=== PATIENT | male | born 1960 | race Caucasian/White ===

== ENCOUNTER 2021-03-03 15:05 | Emergency (ER) | payer MEDICARE, OTHER, SELFPAY ==
--- NOTE | 2021-03-03 | ECG_ITS ---
Test Reason : CHEST PAIN Blood Pressure : / mmHG Vent. Rate : 109 BPM Atrial Rate : 109 BPM P-R Int : 156 ms QRS Dur : 106 ms QT Int : 340 ms P-R-T Axes : 051 -67 058 degrees QTc Int : 457 ms Sinus tachycardia Left anterior fascicular block Anteroseptal infarct (cited on or before 02-AUG-2014) Inferolateral injury pattern ACUTE CT / STEMI Abnormal ECG When compared with ECG of 02-AUG-2014 20:24, Questionable change in initial forces of Septal leads ST elevation now present in Anterolateral leads Referred By: Generic ED Physician Electronically Signed By:ANH JACKSON
[2021-03-03 15:22] VITALS: BP 132/82; PULSE 111; RESP 13; TEMP 37.1; O2SAT 96; BMI 29.7
--- NOTE | 2021-03-03 15:25 | ED.CHESTPAIN ---
HPI - Chest Pain General Stated Complaint: cp Time Seen by Provider: 03/03/21 15:20 Source: patient Mode of arrival: ambulatory Limitations: no limitations History of Present Illness HPI narrative: patient is not vaccinated MD complaint: chest pain Onset (ago): day(s) (yesterday afternoon) Timing of current episode: constant Prior episodes: No Onset: during rest Pain location: left chest Pain radiation: left arm and neck Severity: severe Quality: other (pressure) Relieving factors: nothing Exacerbating factors: exertion Associated symptoms: nausea and dyspnea Treatment prior to arrival: none Related Data Previous Rx's Medication Instructions Recorded atorvastatin 40 mg tablet 40 mg PO BEDTIME 90 Days #90 tab 07/26/20 lisinopril 20 mg tablet 20 mg PO DAILY #30 tab 01/26/21 montelukast 10 mg tablet 10 mg PO DAILY #30 tab 01/26/21 metformin 1,000 mg tablet 1,000 mg PO DAILY 90 Days #90 tab 01/29/21 metoprolol succinate 25 mg 25 mg PO DAILY 90 Days #90 tab 01/29/21 tablet,extended release 24 hr omeprazole 20 mg capsule,delayed 20 mg PO DAILY 90 Days #90 cap 01/29/21 release gabapentin 100 mg capsule 100 mg PO TID #90 cap 02/19/21 Allergies Allergy/AdvReac Type Severity Reaction Status Date / Time No Known Allergies Allergy Unverified 03/14/20 15:20 Review of Systems Review of Systems: Constitutional : No Weight loss, No Fever, No Chills ENT/Mouth : No sore throat, No Rhinorrhea Eyes: No Eye Pain, No Swelling Cardiovascular : pos Chest Pain, pos SOB, no Dyspnea on Exertion, No Orthopnea, No Edema, No Palpitations Respiratory : No Cough, No Sputum Gastrointestinal : pos Nausea, No Vomiting, No Diarrhea, No abdominal Pain, No Hematochezia, No Melena Genitourinary : No Dysuria, No Urinary Frequency Musculoskeletal : No joint pain, No Myalgias, No Joint Swelling Skin : No Skin Lesions, No rash Neuro : No Weakness, No Numbness, No Dizziness, No Headache Psych : No Anxiety/Panic, No Depression Heme/Lymph: No Bruising, No Lymphadenopathy Endocrine : No Polyuria, No Polydipsia All other systems reviewed and are negative PMFSH Past Medical History Attestation statement: The following information was validated with the patient. Medical History Diabetes Essential (primary) hypertension HLD (hyperlipidemia) Unspecified asthma, uncomplicated Social History Social History (Updated 03/03/21 @ 15:34 by Marcelina Shook DO) Patient Tobacco Use Status: Former Tobacco user Advance Directives: No Advance Directives Information Provided: No Physical Exam Vital Signs: Appearance: Alert. Oriented X3. Anxious mild acute distress in pain. Eyes: Pupils equal, round and reactive to light. ENT: Pharynx normal. Neck: Normal inspection. Neck supple. CVS: Normal heart rate and rhythm. Pulses normal. Respiratory: No respiratory distress. Breath sounds normal. Abdomen: Soft and non-tender. Equal femoral pulses Skin: Skin warm and dry. pale skin color. Normal skin turgor. Extremities: No lower extremity edema. No calf ttp Neuro: Oriented X 3. No motor deficit. No sensory deficit. Course Course Course Narrative: call to [facility] cardiology 323pm call back from Dr. Yarbrough - transfer to ED then cathode builder MDM - Chest Pain MDM Narrative Medical decision making narrative: 60 yo male with HTN, HLD, DM no prior RI or cath in the past worsening chest pain since yesterday anterolateral STEMI on EKG - statins, aspirin, heparin bolus, brilinta, stat page to [facility] PRN pain medications ECG Data ECG #1: Attestation: I personally reviewed and interpreted this ECG as follows: ECG interpretation date: 03/03/21 ECG interpretation time: 15:29 Ischemic changes: acute STEMI Interpretation: Rate: 109 Rhythm: sinus tachycardia [place]: left Normal P waves. Normal MACK. Normal QRS complex. ST T wave : OUMOU anterior and lateral leads, inverted aVR qTC: normal prior studies: not reviewed The study has been interpreted contemporaneously by me. . Critical Care Time Critical Care Time Critical Care Time: Yes Total Critical Care Time: 15 Attestation: stat stemi transfer, medical consult I attest to this time spent taking care of the patient Discharge Plan Discharge Clinical Impression: Chest pain, ST elevation (STEMI) myocardial infarction Patient Disposition: Xfer Acute Care Hospital Transfer Details: [facility] Prescriptions: No Action atorvastatin 40 mg tablet 40 mg PO BEDTIME 90 Days Qty: 90 RF: 2 montelukast 10 mg tablet 10 mg PO DAILY Qty: 30 RF: 2 lisinopril 20 mg tablet 20 mg PO DAILY Qty: 30 RF: 2 omeprazole 20 mg capsule,delayed release(DR/EC) 20 mg PO DAILY 90 Days Qty: 90 RF: 1 metformin 1,000 mg tablet 1,000 mg PO DAILY 90 Days Qty: 90 RF: 1 metoprolol succinate 25 mg tablet extended release 24 hr 25 mg PO DAILY 90 Days Qty: 90 RF: 1 gabapentin 100 mg capsule 100 mg PO TID Qty: 90 RF: 2
[2021-03-03] MEDS: Heparin Sodium,Porcine 5,000 UNIT/ML VIAL 4000 UNIT IVPUSH (15:27)
[2021-03-03] MEDS: Ticagrelor 90 MG TABLET 180 MG PO (15:27)
[2021-03-03] MEDS: Atorvastatin Calcium 80 MG TABLET PO (15:27)
[2021-03-03] MEDS: Aspirin 81 MG TAB.CHEW 324 MG PO (15:28)
[2021-03-03] MEDS: ondansetron HCL 4 MG/2 ML VIAL IVPUSH (15:32)
[2021-03-03] MEDS: fentaNYL citrate/PF 100 MCG/2 ML VIAL 50 MCG IVPUSH (15:33)
[2021-03-03 15:34] VITALS: BMI 25.9
[2021-03-03 15:35] LABS: MANUAL DIFF FLAG NO
[2021-03-03 15:36] LABS: Basophils Percent Auto 0.2 % (0-2); Eosinophils Absolute Auto 0.1 X10*3/uL (0.0-0.4); Eosinophils Percent Auto 0.4 % (0-4); Hematocrit 36.3 % (42-52); Hemoglobin 12.5 g/dl (14.0-18.0); Imm Gran Abs Auto 0.04 X10*3/uL (0.00-0.03); Imm Gran Pct Auto 0.3 % (0.0-0.4); Lymphocytes Absolute Auto 1.7 X10*3/uL (1.2-4.9); Lymphocytes Percent Auto 14.1 % (20-40); Mean Corpuscular HGB Conc 34.4 g/dl (31.0-36.0); Mean Corpuscular Volume 90.1 fL (80-98); Mean Platelet Volume 9.5 fL (9.4-12.4); Monocytes Absolute Auto 1.2 X10*3/uL (0.1-1.2); Monocytes Percent Auto 9.9 % (2-11); Neutrophils Absolute Auto 9.2 X10*3/uL (2.0-8.3); Neutrophils Percent Auto 75.1 % (45-73); Platelet Count 266 X10*3/uL (160-400); Red Blood Count 4.03 X10*6/uL (4.60-5.80); Red Cell Distribution Width 12.9 % (11.0-16.0); White Blood Count 12.2 X10*3/uL (4.8-10.8)
[2021-03-03 15:41] LABS: INTERNATIONAL NORM RATIO 1.1 (0.9-1.1); Prothrombin Time 12.5 SEC (9.9-13.0)
[2021-03-03 15:44] LABS: Partial Thromboplastin Time 34.6 SEC (24.1-38.0)
[2021-03-03 15:51] LABS: Alanine Aminotransferase 23 U/L (0-40); Albumin Level 3.9 g/dL (3.5-5.0); Alkaline Phosphatase 78 U/L (39-117); Anion Gap 14 (12-20); Aspartate Amino Transferase 44 U/L (5-37); Bilirubin Direct 0.3 mg/dL (0.0-0.5); Bilirubin Total 0.9 mg/dL (0.0-1.0); Blood Urea Nitrogen 11 mg/dL (9-16); Calcium 9.3 mg/dL (8.4-10.2); Carbon Dioxide 25 mmol/L (22-29); Chloride 101 mmol/L (96-108); Creatinine Clr Calc Pharmacy 62.8; Estimated Glomerular Filt Rate > 60; Glucose Random 289 mg/dL (60-115); Magnesium 1.7 mg/dL (1.6-2.6); Potassium 4.4 mmol/L (3.3-5.1); Sodium 136 mmol/L (135-145); Total Protein 6.7 g/dL (6.5-8.0)
[2021-03-03 15:51] LABS: Glucose, Whole Blood 271 mg/dL (60-115)
[2021-03-03 15:55] LABS: COVID-19 Test Negative (Negative)
--- NOTE | 2021-03-03 15:58 | PC.NURSE ---
CALLED [facility] TO GIVE NURSE TO NURSE REPORT ON PATIENT. AFTER HOLDING FOR 4 MINUTES CERTIFIED PHLEBOTOMY TECHNICIAN ASKED FOR THIS NURSES CONTACT NUMBER TO HAVE A NURSE CALL BACK. AWAITING CALLBACK AT THIS TIME.
== END 2021-03-03 16:00 | disposition short-term general hospital (02) ==
PROVIDERS: Emergency Provider Emergency Medicine; PCP Nurse Practitioner Family
DX: I21.09 ST elevation (STEMI) myocardial infarction involving other coronary artery of anterior wall (principal); R07.9 Chest pain, unspecified; R11.0 Nausea; R06.02 Shortness of breath; Z20.822 Contact with and (suspected) exposure to COVID-19; I10 Essential (primary) hypertension; E11.9 Type 2 diabetes mellitus without complications; E78.5 Hyperlipidemia, unspecified; Z79.02 Long term (current) use of antithrombotics/antiplatelets; Z79.899 Other long term (current) drug therapy; Z87.891 Personal history of nicotine dependence
CPT/HCPCS: 36415; 80048; 80076; 82947; 83735; 84484; 85025; 85610; 85730; 87635; 93005; 96374; 96375; 99285; J2405; J3010

== ENCOUNTER 2021-05-13 09:21 | Emergency (ER) | payer MEDICARE, OTHER, SELFPAY ==
--- NOTE | 2021-05-13 | ECG_ITS ---
Test Reason : cp Blood Pressure : / mmHG Vent. Rate : 109 BPM Atrial Rate : 109 BPM P-R Int : 166 ms QRS Dur : 110 ms QT Int : 344 ms P-R-T Axes : 047 -70 072 degrees QTc Int : 463 ms Sinus tachycardia Left anterior fascicular block Intra-ventricular conduction delay Minimal voltage criteria for LVH, may be normal variant ( [place] product ) Anteroseptal infarct (cited on or before 02-AUG-2014) ST elevation in Anterior leads Poor R wave progression Abnormal ECG When compared with ECG of 03-MAR-2021 15:13, ST less elevated in Anterior leads Referred By: Generic ED Physician Electronically Signed By:TSERING TOBIN MD
--- NOTE | ~2021-05-13 | XR_ITS ---
EXAMINATION: XR CHEST CLINICAL INFORMATION: Chest pain COMPARISON: Previous chest x-ray April 2012 TECHNIQUE: Frontal view of the chest was obtained. FINDINGS: No significant abnormality is noted involving the heart, lungs, mediastinum, bony thorax or soft tissues. XR/XR chest 1V IMPRESSION: Unremarkable examination.
[2021-05-13 10:05] VITALS: BP 139/95; PULSE 109; RESP 20; TEMP 36.1; O2SAT 97; BMI 29.0
[2021-05-13 10:44] LABS: MANUAL DIFF FLAG NO
[2021-05-13 10:45] LABS: Basophils Absolute Auto 0.1 X10*3/uL (0.0-0.2); Basophils Percent Auto 0.5 % (0-2); Eosinophils Absolute Auto 0.1 X10*3/uL (0.0-0.4); Eosinophils Percent Auto 1.4 % (0-4); Hematocrit 46.4 % (42.0-52.0); Hemoglobin 15.5 g/dl (14.0-18.0); Imm Gran Abs Auto 0.03 X10*3/uL (0.00-0.03); Imm Gran Pct Auto 0.3 % (0.0-0.4); Lymphocytes Absolute Auto 2.7 X10*3/uL (1.2-4.9); Lymphocytes Percent Auto 29.6 % (20-40); Mean Corpuscular HGB Conc 33.4 g/dl (31.0-36.0); Mean Corpuscular Hemoglobin 30.8 pg (27.0-33.0); Mean Corpuscular Volume 92.1 fL (80.0-98.0); Mean Platelet Volume 10.1 fL (9.4-12.4); Monocytes Absolute Auto 0.7 X10*3/uL (0.1-1.2); Monocytes Percent Auto 7.7 % (2-11); Neutrophils Absolute Auto 5.6 x10*3/uL (2.0-8.3); Neutrophils Percent Auto 60.5 % (45-73); Platelet Count 300 X10*3/uL (160-400); Red Blood Count 5.04 X10*6/uL (4.60-5.80); White Blood Count 9.3 X10*3/uL (4.8-10.8)
--- NOTE | 2021-05-13 10:49 | ED_ITS ---
HPI - Chest Pain General Chief Complaint: Chest Pain Stated Complaint: chest pain Time Seen by Provider: 05/13/21 10:01 Source: patient Mode of arrival: ambulatory Limitations: no limitations History of Present Illness HPI narrative: 61-year-old male who presents emergency department for evaluation of chest pain. Patient states that he woke up yesterday at around 10:00 a.m. and had a pounding sensation in his left chest. States the pain did radiate to his left draw and was similar to the pain that he had when he had STEMI on 03/03/2021. Patient was initially seen here and then transferred to [facility] where he states that he had a stent but has no other details about his treatment at [facility]. Patient states that the pain is been constant since onset yesterday at 10:00 a.m.. States the pain waxes and wanes in intensity and is 7/10 at its worse and is currently 7 out 10. He states that he feels off balance and dizzy with the pain. Denies any loss of consciousness. He denies headache. He denied diaphoresis, nausea or vomiting. He states that he does feel short of breath but denied dyspnea on exertion. He has not noticed any pain or swelling in his lower extremities. He states that he has been getting similar chest pain 2 to 3 times a week since having his myocardial infarction. He denied fever, chills,, cough, myalgias, arthralgias. Patient states that he has received the COVID-19 Moderna vaccination x2 shots. 1101: Discharge summary dated 03/07/2021 was obtained from [facility]. Patient was found to have an anterior STEMI, he had SANDRA x2 to the LAD. His course was complicated with pleuritic chest pain after procedure which was felt to be consistent with pericarditis. He was started on high-dose aspirin and colchicine. Echocardiogram showed the patient's LV function was severely reduced with an ejection fraction of 20-25%. There was akinesis of the mid to distal inferior septal, anterior septal and anterior kaminski. The apex appeared mildly dyskinetic. Related Data Home Medications Medication Instructions Recorded Confirmed colchicine 0.6 mg tablet 0.6 mg PO BID 04/01/21 05/13/21 aspirin 325 mg tablet,delayed 650 mg PO TID 04/15/21 05/13/21 release empagliflozin 10 mg tablet 10 mg PO QAM 04/15/21 05/13/21 (Jardiance) insulin lispro 100 unit/mL 14 - 20 unit SUBCUT TID 05/13/21 05/13/21 subcutaneous pen (Humalog KwikPen (U-100) Insulin) Previous Rx's Medication Instructions Recorded metformin 1,000 mg tablet 1,000 mg PO DAILY 90 Days #90 tab 01/29/21 metoprolol succinate 25 mg 25 mg PO DAILY 90 Days #90 tab 01/29/21 tablet,extended release 24 hr gabapentin 100 mg capsule 100 mg PO TID #90 cap 02/19/21 pantoprazole 20 mg tablet,delayed 20 mg PO DAILY 90 Days #90 tab 03/12/21 release nitroglycerin 0.4 mg sublingual 0.4 mg SUBLINGUAL Q5M PRN 30 Days 04/01/21 tablet #30 tab clopidogrel 75 mg tablet 75 mg PO DAILY 90 Days #90 tab 04/09/21 atorvastatin 80 mg tablet 80 mg PO BEDTIME 90 Days #90 tab 04/15/21 insulin glargine 100 unit/mL (3 40 unit (0.4 mL) SUBCUT BID 30 04/15/21 mL) subcutaneous pen (Lantus Days #24 ml Solostar U-100 Insulin) insulin syringe-needle U-100 1 mL #100 ea 04/15/21 31 gauge x 5/16 (BD Insulin Syringe Ultra-Fine) pen needle, diabetic 31 gauge x #100 ea 04/15/21 5/16 (Easy Touch) lisinopril 20 mg tablet 20 mg PO DAILY #30 tab 04/28/21 montelukast 10 mg tablet 10 mg PO DAILY #30 tab 04/28/21 morphine 15 mg immediate release 15 mg PO Q4-6H PRN #10 tab 05/13/21 tablet Allergies Allergy/AdvReac Type Severity Reaction Status Date / Time No Known Allergies Allergy Verified 04/15/21 16:30 Review of Systems Review of Systems: Yes all other systems are reviewed and are negative [facility] Past Medical History [facility] Narrative: Past medical history: Diabetes mellitus, diabetic neuropathy, hyperlipidemia, hypertension, STEMI 03/03/2021. Social history: The patient is a former smoker and quit smoking 2 years prior. He smoked 1 pack of cigarettes per day times 40 years. He denies alcohol use. He denies drug use. Medical History Diabetes Essential (primary) hypertension HLD (hyperlipidemia) STEMI (ST elevation myocardial infarction) Unspecified asthma, uncomplicated Surgical History H/O heart artery stent Social History Social History Alcohol intake: never Patient Tobacco Use Status: Former Tobacco user Use of substances other than those prescribed or required for medical reasons: No Advance Directives: No Physical Exam Vital Signs: Vital Signs: Last Vital Signs Temp 98.0 F 05/13/21 14:00 Pulse 93 05/13/21 14:00 Resp 18 05/13/21 14:00 BP 124/85 05/13/21 14:00 Pulse Ox 97 05/13/21 14:00 Body Mass Index 29.0 Const: General: cooperative and no acute distress Orientation/consciousness: oriented to person and oriented to place Limitations: no limitations HENMT: Head: Yes normal to inspection, Yes normocephalic and Yes atraumatic Ears: external ears normal General nose exam: Normal external nose present Face and sinus: Yes normal facial exam Mouth: Normal oral and palatal mucosa present Throat: Yes posterior oropharynx normal Eyes: General: appearance normal, both eyes and all related structures Pupils: Equal, round and reactive pupils present Neck: Neck: Yes normal visual inspection, Yes no lymphadenopathy, Yes trachea midline and Yes supple Chest: Chest palpation & inspection: normal inspection of the chest and tenderness (Left anterior chest) Resp: Effort & Inspection: normal respiratory effort and able to speak in complete sentences Auscultation: clear to auscultation bilaterally Cardio: Rate: regular rate Rhythm: regular rhythm Heart sounds: S1 normal heart sound present, S2 normal heart sound present and no murmurs GI: Inspection: Yes normal to inspection Palpation (GI): Soft to palpation, nontender and no guarding Auscultation: normal bowel sounds : General: Yes no CVA tenderness Back/Spine/Pelvis: Back: no CVA tenderness Skin: General skin exam: no rashes or lesions noted Neuro: General: oriented to person and oriented to place Cranial nerves: Yes CN's II-XII intact bilaterally and Yes Equal, round and reactive pupils present Cognition (Neuro): normal cognition Motor exam (neuro): 5/5 motor strength present throughout Extrem: General: Yes normal to inspection Psych: Appearance: grossly normal Speech and movement: Normal speech and movement present Affect: normal affect Attitude: cooperative Thought process: Normal thought process present Thought content: Normal thought content present Course Course Course Narrative: 61-year-old male who presents emergency department for evaluation of chest pain which has been constant but waxes and wanes in intensity since 10:00 a.m. yesterday (05/12/2021). The patient had a STEMI on 03/03/2021 and had a stent at [facility]. He states that since his heart attack he has had similar chest pain 2 to 3 times a week but this pain seemed to be more persistent and worse in intensity. vital signs revealed an elevated blood pressure of 139/95 and tachycardia with a heart rate of 109, O2 saturation was 97% on room air. Physical examination did reveal left-sided chest wall tenderness otherwise was unremarkable. Twelve EKG did reveal sinus tachycardia with a rate of 109, inverted T-wave in aVL and ST segment elevation V2 through V5 with Q-waves in V1 and V2,however compared to the patient's 03/03/2021 EKG when he was having myocardial infarction, the ST segment elevations have improved in the Q-waves are present on the previous EKG. At this time I do not think that the patient is having acute STEMI. I ordered a CBC, CMP, troponin, PT/INR, PTT, chest x-ray. Patient's pain is currently 7/10 and he was treated with morphine 4 mg IV and Zofran 4 mg IV. He was also ordered to get normal saline x1 L. 1541: Laboratory evaluation: CBC was normal. Comprehensive metabolic panel: Elevated glucose 282. Elevated potassium 5.6. High sensitivity troponin I 1. Her was 14.6. Three hour repeat high sensitivity troponin I was 17 which was not significantly elevated. Chest x-ray was unremarkable. Repeat 12 lead EKG was unchanged from the 1st EKG Patient was treated with morphine 4 mg IV for total of 3 doses with some improvement of his pain. At this time I do not have a clear etiology for the patient's pain, it is most likely related to his chest wall and I doubt that it secondary to myocardial injury. Patient is being treated for pericarditis with enteric-coated aspirin 650 mg 3 times a day and colchicine 0.6 mg 2 times a day. The patient will be given a limited prescription for morphine 15 mg 1 pill every 4 hours as needed for pain. Patient will need to follow-up with cardiology since he missed his last appointment and his PCP. Patient was given verbal and printed instructions and discharged home. MDM - Chest Pain Lab Data Result diagrams: 05/13/21 10:39 05/13/21 10:39 Labs: Lab Results 05/13/21 05/13/21 05/13/21 Range/Units 10:39 10:39 10:39 WBC 9.3 (4.8-10.8) X10*3/uL RBC 5.04 (4.60-5.80) X10*6/uL Hgb 15.5 (14.0-18.0) g/dl Hct 46.4 (42.0-52.0) % MCV 92.1 (80.0-98.0) fL MCH 30.8 (27.0-33.0) pg MCHC 33.4 (31.0-36.0) g/dl RDW 13.0 (11.0-16.0) % Plt Count 300 (160-400) X10*3/uL MPV 10.1 (9.4-12.4) fL Immature Gran % (Auto) 0.3 (0.0-0.4) % Neut % (Auto) 60.5 (45-73) % Lymph % (Auto) 29.6 (20-40) % [place] % (Auto) 7.7 (2-11) % Eos % (Auto) 1.4 (0-4) % Baso % (Auto) 0.5 (0-2) % Lymph # (Auto) 2.7 (1.2-4.9) X10*3/uL [place] # (Auto) 0.7 (0.1-1.2) X10*3/uL Eos # (Auto) 0.1 (0.0-0.4) X10*3/uL Baso # (Auto) 0.1 (0.0-0.2) X10*3/uL Abs Immat Gran (auto) 0.03 (0.00-0.03) X10*3/uL Absolute Neuts (auto) 5.6 (2.0-8.3) x10*3/uL Absolute Nucleated RBC 0.000 (0.0-0.012) X10*3/uL Nucleated RBC % (auto) 0.0 (0.0-0.2) /100WBC APTT (24.1-38.0) SEC Sodium 135 (135-145) mmol/L Potassium 5.6 H D (3.3-5.1) mmol/L Chloride 100 (96-108) mmol/L Carbon Dioxide 25 (22-29) mmol/L Anion Gap 16 (12-20) BUN 19 H D (9-16) mg/dL Creatinine 1.29 (0.5-1.4) mg/dL Estim Creat Clear Calc 60.7 Estimated GFR 56 Random Glucose 282 H (60-115) mg/dL Calcium 9.5 (8.4-10.2) mg/dL Total Bilirubin 0.4 (0.0-1.0) mg/dL AST 38 H (5-37) U/L ALT 60 H (0-40) U/L Alkaline Phosphatase 88 (39-117) U/L Troponin I High Sens (<3.5-35.0) ng/L Total Protein 7.9 (6.5-8.0) g/dL Albumin 4.6 (3.5-5.0) g/dL Lipase 138 H Cancelled (8-78) U/L COVID-19 (ALEAJNDRO) (Negative) COVID-19 Clin Com 05/13/21 05/13/21 05/13/21 Range/Units 10:45 10:50 10:50 WBC (4.8-10.8) X10*3/uL RBC (4.60-5.80) X10*6/uL Hgb (14.0-18.0) g/dl Hct (42.0-52.0) % MCV (80.0-98.0) fL MCH (27.0-33.0) pg MCHC (31.0-36.0) g/dl RDW (11.0-16.0) % Plt Count (160-400) X10*3/uL MPV (9.4-12.4) fL Immature Gran % (Auto) (0.0-0.4) % Neut % (Auto) (45-73) % Lymph % (Auto) (20-40) % [place] % (Auto) (2-11) % Eos % (Auto) (0-4) % Baso % (Auto) (0-2) % Lymph # (Auto) (1.2-4.9) X10*3/uL [place] # (Auto) (0.1-1.2) X10*3/uL Eos # (Auto) (0.0-0.4) X10*3/uL Baso # (Auto) (0.0-0.2) X10*3/uL Abs Immat Gran (auto) (0.00-0.03) X10*3/uL Absolute Neuts (auto) (2.0-8.3) x10*3/uL Absolute Nucleated RBC (0.0-0.012) X10*3/uL Nucleated RBC % (auto) (0.0-0.2) /100WBC APTT 31.5 (24.1-38.0) SEC Sodium (135-145) mmol/L Potassium (3.3-5.1) mmol/L Chloride (96-108) mmol/L Carbon Dioxide (22-29) mmol/L Anion Gap (12-20) BUN (9-16) mg/dL Creatinine (0.5-1.4) mg/dL Estim Creat Clear Calc Estimated GFR Random Glucose (60-115) mg/dL Calcium (8.4-10.2) mg/dL Total Bilirubin (0.0-1.0) mg/dL AST (5-37) U/L ALT (0-40) U/L Alkaline Phosphatase (39-117) U/L Troponin I High Sens 14.6 D (<3.5-35.0) ng/L Total Protein (6.5-8.0) g/dL Albumin (3.5-5.0) g/dL Lipase (8-78) U/L COVID-19 (ALEJANDRO) Negative (Negative) COVID-19 Clin Com See Note 05/13/21 Range/Units 14:30 WBC (4.8-10.8) X10*3/uL RBC (4.60-5.80) X10*6/uL Hgb (14.0-18.0) g/dl Hct (42.0-52.0) % MCV (80.0-98.0) fL MCH (27.0-33.0) pg MCHC (31.0-36.0) g/dl RDW (11.0-16.0) % Plt Count (160-400) X10*3/uL MPV (9.4-12.4) fL Immature Gran % (Auto) (0.0-0.4) % Neut % (Auto) (45-73) % Lymph % (Auto) (20-40) % [place] % (Auto) (2-11) % Eos % (Auto) (0-4) % Baso % (Auto) (0-2) % Lymph # (Auto) (1.2-4.9) X10*3/uL [place] # (Auto) (0.1-1.2) X10*3/uL Eos # (Auto) (0.0-0.4) X10*3/uL Baso # (Auto) (0.0-0.2) X10*3/uL Abs Immat Gran (auto) (0.00-0.03) X10*3/uL Absolute Neuts (auto) (2.0-8.3) x10*3/uL Absolute Nucleated RBC (0.0-0.012) X10*3/uL Nucleated RBC % (auto) (0.0-0.2) /100WBC APTT (24.1-38.0) SEC Sodium (135-145) mmol/L Potassium (3.3-5.1) mmol/L Chloride (96-108) mmol/L Carbon Dioxide (22-29) mmol/L Anion Gap (12-20) BUN (9-16) mg/dL Creatinine (0.5-1.4) mg/dL Estim Creat Clear Calc Estimated GFR Random Glucose (60-115) mg/dL Calcium (8.4-10.2) mg/dL Total Bilirubin (0.0-1.0) mg/dL AST (5-37) U/L ALT (0-40) U/L Alkaline Phosphatase (39-117) U/L Troponin I High Sens 17.0 (<3.5-35.0) ng/L Total Protein (6.5-8.0) g/dL Albumin (3.5-5.0) g/dL Lipase (8-78) U/L COVID-19 (ALEJANDRO) (Negative) COVID-19 Clin Com ECG Data ECG #1: Attestation: I personally reviewed and interpreted this ECG as follows: Interpretation: 0958: Sinus tachycardia with a rate of 109, normal IN interval, prolonged QRS of 110 milliseconds, normal QTC of 463 milliseconds, inverted T-wave in aVL, Q-waves in V1 and V2, ST segment elevation V1, V3, V4 and V5 compared to EKG dated 03/03/2021, Q-waves and inverted T-wave old, ST segment was more pronounced on the previous EKG consistent with a myocardial infarction today's ST segments are still elevated improved. Discharge Plan Discharge Clinical Impression: Chest pain Patient Disposition: Home, Self-Care Instructions: Chest Wall Pain (ED) Additional Instructions: Your laboratory evaluation was unremarkable did not reveal a clear cause for your chest pain The marker for heart attack/heart damage is called high sensitivity troponin I. Both of your values were less than 30 (initially 14 and repeat 3 hour value was 17). This is reassuring and suggests that your chest pain is not due to a heart attack or heart damage. Your pain is most likely caused by chest wall pain. Continue taking your medications as prescribed. Take Tylenol (acetaminophen) 500 mg pills, 2 pills every 4-6 hours as needed for pain. For pain not relieved by Tylenol take morphine 15 mg pills, 1 pill every 4 to 6 hours as needed for pain. Do not drive or work while taking this medication since they can cause sleepiness. Morphine is a narcotic medication that can be addicting. If you are concerned about addiction you can ask the pharmacist for less pills or do not get this prescription filled. Follow-up with your doctor in 2 days. Please return to the emergency department if your symptoms get worse or if you develop any symptoms that are concerning to you. You should also reschedule your cardiology appointment with our cardiology catie up. The on-call airport ramp attendant today is Dr. Brooks. Call his office to reschedule your appointment. Prescriptions: New morphine 15 mg tablet 15 mg PO Q4-6H PRN (Reason: pain) Qty: 10 RF: 0 No Action metformin 1,000 mg tablet 1,000 mg PO DAILY 90 Days Qty: 90 RF: 1 metoprolol succinate 25 mg tablet extended release 24 hr 25 mg PO DAILY 90 Days Qty: 90 RF: 1 gabapentin 100 mg capsule 100 mg PO TID Qty: 90 RF: 2 pantoprazole 20 mg tablet,delayed release (DR/EC) 20 mg PO DAILY 90 Days Qty: 90 RF: 1 colchicine 0.6 mg tablet 0.6 mg PO BID RF: 0 nitroglycerin 0.4 mg tablet, sublingual 0.4 mg sublingual Q5M PRN (Reason: chest pain) 30 Days Qty: 30 RF: 0 clopidogrel 75 mg tablet 75 mg PO DAILY 90 Days Qty: 90 RF: 0 lisinopril 20 mg tablet 20 mg PO DAILY Qty: 30 RF: 2 montelukast 10 mg tablet 10 mg PO DAILY Qty: 30 RF: 2 insulin lispro [Humalog KwikPen Insulin] 100 unit/mL insulin pen 14 - 20 unit subcut TID RF: 0 Jardiance 10 mg tablet 10 mg PO QAM RF: 0 aspirin 325 mg tablet,delayed release (DR/EC) 650 mg PO TID RF: 0 Lantus Solostar U-100 Insulin 100 unit/mL (3 mL) insulin pen 40 unit subcut BID 30 Days Qty: 24 RF: 0 (DME) insulin syringe-needle U-100 [BD Insulin Syringe Ultra-Fine] 1 mL 31 gauge x 5/16 syringe See Rx Instructions .Route Qty: 100 RF: 0 (DME) pen needle, diabetic [Easy Touch] 31 gauge x 5/16 needle See Rx Instructions .Route Qty: 100 RF: 0 atorvastatin 80 mg tablet 80 mg PO BEDTIME 90 Days Qty: 90 RF: 2 Referrals: Henrique Brooks MD [Physician] - 5 days (Call the office tomorrow to reschedule your cardiology appointment)
[2021-05-13] MEDS: ondansetron HCL 4 MG/2 ML VIAL IVPUSH (10:51)
[2021-05-13] MEDS: Morphine Sulfate 4 MG/ML CARTRIDGE IVPUSH ×3 (10:51→16:00)
[2021-05-13] MEDS: 0.9 % Sodium Chloride 1,000 ML 999 ML IV (10:56)
[2021-05-13 11:07] LABS: Alanine Aminotransferase 60 U/L (0-40); Albumin Level 4.6 g/dL (3.5-5.0); Alkaline Phosphatase 88 U/L (39-117); Anion Gap 16 (12-20); Aspartate Amino Transferase 38 U/L (5-37); Bilirubin Total 0.4 mg/dL (0.0-1.0); Blood Urea Nitrogen 19 mg/dL (9-16); Calcium 9.5 mg/dL (8.4-10.2); Carbon Dioxide 25 mmol/L (22-29); Chloride 100 mmol/L (96-108); Creatinine Clr Calc Pharmacy 60.7; Estimated Glomerular Filt Rate 56; Glucose Random 282 mg/dL (60-115); Lipase 138 U/L (8-78); Potassium 5.6 mmol/L (3.3-5.1); Sodium 135 mmol/L (135-145); Total Protein 7.9 g/dL (6.5-8.0)
[2021-05-13 11:09] LABS: Partial Thromboplastin Time 31.5 SEC (24.1-38.0)
[2021-05-13 11:18] LABS: COVID-19 Test Negative (Negative)
[2021-05-13 11:29] LABS: Troponin-I High Sensitivity 14.6 ng/L (<3.5-35.0)
[2021-05-13 12:00] VITALS: BP 122/85; PULSE 93; RESP 19; TEMP 36.9; O2SAT 96
--- NOTE | 2021-05-13 12:16 | ECG_ITS ---
Test Reason : REPEAT Blood Pressure : / mmHG Vent. Rate : 094 BPM Atrial Rate : 094 BPM P-R Int : 164 ms QRS Dur : 116 ms QT Int : 378 ms P-R-T Axes : 051 -68 066 degrees QTc Int : 472 ms Normal sinus rhythm Intra-ventricular conduction delay Left anterior fascicular block Minimal voltage criteria for LVH, may be normal variant ( [place] product ) Anteroseptal infarct (cited on or before 02-AUG-2014) ST elevation in Anterior leads Abnormal ECG When compared with ECG of 13-MAY-2021 09:58, No significant change was found Referred By: Jimi Wesley Electronically Signed By:TSERING TOBIN MD
[2021-05-13] MEDS: Ketorolac Tromethamine 15 MG/ML VIAL IVPUSH (12:32)
--- NOTE | 2021-05-13 12:35 | PC.NURSE ---
patient a&ox3, c/o 02/04 chest pain, environmental scientist intact, vss, pt ivf continue to run slowly as pt bends arm, pt medicated for pain, will continue to monitor.
[2021-05-13 14:00] VITALS: BP 124/85; PULSE 93; RESP 18; TEMP 36.7; O2SAT 97
--- NOTE | 2021-05-13 14:00 | PC.NURSE ---
patient a&ox3, youth nutritional monitor nsr 90s, vss, will continue to monitor.
--- NOTE | 2021-05-13 14:06 | PHA.MEDREC ---
Pharmacy Consult ? Medication Reconciliation Pharmacy has completed the medication reconciliation. There are no remarkable issues for provider's attention. Patient had a list of medications. Reports he is taking them all even the ASA 640 mg TID. Also reports he takes Lantus BID Radha Thomas, PharmD
[2021-05-13 16:00] VITALS: BP 128/78; PULSE 91; RESP 17; TEMP 36.7; O2SAT 96
--- NOTE | 2021-05-13 16:03 | PC.NURSE ---
patient a&ox3, vss, pt c/o chest pain, medicated per order, security monitor nsr, will continue to monitor.
== END 2021-05-13 16:23 | disposition home or self-care (01) ==
PROVIDERS: Emergency Provider Emergency Medicine Emergency Medical Services; PCP Nurse Practitioner Family
DX: R07.9 Chest pain, unspecified (principal); Z87.891 Personal history of nicotine dependence; Z20.822 Contact with and (suspected) exposure to COVID-19; Z79.82 Long term (current) use of aspirin; Z79.899 Other long term (current) drug therapy; Z79.4 Long term (current) use of insulin
CPT/HCPCS: 36415; 71045; 80053; 83690; 84484; 85025; 85730; 87635; 93005; 96361; 96374; 96375; 96376; 99285; J1885; J2270; J2405

== ENCOUNTER 2021-07-31 10:01 | Inpatient (IN) | payer MEDICARE, OTHER, SELFPAY ==
--- NOTE | ~2021-07-31 | XR_ITS ---
EXAMINATION: 1. CHEST X-RAY 2. RADIOGRAPHS ABDOMEN CLINICAL INFORMATION: Perforation COMPARISON: Chest x-ray 05/13/[address] abdomen pelvis 08/02/2014 TECHNIQUE: Frontal view of the chest and abdomen were obtained. FINDINGS: Cardiac silhouette is normal in size. The lungs are well aerated. There is no lobar consolidation. No pleural effusion or pneumothorax. No dilated air-filled loops of small bowel to suggest an obstructive process. Mild to moderate colonic stool burden. No gross free intra-abdominal air identified on these supine views of the abdomen. Surgical clips in the right upper quadrant are consistent with prior cholecystectomy. Mild degenerative changes of the thoracolumbar spine. Vascular calcifications noted. XR/XR chest 1V IMPRESSION: -Well aerated lungs without lobar consolidation. -No gross free intra-abdominal air identified on these supine views of the abdomen.
--- NOTE | ~2021-07-31 | CT_ITS ---
EXAMINATION: CT ABDOMEN AND PELVIS WITH CONTRAST CLINICAL INFORMATION: Severe abdominal pain. Question perforation. COMPARISON: August 02, 2014 TECHNIQUE: Multidetector volumetric images were obtained from the superior aspect of the liver through the pubic symphysis following administration 85 mL of Omnipaque 350 intravenous contrast. Sagittal and coronal reformatted images were obtained on the technologist's workstation. Oral contrast: No This CT examination was performed using dose optimization techniques as appropriate, variously including the following: *Automated exposure control *Adjustment of mA and/or kV according to patient size (this includes techniques or standardized protocols for targeted exams where dose is matched to indication/reason for exam; i.e. extremities or head) *Use of iterative reconstruction technique DLP: 523 mGy-cm FINDINGS: LUNG BASES: The visualized lung bases are unremarkable. Heart upper limits of normal size. No pleural or pericardial effusion. Coronary artery calcification is seen. There is mild bibasilar dependent atelectasis. LIVER, GALLBLADDER, AND BILIARY TREE: The liver is normal in size, shape, and attenuation. No focal hepatic lesion or biliary ductal dilatation is present. Status post cholecystectomy. PANCREAS: Unremarkable. SPLEEN: Unremarkable. ADRENAL GLANDS: Unremarkable. KIDNEYS AND URETERS: The kidneys are normal in size, shape, and attenuation. No hydronephrosis, hydroureter, or calculi seen. No perinephric stranding. BLADDER: Unremarkable. GASTROINTESTINAL TRACT: No dilated loops of large or small bowel are seen. No free air or free fluid is noted. There is mild diverticulosis of the sigmoid colon without evidence of acute diverticulitis. No pericolonic inflammatory changes seen. No wall thickening is noted. The appendix is visualized and appears unremarkable. ABDOMINAL WALL: No significant hernia is appreciated. LYMPH NODES: No lymphadenopathy appreciated. VASCULAR: Portal vein is patent. No abdominal aortic aneurysm is seen. There is mild aortoiliac calcified plaque. PELVIC VISCERA: Prostate gland is enlarged. OSSEOUS STRUCTURES: No acute destructive bony lesions identified. Multilevel degenerative disc disease is seen. CT/CT abdomen pelvis w con IMPRESSION: No evidence of ileus or obstruction. No free air. No evidence of obstructive uropathy. No evidence of acute appendicitis or acute diverticulitis. Fleischner guidelines were followed.
--- NOTE | ~2021-07-31 | XR_ITS ---
EXAMINATION: 1. CHEST X-RAY 2. RADIOGRAPHS ABDOMEN CLINICAL INFORMATION: Perforation COMPARISON: Chest x-ray 05/13/[address] abdomen pelvis 08/02/2014 TECHNIQUE: Frontal view of the chest and abdomen were obtained. FINDINGS: Cardiac silhouette is normal in size. The lungs are well aerated. There is no lobar consolidation. No pleural effusion or pneumothorax. No dilated air-filled loops of small bowel to suggest an obstructive process. Mild to moderate colonic stool burden. No gross free intra-abdominal air identified on these supine views of the abdomen. Surgical clips in the right upper quadrant are consistent with prior cholecystectomy. Mild degenerative changes of the thoracolumbar spine. Vascular calcifications noted. XR/XR KUB IMPRESSION: -Well aerated lungs without lobar consolidation. -No gross free intra-abdominal air identified on these supine views of the abdomen.
--- NOTE | ~2021-07-31 | CT_ITS ---
EXAMINATION: CT ANGIOGRAM OF THE CHEST WITH AND WITHOUT CONTRAST (CT PULMONARY ANGIOGRAM FOR PE) CLINICAL INFORMATION: Vomiting blood. COMPARISON: Chest x-ray of 07/31/2021, 05/13/2021. TECHNIQUE: Prior to contrast administration, noncontrast localization images were obtained. Subsequently, multidetector volumetric imaging was performed from the thoracic inlet to below the diaphragms following the administration of 85 mL Omnipaque 350 intravenous contrast. No contrast reaction reported Sagittal, coronal, and MIP oblique sagittal reformatted images were obtained on the CT workstation, uploaded to PACS, and reviewed. This CT examination was performed using dose optimization techniques as appropriate, variously including the following: Automated exposure control. Adjustment of mA and/or kV according to patient size (this includes techniques or standardized protocols for targeted exams where dose is matched to indication/reason for exam; i.e. extremities or head). Use of iterative reconstruction technique Total exam dose-length product 224 mGy-cm. FINDINGS: QUALITY OF STUDY/CONTRAST BOLUS: Enhancement of the pulmonary arterial tree is satisfactory. Multiple respiratory motion artifacts somewhat limit evaluation. PULMONARY ARTERIES: No central or segmental pulmonary emboli. THORACIC AORTA: No aneurysm or dissection. LUNG: Multiple respiratory motion artifacts somewhat limit evaluation. No focal nodule or mass is appreciated. Mild dependent changes in the lungs. PLEURA: No pleural effusion or pneumothorax. MEDIASTINUM: Normal heart size. No pericardial effusion. No hilar or mediastinal lymphadenopathy. No evidence of septal bowing or right heart strain. No evidence of pneumomediastinum or mediastinal fluid collection. Probable mild thickening of the wall of the distal esophagus. Moderate to extensive calcifications of the left anterior descending coronary artery. Trachea and central bronchi are well patent. CHEST WALL/AXILLA: No axillary or internal mammary lymphadenopathy. OSSEOUS STRUCTURES: No acute or suspicious osseous abnormality. Mild degenerative changes in the spine. UPPER ABDOMEN: Postsurgical changes of cholecystectomy are noted. No reflux of contrast into the hepatic veins to suggest elevated right heart pressures. CT/CT angio chest PE protocol IMPRESSION: 1. No evidence of pulmonary embolism. 2. No acute intrathoracic process. 3. Probable mild thickening of the wall of the distal most esophagus. No evidence of mediastinal fluid collection or pneumomediastinum. 4. Calcifications of left anterior descending coronary artery. VTE: Negative.
--- NOTE | 2021-07-31 10:05 | ECG_ITS ---
Test Reason : vomiting blood Blood Pressure : / mmHG Vent. Rate : 110 BPM Atrial Rate : 110 BPM P-R Int : 152 ms QRS Dur : 110 ms QT Int : 358 ms P-R-T Axes : 048 -65 080 degrees QTc Int : 484 ms Sinus tachycardia Left anterior fascicular block Minimal voltage criteria for LVH, may be normal variant ( [place] product ) Septal infarct (cited on or before 02-AUG-2014) Abnormal ECG When compared with ECG of 13-MAY-2021 13:02, No significant change was found Referred By: Generic ED Physician Electronically Signed By:ALEAH ALEXIS
[2021-07-31 10:09] VITALS: BP 149/103; PULSE 107; RESP 22; TEMP 36.6; O2SAT 99; BMI 29.0
[2021-07-31 10:59] LABS: MANUAL DIFF FLAG NO
[2021-07-31 11:04] LABS: Basophils Percent Auto 0.2 % (0-2); Eosinophils Absolute Auto 0.1 X10*3/uL (0.0-0.4); Eosinophils Percent Auto 0.6 % (0-4); Hematocrit 46.7 % (42.0-52.0); Hemoglobin 15.6 g/dl (14.0-18.0); Imm Gran Abs Auto 0.06 X10*3/uL (0.00-0.03); Imm Gran Pct Auto 0.5 % (0.0-0.4); Lymphocytes Absolute Auto 2.2 X10*3/uL (1.2-4.9); Lymphocytes Percent Auto 17.6 % (20-40); Mean Corpuscular HGB Conc 33.4 g/dl (31.0-36.0); Mean Corpuscular Hemoglobin 30.2 pg (27.0-33.0); Mean Corpuscular Volume 90.3 fL (80.0-98.0); Mean Platelet Volume 9.8 fL (9.4-12.4); Monocytes Percent Auto 7.6 % (2-11); Neutrophils Absolute Auto 9.1 x10*3/uL (2.0-8.3); Neutrophils Percent Auto 73.5 % (45-73); Platelet Count 347 X10*3/uL (160-400); Red Blood Count 5.17 X10*6/uL (4.60-5.80); Red Cell Distribution Width 13.6 % (11.0-16.0); White Blood Count 12.4 X10*3/uL (4.8-10.8)
[2021-07-31] MEDS: Sucralfate Oral Suspension 1 GM/10 ML ORAL.SUSP PO (11:11)
[2021-07-31] MEDS: 0.9 % Sodium Chloride 1,000 ML 999 ML IV ×2 (11:12→11:46)
[2021-07-31] MEDS: ondansetron HCL 4 MG/2 ML VIAL IVPUSH (11:12)
[2021-07-31] MEDS: Pantoprazole Sodium 40 MG/10 ML VIAL 80 MG IVPUSH (11:12)
[2021-07-31] MEDS: Morphine Sulfate 4 MG/ML CARTRIDGE IVPUSH (11:12)
[2021-07-31 11:17] LABS: COVID-19 Test Negative (Negative); IDNOW Serial# 55D5AD1C
[2021-07-31 11:20] LABS: Alanine Aminotransferase 25 U/L (0-40); Alkaline Phosphatase 97 U/L (39-117); Anion Gap 17 (12-20); Aspartate Amino Transferase 17 U/L (5-37); Bilirubin Direct 0.3 mg/dL (0.0-0.5); Bilirubin Total 0.9 mg/dL (0.0-1.0); Blood Urea Nitrogen 32 mg/dL (9-16); Calcium 10.6 mg/dL (8.4-10.2); Carbon Dioxide 29 mmol/L (22-29); Chloride 97 mmol/L (96-108); Creatinine Clr Calc Pharmacy 52.2; Estimated Glomerular Filt Rate 47; Glucose Random 248 mg/dL (60-115); Lipase 65 U/L (8-78); Potassium 5.4 mmol/L (3.3-5.1); Sodium 138 mmol/L (135-145); Total Protein 8.7 g/dL (6.5-8.0)
[2021-07-31 11:21] LABS: Troponin-I High Sensitivity 28.5 ng/L (<3.5-35.0)
[2021-07-31 11:22] LABS: OBS Int Ctl Valid YES; OBS1 NEGATIVE (NEGATIVE); Prothrombin Time 11.6 SEC (9.9-13.0)
[2021-07-31 11:25] LABS: Partial Thromboplastin Time 30.5 SEC (24.1-38.0)
[2021-07-31] MEDS: PHENobarb/Hyoscy/Atropine/Scop 10 ML ELIXIR PO (11:45)
[2021-07-31] MEDS: Lidocaine HCl Viscous 2 % 15 ML SOLUTION MUCOUS MEM (11:46)
[2021-07-31 12:00] VITALS: BP 141/91; PULSE 92; RESP 18; O2SAT 98
--- NOTE | 2021-07-31 12:02 | ED_ITS ---
HPI - General Adult General Chief complaint: Nausea/Vomiting/Diarrhea Stated complaint: Chest pain/Vomiting blood Time Seen by Provider: 07/31/21 10:45 Source: patient Mode of arrival: ambulatory Limitations: no limitations History of Present Illness HPI narrative: 60-year-old male with history of diabetes, STEMI, stent placements, GERD presents to the ED for severe abdominal pain and vomiting blood. Patient states over the past 24 hours have had 5 episodes of vomiting blood describes lots, bright red, and at times coffee-ground. Patient denies any history of alcohol abuse. Patient denies any drug use. Patient states no leg pain or calf swelling. Patient states chest pain Related Data Home Medications Medication Instructions Recorded Confirmed colchicine 0.6 mg tablet 0.6 mg PO BID 04/01/21 05/13/21 aspirin 325 mg tablet,delayed 650 mg PO TID 04/15/21 05/13/21 release empagliflozin 10 mg tablet 10 mg PO QAM 04/15/21 05/13/21 (Jardiance) insulin lispro 100 unit/mL 14 - 20 unit SUBCUT TID 05/13/21 05/13/21 subcutaneous pen (Humalog KwikPen (U-100) Insulin) Previous Rx's Medication Instructions Recorded metoprolol succinate 25 mg 25 mg PO DAILY 90 Days #90 tab 01/29/21 tablet,extended release 24 hr pantoprazole 20 mg tablet,delayed 20 mg PO DAILY 90 Days #90 tab 03/12/21 release nitroglycerin 0.4 mg sublingual 0.4 mg SUBLINGUAL Q5M PRN 30 Days 04/01/21 tablet #30 tab clopidogrel 75 mg tablet 75 mg PO DAILY 90 Days #90 tab 04/09/21 atorvastatin 80 mg tablet 80 mg PO BEDTIME 90 Days #90 tab 04/15/21 insulin glargine 100 unit/mL (3 40 unit (0.4 mL) SUBCUT BID 30 04/15/21 mL) subcutaneous pen (Lantus Days #24 ml Solostar U-100 Insulin) insulin syringe-needle U-100 1 mL #100 ea 04/15/21 31 gauge x 5/16 (BD Insulin Syringe Ultra-Fine) pen needle, diabetic 31 gauge x #100 ea 04/15/21 5/16 (Easy Touch) lisinopril 20 mg tablet 20 mg PO DAILY #30 tab 04/28/21 montelukast 10 mg tablet 10 mg PO DAILY #30 tab 04/28/21 morphine 15 mg immediate release 15 mg PO Q4-6H PRN #10 tab 05/13/21 tablet gabapentin 100 mg capsule 100 mg PO TID #90 cap 06/16/21 metformin 1,000 mg tablet 1,000 mg PO DAILY 90 Days #90 tab 07/27/21 Allergies Allergy/AdvReac Type Severity Reaction Status Date / Time No Known Allergies Allergy Verified 04/15/21 16:30 Review of Systems Verdana 4l Review of Systems: Verdana 4d Abdominal pain, chest pain, Verdana 4d vomiting blood. Verdana 4d PMFSH Past Medical History Medical History Diabetes Essential (primary) hypertension HLD (hyperlipidemia) STEMI (ST elevation myocardial infarction) Unspecified asthma, uncomplicated Surgical History H/O heart artery stent Social History Social History Alcohol intake: former Patient Tobacco Use Status: Former Tobacco user Substance Use Type: Former Substance User Advance Directives: No Advance Directives Information Provided: No Physical Exam Verdana 4l Vital Signs: Verdana 4d Verdana 4d Vital Signs: Verdana 4d Verdana 4Bd Last Vital Signs Verdana 4d [facility] New 4d [facility] New 4d Temp 98.7 F 07/31/21 15:58 [facility] New 4d Pulse 97 07/31/21 15:58 [facility] New 4d Resp 15 07/31/21 15:58 BP 147/87 H 07/31/21 15:58 Pulse Ox 99 07/31/21 15:58 BMI result Body Mass Index 29.0 Const: General: acute distress moderate Orientation/consciousness: patient oriented x3 HENMT: Head: Yes normal to inspection, Yes No palpable skull fracture present, Yes normocephalic and Yes atraumatic Eyes: General: appearance normal, both eyes and all related structures Neck: Neck: Yes normal visual inspection, Yes full ROM, Yes no lymphadenopathy, Yes no meningeal signs, Yes trachea midline, Yes supple, No anterior neck swelling and No tender Chest: Chest palpation & inspection: normal inspection of the chest and normal palpation of entire chest wall Resp: Effort & Inspection: normal respiratory effort and able to speak in complete sentences Auscultation: clear to auscultation bilaterally Cardio: Jugular venous distension: no JVD Heart sounds: S1 normal heart sound present and S2 normal heart sound present GI: Other: Rectal exam normal. Negative for any hemorrhoid, black stool, melena, or bright red blood. Inspection: Yes normal to inspection and No abdominal wall ecchymosis Palpation (GI): Soft to palpation, not firm, Tenderness to palpation present (GI) (Severe tenderness on palpation) in the epigastrum, in the LUQ and in the RUQ, no guarding and not rigid Rectal Exam - Male: Yes visual inspection normal and Yes heme negative stool : General: No CVA tenderness and Yes no CVA tenderness Back/Spine/Pelvis: Back: no CVA tenderness, No CVA tenderness and No back tenderness Skin: General skin exam: no rashes or lesions noted and elasticity normal Neuro: General: patient oriented x3, gait normal, no meningeal signs and CN's II-XI intact bilaterally Cranial nerves: Yes CN's II-XII intact bilaterally Extrem: Other: Lower extremities negative for swelling, pitting edema, or calf tenderness General: Yes normal to inspection and Yes full ROM Psych: Appearance: grossly normal, well kempt and not disheveled Course Course Course Narrative: Due to presentation of severe abdominal pain with tachycardia and patient stating 5 episodes of vomiting blood with coffee-ground and blood clots bright red patient is working as a GI bleed. To patient history of GERD was taking perforated ulcer not manic Munoz tear or bored he syndrome. Protonix was ordered, Zofran, and sucrafatet. Labs, EKG, troponin ordered. Reevaluation(s) Reevaluation #1: CBC count is stable. Occult stool negative. Hemoglobin hematocrit normal. Alexa sent patient for imaging of the abdomen to rule out 1st a chest CT scan and chest CT shows no PE. Patient staying blood and chest pain but patient is in a KI. I did recommend given fluids and repeat chemistry since patient is diabetic. Time: 12:29 Reevaluation #2: Creatinine improved. Patient go for imaging of chest and abdomen. Ativan and morphine for continuous severe pain pain. Second troponin did not increase by 50%. Negative Time: 13:29 Reevaluation #3: Patient's repeat hemoglobin hematocrit decreased. CT scan of abdomen pelvis negative for any perforation. Chest CTA negative for PE but does show esophageal wall thickening. Patient no longer tachycardic. Patient case was discussed with cash management officer Dr. Glynn who states due to patient being on aspirin and Plavix with decreased hemoglobin/hematocrit patient should be admitted for EGD in the morning. U tox positive for cocaine. Patient never vomited during ED visit. Time: 19:43 Medical Decision Making MDM Narrative Medical decision making narrative: Abdominal pain. Possible GI bleed. Lab Data Result diagrams: 07/31/21 15:37 07/31/21 12:58 Labs: Lab Results 07/31/21 07/31/21 07/31/21 Range/Units 10:52 10:52 10:52 WBC 12.4 H (4.8-10.8) X10*3/uL RBC 5.17 (4.60-5.80) X10*6/uL Hgb 15.6 (14.0-18.0) g/dl Hct 46.7 (42.0-52.0) % MCV 90.3 (80.0-98.0) fL MCH 30.2 (27.0-33.0) pg MCHC 33.4 (31.0-36.0) g/dl RDW 13.6 (11.0-16.0) % Plt Count 347 (160-400) X10*3/uL MPV 9.8 (9.4-12.4) fL Immature Gran % (Auto) 0.5 H (0.0-0.4) % Neut % (Auto) 73.5 H (45-73) % Lymph % (Auto) 17.6 L (20-40) % Emanuel % (Auto) 7.6 (2-11) % Eos % (Auto) 0.6 (0-4) % Baso % (Auto) 0.2 (0-2) % Lymph # (Auto) 2.2 (1.2-4.9) X10*3/uL Emanuel # (Auto) 1.0 (0.1-1.2) X10*3/uL Eos # (Auto) 0.1 (0.0-0.4) X10*3/uL Baso # (Auto) 0.0 (0.0-0.2) X10*3/uL Abs Immat Gran (auto) 0.06 H (0.00-0.03) X10*3/uL Absolute Neuts (auto) 9.1 H (2.0-8.3) x10*3/uL Absolute Nucleated RBC 0.000 (0.0-0.012) X10*3/uL Nucleated RBC % (auto) 0.0 (0.0-0.2) /100WBC PT (9.9-13.0) SEC INR (0.9-1.1) APTT (24.1-38.0) SEC Sodium 138 (135-145) mmol/L Potassium 5.4 H (3.3-5.1) mmol/L Chloride 97 (96-108) mmol/L Carbon Dioxide 29 (22-29) mmol/L Anion Gap 17 (12-20) BUN 32 H (9-16) mg/dL Creatinine 1.50 H (0.5-1.4) mg/dL Estim Creat Clear Calc 52.2 Estimated GFR 47 Random Glucose 248 H (60-115) mg/dL Calcium 10.6 H D (8.4-10.2) mg/dL Total Bilirubin 0.9 (0.0-1.0) mg/dL Direct Bilirubin 0.3 (0.0-0.5) mg/dL AST 17 D (5-37) U/L ALT 25 (0-40) U/L Alkaline Phosphatase 97 (39-117) U/L Troponin I High Sens (<3.5-35.0) ng/L Total Protein 8.7 H (6.5-8.0) g/dL Albumin 5.0 (3.5-5.0) g/dL Lipase 65 (8-78) U/L Urine Color Urine Appearance Urine pH (5.0-8.0) Ur Specific [place] (1.005-1.025) Urine Protein (NEG-TRACE) MG/DL Urine Glucose (UA) (NEG) MG/DL Urine Ketones (NEG) MG/DL Urine Blood (NEG) Urine Nitrite (NEG) Ur Leukocyte Esterase (NEG) Urine RBC (0) /HPF Urine WBC (0-4) /HPF Ur Squamous Epith Cells /LPF Urine Bacteria /LPF Stool Occult Blood (NEGATIVE) Urine Opiates Screen (Not Detect) Urine Fentanyl Screen (Not Detect) Ur Barbiturates Screen (Not Detect) Ur Phencyclidine Scrn (Not Detect) Ur Amphetamines Screen (Not Detect) U Benzodiazepines Scrn (Not Detect) Urine Cocaine Screen (Not Detect) U Marijuana (THC) Screen (Not Detect) COVID-19 (ALEJANDRO) Negative (Negative) COVID-19 Clin Com See Note Blood Type Antibody Screen 07/31/21 07/31/21 07/31/21 Range/Units 10:52 10:59 10:59 WBC (4.8-10.8) X10*3/uL RBC (4.60-5.80) X10*6/uL Hgb (14.0-18.0) g/dl Hct (42.0-52.0) % MCV (80.0-98.0) fL MCH (27.0-33.0) pg MCHC (31.0-36.0) g/dl RDW (11.0-16.0) % Plt Count (160-400) X10*3/uL MPV (9.4-12.4) fL Immature Gran % (Auto) (0.0-0.4) % Neut % (Auto) (45-73) % Lymph % (Auto) (20-40) % Emanuel % (Auto) (2-11) % Eos % (Auto) (0-4) % Baso % (Auto) (0-2) % Lymph # (Auto) (1.2-4.9) X10*3/uL Emanuel # (Auto) (0.1-1.2) X10*3/uL Eos # (Auto) (0.0-0.4) X10*3/uL Baso # (Auto) (0.0-0.2) X10*3/uL Abs Immat Gran (auto) (0.00-0.03) X10*3/uL Absolute Neuts (auto) (2.0-8.3) x10*3/uL Absolute Nucleated RBC (0.0-0.012) X10*3/uL Nucleated RBC % (auto) (0.0-0.2) /100WBC PT 11.6 (9.9-13.0) SEC INR 1.0 (0.9-1.1) APTT 30.5 (24.1-38.0) SEC Sodium (135-145) mmol/L Potassium (3.3-5.1) mmol/L Chloride (96-108) mmol/L Carbon Dioxide (22-29) mmol/L Anion Gap (12-20) BUN (9-16) mg/dL Creatinine (0.5-1.4) mg/dL Estim Creat Clear Calc Estimated GFR Random Glucose (60-115) mg/dL Calcium (8.4-10.2) mg/dL Total Bilirubin (0.0-1.0) mg/dL Direct Bilirubin (0.0-0.5) mg/dL AST (5-37) U/L ALT (0-40) U/L Alkaline Phosphatase (39-117) U/L Troponin I High Sens 28.5 (<3.5-35.0) ng/L Total Protein (6.5-8.0) g/dL Albumin (3.5-5.0) g/dL Lipase (8-78) U/L Urine Color Urine Appearance Urine pH (5.0-8.0) Ur Specific [place] (1.005-1.025) Urine Protein (NEG-TRACE) MG/DL Urine Glucose (UA) (NEG) MG/DL Urine Ketones (NEG) MG/DL Urine Blood (NEG) Urine Nitrite (NEG) Ur Leukocyte Esterase (NEG) Urine RBC (0) /HPF Urine WBC (0-4) /HPF Ur Squamous Epith Cells /LPF Urine Bacteria /LPF Stool Occult Blood NEGATIVE (NEGATIVE) Urine Opiates Screen (Not Detect) Urine Fentanyl Screen (Not Detect) Ur Barbiturates Screen (Not Detect) Ur Phencyclidine Scrn (Not Detect) Ur Amphetamines Screen (Not Detect) U Benzodiazepines Scrn (Not Detect) Urine Cocaine Screen (Not Detect) U Marijuana (THC) Screen (Not Detect) COVID-19 (ALEJANDRO) (Negative) COVID-19 Clin Com Blood Type Antibody Screen 07/31/21 07/31/21 07/31/21 Range/Units 11:23 12:58 12:58 WBC (4.8-10.8) X10*3/uL RBC (4.60-5.80) X10*6/uL Hgb (14.0-18.0) g/dl Hct (42.0-52.0) % MCV (80.0-98.0) fL MCH (27.0-33.0) pg MCHC (31.0-36.0) g/dl RDW (11.0-16.0) % Plt Count (160-400) X10*3/uL MPV (9.4-12.4) fL Immature Gran % (Auto) (0.0-0.4) % Neut % (Auto) (45-73) % Lymph % (Auto) (20-40) % Emanuel % (Auto) (2-11) % Eos % (Auto) (0-4) % Baso % (Auto) (0-2) % Lymph # (Auto) (1.2-4.9) X10*3/uL Emanuel # (Auto) (0.1-1.2) X10*3/uL Eos # (Auto) (0.0-0.4) X10*3/uL Baso # (Auto) (0.0-0.2) X10*3/uL Abs Immat Gran (auto) (0.00-0.03) X10*3/uL Absolute Neuts (auto) (2.0-8.3) x10*3/uL Absolute Nucleated RBC (0.0-0.012) X10*3/uL Nucleated RBC % (auto) (0.0-0.2) /100WBC PT (9.9-13.0) SEC INR (0.9-1.1) APTT (24.1-38.0) SEC Sodium 138 (135-145) mmol/L Potassium 4.7 (3.3-5.1) mmol/L Chloride 101 (96-108) mmol/L Carbon Dioxide 26 (22-29) mmol/L Anion Gap 16 (12-20) BUN 30 H (9-16) mg/dL Creatinine 1.25 (0.5-1.4) mg/dL Estim Creat Clear Calc 62.6 Estimated GFR 58 Random Glucose 199 H (60-115) mg/dL Calcium 8.9 D (8.4-10.2) mg/dL Total Bilirubin 0.9 (0.0-1.0) mg/dL Direct Bilirubin (0.0-0.5) mg/dL AST 51 H (5-37) U/L ALT 36 (0-40) U/L Alkaline Phosphatase 82 (39-117) U/L Troponin I High Sens 32.3 (<3.5-35.0) ng/L Total Protein 6.8 D (6.5-8.0) g/dL Albumin 4.0 (3.5-5.0) g/dL Lipase (8-78) U/L Urine Color Urine Appearance Urine pH (5.0-8.0) Ur Specific [place] (1.005-1.025) Urine Protein (NEG-TRACE) MG/DL Urine Glucose (UA) (NEG) MG/DL Urine Ketones (NEG) MG/DL Urine Blood (NEG) Urine Nitrite (NEG) Ur Leukocyte Esterase (NEG) Urine RBC (0) /HPF Urine WBC (0-4) /HPF Ur Squamous Epith Cells /LPF Urine Bacteria /LPF Stool Occult Blood (NEGATIVE) Urine Opiates Screen (Not Detect) Urine Fentanyl Screen (Not Detect) Ur Barbiturates Screen (Not Detect) Ur Phencyclidine Scrn (Not Detect) Ur Amphetamines Screen (Not Detect) U Benzodiazepines Scrn (Not Detect) Urine Cocaine Screen (Not Detect) U Marijuana (THC) (Not Detect) Screen COVID-19 (ALEJANDRO) (Negative) COVID-19 Clin Com Blood Type A Positive Antibody Screen NEGATIVE 07/31/21 07/31/21 07/31/21 Range/Units 15:37 15:59 15:59 WBC 10.1 (4.8-10.8) X10*3/uL RBC 4.23 L (4.60-5.80) X10*6/uL Hgb 13.0 L (14.0-18.0) g/dl Hct 39.2 L (42.0-52.0) % MCV 92.7 (80.0-98.0) fL MCH 30.7 (27.0-33.0) pg MCHC 33.2 (31.0-36.0) g/dl RDW 13.6 (11.0-16.0) % Plt Count 266 (160-400) X10*3/uL MPV 9.9 (9.4-12.4) fL Immature Gran % 0.3 (0.0-0.4) % (Auto) Neut % (Auto) 64.2 (45-73) % Lymph % (Auto) 25.7 (20-40) % Emanuel % (Auto) 8.7 (2-11) % Eos % (Auto) 0.8 (0-4) % Baso % (Auto) 0.3 (0-2) % Lymph # (Auto) 2.6 (1.2-4.9) X10*3/uL Emanuel # (Auto) 0.9 (0.1-1.2) X10*3/uL Eos # (Auto) 0.1 (0.0-0.4) X10*3/uL Baso # (Auto) 0.0 (0.0-0.2) X10*3/uL Abs Immat Gran (auto) 0.03 (0.00-0.03) X10*3/uL Absolute Neuts (auto) 6.5 (2.0-8.3) x10*3/uL Absolute Nucleated 0.000 (0.0-0.012) RBC X10*3/uL Nucleated RBC % 0.0 (0.0-0.2) /100WBC (auto) PT (9.9-13.0) SEC INR (0.9-1.1) APTT (24.1-38.0) SEC Sodium (135-145) mmol/L Potassium (3.3-5.1) mmol/L Chloride (96-108) mmol/L Carbon Dioxide (22-29) mmol/L Anion Gap (12-20) BUN (9-16) mg/dL Creatinine (0.5-1.4) mg/dL Estim Creat Clear Calc Estimated GFR Random Glucose (60-115) mg/dL Calcium (8.4-10.2) mg/dL Total Bilirubin (0.0-1.0) mg/dL Direct Bilirubin (0.0-0.5) mg/dL AST (5-37) U/L ALT (0-40) U/L Alkaline Phosphatase (39-117) U/L Troponin I High Sens (<3.5-35.0) ng/L Total Protein (6.5-8.0) g/dL Albumin (3.5-5.0) g/dL Lipase (8-78) U/L Urine Color YELLOW Urine Appearance CLEAR Urine pH 6.5 (5.0-8.0) Ur Specific [place] <= 1.005 (1.005-1.025) Urine Protein NEG (NEG-TRACE) MG/DL Urine Glucose (UA) >=1000 H (NEG) MG/DL Urine Ketones 5 (NEG) MG/DL Urine Blood NEG (NEG) Urine Nitrite NEG (NEG) Ur Leukocyte Esterase NEG (NEG) Urine RBC 0 (0) /HPF Urine WBC 0 (0-4) /HPF Ur Squamous Epith TRACE /LPF Cells Urine Bacteria NONE /LPF Stool Occult Blood (NEGATIVE) Urine Opiates Screen POSITIVE H (Not Detect) Urine Fentanyl Screen Not Detected (Not Detect) Ur Barbiturates POSITIVE H (Not Detect) Screen Ur Phencyclidine Scrn Not Detected (Not Detect) Ur Amphetamines Not Detected (Not Detect) Screen U Benzodiazepines Not Detected (Not Detect) Scrn Urine Cocaine Screen POSITIVE H (Not Detect) U Marijuana (THC) Not Detected (Not Detect) Screen COVID-19 (ALEJANDRO) (Negative) COVID-19 Clin Com Blood Type Antibody Screen ECG Data Interpretation: Sinus tachycardia. Old left anterior fascicular block. Ventricular rate 110. Pr interval 152. QRS 110. QTC 484. Negative STEMI Discharge Plan Discharge Clinical Impression: Abdominal pain, GI bleed Patient Disposition: Admitted As Inpatient
[2021-07-31] MEDS: LORazepam 2 MG/ML VIAL IVPUSH (12:46)
[2021-07-31] MEDS: Morphine Sulfate 2 MG/ML CARTRIDGE IVPUSH (12:47)
--- NOTE | 2021-07-31 13:04 | PC.NURSE ---
Kayelxelt held due to severe abd pain/nausea. Pt had mild desaturation post 2nd dose of morphine adminsitration SPO2 recovered with 3l of O2 via NC
[2021-07-31 13:23] LABS: Alanine Aminotransferase 36 U/L (0-40); Alkaline Phosphatase 82 U/L (39-117); Anion Gap 16 (12-20); Aspartate Amino Transferase 51 U/L (5-37); Bilirubin Total 0.9 mg/dL (0.0-1.0); Blood Urea Nitrogen 30 mg/dL (9-16); Carbon Dioxide 26 mmol/L (22-29); Chloride 101 mmol/L (96-108); Creatinine Clr Calc Pharmacy 62.6; Estimated Glomerular Filt Rate 58; Glucose Random 199 mg/dL (60-115); Potassium 4.7 mmol/L (3.3-5.1); Sodium 138 mmol/L (135-145)
[2021-07-31 13:27] LABS: Troponin-I High Sensitivity 32.3 ng/L (<3.5-35.0)
[2021-07-31 13:44] LABS: Calcium 8.9 mg/dL (8.4-10.2); Total Protein 6.8 g/dL (6.5-8.0)
[2021-07-31 14:29] VITALS: BP 167/85; PULSE 96; RESP 16; O2SAT 100
[2021-07-31] MEDS: iohexoL 350 MG/ML 100 ML INFUS..BTL IV (14:44)
[2021-07-31 15:46] LABS: MANUAL DIFF FLAG NO
[2021-07-31 15:48] LABS: Basophils Percent Auto 0.3 % (0-2); Eosinophils Absolute Auto 0.1 X10*3/uL (0.0-0.4); Eosinophils Percent Auto 0.8 % (0-4); Hematocrit 39.2 % (42.0-52.0); Imm Gran Abs Auto 0.03 X10*3/uL (0.00-0.03); Imm Gran Pct Auto 0.3 % (0.0-0.4); Lymphocytes Absolute Auto 2.6 X10*3/uL (1.2-4.9); Lymphocytes Percent Auto 25.7 % (20-40); Mean Corpuscular HGB Conc 33.2 g/dl (31.0-36.0); Mean Corpuscular Hemoglobin 30.7 pg (27.0-33.0); Mean Corpuscular Volume 92.7 fL (80.0-98.0); Mean Platelet Volume 9.9 fL (9.4-12.4); Monocytes Absolute Auto 0.9 X10*3/uL (0.1-1.2); Monocytes Percent Auto 8.7 % (2-11); Neutrophils Absolute Auto 6.5 x10*3/uL (2.0-8.3); Neutrophils Percent Auto 64.2 % (45-73); Platelet Count 266 X10*3/uL (160-400); Red Blood Count 4.23 X10*6/uL (4.60-5.80); Red Cell Distribution Width 13.6 % (11.0-16.0); White Blood Count 10.1 X10*3/uL (4.8-10.8)
[2021-07-31 15:58] VITALS: BP 147/87; PULSE 97; RESP 15; TEMP 37.1; O2SAT 99
[2021-07-31 16:07] LABS: Appearance Urine CLEAR; Color Urine YELLOW; Glucose Urine UA >=1000 MG/DL (NEG); Leukocyte Esterase Urine NEG (NEG); Nitrite Urine NEG (NEG); PH 6.5 (5.0-8.0); Specific Gravity - Urine <= 1.005 (1.005-1.025); Urine Blood NEG (NEG); Urine Ketones 5 MG/DL (NEG); Urine Protein NEG (NEG-TRACE)
[2021-07-31 16:18] LABS: RBC Urine 0 /HPF (0); Squamous Epithelial Cell Urine TRACE /LPF; WBC Urine 0 /HPF (0-4)
[2021-07-31 16:24] LABS: Amphetamine Screen Urine Not Detected (Not Detect); Barbiturates, Urine POSITIVE (Not Detect); Benzodiazepines Screen Urine Not Detected (Not Detect); Cannabinoid Screen Urine Not Detected (Not Detect); Cocaine Screen Urine POSITIVE (Not Detect); Fentanyl, urine Not Detected (Not Detect); Opiate Screen Urine POSITIVE (Not Detect); Phencyclidine Screen Urine Not Detected (Not Detect)
--- NOTE | 2021-07-31 19:40 | P.HPHOSP_ITS ---
History of Present Illness Date of Service: 07/31/21 Chief Complaint: SOB 61-year-old male with a past medical history of hypertension, hyperlipidemia, diabetes, CAD status post stent presented to the hospital with a chief complaint of nausea vomiting and abdominal pain / vomiting blood. Patient reported that the past 1 day he has been having multiple episodes of nausea and vomiting, complains of bright red vomitus; later he had coffee-ground emesis. Also complains of severe abdominal pain diffuse in nature. Denies any diarrhea. Denies any chest pain palpitations lightheadedness or dizziness. Mentioned that he takes aspirin Plavix at home. Denies any fever chills cough Denies any urinary symptoms. Review of all other systems is negative except mentioned above ER course: Per ER team patient vitals are stable, has diffuse abdominal tenderness, CT abdomen was done which showed no acute findings; hemoglobin initially noted to be 15.6-after fluids dropped to 13.0. Given pantoprazole. Discussed with Dr. Glynn from Gastroenterology who/ stat admission to the hospital for possible EGD in the morning. [facility] Medical History Diabetes Essential (primary) hypertension HLD (hyperlipidemia) STEMI (ST elevation myocardial infarction) Unspecified asthma, uncomplicated Pertinent family history: Reviewed Surgical History H/O heart artery stent Social History Alcohol intake: former Patient Tobacco Use Status: Former Tobacco user Substance Use Type: Former Substance User Advance Directives: No Advance Directives Information Provided: No Meds Allergies Allergy/AdvReac Type Severity Reaction Status Date / Time No Known Allergies Allergy Verified 04/15/21 16:30 Active Medications: Current Medications Pharmacy Consult (Consult Rx Perform Med Rec) 1 each MISCELLANE ONCE PRN PRN Reason: Consult order Home Medications Medication Instructions Recorded Confirmed Last Taken Type colchicine 0.6 mg 0.6 mg PO BID 04/01/21 05/13/21 05/12/21 History tablet aspirin 325 mg 650 mg PO TID 04/15/21 05/13/21 05/12/21 History tablet,delayed release empagliflozin 10 10 mg PO QAM 04/15/21 05/13/2105/12/21 History mg tablet (Jardiance) insulin lispro 14 - 20 unit 05/13/21 05/13/21 05/12/21 History 100 unit/mL SUBCUT TID subcutaneous pen (Humalog KwikPen (U-100) Insulin) Physical Exam Verdana 4l Vital Signs and Narrative: Verdana 4d Verdana 4d Vital Signs: Verdana 4d Verdana 4Bd Last Vital Signs Verdana 4d Wool Grader New 4d Wool Grader New 4d Temp 98.7 F 07/31/21 15:58 Wool Grader New 4d Pulse 97 07/31/21 15:58 Wool Grader New 4d Resp 15 07/31/21 15:58 BP 147/87 H 07/31/21 15:58 Pulse Ox 99 07/31/21 15:58 BMI result Body Mass Index 29.0 Results Labs CBC and Chem 7: 07/31/21 15:37 07/31/21 12:58 Labs: Laboratory Results - last 24 hr 07/31/21 07/31/21 07/31/21 10:52 10:52 10:52 MCV 90.3 MCH 30.2 MCHC 33.4 RDW 13.6 Plt Count 347 MPV 9.8 Immature Gran % (Auto) 0.5 H Neut % (Auto) 73.5 H Lymph % (Auto) 17.6 L Hyde % (Auto) 7.6 Eos % (Auto) 0.6 Baso % (Auto) 0.2 Lymph # (Auto) 2.2 Hyde # (Auto) 1.0 Eos # (Auto) 0.1 Baso # (Auto) 0.0 Abs Immat Gran (auto) 0.06 H Absolute Neuts (auto) 9.1 H Absolute Nucleated RBC 0.000 Nucleated RBC % (auto) 0.0 PT INR APTT Anion Gap 17 Estim Creat Clear Calc 52.2 Estimated GFR 47 Random Glucose 248 H Calcium 10.6 H D Total Bilirubin 0.9 Direct Bilirubin 0.3 AST 17 D ALT 25 Alkaline Phosphatase 97 Total Protein 8.7 H Albumin 5.0 Lipase 65 Urine Color Urine Appearance Urine pH Ur Specific [place] Urine Protein Urine Glucose (UA) Urine Ketones Urine Blood Urine Nitrite Ur Leukocyte Esterase Urine RBC Urine WBC Ur Squamous Epith Cells Urine Bacteria Stool Occult Blood Urine Opiates Screen Urine Fentanyl Screen Ur Barbiturates Screen Ur Phencyclidine Scrn Ur Amphetamines Screen U Benzodiazepines Scrn Urine Cocaine Screen U Marijuana (THC) Screen COVID-19 (ALEJANDRO) Negative COVID-19 Clin Com See Note Blood Type Antibody Screen 07/31/21 07/31/21 07/31/21 10:59 10:59 11:23 MCV MCH MCHC RDW Plt Count MPV Immature Gran % (Auto) Neut % (Auto) Lymph % (Auto) Hyde % (Auto) Eos % (Auto) Baso % (Auto) Lymph # (Auto) Hyde # (Auto) Eos # (Auto) Baso # (Auto) Abs Immat Gran (auto) Absolute Neuts (auto) Absolute Nucleated RBC Nucleated RBC % (auto) PT 11.6 INR 1.0 APTT 30.5 Anion Gap Estim Creat Clear Calc Estimated GFR Random Glucose Calcium Total Bilirubin Direct Bilirubin AST ALT Alkaline Phosphatase Total Protein Albumin Lipase Urine Color Urine Appearance Urine pH Ur Specific [place] Urine Protein Urine Glucose (UA) Urine Ketones Urine Blood Urine Nitrite Ur Leukocyte Esterase Urine RBC Urine WBC Ur Squamous Epith Cells Urine Bacteria Stool Occult Blood NEGATIVE Urine Opiates Screen Urine Fentanyl Screen Ur Barbiturates Screen Ur Phencyclidine Scrn Ur Amphetamines Screen U Benzodiazepines Scrn Urine Cocaine Screen U Marijuana (THC) Screen COVID-19 (ALEJANDRO) COVID-19 Clin Com Blood Type A Positive Antibody Screen NEGATIVE 07/31/21 07/31/21 07/31/21 12:58 15:37 15:59 MCV 92.7 MCH 30.7 MCHC 33.2 RDW 13.6 Plt Count 266 MPV 9.9 Immature Gran % (Auto) 0.3 Neut % (Auto) 64.2 Lymph % (Auto) 25.7 Hyde % (Auto) 8.7 Eos % (Auto) 0.8 Baso % (Auto) 0.3 Lymph # (Auto) 2.6 Hyde # (Auto) 0.9 Eos # (Auto) 0.1 Baso # (Auto) 0.0 Abs Immat Gran (auto) 0.03 Absolute Neuts (auto) 6.5 Absolute Nucleated RBC 0.000 Nucleated RBC % (auto) 0.0 PT INR APTT Anion Gap 16 Estim Creat Clear Calc 62.6 Estimated GFR 58 Random Glucose 199 H Calcium 8.9 D Total Bilirubin 0.9 Direct Bilirubin AST 51 H ALT 36 Alkaline Phosphatase 82 Total Protein 6.8 D Albumin 4.0 Lipase Urine Color YELLOW Urine Appearance CLEAR Urine pH 6.5 Ur Specific [place] <= 1.005 Urine Protein NEG Urine Glucose (UA) >=1000 H Urine Ketones 5 Urine Blood NEG Urine Nitrite NEG Ur Leukocyte Esterase NEG Urine RBC 0 Urine WBC 0 Ur Squamous Epith Cells TRACE Urine Bacteria NONE Stool Occult Blood Urine Opiates Screen Urine Fentanyl Screen Ur Barbiturates Screen Ur Phencyclidine Scrn Ur Amphetamines Screen U Benzodiazepines Scrn Urine Cocaine Screen U Marijuana (THC) Screen COVID-19 (ALEJANDRO) COVID-19 Clin Com Blood Type Antibody Screen 07/31/21 15:59 MCV MCH MCHC RDW Plt Count MPV Immature Gran % (Auto) Neut % (Auto) Lymph % (Auto) Hyde % (Auto) Eos % (Auto) Baso % (Auto) Lymph # (Auto) Hyde # (Auto) Eos # (Auto) Baso # (Auto) Abs Immat Gran (auto) Absolute Neuts (auto) Absolute Nucleated RBC Nucleated RBC % (auto) PT INR APTT Anion Gap Estim Creat Clear Calc Estimated GFR Random Glucose Calcium Total Bilirubin Direct Bilirubin AST ALT Alkaline Phosphatase Total Protein Albumin Lipase Urine Color Urine Appearance Urine pH Ur Specific [place] Urine Protein Urine Glucose (UA) Urine Ketones Urine Blood Urine Nitrite Ur Leukocyte Esterase Urine RBC Urine WBC Ur Squamous Epith Cells Urine Bacteria Stool Occult Blood Urine Opiates Screen POSITIVE H Urine Fentanyl Screen Not Detected Ur Barbiturates Screen POSITIVE H Ur Phencyclidine Scrn Not Detected Ur Amphetamines Screen Not Detected U Benzodiazepines Scrn Not Detected Urine Cocaine Screen POSITIVE H U Marijuana (THC) Screen Not Detected COVID-19 (ALEJANDRO) COVID-19 Clin Com Blood Type Antibody Screen Imaging Radiologist's Impressions: Impressions Chest CTA 07/31/21 12:54 IMPRESSION: 1. No evidence of pulmonary embolism. 2. No acute intrathoracic process. 3. Probable mild thickening of the wall of the distal most esophagus. No evidence of mediastinal fluid collection or pneumomediastinum. 4. Calcifications of left anterior descending coronary artery. VTE: Negative. Chest X-Ray 07/31/21 13:57 IMPRESSION: -Well aerated lungs without lobar consolidation. -No gross free intra-abdominal air identified on these supine views of the abdomen. KUB X-Ray 07/31/21 13:57 IMPRESSION: -Well aerated lungs without lobar consolidation. -No gross free intra-abdominal air identified on these supine views of the abdomen. Abdomen/Pelvis CT 07/31/21 14:47 IMPRESSION: No evidence of ileus or obstruction. No free air. No evidence of obstructive uropathy. No evidence of acute appendicitis or acute diverticulitis. Fleischner guidelines were followed. Assessment and Plan (1) GI bleed: Status: Acute (2) Diabetes: Status: Acute Plan 61-year-old male with a past medical history of hypertension, hyperlipidemia, diabetes, CAD status post stent presented to the hospital with a chief complaint of nausea vomiting and abdominal pain / vomiting blood. Admitted for further management. Upper GI bleed: Patient had bright red blood in the vomitus/coffee-ground emesis at home. No further episodes in the hospital. Vitals stable. Patient takes aspirin Plavix at home. Denies any NSAID use. Stool guaiac was negative Hemoglobin drop from 15.6-13.0. serial H&H Gentle IV fluids NPO Pantoprazole IV b.i.d. of Gastroenterology aware of the patient- recommended NPO after midnight for possible EGD. history of hypertension: Will hold home metoprolol; in all to provide room for blood pressure if any further episodes of bleeding. history of CAD: Held home aspirin Plavix for now until cleared by Gastr oenterology. history of diabetes: Insulin sliding scale. Will give the patient on Lantus 20 units b.i.d. Hold home metformin. monitor fingerstick glucose and adjust insulins as needed. DVT prophylaxis: SCD boots. No pharmacologic agent given concerns for GI bleed. Code status: Full code Quality Stroke Does the patient have a stroke diagnosis?: No VTE Prior VTE?: No VTE Risk Level:: Medical - moderate - high VTE Device Contraindication: N/A - Device Ordered VTE Drug Contraindication: Treatment Not Indicated
--- NOTE | 2021-07-31 20:27 | PHA.MEDREC ---
Pharmacy Consult ? Medication Reconciliation Pharmacy has completed the medication reconciliation.
[2021-07-31] MEDS: Dextrose 5 % and 0.45 % NaCl 1,000 ML 50 ML IVCONT (20:34)
[2021-07-31] MEDS: Melatonin 3 MG TABLET 6 MG PO (23:56)
[2021-07-31] MEDS: Acetaminophen 325 MG TABLET 650 MG PO (23:56)
[2021-08-01] VITALS (8 sets, daily range): BP systolic 118–158; BP diastolic 77–98; PULSE 78–101; RESP 13–20; TEMP 36.3–36.8; O2SAT 94–100
--- NOTE | 2021-08-01 00:02 | PC.NURSE ---
Pt wakes from sleep requesting pain medication. Pt medicated with Tylenol and Melatonin. Pt resting in POC, call jean within reach. Continue to monitor.
[2021-08-01] MEDS: 0.9 % Sodium Chloride Flush 3 ML SYRINGE IVFLUSH ×3 (01:45→23:37)
--- NOTE | 2021-08-01 06:02 | PC.NURSE ---
This RN updating daughter on pt condition and plan of care.
[2021-08-01] MEDS: Pantoprazole Sodium 40 MG/10 ML VIAL IVPUSH (06:30)
[2021-08-01 07:18] LABS: Glucose, Whole Blood 145 mg/dL (60-115)
--- NOTE | 2021-08-01 07:21 | MHC.SHP ---
Pre-Procedural Eval Section A Date of Service: 08/01/21 Section B Chief Complaint: GI Bleed Allergies: Allergies Allergy/AdvReac Type Severity Reaction Status Date / Time No Known Allergies Allergy Verified 04/15/21 16:30 Plan I have reviewed the history and physical and performed a pertinent physical examination on my patient. No changes have occurred unless specified.
--- NOTE | 2021-08-01 08:06 | P.CNGI_ITS ---
History of Present Illness Data of Consult Service Date: 08/01/21 Requesting physician: Aditya Delgado Primary Care Provider: SONALI Rubio HPI Reason for consult: Abdominal pain, GI Bleeding 61 YM seen at [facility] on 07/31/21 with abdominal pain, vomiting and hematemesis: 61-year-old male with history of diabetes, STEMI, stent placements, GERD presents to the ED for severe abdominal pain and vomiting blood.? Patient states over the past 24 hours have had 5 episodes of vomiting blood describes lots, bright red, and at times coffee-ground.? Patient denies any history of alcohol abuse.? Patient denies any drug use.? Patient states no leg pain or calf swelling.? Patient states chest pain Review of Systems Review of Systems: Abdominal pain, chest pain, vomiting blood. COUNTS INCLUDE 234 BEDS AT THE [facility] Past Medical History Medical History Diabetes Essential (primary) hypertension HLD (hyperlipidemia) STEMI (ST elevation myocardial infarction) Unspecified asthma, uncomplicated Surgical History Surgical History H/O heart artery stent Social History Social History Household Members: None Housing: Apartment Do you presently have visiting nurse or other home services: No Alcohol intake: former Patient Tobacco Use Status: Former Tobacco user Substance Use Type: Former Substance User Advance Directives Date on File: 08/02/21 service: No Meds Allergies Allergy/AdvReac Type Severity Reaction Status Date / Time No Known Allergies Allergy Verified 04/15/21 16:30 Active Medications: Current Medications Acetaminophen (Acetaminophen 325 Mg Tablet) 650 mg PO Q6H PRN PRN Reason: Pain, Mild (Pain Scale 1-3) Last Admin: 07/31/21 23:56 Dose: 650 mg Documented by: Dextrose (Dextrose 50 % 25 Gm/50 Ml Syringe) 25 gm IVPUSH Q15M PRN; Protocol PRN Reason: per Hypoglycemia Standing Ord. Glucose (Glucose Gel 15 Gm Gel..Gram.) 15 gm PO Q15M PRN; Protocol PRN Reason: per Hypoglycemia Standing Ord. Dextrose/Sodium Chloride (D51/2ns) 1,000 mls @ 50 mls/hr IVCONT .Q20H [facility] Last Admin: 07/31/21 20:34 Dose: 50 mls/hr Documented by: Insulin Human Lispro (Insulin Lispro 100 Unit/Ml 3 Ml Vial) 0 unit SUBCUT QIDACHS [facility]; Protocol Last Admin: 08/01/21 07:14 Dose: Not Given Documented by: Melatonin (Melatonin 3 Mg Tablet) 6 mg PO BEDTIME PRN PRN Reason: Insomnia Last Admin: 07/31/21 23:56 Dose: 6 mg Documented by: Pantoprazole Sodium (Pantoprazole Sodium 40 Mg/10 Ml Vial) 40 mg IVPUSH BID@0630,1630 [facility] Last Admin: 08/01/21 06:30 Dose: 40 mg Documented by: Pharmacy Consult (Consult Rx Perform Med Rec) 1 each MISCELLANE ONCE PRN PRN Reason: Consult order Senna (Sennosides 8.6 Mg Tablet) 17.2 mg PO BEDTIME PRN PRN Reason: Constipation Sodium Chloride (0.9 % Sodium Chloride Flush 3 Ml Syringe) 3 ml IVFLUSH QSHIFT [facility] Last Admin: 08/01/21 07:14 Dose: Not Given Documented by: Home Medications Medication Instructions Recorded Confirmed Last Taken Type empagliflozin 10 mg tablet 10 mg PO QAM 04/15/21 07/31/21 07/30/21 History (Jardiance) insulin lispro 100 unit/mL 14 - 20 unit SUBCUT TID 05/13/21 07/31/21 07/30/21 History subcutaneous pen (Humalog KwikPen (U-100) Insulin) Physical Exam Vital Signs: Vital Signs: Last Vital Signs Temp 97.6 F 08/01/21 07:10 Pulse 81 08/01/21 07:10 Resp 16 08/01/21 07:10 BP 140/82 H 08/01/21 07:10 Pulse Ox 100 08/01/21 07:10 BMI result Body Mass Index 29.0 Const: General: healthy appearing and no acute distress Nutritional Appearance: average body habitus Orientation/consciousness: patient oriented x3 Limitations: no limitations HENMT: Head: Yes normal to inspection Ears: hearing grossly normal bilat erally Mouth: Normal oral and palatal mucosa present Eyes: Sclerae: sclerae normal Pupils: Equal, round and reactive pupils present Neck: Neck: Yes normal visual inspection Chest: Chest palpation & inspection: normal inspection of the chest Resp: Effort & Inspection: normal respiratory effort Auscultation: clear to auscultation bilaterally Cardio: Palpation: normal PMI Rate: regular rate Rhythm: regular rhythm Heart sounds: S1 normal heart sound present, S2 normal heart sound present and no murmurs GI: Palpation (GI): Soft to palpation, Tenderness to palpation present (GI) (Mild epigastric tenderness) and No hepatosplenomegaly present Auscultation: normal bowel sounds Rectal Exam - Male: Yes deferred Skin: General skin exam: no rashes or lesions noted Neuro: General: patient oriented x3, gait normal and moves all extremities Cranial nerves: Yes Equal, round and reactive pupils present Psych: Appearance: grossly normal Mental Status: mental status grossly normal Results Labs CBC & Chem 7: 08/05/21 05:24 08/05/21 05:24 Labs: Short CBC 07/31/21 07/31/21 Range/Units 10:52 15:37 WBC 12.4 H 10.1 (4.8-10.8) X10*3/uL Hgb 15.6 13.0 L (14.0-18.0) g/dl Hct 46.7 39.2 L (42.0-52.0) % Plt Count 347 266 (160-400) X10*3/uL BMP 07/31/21 07/31/21 10:52 12:58 Sodium 138 138 Potassium 5.4 H 4.7 Chloride 97 101 Carbon Dioxide 29 26 BUN 32 H 30 H Creatinine 1.50 H 1.25 Calcium 10.6 H D 8.9 D Liver Function 07/31/21 07/31/21 Range/Units 10:52 12:58 Total Bilirubin 0.9 0.9 (0.0-1.0) mg/dL Direct Bilirubin 0.3 (0.0-0.5) mg/dL AST 17 D 51 H (5-37) U/L ALT 25 36 (0-40) U/L Alkaline Phosphatase 97 82 (39-117) U/L Albumin 5.0 4.0 (3.5-5.0) g/dL Urine 07/31/21 Range/Units 15:59 Urine Color YELLOW Urine Appearance CLEAR Urine pH 6.5 (5.0-8.0) Ur Specific [place] <= 1.005 (1.005-1.025) Urine Protein NEG (NEG-TRACE) MG/DL Urine Glucose (UA) >=1000 H (NEG) MG/DL Assessment and Plan (1) GI bleed: (2) Hematemesis: Plan 61 YM admitted with abdominal pain and hematemesis. Upper GI bleeding is likely due to peptic ulcer disease, gastritis, erosive esophagitis or Yohana-Munoz tear. RECOMMENDATIONS 1. Proceed with upper endoscopy for further evaluation. Procedure and potential complications were reviewed with the patient. Procedures Date of Service Date of Service: 08/01/21
[2021-08-01 08:20] LABS: MANUAL DIFF FLAG NO
[2021-08-01 08:25] LABS: Basophils Percent Auto 0.5 % (0-2); Eosinophils Absolute Auto 0.1 X10*3/uL (0.0-0.4); Eosinophils Percent Auto 1.4 % (0-4); Hematocrit 42.1 % (42.0-52.0); Hemoglobin 13.6 g/dl (14.0-18.0); Imm Gran Abs Auto 0.04 X10*3/uL (0.00-0.03); Imm Gran Pct Auto 0.5 % (0.0-0.4); Lymphocytes Percent Auto 23.4 % (20-40); Mean Corpuscular HGB Conc 32.3 g/dl (31.0-36.0); Mean Corpuscular Hemoglobin 30.4 pg (27.0-33.0); Mean Platelet Volume 9.7 fL (9.4-12.4); Monocytes Absolute Auto 0.6 X10*3/uL (0.1-1.2); Monocytes Percent Auto 7.3 % (2-11); Neutrophils Absolute Auto 5.8 x10*3/uL (2.0-8.3); Neutrophils Percent Auto 66.9 % (45-73); Platelet Count 247 X10*3/uL (160-400); Red Blood Count 4.48 X10*6/uL (4.60-5.80); Red Cell Distribution Width 13.5 % (11.0-16.0); White Blood Count 8.7 X10*3/uL (4.8-10.8)
[2021-08-01] MEDS: Gabapentin 100 MG CAPSULE PO ×3 (08:32→20:22)
[2021-08-01 08:43] LABS: Anion Gap 13 (12-20); Blood Urea Nitrogen 21 mg/dL (9-16); Calcium 9.3 mg/dL (8.4-10.2); Carbon Dioxide 27 mmol/L (22-29); Chloride 103 mmol/L (96-108); Creatinine Clr Calc Pharmacy 76.7; Estimated Glomerular Filt Rate > 60; Glucose Random 150 mg/dL (60-115); Potassium 5.2 mmol/L (3.3-5.1); Sodium 138 mmol/L (135-145)
--- NOTE | 2021-08-01 08:45 | PC.NURSE ---
/pt alert and oriented, skin pwd, respirations even and unlabored, pt reports that his insides hurt, pain at 8/10. this rn offered Tylenol for the pain but pt refused at this time. pt is npo, vs stable, ns on the monitor.
[2021-08-01] MEDS: Sodium Zirconium Cyclosilicate 10 GM POWD.PACK PO (10:37)
--- NOTE | 2021-08-01 11:17 | PC.NURSE ---
Pt updated on plan for no EGD today and outpatient procedure to be scheduled, pt immediately upset and requesting to be discharged immediately. Abrupt and aggressive despite reassurance. Dr Purvis updated and will come speak to pt regarding plan.
--- NOTE | 2021-08-01 11:46 | P.CDIC_ITS ---
CDI Concurrent Query Documentation Clarification: PHYSICIAN'S DOCUMENTATION REQUEST Date of Query: 08/01/21 1146 Patient Name: Raj Chandra Admit Date: 07/31/21 Dear Doctor, A review of the medical record indicates additional documentation may be needed. Please review below and update the documentation accordingly. Verdana 4Bd Risk Factors/Clinical Indicators/Treatments Verdana 4d Lab findings: potassium 5.4 H Based on the above, could you clarify in the Progress Notes the appropriate diagnosis, if significant, that supports the above abnormalities and additional evaluation, monitoring, and/or treatment rendered: * Hyperkalemia or other etiology of lab findings * Other (please specify) * Unable to determine Use of terms such as suspected, likely, concern for, or probable (associated with a specific diagnosis that is being evaluated, monitored, or treated as if it exists) are acceptable and can be coded in the inpatient setting, when documented at the time of discharge. Thank you, Zayra Joshua [facility], CDIS Extension: [phone] Please use your independent medical judgment in providing your response. THIS QUERY IS PART OF THE PERMANENT MEDICAL RECORD Provider Response: Other Other Diagnosis: hyperK
--- NOTE | 2021-08-01 11:50 | P.PNIM_ITS ---
Subjective Subjective Date of Service: 08/01/21 Interval History: Hematemesis resolved. Ongoing epigastric pain. Pt is very hungry. EGD canceled due to high K + cocaine on Utox. Pt denies cocaine use; says he was in a room with a neighbor who was smoking it and must have inhaled the smo ke. Review of Systems Review of Systems: Yes all other systems are reviewed and are negative Physical Exam Verdana 4l Vital Signs: Verdana 4d Verdana 4d Vital Signs: Verdana 4d Verdana 4Bd Last Vital Signs Verdana 4d Auto Claim Representative New 4d Auto Claim Representative New 4d Temp 98.3 F 08/01/21 08:09 Auto Claim Representative New 4d Pulse 92 08/01/21 11:44 Auto Claim Representative New 4d Resp 13 08/01/21 11:44 BP 144/92 H 08/01/21 11:44 Pulse Ox 99 08/01/21 11:44 BMI result Body Mass Index 29.0 Gen: in no acute distress HEENT: sclera anicteric, moist mucus membranes Neck: supple Lungs: clear to auscultation bilaterally Heart: regular rate and rhythm, no murmurs Abd: soft, mild epigastric tenderness without rebound, non-distended Ext: no edema Skin: warm/well-perfused Neuro: alert and oriented x3, no focal findings Psych: appropriate affect Objective Data Active Medications Acetaminophen (Acetaminophen 325 Mg Tablet) 650 mg PO Q6H PRN PRN Reason: Pain, Mild (Pain Scale 1-3) Last Admin: 07/31/21 23:56 Dose: 650 mg Documented by: ISMAEL Atorvastatin Calcium (Atorvastatin Calcium 80 Mg Tablet) 80 mg PO BEDTIME [facility] Dextrose (Dextrose 50 % 25 Gm/50 Ml Syringe) 25 gm IVPUSH Q15M PRN; Protocol PRN Reason: per Hypoglycemia Standing Ord. Gabapentin (Gabapentin 100 Mg Capsule) 100 mg PO TID [facility] Last Admin: 08/01/21 08:32 Dose: 100 mg Documented by: ALLEN Glucose (Glucose Gel 15 Gm Gel..Gram.) 15 gm PO Q15M PRN; Protocol PRN Reason: per Hypoglycemia Standing Ord. Insulin Human Lispro (Insulin Lispro 100 Unit/Ml 3 Ml Vial) 0 unit SUBCUT QIDACHS [facility]; Protocol Last Admin: 08/01/21 07:14 Dose: Not Given Documented by: NAPOLEON Non-Admin Reason: NPO Melatonin (Melatonin 3 Mg Tablet) 6 mg PO BEDTIME PRN PRN Reason: Insomnia Last Admin: 07/31/21 23:56 Dose: 6 mg Documented by: ISMAEL Morphine Sulfate (Morphine Sulfate 2 Mg/Ml Cartridge) 2 mg IVPUSH Q2H PRN; Protocol PRN Reason: severe pain Nitroglycerin (Nitroglycerin 0.4 Mg Tab.Subl) 0.4 mg SUBLINGUAL Q5M PRN PRN Reason: chest pain Omeprazole (Omeprazole 20 Mg Capsule.Dr) 20 mg PO BID@0630,1630 [facility] Oxycodone HCl (Oxycodone Hcl Immed Release 5 Mg Tablet) 5 mg PO Q4H PRN PRN Reason: moderate pain Pharmacy Consult (Consult Rx Perform Med Rec) 1 each MISCELLANE ONCE PRN PRN Reason: Consult order Senna (Sennosides 8.6 Mg Tablet) 17.2 mg PO BEDTIME PRN PRN Reason: Constipation Sodium Chloride (0.9 % Sodium Chloride Flush 3 Ml Syringe) 3 ml IVFLUSH QSHIFT SUSAN Last Admin: 08/01/21 07:14 Dose: Not Given Documented by: NAPOLEON Non-Admin Reason: IV Running Labs CBC & Chem 7: 08/01/21 08:01 08/01/21 08:01 Labs: Laboratory Results - last 24 hr 07/31/21 07/31/21 07/31/21 11:23 12:58 15:37 MCV 92.7 MCH 30.7 MCHC 33.2 RDW 13.6 Plt Count 266 MPV 9.9 Immature Gran % (Auto) 0.3 Neut % (Auto) 64.2 Lymph % (Auto) 25.7 Pierce % (Auto) 8.7 Eos % (Auto) 0.8 Baso % (Auto) 0.3 Lymph # (Auto) 2.6 Pierce # (Auto) 0.9 Eos # (Auto) 0.1 Baso # (Auto) 0.0 Abs Immat Gran (auto) 0.03 Absolute Neuts (auto) 6.5 Absolute Nucleated RBC 0.000 Nucleated RBC % (auto) 0.0 Anion Gap 16 Estim Creat Clear Calc 62.6 Estimated GFR 58 POC Glucose Random Glucose 199 H Calcium 8.9 D Total Bilirubin 0.9 AST 51 H ALT 36 Alkaline Phosphatase 82 Total Protein 6.8 D Albumin 4.0 Urine Color Urine Appearance Urine pH Ur Specific [place] Urine Protein Urine Glucose (UA) Urine Ketones Urine Blood Urine Nitrite Ur Leukocyte Esterase Urine RBC Urine WBC Ur Squamous Epith Cells Urine Bacteria Urine Opiates Screen Urine Fentanyl Screen Ur Barbiturates Screen Ur Phencyclidine Scrn Ur Amphetamines Screen U Benzodiazepines Scrn Urine Cocaine Screen U Marijuana (THC) Screen Blood Type A Positive Antibody Screen NEGATIVE 07/31/21 07/31/21 08/01/21 15:59 15:59 07:13 MCV MCH MCHC RDW Plt Count MPV Immature Gran % (Auto) Neut % (Auto) Lymph % (Auto) Pierce % (Auto) Eos % (Auto) Baso % (Auto) Lymph # (Auto) Pierce # (Auto) Eos # (Auto) Baso # (Auto) Abs Immat Gran (auto) Absolute Neuts (auto) Absolute Nucleated RBC Nucleated RBC % (auto) Anion Gap Estim Creat Clear Calc Estimated GFR POC Glucose 145 H Random Glucose Calcium Total Bilirubin AST ALT Alkaline Phosphatase Total Protein Albumin Urine Color YELLOW Urine Appearance CLEAR Urine pH 6.5 Ur Specific [place] <= 1.005 Urine Protein NEG Urine Glucose (UA) >=1000 H Urine Ketones 5 Urine Blood NEG Urine Nitrite NEG Ur Leukocyte Esterase NEG Urine RBC 0 Urine WBC 0 Ur Squamous Epith Cells TRACE Urine Bacteria NONE Urine Opiates Screen POSITIVE H Urine Fentanyl Screen Not Detected Ur Barbiturates Screen POSITIVE H Ur Phencyclidine Scrn Not Detected Ur Amphetamines Screen Not Detected U Benzodiazepines Scrn Not Detected Urine Cocaine Screen POSITIVE H U Marijuana (THC) Screen Not Detected Blood Type Antibody Screen 08/01/21 08/01/21 08:01 08:01 MCV 94.0 MCH 30.4 MCHC 32.3 RDW 13.5 Plt Count 247 MPV 9.7 Immature Gran % (Auto) 0.5 H Neut % (Auto) 66.9 Lymph % (Auto) 23.4 Pierce % (Auto) 7.3 Eos % (Auto) 1.4 Baso % (Auto) 0.5 Lymph # (Auto) 2.0 Pierce # (Auto) 0.6 Eos # (Auto) 0.1 Baso # (Auto) 0.0 Abs Immat Gran (auto) 0.04 H Absolute Neuts (auto) 5.8 Absolute Nucleated RBC 0.000 Nucleated RBC % (auto) 0.0 Anion Gap 13 Estim Creat Clear Calc 76.7 Estimated GFR > 60 POC Glucose Random Glucose 150 H Calcium 9.3 Total Bilirubin AST ALT Alkaline Phosphatase Total Protein Albumin Urine Color Urine Appearance Urine pH Ur Specific [place] Urine Protein Urine Glucose (UA) Urine Ketones Urine Blood Urine Nitrite Ur Leukocyte Esterase Urine RBC Urine WBC Ur Squamous Epith Cells Urine Bacteria Urine Opiates Screen Urine Fentanyl Screen Ur Barbiturates Screen Ur Phencyclidine Scrn Ur Amphetamines Screen U Benzodiazepines Scrn Urine Cocaine Screen U Marijuana (THC) Screen Blood Type Antibody Screen Assessment and Plan (1) GI bleed: Status: Acute (2) H/O heart artery stent: Status: Acute Plan hospital d#2 61yo M with DM2, HTN, and CAD on DAPT s/p PCI for STEMI in Feb 2021 presenting with hematemesis/coffee-ground emesis # upper GI bleed - H+H stable. per GI, reschedule EGD to outpt setting. OK to advance diet. change to PO PPI bid. repeat H+H in am. DAPT held. # hyperK - given 1 dose of Lokelma, repeat BMP in am. # CAD # HTN - lisinopril + metoprolol + DAPT held on admission; resume metoprolol # DM2 - correction-dose lispro, hold MTF + empagliflozin # neuropathy - gabapentin # cocaine on Utox - CARE Team + Addiction Medicine consultations - screen HBV/HCV/HIV # VTE ppx - SCDs Quality Stroke Does the patient have a stroke diagnosis?: No VTE Prior VTE?: No VTE Risk Level:: Medical - moderate - high VTE Device Contraindication: N/A - Device Ordered VTE Drug Contraindication: Treatment Not Indicated
--- NOTE | 2021-08-01 12:32 | MHC.CM.PN ---
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
[2021-08-01 12:38] LABS: Glucose, Whole Blood 146 mg/dL (60-115)
[2021-08-01] MEDS: Metoprolol Succinate ER 25 MG TAB.ER.24H PO (12:44)
--- NOTE | 2021-08-01 13:06 | P.CDIC_ITS ---
CDI Concurrent Query Documentation Clarification: PHYSICIAN'S DOCUMENTATION REQUEST Date of Query: 08/01/21 0371 Patient Name: Raj Chandra Admit Date: 07/31/21 Dear Doctor, A review of the medical record indicates additional documentation may be needed. Please review below and update the documentation accordingly. Clinical Indicators: Verdana 4Bd Risk Factors/Clinical Indicators/Treatments Verdana 4d H&P: 2/3 - History of diabetes. Humalog - home medication. Glucose 248 H PN: 2/4 - DM2, insulin sliding scale, monitor fingerstick glucose and adjust insulin. Please clarify the following regarding Diabetes Mellitus (DM): * Hypoglycemia * Hyperglycemia * Uncontrolled * Other complication ? please specify * Unable to determine Use of terms such as suspected, likely, concern for, or probable (associated with a specific diagnosis that is being evaluated, monitored, or treated as if it exists) are acceptable and can be coded in the inpatient setting, when documented at the time of discharge. Thank you, Zayra Joshua [facility], CDIS Extension: [phone] Please use your independent medical judgment in providing your response. THIS QUERY IS PART OF THE PERMANENT MEDICAL RECORD Provider Response: Other Other Diagnosis: uncontrlled DM2 with hyperglycemia
--- NOTE | 2021-08-01 13:06 | MHC.CDI.CONC ---
CDI Concurrent Query Documentation Clarification: PHYSICIAN'S DOCUMENTATION REQUEST Date of Query: 08/01/21 6476 Patient Name: Raj Chandra Admit Date: 07/31/21 Dear Doctor, A review of the medical record indicates additional documentation may be needed. Please review below and update the documentation accordingly. Clinical Indicators: Risk Factors/Clinical Indicators/Treatments H&P: 2/3 - History of diabetes. Humalog - home medication. Glucose 248 H PN: 2/4 - DM2, insulin sliding scale, monitor fingerstick glucose and adjust insulin. Please clarify the following regarding Diabetes Mellitus (DM): Hypoglycemia Hyperglycemia Uncontrolled Other complication ? please specify Unable to determine Use of terms such as suspected, likely, concern for, or probable (associated with a specific diagnosis that is being evaluated, monitored, or treated as if it exists) are acceptable and can be coded in the inpatient setting, when documented at the time of discharge. Thank you, Zayra Joshua [facility], CDIS Extension: [phone] Please use your independent medical judgment in providing your response. THIS QUERY IS PART OF THE PERMANENT MEDICAL RECORD Provider Response: Other Other Diagnosis: uncontrlled DM2 with hyperglycemia
--- NOTE | 2021-08-01 14:54 | MHC.RECOVSUP ---
Addendum entered by Gurmeet Hatch [facility] 08/01/21 14:57: Recovery Support note: Patient is a 61 year old Greenlandic speaking male who presented to [facility] due to vomiting blood. This field underwriter met with patient to discuss cocaine use as he tested positive. Patient was sleeping when this field underwriter approached however he awoke easily when this field underwriter spoke his name. Patient reports he does not use any drugs. Patient states they have me on about 10 different medications, I don't need to take anything else. Patient reports his neighbor smoked cocaine in the car on the way to the hospital. Patient reports he does not use cocaine and that he does not typically associate with this person. Explained to patient that I am not interested in getting him in trouble and that we just want to provide the best care. Patient continues to deny all substance use. Patient reports he has not consumed alcohol since the mid . Patient reports he feels he is being discriminated against because he tested positive for cocaine and expressed frustration surrounding the situation. Reassured patient that all staff have his best interest in mind. Encouraged patient to avoid this person and avoid being around people who openly use substances. Patient acknowledged. Patient reports no additional questions or concerns at this time. Discussed case with Sheryl Coles NP. Original Note: Recovery Support note:
--- NOTE | 2021-08-01 15:51 | PM.EVENT ---
Event Note Date of Service: 08/01/21 Event Note: Addiction Consult Please see Recovery Support Note 08/01/21
[2021-08-01] MEDS: Omeprazole 20 MG CAPSULE.DR PO (16:16)
[2021-08-01 16:30] LABS: Glucose, Whole Blood 274 mg/dL (60-115)
[2021-08-01] MEDS: Insulin Lispro 100 UNIT/ML 3 ML VIAL SUBCUT (16:34)
[2021-08-01 19:44] LABS: Glucose, Whole Blood 138 mg/dL (60-115)
[2021-08-01] MEDS: Atorvastatin Calcium 80 MG TABLET PO (20:22)
[2021-08-01] MEDS: Morphine Sulfate 2 MG/ML CARTRIDGE IVPUSH (20:22)
[2021-08-02 03:57] VITALS: BP 128/83; PULSE 79; RESP 18; TEMP 36.2; O2SAT 97
[2021-08-02] MEDS: Morphine Sulfate 2 MG/ML CARTRIDGE IVPUSH ×4 (04:25→21:39)
[2021-08-02] MEDS: Omeprazole 20 MG CAPSULE.DR PO (05:50)
[2021-08-02 06:27] LABS: Hematocrit 40.2 % (42.0-52.0); Hemoglobin 12.9 g/dl (14.0-18.0)
[2021-08-02 06:43] LABS: Anion Gap 11 (12-20); Blood Urea Nitrogen 18 mg/dL (9-16); Calcium 9.3 mg/dL (8.4-10.2); Carbon Dioxide 30 mmol/L (22-29); Chloride 101 mmol/L (96-108); Creatinine Clr Calc Pharmacy 63.1; Estimated Glomerular Filt Rate 59; Glucose Random 261 mg/dL (60-115); Potassium 5.2 mmol/L (3.3-5.1); Sodium 137 mmol/L (135-145)
[2021-08-02 06:44] LABS: Estimated Average Glucose 315 mg/dL; Hemoglobin A1c % 12.6 %
[2021-08-02 07:42] VITALS: BP 141/84; PULSE 85; RESP 18; TEMP 36.2; O2SAT 97
[2021-08-02] MEDS: Gabapentin 100 MG CAPSULE PO ×2 (07:49→21:39)
[2021-08-02] MEDS: Metoprolol Succinate ER 25 MG TAB.ER.24H PO (07:49)
[2021-08-02] MEDS: 0.9 % Sodium Chloride Flush 3 ML SYRINGE IVFLUSH ×2 (07:50→15:22)
[2021-08-02] MEDS: Insulin Lispro 100 UNIT/ML 3 ML VIAL SUBCUT ×3 (07:50→17:06)
[2021-08-02] MEDS: Sodium Zirconium Cyclosilicate 10 GM POWD.PACK PO (08:01)
[2021-08-02] MEDS: Insulin Glargine,Hum.rec.anlog 100 UNIT/ML 10 ML VIAL 25 UNIT SUBCUT (08:01)
[2021-08-02 08:12] LABS: Glucose, Whole Blood 313 mg/dL (60-115)
--- NOTE | 2021-08-02 10:21 | P.PNIM_ITS ---
Subjective Subjective Date of Service: 08/02/21 Interval History: Tolerating diet; however, early this am, had 1 episode of bloody emesis Stomach discomfort improved but still c/o crampy pain Review of Systems Review of Systems: Yes all other systems are reviewed and are negative Physical Exam Verdana 4l Vital Signs: Verdana 4d Verdana 4d Vital Signs: Verdana 4d Verdana 4Bd Last Vital Signs Verdana 4d Hotel Clerk New 4d Hotel Clerk New 4d Temp 97.1 F 08/02/21 07:42 Hotel Clerk New 4d Pulse 85 08/02/21 07:42 Hotel Clerk New 4d Resp 18 08/02/21 07:42 BP 141/84 H 08/02/21 07:42 Pulse Ox 97 08/02/21 07:42 BMI result Body Mass Index 29.0 Gen: in no acute distress HEENT: sclera anicteric, moist mucus membranes Neck: supple Lungs: clear to auscultation bilaterally Heart: regular rate and rhythm, no murmurs Abd: soft, mild epigastric tenderness without rebound, non-distended Ext: no edema Skin: warm/well-perfused Neuro: alert and oriented x3, no focal findings Psych: appropriate affect Objective Data Active Medications Acetaminophen (Acetaminophen 325 Mg Tablet) 650 mg PO Q6H PRN PRN Reason: Pain, Mild (Pain Scale 1-3) Last Admin: 07/31/21 23:56 Dose: 650 mg Documented by: ISMAEL Atorvastatin Calcium (Atorvastatin Calcium 80 Mg Tablet) 80 mg PO BEDTIME [facility] Last Admin: 08/01/21 20:22 Dose: 80 mg Documented by: RENU Dextrose (Dextrose 50 % 25 Gm/50 Ml Syringe) 25 gm IVPUSH Q15M PRN; Protocol PRN Reason: per Hypoglycemia Standing Ord. Gabapentin (Gabapentin 100 Mg Capsule) 100 mg PO TID [facility] Last Admin: 08/02/21 07:49 Dose: 100 mg Documented by: SOLEDAD Glucose (Glucose Gel 15 Gm Gel..Gram.) 15 gm PO Q15M PRN; Protocol PRN Reason: per Hypoglycemia Standing Ord. Insulin Glargine (Insulin Glargine,Hum.Rec.Anlog 100 Unit/Ml 10 Ml Vial) 25 unit SUBCUT DAILY [facility] Last Admin: 08/02/21 08:01 Dose: 25 unit Documented by: SOLEDAD Insulin Human Lispro (Insulin Lispro 100 Unit/Ml 3 Ml Vial) 0 unit SUBCUT QIDACHS [facility]; Protocol Last Admin: 08/02/21 07:50 Dose: 8 unit Documented by: SOLEDAD Melatonin (Melatonin 3 Mg Tablet) 6 mg PO BEDTIME PRN PRN Reason: Insomnia Last Admin: 07/31/21 23:56 Dose: 6 mg Documented by: ISMAEL Metoprolol Succinate (Metoprolol Succinate Er 25 Mg Tab.Er.24h) 25 mg PO DAILY [facility]; Protocol Last Admin: 08/02/21 07:49 Dose: 25 mg Documented by: SOLEDAD Morphine Sulfate (Morphine Sulfate 2 Mg/Ml Cartridge) 2 mg IVPUSH Q2H PRN; Protocol PRN Reason: severe pain Last Admin: 08/02/21 04:25 Dose: 2 mg Documented by: RENU Nitroglycerin (Nitroglycerin 0.4 Mg Tab.Subl) 0.4 mg SUBLINGUAL Q5M PRN PRN Reason: chest pain Omeprazole (Omeprazole 20 Mg Capsule.Dr) 20 mg PO BID@0630,1630 [facility] Last Admin: 08/02/21 05:50 Dose: 20 mg Documented by: RENU Oxycodone HCl (Oxycodone Hcl Immed Release 5 Mg Tablet) 5 mg PO Q4H PRN PRN Reason: moderate pain Pharmacy Consult (Consult Rx Perform Med Rec) 1 each MISCELLANE ONCE PRN PRN Reason: Consult order Senna (Sennosides 8.6 Mg Tablet) 17.2 mg PO BEDTIME PRN PRN Reason: Constipation Sodium Chloride (0.9 % Sodium Chloride Flush 3 Ml Syringe) [facility] Last Admin: 08/02/21 07:50 Dose: 3 ml Documented by: SOLEDAD Labs CBC & Chem 7: 08/02/21 06:06 08/02/21 06:07 Labs: Laboratory Results - last 24 hr 08/01/21 08/01/21 08/01/21 12:31 16:26 19:25 Anion Gap Estim Creat Clear Calc Estimated GFR POC Glucose 146 H 274 H 138 H Random Glucose Estimat Average Glucose Hemoglobin A1c % Calcium 02/05/22 02/05/22 02/05/22 06:06 06:07 07:42 Anion Gap 11 L Estim Creat Clear Calc 63.1 Estimated GFR 59 POC Glucose 313 H Random Glucose 261 H D Estimat Average Glucose 315 Hemoglobin A1c % 12.6 Calcium 9.3 Microbiology Microbiology Results: Microbiology 07/31/21 11:23 Blood Culture - Preliminary Blood - Venous No growth after 24 hours. 07/31/21 11:23 Blood Culture - Preliminary Blood - Venous No growth after 24 hours. Assessment and Plan (1) GI bleed: Status: Acute (2) H/O heart artery stent: Status: Acute Plan hospital d#3 61yo M with DM2, HTN, and CAD on DAPT s/p PCI for STEMI in Feb 2021 presenting with hematemesis/coffee-ground emesis # upper GI bleed - given recurrence, will discuss inpt EGD with GI on-call. continue to hold DAPT and give bid PPI # hyperK - give another dose of Lokelma, repeat BMP in am. # CAD # HTN - lisinopril + metoprolol + DAPT held on admission; resumed metoprolol # DM2, uncontrolled, with hyperglycemia - A1c 12.6, needs outpt Endocrinology f/u - basal/bolus insulin; hold MTF + empagliflozin # DM neuropathy - gabapentin # cocaine on Utox - pt denies active use, saying he was exposed by a neighbor who was smoking crack while driving pt to the hospital - screen for HBV/HCV/HIV pending # VTE ppx - SCDs Quality Stroke Does the patient have a stroke diagnosis?: No VTE Prior VTE?: No VTE Risk Level:: Medical - moderate - high VTE Device Contraindication: N/A - Device Ordered VTE Drug Contraindication: Treatment Not Indicated
--- NOTE | 2021-08-02 11:18 | MHC.CM.PN ---
PATIENT IS AWARE THAT [facility] IS OFFERING SERVICES AT DISCHARGE HE ASKS FOR INFORMATION RELATED TO THE [facility] SHUTTLE, WHICH WILL BE GIVEN AT DISCHARGE TIME. CASE MANAGEMENT FOLLOWING
[2021-08-02 11:42] VITALS: BP 127/76; PULSE 85; RESP 18; TEMP 36.2; O2SAT 94
[2021-08-02 12:13] LABS: Glucose, Whole Blood 320 mg/dL (60-115)
[2021-08-02 16:00] VITALS: BP 129/72; PULSE 91; RESP 19; TEMP 36.5; O2SAT 96
[2021-08-02 16:38] LABS: Glucose, Whole Blood 205 mg/dL (60-115)
[2021-08-02] MEDS: ondansetron HCL 4 MG/2 ML VIAL IVPUSH (19:43)
[2021-08-02] MEDS: oxyCODONE HCl Immed Release 5 MG TABLET PO (19:44)
[2021-08-02 19:51] VITALS: BP 113/80; PULSE 85; RESP 19; TEMP 36.6; O2SAT 98
[2021-08-02 20:19] LABS: Glucose, Whole Blood 117 mg/dL (60-115)
[2021-08-02] MEDS: Atorvastatin Calcium 80 MG TABLET PO (21:39)
[2021-08-02 23:24] VITALS: BP 145/89; PULSE 76; RESP 20; TEMP 36.7; O2SAT 94
[2021-08-03 03:09] VITALS: BP 103/57; PULSE 78; RESP 20; TEMP 36.6; O2SAT 90
[2021-08-03] MEDS: 0.9 % Sodium Chloride Flush 3 ML SYRINGE IVFLUSH ×3 (03:26→19:58)
[2021-08-03] MEDS: Morphine Sulfate 2 MG/ML CARTRIDGE IVPUSH ×4 (03:26→17:18)
[2021-08-03] MEDS: Omeprazole 20 MG CAPSULE.DR PO (05:50)
[2021-08-03 06:51] LABS: Hematocrit 38.2 % (42.0-52.0); Hemoglobin 12.4 g/dl (14.0-18.0)
[2021-08-03 07:05] LABS: Anion Gap 12 (12-20); Blood Urea Nitrogen 15 mg/dL (9-16); Calcium 9.1 mg/dL (8.4-10.2); Carbon Dioxide 29 mmol/L (22-29); Chloride 103 mmol/L (96-108); Creatinine Clr Calc Pharmacy 83.3; Estimated Glomerular Filt Rate > 60; Glucose Random 138 mg/dL (60-115); Potassium 4.5 mmol/L (3.3-5.1); Sodium 139 mmol/L (135-145)
[2021-08-03 07:29] VITALS: BP 130/84; PULSE 90; RESP 18; TEMP 36.1; O2SAT 98
[2021-08-03 08:08] LABS: Glucose, Whole Blood 120 mg/dL (60-115)
[2021-08-03] MEDS: Metoprolol Succinate ER 25 MG TAB.ER.24H PO (09:00)
[2021-08-03] MEDS: Gabapentin 100 MG CAPSULE PO ×3 (09:00→19:57)
[2021-08-03] MEDS: Insulin Lispro 100 UNIT/ML 3 ML VIAL SUBCUT ×2 (09:00→12:33)
[2021-08-03] MEDS: Insulin Glargine,Hum.rec.anlog 100 UNIT/ML 10 ML VIAL 40 UNIT SUBCUT (09:01)
[2021-08-03] MEDS: ondansetron HCL 4 MG/2 ML VIAL IVPUSH (09:22)
--- NOTE | 2021-08-03 10:06 | HO.PM.IMPN ---
Subjective Subjective Date of Service: 08/03/21 Interval History: Nauseous and ongoing episodes of coffee-ground emesis. Abd discomfort. Review of Systems Review of Systems: Yes all other systems are reviewed and are negative Physical Exam Vital Signs: Vital Signs: Last Vital Signs Temp 96.9 F 08/03/21 07:29 Pulse 90 08/03/21 07:29 Resp 18 08/03/21 07:29 BP 130/84 08/03/21 07:29 Pulse Ox 98 08/03/21 07:29 BMI result Body Mass Index 29.0 Gen: in no acute distress HEENT: sclera anicteric, moist mucus membranes Neck: supple Lungs: clear to auscultation bilaterally Heart: regular rate and rhythm, no murmurs Abd: soft, mild epigastric tenderness without rebound, non-distended Ext: no edema Skin: warm/well-perfused Neuro: alert and oriented x3, no focal findings Psych: appropriate affect Objective Data Active Medications Acetaminophen (Acetaminophen 325 Mg Tablet) 650 mg PO Q6H PRN PRN Reason: Pain, Mild (Pain Scale 1-3) Last Admin: 07/31/21 23:56 Dose: 650 mg Documented by: ISMAEL Atorvastatin Calcium (Atorvastatin Calcium 80 Mg Tablet) 80 mg PO BEDTIME [facility] Last Admin: 08/02/21 21:39 Dose: 80 mg Documented by: RENU Dextrose (Dextrose 50 % 25 Gm/50 Ml Syringe) 25 gm IVPUSH Q15M PRN; Protocol PRN Reason: per Hypoglycemia Standing Ord. Gabapentin (Gabapentin 100 Mg Capsule) 100 mg PO TID [facility] Last Admin: 08/03/21 09:00 Dose: 100 mg Documented by: SOLEDAD Glucose (Glucose Gel 15 Gm Gel..Gram.) 15 gm PO Q15M PRN; Protocol PRN Reason: per Hypoglycemia Standing Ord. Insulin Glargine (Insulin Glargine,Hum.Rec.Anlog 100 Unit/Ml 10 Ml Vial) 40 unit SUBCUT DAILY [facility] Last Admin: 08/03/21 09:01 Dose: 40 unit Documented by: SOLEDAD Insulin Human Lispro (Insulin Lispro 100 Unit/Ml 3 Ml Vial) 0 unit SUBCUT QIDACHS [facility]; Protocol Last Admin: 08/03/21 09:00 Dose: 2 unit Documented by: SOLEDAD Melatonin (Melatonin 3 Mg Tablet) 6 mg PO BEDTIME PRN PRN Reason: Insomnia Last Admin: 07/31/21 23:56 Dose: 6 mg Documented by: ISMAEL Metoprolol Succinate (Metoprolol Succinate Er 25 Mg Tab.Er.24h) 25 mg PO DAILY [facility]; Protocol Last Admin: 08/03/21 09:00 Dose: 25 mg Documented by: SOLEDAD Morphine Sulfate (Morphine Sulfate 2 Mg/Ml Cartridge) 2 mg IVPUSH Q2H PRN; Protocol PRN Reason: severe pain Last Admin: 08/03/21 08:59 Dose: 2 mg Documented by: SOLEDAD Nitroglycerin (Nitroglycerin 0.4 Mg Tab.Subl) 0.4 mg SUBLINGUAL Q5M PRN PRN Reason: chest pain Ondansetron HCl (Ondansetron Hcl 4 Mg/2 Ml Vial) 4 mg IVPUSH Q4H PRN PRN Reason: nausea/vomiting Oxycodone HCl (Oxycodone Hcl Immed Release 5 Mg Tablet) 5 mg PO Q4H PRN PRN Reason: moderate pain Last Admin: 08/02/21 19:44 Dose: 5 mg Documented by: RENU Pantoprazole Sodium (Pantoprazole Sodium 40 Mg/10 Ml Vial) 40 mg IVPUSH BID@0630,1630 [facility] Pharmacy Consult (Consult Rx Perform Med Rec) 1 each MISCELLANE ONCE PRN PRN Reason: Consult order Senna (Sennosides 8.6 Mg Tablet) 17.2 mg PO BEDTIME PRN PRN Reason: Constipation Sodium Chloride (0.9 % Sodium Chloride Flush 3 Ml Syringe) 3 ml IVFLUSH QSHIFT [facility] Last Admin: 08/03/21 09:02 Dose: 3 ml Documented by: SOLEDAD Labs CBC & Chem 7: 08/03/21 06:25 08/03/21 06:26 Labs: Laboratory Results - last 24 hr 08/02/21 08/02/21 08/02/21 11:41 16:06 19:53 Anion Gap Estim Creat Clear Calc Estimated GFR POC Glucose 320 H 205 H 117 H Random Glucose Calcium 08/03/21 08/03/21 06:26 07:28 Anion Gap 12 Estim Creat Clear Calc 83.3 Estimated GFR > 60 POC Glucose 120 H Random Glucose 138 H D Calcium 9.1 Microbiology Microbiology Results: Microbiology 07/31/21 11:23 Blood Culture - Preliminary Blood - Venous No growth after 48 hours. 07/31/21 11:23 Blood Culture - Preliminary Blood - Venous No growth after 48 hours. Assessment and Plan (1) GI bleed: Status: Acute (2) H/O heart artery stent: Status: Acute Plan hospital d#4 61yo M with DM2, HTN, and CAD on DAPT s/p PCI for STEMI in Feb 2021 presenting with hematemesis/coffee-ground emesis # upper GI bleed - EGD 08/01/21 cancelled due to Utox+ for cocaine and hyperK [resolved]. given recurrence of hematemesis, ask GI for inpt EGD tomorrow. continue to hold DAPT and give bid PPI IV. IV fluids. recheck CBC in am # hyperK - resolved p SZC # CAD # HTN - lisinopril + metoprolol + DAPT held on admission; resumed metoprolol # DM2, uncontrolled, with hyperglycemia - A1c 12.6, needs outpt Endocrinology f/u - basal/bolus insulin; hold MTF + empagliflozin # DM neuropathy - gabapentin # cocaine on Utox - pt consistently denies active use, saying he was exposed by a neighbor who was smoking crack while driving pt to the hospital - screen for HBV/HCV/HIV pending # VTE ppx - SCDs Quality Stroke Does the patient have a stroke diagnosis?: No VTE Prior VTE?: No VTE Risk Level:: Medical - moderate - high VTE Device Contraindication: N/A - Device Ordered VTE Drug Contraindication: Treatment Not Indicated
[2021-08-03] MEDS: Lactated Ringers 1,000 ML 125 ML IVCONT (10:31)
[2021-08-03 11:34] VITALS: BP 120/62; PULSE 84; RESP 18; TEMP 36; O2SAT 94
--- NOTE | 2021-08-03 11:47 | P.PNGI_ITS ---
Subjective Subjective Date of Service: 08/03/21 Interval History: c/o recurrent vomiting and GI upset Critical Care Time (minutes): 0 Physical Exam Verdana 4l Vital Signs: Verdana 4d Verdana 4d Vital Signs: Verdana 4d Verdana 4Bd Last Vital Signs Verdana 4d Organ Pipe Voicer New 4d Organ Pipe Voicer New 4d Temp 96.8 F 08/03/21 11:34 Organ Pipe Voicer New 4d Pulse 84 08/03/21 11:34 Organ Pipe Voicer New 4d Resp 18 08/03/21 11:34 BP 120/62 08/03/21 11:34 Pulse Ox 94 08/03/21 11:34 BMI result Body Mass Index 29.0 Resp: Other: lungs clear Cardio: Other: s1 s2 normal GI: Other: abdomen is soft and nontender Objective Data Labs CBC & Chem 7: 08/03/21 06:25 08/03/21 06:26 Procedures Date of Service Date of Service: 08/03/21 Progress Note: A&P Assessment and plan (1) Hematemesis: Status: Acute Assessment and Plan: reportedly had recurrent hematemesis yesterday hematocrit stable EGD scheduled for 08/[address] Glynn due to continued UGI symptoms. pt aware of risks and benefits and agrees to proceed. Fall Risk Details Current Medications: Current Medications Acetaminophen (Acetaminophen 325 Mg Tablet) 650 mg PO Q6H PRN PRN Reason: Pain, Mild (Pain Scale 1-3) Last Admin: 07/31/21 23:56 Dose: 650 mg Documented by: Atorvastatin Calcium (Atorvastatin Calcium 80 Mg Tablet) 80 mg PO BEDTIME [facility] Last Admin: 08/02/21 21:39 Dose: 80 mg Documented by: Dextrose (Dextrose 50 % 25 Gm/50 Ml Syringe) 25 gm IVPUSH Q15M PRN; Protocol PRN Reason: per Hypoglycemia Standing Ord. Gabapentin (Gabapentin 100 Mg Capsule) 100 mg PO TID [facility] Last Admin: 08/03/21 09:00 Dose: 100 mg Documented by: Glucose (Glucose Gel 15 Gm Gel..Gram.) 15 gm PO Q15M PRN; Protocol PRN Reason: per Hypoglycemia Standing Ord. Lactated Ringer's (Lr) 1,000 mls @ 125 mls/hr IVCONT .Q8H [facility] Last Admin: 08/03/21 10:31 Dose: 125 mls/hr Documented by: Insulin Glargine (Insulin Glargine,Hum.Rec.Anlog 100 Unit/Ml 10 Ml Vial) 40 unit SUBCUT DAILY [facility] Last Admin: 08/03/21 09:01 Dose: 40 unit Documented by: Insulin Human Lispro (Insulin Lispro 100 Unit/Ml 3 Ml Vial) 0 unit SUBCUT QIDACHS [facility]; Protocol Last Admin: 08/03/21 09:00 Dose: 2 unit Documented by: Melatonin (Melatonin 3 Mg Tablet) 6 mg PO BEDTIME PRN PRN Reason: Insomnia Last Admin: 07/31/21 23:56 Dose: 6 mg Documented by: Metoprolol Succinate (Metoprolol Succinate Er 25 Mg Tab.Er.24h) 25 mg PO DAILY [facility]; Protocol Last Admin: 08/03/21 09:00 Dose: 25 mg Documented by: Morphine Sulfate (Morphine Sulfate 2 Mg/Ml Cartridge) 2 mg IVPUSH Q2H PRN; Protocol PRN Reason: severe pain Last Admin: 08/03/21 08:59 Dose: 2 mg Documented by: Nitroglycerin (Nitroglycerin 0.4 Mg Tab.Subl) 0.4 mg SUBLINGUAL Q5M PRN PRN Reason: chest pain Ondansetron HCl (Ondansetron Hcl 4 Mg/2 Ml Vial) 4 mg IVPUSH Q4H PRN PRN Reason: nausea/vomiting Oxycodone HCl (Oxycodone Hcl Immed Release 5 Mg Tablet) 5 mg PO Q4H PRN PRN Reason: moderate pain Last Admin: 08/02/21 19:44 Dose: 5 mg Documented by: Pantoprazole Sodium (Pantoprazole Sodium 40 Mg/10 Ml Vial) 40 mg IVPUSH BID@0630,1630 [facility] Pharmacy Consult (Consult Rx Perform Med Rec) 1 each MISCELLANE ONCE PRN PRN Reason: Consult order Senna (Sennosides 8.6 Mg Tablet) 17.2 mg PO BEDTIME PRN PRN Reason: Constipation Sodium Chloride (0.9 % Sodium Chloride Flush 3 Ml Syringe) 3 ml IVFLUSH QSHIFT [facility] Last Admin: 08/03/21 09:02 Dose: 3 ml Documented by: Time Spent With Patient Time: Total time spent is greater than 50% in coordination of care (as documented) at patient's floor/unit and/or counseling patient: Time with patient: 15 - 24 minutes Quality Stroke Does the patient have a stroke diagnosis?: No VTE Prior VTE?: No VTE Risk Level:: Medical - moderate - high VTE Device Contraindication: N/A - Device Ordered VTE Drug Contraindication: Treatment Not Indicated
--- NOTE | 2021-08-03 11:54 | MHC.SHP ---
Pre-Procedural Eval Section A Date of Service: 08/03/21 The patient is an INPATIENT: Yes Changes since office visit: No Cold of Flu in the past 2 weeks, No New Medical Problems, No Changes in Medication and No Patient answered all questions The History & Physical has been completed within 30 days and I have reviewed it.: Yes Section B Chief Complaint: GI Bleed Allergies: Allergies Allergy/AdvReac Type Severity Reaction Status Date / Time No Known Allergies Allergy Verified 04/15/21 16:30 Plan I have reviewed the history and physical and performed a pertinent physical examination on my patient. No changes have occurred unless specified.
[2021-08-03 12:06] LABS: Glucose, Whole Blood 131 mg/dL (60-115)
[2021-08-03 15:36] VITALS: BP 140/85; PULSE 84; RESP 18; TEMP 36.5; O2SAT 98
[2021-08-03 16:08] LABS: Glucose, Whole Blood 89 mg/dL (60-115)
[2021-08-03] MEDS: Pantoprazole Sodium 40 MG/10 ML VIAL IVPUSH (17:18)
[2021-08-03 19:19] VITALS: BP 129/73; PULSE 87; RESP 17; TEMP 36.2; O2SAT 98
[2021-08-03 19:44] LABS: Glucose, Whole Blood 76 mg/dL (60-115)
[2021-08-03] MEDS: Atorvastatin Calcium 80 MG TABLET PO (19:57)
[2021-08-03] MEDS: Dextrose 5 % and 0.45 % NaCl 1,000 ML 50 ML IVCONT (19:57)
[2021-08-03 23:31] VITALS: BP 134/61; PULSE 81; RESP 16; TEMP 36; O2SAT 96
[2021-08-04] VITALS (12 sets, daily range): BP systolic 92–167; BP diastolic 56–112; PULSE 69–96; RESP 14–20; TEMP 36.1–36.8; O2SAT 95–98
[2021-08-04] MEDS: Morphine Sulfate 2 MG/ML CARTRIDGE IVPUSH ×2 (00:07→12:10)
[2021-08-04] MEDS: Pantoprazole Sodium 40 MG/10 ML VIAL IVPUSH ×2 (05:44→17:05)
[2021-08-04 06:13] LABS: Hematocrit 37.9 % (42.0-52.0); Hemoglobin 12.3 g/dl (14.0-18.0); Mean Corpuscular HGB Conc 32.5 g/dl (31.0-36.0); Mean Corpuscular Volume 92.4 fL (80.0-98.0); Mean Platelet Volume 9.4 fL (9.4-12.4); Platelet Count 222 X10*3/uL (160-400); Red Cell Distribution Width 13.3 % (11.0-16.0); White Blood Count 8.6 X10*3/uL (4.8-10.8)
[2021-08-04 06:51] LABS: Alanine Aminotransferase 103 U/L (0-40); Albumin Level 3.5 g/dL (3.5-5.0); Alkaline Phosphatase 184 U/L (39-117); Anion Gap 12 (12-20); Aspartate Amino Transferase 53 U/L (5-37); Bilirubin Total 0.6 mg/dL (0.0-1.0); Blood Urea Nitrogen 13 mg/dL (9-16); Calcium 8.9 mg/dL (8.4-10.2); Carbon Dioxide 29 mmol/L (22-29); Chloride 105 mmol/L (96-108); Creatinine Clr Calc Pharmacy 94.3; Estimated Glomerular Filt Rate > 60; Glucose Random 83 mg/dL (60-115); Potassium 4.6 mmol/L (3.3-5.1); Sodium 141 mmol/L (135-145); Total Protein 5.9 g/dL (6.5-8.0)
[2021-08-04 07:50] LABS: Glucose, Whole Blood 95 mg/dL (60-115)
[2021-08-04] MEDS: Metoprolol Succinate ER 25 MG TAB.ER.24H PO (08:09)
[2021-08-04] MEDS: 0.9 % Sodium Chloride Flush 3 ML SYRINGE IVFLUSH ×2 (08:10→17:02)
[2021-08-04] MEDS: oxyCODONE HCl Immed Release 5 MG TABLET PO ×2 (08:17→17:20)
[2021-08-04 08:25] LABS: HBsAGNum1 0.22 S/CO (0.00-0.99); Hepatitis B Surface Antigen Negative (Negative); ~HepC Num1 0.07 S/CO (0.00-0.79); ~Hepatitis C Antibody Nonreactive (Nonreactive)
[2021-08-04 08:50] LABS: HBS Num1 0.37 mIU/mL (0-7.99); HBc Num1 0.06 S/CO (0.00-0.79); HIV AB/AG Nonreactive (Nonreactive); HIV Num 1 0.07 S/CO (0.00-0.99); Hepatitis B Core Antibody Nonreactive (Nonreactive); ~Hepatitis B Surface Antibody NONREACTIVE (Nonreactive)
--- NOTE | 2021-08-04 10:43 | P.PNIM_ITS ---
Subjective Subjective Date of Service: 08/04/21 Interval History: Ongoing epigastric discomfort and nausea. NPO for EGD Review of Systems Review of Systems: Yes all other systems are reviewed and are negative Physical Exam Verdana 4l Vital Signs: Verdana 4d Verdana 4d Vital Signs: Verdana 4d Verdana 4Bd Last Vital Signs Verdana 4d Managed Care Coordinator New 4d Managed Care Coordinator New 4d Temp 98.0 F 08/04/21 07:29 Managed Care Coordinator New 4d Pulse 75 08/04/21 07:29 Managed Care Coordinator New 4d Resp 20 08/04/21 07:29 BP 131/69 08/04/21 07:29 Pulse Ox 96 08/04/21 07:29 BMI result Body Mass Index 29.0 Gen: in no acute distress HEENT: sclera anicteric, moist mucus membranes Neck: supple Lungs: clear to auscultation bilaterally Heart: regular rate and rhythm, no murmurs Abd: soft, mild epigastric tenderness without rebound, non-distended Ext: no edema Skin: warm/well-perfused Neuro: alert and oriented x3, no focal findings Psych: appropriate affect Objective Data Active Medications Acetaminophen (Acetaminophen 325 Mg Tablet) 650 mg PO Q6H PRN PRN Reason: Pain, Mild (Pain Scale 1-3) Last Admin: 07/31/21 23:56 Dose: 650 mg Documented by: ISMAEL Atorvastatin Calcium (Atorvastatin Calcium 80 Mg Tablet) 80 mg PO BEDTIME [facility] Last Admin: 08/03/21 19:57 Dose: 80 mg Documented by: RENU Dextrose (Dextrose 50 % 25 Gm/50 Ml Syringe) 25 gm IVPUSH Q15M PRN; Protocol PRN Reason: per Hypoglycemia Standing Ord. Gabapentin (Gabapentin 100 Mg Capsule) 100 mg PO TID [facility] Last Admin: 08/04/21 08:10 Dose: Not Given Documented by: JANICE Non-Admin Reason: NPO Glucose (Glucose Gel 15 Gm Gel..Gram.) 15 gm PO Q15M PRN; Protocol PRN Reason: per Hypoglycemia Standing Ord. Lactated Ringer's (Lr) 1,000 mls @ 125 mls/hr IVCONT .Q8H [facility] Last Admin: 08/04/21 02:56 Dose: Not Given Documented by: SHARI Non-Admin Reason: OLD IVF ORDER PER RN REPORT, SEE CHANGE Dextrose/Sodium Chloride (D51/2ns) 1,000 mls @ 50 mls/hr IVCONT .Q20H [facility] Last Admin: 08/03/21 19:57 Dose: 50 mls/hr Documented by: RENU Insulin Glargine (Insulin Glargine,Hum.Rec.Anlog 100 Unit/Ml 10 Ml Vial) 40 unit SUBCUT DAILY [facility] Last Admin: 08/04/21 08:09 Dose: Not Given Documented by: JANICE Non-Admin Reason: NPO Insulin Human Lispro (Insulin Lispro 100 Unit/Ml 3 Ml Vial) 0 unit SUBCUT QIDACHS [facility]; Protocol Last Admin: 08/04/21 07:49 Dose: Not Given Documented by: JANICE Non-Admin Reason: No Insulin Coverage Melatonin (Melatonin 3 Mg Tablet) 6 mg PO BEDTIME PRN PRN Reason: Insomnia Last Admin: 07/31/21 23:56 Dose: 6 mg Documented by: ISMAEL Metoprolol Succinate (Metoprolol Succinate Er 25 Mg Tab.Er.24h) 25 mg PO DAILY [facility]; Protocol Last Admin: 08/04/21 08:09 Dose: 25 mg Documented by: JANICE Morphine Sulfate (Morphine Sulfate 2 Mg/Ml Cartridge) 2 mg IVPUSH Q2H PRN; Protocol PRN Reason: severe pain Last Admin: 08/04/21 00:07 Dose: 2 mg Documented by: SHARI Nitroglycerin (Nitroglycerin 0.4 Mg Tab.Subl) 0.4 mg SUBLINGUAL Q5M PRN PRN Reason: chest pain Ondansetron HCl (Ondansetron Hcl 4 Mg/2 Ml Vial) 4 mg IVPUSH Q4H PRN PRN Reason: nausea/vomiting Oxycodone HCl (Oxycodone Hcl Immed Release 5 Mg Tablet) 5 mg PO Q4H PRN PRN Reason: moderate pain Last Admin: 08/04/21 08:17 Dose: 5 mg Documented by: ANDREW Pantoprazole Sodium (Pantoprazole Sodium 40 Mg/10 Ml Vial) 40 mg IVPUSH BID@0630,1630 [facility] Last Admin: 08/04/21 05:44 Dose: 40 mg Documented by: SHARI Pharmacy Consult (Consult Rx Perform Med Rec) 1 each MISCELLANE ONCE PRN PRN Reason: Consult order Senna (Sennosides 8.6 Mg Tablet) 17.2 mg PO BEDTIME PRN PRN Reason: Constipation Sodium Chloride (0.9 % Sodium Chloride Flush 3 Ml Syringe) 3 ml IVFLUSH QSHIFT [facility] Last Admin: 08/04/21 08:10 Dose: 3 ml Documented by: JANICE Labs CBC & Chem 7: 08/04/21 05:40 08/04/21 05:40 Labs: Laboratory Results - last 24 hr 08/02/21 08/03/21 08/03/21 06:07 11:34 15:38 MCV MCH MCHC RDW Plt Count MPV Absolute Nucleated RBC Nucleated RBC % (auto) Anion Gap Estim Creat Clear Calc Estimated GFR POC Glucose 131 H 89 Random Glucose Calcium Total Bilirubin AST ALT Alkaline Phosphatase Total Protein Albumin Hep Bs Antigen Negative Hep Bs Antibody NONREACTIVE Hep B Core Total Ab Nonreactive Hepatitis C Ab (EIA) Nonreactive HIV 1&2 Ab/P24 Ag 4thGn Nonreactive 08/03/21 08/04/21 08/04/21 19:20 05:40 05:40 MCV 92.4 MCH 30.0 MCHC 32.5 RDW 13.3 Plt Count 222 MPV 9.4 Absolute Nucleated RBC 0.000 Nucleated RBC % (auto) 0.0 Anion Gap 12 Estim Creat Clear Calc 94.3 Estimated GFR > 60 POC Glucose 76 Random Glucose 83 D Calcium 8.9 Total Bilirubin 0.6 AST 53 H ALT 103 H Alkaline Phosphatase 184 H D Total Protein 5.9 L Albumin 3.5 Hep Bs Antigen Hep Bs Antibody Hep B Core Total Ab Hepatitis C Ab (EIA) HIV 1&2 Ab/P24 Ag 4thGn 08/04/21 07:31 MCV MCH MCHC RDW Plt Count MPV Absolute Nucleated RBC Nucleated RBC % (auto) Anion Gap Estim Creat Clear Calc Estimated GFR POC Glucose 95 Random Glucose Calcium Total Bilirubin AST ALT Alkaline Phosphatase Total Protein Albumin Hep Bs Antigen Hep Bs Antibody Hep B Core Total Ab Hepatitis C Ab (EIA) HIV 1&2 Ab/P24 Ag 4thGn Assessment and Plan (1) GI bleed: Status: Acute (2) H/O heart artery stent: Status: Acute Plan hospital d#5 61yo M with DM2, HTN, and CAD on DAPT s/p PCI for STEMI in Feb 2021 presenting with hematemesis/coffee-ground emesis # upper GI bleed - EGD 08/01/21 cancelled due to Utox+ for cocaine and hyperK [resolved]. given recurrence of hematemesis, EGD will be done today. continue to hold DAPT and give bid PPI IV. IV fluids. H+H very slowly drifting down. # transaminasemia - HBV/HCV negative, recheck LFTs in am # hyperK - resolved p SZC # CAD # HTN - lisinopril + metoprolol + DAPT held on admission; resumed metoprolol # DM2, uncontrolled, with hyperglycemia - A1c 12.6, needs outpt Endocrinology f/u - basal/bolus insulin; hold MTF + empagliflozin # DM neuropathy - gabapentin # cocaine on Utox - pt consistently denies active use, saying he was exposed by a neighbor who was smoking crack while driving pt to the hospital - HBV/HCV/HIV negative # VTE ppx - SCDs Quality Stroke Does the patient have a stroke diagnosis?: No VTE Prior VTE?: No VTE Risk Level:: Medical - moderate - high VTE Device Contraindication: N/A - Device Ordered VTE Drug Contraindication: Treatment Not Indicated
[2021-08-04 11:33] LABS: Glucose, Whole Blood 97 mg/dL (60-115)
--- NOTE | 2021-08-04 13:15 | HO.ANESPROP2 ---
[facility] Active Problems Active Problems: All Active Problems (Updated 08/03/21 @ 11:50 by Ronal Sims) Hematemesis (Acute) GI bleed (Acute) H/O heart artery stent (Acute) STEMI (ST elevation myocardial infarction) (Acute) Uncontrolled diabetes mellitus (Acute) Diabetes (Acute) Past Medical History Medical History Diabetes Essential (primary) hypertension HLD (hyperlipidemia) STEMI (ST elevation myocardial infarction) Unspecified asthma, uncomplicated Family History Family history of problems with anesthesia: No Surgical History Surgical History H/O heart artery stent History of Problems with Anesthesia: No Social History Social History Household Members: None Housing: Apartment Do you presently have visiting nurse or other home services: No Alcohol intake: former Patient Tobacco Use Status: Former Tobacco user Substance Use Type: Former Substance User Advance Directives Date on File: 08/02/21 service: No Meds Allergies Allergy/AdvReac Type Severity Reaction Status Date / Time No Known Allergies Allergy Verified 04/15/21 16:30 Active Medications: Current Medications Acetaminophen (Acetaminophen 325 Mg Tablet) 650 mg PO Q6H PRN PRN Reason: Pain, Mild (Pain Scale 1-3) Last Admin: 07/31/21 23:56 Dose: 650 mg Documented by: Atorvastatin Calcium (Atorvastatin Calcium 80 Mg Tablet) 80 mg PO BEDTIME [facility] Last Admin: 08/03/21 19:57 Dose: 80 mg Documented by: Dextrose (Dextrose 50 % 25 Gm/50 Ml Syringe) 25 gm IVPUSH Q15M PRN; Protocol PRN Reason: per Hypoglycemia Standing Ord. Gabapentin (Gabapentin 100 Mg Capsule) 100 mg PO TID [facility] Last Admin: 08/04/21 08:10 Dose: Not Given Documented by: Glucose (Glucose Gel 15 Gm Gel..Gram.) 15 gm PO Q15M PRN; Protocol PRN Reason: per Hypoglycemia Standing Ord. Dextrose/Sodium Chloride (D51/2ns) 1,000 mls @ 50 mls/hr IVCONT .Q20H [facility] Last Admin: 08/03/21 19:57 Dose: 50 mls/hr Documented by: Insulin Glargine (Insulin Glargine,Hum.Rec.Anlog 100 Unit/Ml 10 Ml Vial) 40 unit SUBCUT DAILY [facility] Last Admin: 08/04/21 08:09 Dose: Not Given Documented by: Insulin Human Lispro (Insulin Lispro 100 Unit/Ml 3 Ml Vial) 0 unit SUBCUT QIDACHS [facility]; Protocol Last Admin: 08/04/21 11:34 Dose: Not Given Documented by: Melatonin (Melatonin 3 Mg Tablet) 6 mg PO BEDTIME PRN PRN Reason: Insomnia Last Admin: 07/31/21 23:56 Dose: 6 mg Documented by: Metoprolol Succinate (Metoprolol Succinate Er 25 Mg Tab.Er.24h) 25 mg PO DAILY [facility]; Protocol Last Admin: 08/04/21 08:09 Dose: 25 mg Documented by: Morphine Sulfate (Morphine Sulfate 2 Mg/Ml Cartridge) 2 mg IVPUSH Q2H PRN; Protocol PRN Reason: severe pain Last Admin: 08/04/21 12:10 Dose: 2 mg Documented by: Nitroglycerin (Nitroglycerin 0.4 Mg Tab.Subl) 0.4 mg SUBLINGUAL Q5M PRN PRN Reason: chest pain Ondansetron HCl (Ondansetron Hcl 4 Mg/2 Ml Vial) 4 mg IVPUSH Q4H PRN PRN Reason: nausea/vomiting Oxycodone HCl (Oxycodone Hcl Immed Release 5 Mg Tablet) 5 mg PO Q4H PRN PRN Reason: moderate pain Last Admin: 08/04/21 08:17 Dose: 5 mg Documented by: Pantoprazole Sodium (Pantoprazole Sodium 40 Mg/10 Ml Vial) 40 mg IVPUSH BID@0630,1630 [facility] Last Admin: 08/04/21 05:44 Dose: 40 mg Documented by: Pharmacy Consult (Consult Rx Perform Med Rec) 1 each MISCELLANE ONCE PRN PRN Reason: Consult order Senna (Sennosides 8.6 Mg Tablet) 17.2 mg PO BEDTIME PRN PRN Reason: Constipation Sodium Chloride (0.9 % Sodium Chloride Flush 3 Ml Syringe) 3 ml IVFLUSH QSHIFT [facility] Last Admin: 08/04/21 08:10 Dose: 3 ml Documented by: Home Medications Medication Instructions Recorded Confirmed Last Taken Type aspirin 325 mg tablet,delayed 650 mg PO TID 04/15/21 07/31/21 07/30/21 History release empagliflozin 10 mg tablet 10 mg PO QAM 04/15/21 07/31/21 07/30/21 History (Jardiance) insulin lispro 100 unit/mL 14 - 20 unit SUBCUT TID 05/13/21 07/31/21 07/30/21 History subcutaneous pen (Humalog KwikPen (U-100) Insulin) Exam Exam Date and Time: August 04, 2021 1315 Height,Weight and Vital Signs: Height 5 ft 7 in Weight 83.915 kg Last Vital Signs Temp 97.5 F 08/04/21 11:23 Pulse 77 08/04/21 11:23 Resp 18 08/04/21 11:23 BP 154/84 H 08/04/21 11:23 Pulse Ox 98 08/04/21 11:23 Pertinent Lab Results Pertinent Lab Results: Laboratory Tests 07/31/21 07/31/21 07/31/21 10:52 10:52 10:52 WBC 12.4 H RBC 5.17 Hgb 15.6 Hct 46.7 MCV 90.3 MCH 30.2 MCHC 33.4 RDW 13.6 Plt Count 347 MPV 9.8 Immature Gran % (Auto) 0.5 H Neut % (Auto) 73.5 H Lymph % (Auto) 17.6 L [place] % (Auto) 7.6 Eos % (Auto) 0.6 Baso % (Auto) 0.2 Lymph # (Auto) 2.2 [place] # (Auto) 1.0 Eos # (Auto) 0.1 Baso # (Auto) 0.0 Abs Immat Gran (auto) 0.06 H Absolute Neuts (auto) 9.1 H Absolute Nucleated RBC 0.000 Nucleated RBC % (auto) 0.0 PT INR APTT Sodium 138 Potassium 5.4 H Chloride 97 Carbon Dioxide 29 Anion Gap 17 BUN 32 H Creatinine 1.50 H Estim Creat Clear Calc 52.2 Estimated GFR 47 POC Glucose Random Glucose 248 H Estimat Average Glucose Hemoglobin A1c % Calcium 10.6 H D Total Bilirubin 0.9 Direct Bilirubin 0.3 AST 17 D ALT 25 Alkaline Phosphatase 97 Troponin I High Sens Total Protein 8.7 H Albumin 5.0 Lipase 65 Urine Color Urine Appearance Urine pH Ur Specific [place] Urine Protein Urine Glucose (UA) Urine Ketones Urine Blood Urine Nitrite Ur Leukocyte Esterase Urine RBC Urine WBC Ur Squamous Epith Cells Urine Bacteria Stool Occult Blood Urine Opiates Screen Urine Fentanyl Screen Ur Barbiturates Screen Ur Phencyclidine Scrn Ur Amphetamines Screen U Benzodiazepines Scrn Urine Cocaine Screen U Marijuana (THC) Screen COVID-19 (ALEJANDRO) Negative COVID-19 Clin Com See Note Hep Bs Antigen Hep Bs Antibody Hep B Core Total Ab Hepatitis C Ab (EIA) HIV 1&2 Ab/P24 Ag 4thGn Blood Type Antibody Screen 07/31/21 07/31/21 07/31/21 10:52 10:59 10:59 WBC RBC Hgb Hct MCV MCH MCHC RDW Plt Count MPV Immature Gran % (Auto) Neut % (Auto) Lymph % (Auto) [place] % (Auto) Eos % (Auto) Baso % (Auto) Lymph # (Auto) [place] # (Auto) Eos # (Auto) Baso # (Auto) Abs Immat Gran (auto) Absolute Neuts (auto) Absolute Nucleated RBC Nucleated RBC % (auto) PT 11.6 INR 1.0 APTT 30.5 Sodium Potassium Chloride Carbon Dioxide Anion Gap BUN Creatinine Estim Creat Clear Calc Estimated GFR POC Glucose Random Glucose Estimat Average Glucose Hemoglobin A1c % Calcium Total Bilirubin Direct Bilirubin AST ALT Alkaline Phosphatase Troponin I High Sens 28.5 Total Protein Albumin Lipase Urine Color Urine Appearance Urine pH Ur Specific [place] Urine Protein Urine Glucose (UA) Urine Ketones Urine Blood Urine Nitrite Ur Leukocyte Esterase Urine RBC Urine WBC Ur Squamous Epith Cells Urine Bacteria Stool Occult Blood NEGATIVE Urine Opiates Screen Urine Fentanyl Screen Ur Barbiturates Screen Ur Phencyclidine Scrn Ur Amphetamines Screen U Benzodiazepines Scrn Urine Cocaine Screen U Marijuana (THC) Screen COVID-19 (ALEJANDRO) COVID-19 Clin Com Hep Bs Antigen Hep Bs Antibody Hep B Core Total Ab Hepatitis C Ab (EIA) HIV 1&2 Ab/P24 Ag 4thGn Blood Type Antibody Screen 07/31/21 07/31/21 07/31/21 11:23 12:58 12:58 WBC RBC Hgb Hct MCV MCH MCHC RDW Plt Count MPV Immature Gran % (Auto) Neut % (Auto) Lymph % (Auto) [place] % (Auto) Eos % (Auto) Baso % (Auto) Lymph # (Auto) [place] # (Auto) Eos # (Auto) Baso # (Auto) Abs Immat Gran (auto) Absolute Neuts (auto) Absolute Nucleated RBC Nucleated RBC % (auto) PT INR APTT Sodium 138 Potassium 4.7 Chloride 101 Carbon Dioxide 26 Anion Gap 16 BUN 30 H Creatinine 1.25 Estim Creat Clear Calc 62.6 Estimated GFR 58 POC Glucose Random Glucose 199 H Estimat Average Glucose Hemoglobin A1c % Calcium 8.9 D Total Bilirubin 0.9 Direct Bilirubin AST 51 H ALT 36 Alkaline Phosphatase 82 Troponin I High Sens 32.3 Total Protein 6.8 D Albumin 4.0 Lipase Urine Color Urine Appearance Urine pH Ur Specific [place] Urine Protein Urine Glucose (UA) Urine Ketones Urine Blood Urine Nitrite Ur Leukocyte Esterase Urine RBC Urine WBC Ur Squamous Epith Cells Urine Bacteria Stool Occult Blood Urine Opiates Screen Urine Fentanyl Screen Ur Barbiturates Screen Ur Phencyclidine Scrn Ur Amphetamines Screen U Benzodiazepines Scrn Urine Cocaine Screen U Marijuana (THC) Screen COVID-19 (ALEJANDRO) COVID-19 Clin Com Hep Bs Antigen Hep Bs Antibody Hep B Core Total Ab Hepatitis C Ab (EIA) HIV 1&2 Ab/P24 Ag 4thGn Blood Type A Positive Antibody Screen NEGATIVE 07/31/21 07/31/21 07/31/21 15:37 15:59 15:59 WBC 10.1 RBC 4.23 L Hgb 13.0 L Hct 39.2 L MCV 92.7 MCH 30.7 MCHC 33.2 RDW 13.6 Plt Count 266 MPV 9.9 Immature Gran % (Auto) 0.3 Neut % (Auto) 64.2 Lymph % (Auto) 25.7 [place] % (Auto) 8.7 Eos % (Auto) 0.8 Baso % (Auto) 0.3 Lymph # (Auto) 2.6 [place] # (Auto) 0.9 Eos # (Auto) 0.1 Baso # (Auto) 0.0 Abs Immat Gran (auto) 0.03 Absolute Neuts (auto) 6.5 Absolute Nucleated RBC 0.000 Nucleated RBC % (auto) 0.0 PT INR APTT Sodium Potassium Chloride Carbon Dioxide Anion Gap BUN Creatinine Estim Creat Clear Calc Estimated GFR POC Glucose Random Glucose Estimat Average Glucose Hemoglobin A1c % Calcium Total Bilirubin Direct Bilirubin AST ALT Alkaline Phosphatase Troponin I High Sens Total Protein Albumin Lipase Urine Color YELLOW Urine Appearance CLEAR Urine pH 6.5 Ur Specific [place] <= 1.005 Urine Protein NEG Urine Glucose (UA) >=1000 H Urine Ketones 5 Urine Blood NEG Urine Nitrite NEG Ur Leukocyte Esterase NEG Urine RBC 0 Urine WBC 0 Ur Squamous Epith Cells TRACE Urine Bacteria NONE Stool Occult Blood Urine Opiates Screen POSITIVE H Urine Fentanyl Screen Not Detected Ur Barbiturates Screen POSITIVE H Ur Phencyclidine Scrn Not Detected Ur Amphetamines Screen Not Detected U Benzodiazepines Scrn Not Detected Urine Cocaine Screen POSITIVE H U Marijuana (THC) Screen Not Detected COVID-19 (ALEJANDRO) COVID-19 Clin Com Hep Bs Antigen Hep Bs Antibody Hep B Core Total Ab Hepatitis C Ab (EIA) HIV 1&2 Ab/P24 Ag 4thGn Blood Type Antibody Screen 08/01/21 08/01/21 08/01/21 07:13 08:01 08:01 WBC 8.7 RBC 4.48 L Hgb 13.6 L Hct 42.1 MCV 94.0 MCH 30.4 MCHC 32.3 RDW 13.5 Plt Count 247 MPV 9.7 Immature Gran % (Auto) 0.5 H Neut % (Auto) 66.9 Lymph % (Auto) 23.4 [place] % (Auto) 7.3 Eos % (Auto) 1.4 Baso % (Auto) 0.5 Lymph # (Auto) 2.0 [place] # (Auto) 0.6 Eos # (Auto) 0.1 Baso # (Auto) 0.0 Abs Immat Gran (auto) 0.04 H Absolute Neuts (auto) 5.8 Absolute Nucleated RBC 0.000 Nucleated RBC % (auto) 0.0 PT INR APTT Sodium 138 Potassium 5.2 H Chloride 103 Carbon Dioxide 27 Anion Gap 13 BUN 21 H Creatinine 1.02 Estim Creat Clear Calc 76.7 Estimated GFR > 60 POC Glucose 145 H Random Glucose 150 H Estimat Average Glucose Hemoglobin A1c % Calcium 9.3 Total Bilirubin Direct Bilirubin AST ALT Alkaline Phosphatase Troponin I High Sens Total Protein Albumin Lipase Urine Color Urine Appearance Urine pH Ur Specific [place] Urine Protein Urine Glucose (UA) Urine Ketones Urine Blood Urine Nitrite Ur Leukocyte Esterase Urine RBC Urine WBC Ur Squamous Epith Cells Urine Bacteria Stool Occult Blood Urine Opiates Screen Urine Fentanyl Screen Ur Barbiturates Screen Ur Phencyclidine Scrn Ur Amphetamines Screen U Benzodiazepines Scrn Urine Cocaine Screen U Marijuana (THC) Screen COVID-19 (ALEJANDRO) COVID-19 Clin Com Hep Bs Antigen Hep Bs Antibody Hep B Core Total Ab Hepatitis C Ab (EIA) HIV 1&2 Ab/P24 Ag 4thGn Blood Type Antibody Screen 08/01/21 08/01/21 08/01/21 12:31 16:26 19:25 WBC RBC Hgb Hct MCV MCH MCHC RDW Plt Count MPV Immature Gran % (Auto) Neut % (Auto) Lymph % (Auto) [place] % (Auto) Eos % (Auto) Baso % (Auto) Lymph # (Auto) [place] # (Auto) Eos # (Auto) Baso # (Auto) Abs Immat Gran (auto) Absolute Neuts (auto) Absolute Nucleated RBC Nucleated RBC % (auto) PT INR APTT Sodium Potassium Chloride Carbon Dioxide Anion Gap BUN Creatinine Estim Creat Clear Calc Estimated GFR POC Glucose 146 H 274 H 138 H Random Glucose Estimat Average Glucose Hemoglobin A1c % Calcium Total Bilirubin Direct Bilirubin AST ALT Alkaline Phosphatase Troponin I High Sens Total Protein Albumin Lipase Urine Color Urine Appearance Urine pH Ur Specific [place] Urine Protein Urine Glucose (UA) Urine Ketones Urine Blood Urine Nitrite Ur Leukocyte Esterase Urine RBC Urine WBC Ur Squamous Epith Cells Urine Bacteria Stool Occult Blood Urine Opiates Screen Urine Fentanyl Screen Ur Barbiturates Screen Ur Phencyclidine Scrn Ur Amphetamines Screen U Benzodiazepines Scrn Urine Cocaine Screen U Marijuana (THC) Screen COVID-19 (ALEJANDRO) COVID-19 Clin Com Hep Bs Antigen Hep Bs Antibody Hep B Core Total Ab Hepatitis C Ab (EIA) HIV 1&2 Ab/P24 Ag 4thGn Blood Type Antibody Screen 08/02/21 08/02/21 08/02/21 06:06 06:06 06:07 WBC RBC Hgb 12.9 L Hct 40.2 L MCV MCH MCHC RDW Plt Count MPV Immature Gran % (Auto) Neut % (Auto) Lymph % (Auto) [place] % (Auto) Eos % (Auto) Baso % (Auto) Lymph # (Auto) [place] # (Auto) Eos # (Auto) Baso # (Auto) Abs Immat Gran (auto) Absolute Neuts (auto) Absolute Nucleated RBC Nucleated RBC % (auto) PT INR APTT Sodium 137 Potassium 5.2 H Chloride 101 Carbon Dioxide 30 H Anion Gap 11 L BUN 18 H Creatinine 1.24 Estim Creat Clear Calc 63.1 Estimated GFR 59 POC Glucose Random Glucose 261 H D Estimat Average Glucose 315 Hemoglobin A1c % 12.6 Calcium 9.3 Total Bilirubin Direct Bilirubin AST ALT Alkaline Phosphatase Troponin I High Sens Total Protein Albumin Lipase Urine Color Urine Appearance Urine pH Ur Specific [place] Urine Protein Urine Glucose (UA) Urine Ketones Urine Blood Urine Nitrite Ur Leukocyte Esterase Urine RBC Urine WBC Ur Squamous Epith Cells Urine Bacteria Stool Occult Blood Urine Opiates Screen Urine Fentanyl Screen Ur Barbiturates Screen Ur Phencyclidine Scrn Ur Amphetamines Screen U Benzodiazepines Scrn Urine Cocaine Screen U Marijuana (THC) Screen COVID-19 (ALEJANDRO) COVID-19 Clin Com Hep Bs Antigen Hep Bs Antibody Hep B Core Total Ab Hepatitis C Ab (EIA) HIV 1&2 Ab/P24 Ag 4thGn Blood Type Antibody Screen 08/02/21 08/02/21 08/02/21 06:07 07:42 11:41 WBC RBC Hgb Hct MCV MCH MCHC RDW Plt Count MPV Immature Gran % (Auto) Neut % (Auto) Lymph % (Auto) [place] % (Auto) Eos % (Auto) Baso % (Auto) Lymph # (Auto) [place] # (Auto) Eos # (Auto) Baso # (Auto) Abs Immat Gran (auto) Absolute Neuts (auto) Absolute Nucleated RBC Nucleated RBC % (auto) PT INR APTT Sodium Potassium Chloride Carbon Dioxide Anion Gap BUN Creatinine Estim Creat Clear Calc Estimated GFR POC Glucose 313 H 320 H Random Glucose Estimat Average Glucose Hemoglobin A1c % Calcium Total Bilirubin Direct Bilirubin AST ALT Alkaline Phosphatase Troponin I High Sens Total Protein Albumin Lipase Urine Color Urine Appearance Urine pH Ur Specific [place] Urine Protein Urine Glucose (UA) Urine Ketones Urine Blood Urine Nitrite Ur Leukocyte Esterase Urine RBC Urine WBC Ur Squamous Epith Cells Urine Bacteria Stool Occult Blood Urine Opiates Screen Urine Fentanyl Screen Ur Barbiturates Screen Ur Phencyclidine Scrn Ur Amphetamines Screen U Benzodiazepines Scrn Urine Cocaine Screen U Marijuana (THC) Screen COVID-19 (ALEJANDRO) COVID-19 Clin Com Hep Bs Antigen Negative Hep Bs Antibody NONREACTIVE Hep B Core Total Ab Nonreactive Hepatitis C Ab (EIA) Nonreactive HIV 1&2 Ab/P24 Ag 4thGn Nonreactive Blood Type Antibody Screen 08/02/21 08/02/21 08/03/21 16:06 19:53 06:25 WBC RBC Hgb 12.4 L Hct 38.2 L MCV MCH MCHC RDW Plt Count MPV Immature Gran % (Auto) Neut % (Auto) Lymph % (Auto) [place] % (Auto) Eos % (Auto) Baso % (Auto) Lymph # (Auto) [place] # (Auto) Eos # (Auto) Baso # (Auto) Abs Immat Gran (auto) Absolute Neuts (auto) Absolute Nucleated RBC Nucleated RBC % (auto) PT INR APTT Sodium Potassium Chloride Carbon Dioxide Anion Gap BUN Creatinine Estim Creat Clear Calc Estimated GFR POC Glucose 205 H 117 H Random Glucose Estimat Average Glucose Hemoglobin A1c % Calcium Total Bilirubin Direct Bilirubin AST ALT Alkaline Phosphatase Troponin I High Sens Total Protein Albumin Lipase Urine Color Urine Appearance Urine pH Ur Specific [place] Urine Protein Urine Glucose (UA) Urine Ketones Urine Blood Urine Nitrite Ur Leukocyte Esterase Urine RBC Urine WBC Ur Squamous Epith Cells Urine Bacteria Stool Occult Blood Urine Opiates Screen Urine Fentanyl Screen Ur Barbiturates Screen Ur Phencyclidine Scrn Ur Amphetamines Screen U Benzodiazepines Scrn Urine Cocaine Screen U Marijuana (THC) Screen COVID-19 (ALEJANDRO) COVID-19 Clin Com Hep Bs Antigen Hep Bs Antibody Hep B Core Total Ab Hepatitis C Ab (EIA) HIV 1&2 Ab/P24 Ag 4thGn Blood Type Antibody Screen 08/03/21 08/03/21 08/03/21 06:26 07:28 11:34 WBC RBC Hgb Hct MCV MCH MCHC RDW Plt Count MPV Immature Gran % (Auto) Neut % (Auto) Lymph % (Auto) [place] % (Auto) Eos % (Auto) Baso % (Auto) Lymph # (Auto) [place] # (Auto) Eos # (Auto) Baso # (Auto) Abs Immat Gran (auto) Absolute Neuts (auto) Absolute Nucleated RBC Nucleated RBC % (auto) PT INR APTT Sodium 139 Potassium 4.5 Chloride 103 Carbon Dioxide 29 Anion Gap 12 BUN 15 Creatinine 0.94 Estim Creat Clear Calc 83.3 Estimated GFR > 60 POC Glucose 120 H 131 H Random Glucose 138 H D Estimat Average Glucose Hemoglobin A1c % Calcium 9.1 Total Bilirubin Direct Bilirubin AST ALT Alkaline Phosphatase Troponin I High Sens Total Protein Albumin Lipase Urine Color Urine Appearance Urine pH Ur Specific [place] Urine Protein Urine Glucose (UA) Urine Ketones Urine Blood Urine Nitrite Ur Leukocyte Esterase Urine RBC Urine WBC Ur Squamous Epith Cells Urine Bacteria Stool Occult Blood Urine Opiates Screen Urine Fentanyl Screen Ur Barbiturates Screen Ur Phencyclidine Scrn Ur Amphetamines Screen U Benzodiazepines Scrn Urine Cocaine Screen U Marijuana (THC) Screen COVID-19 (ALEJANDRO) COVID-19 Clin Com Hep Bs Antigen Hep Bs Antibody Hep B Core Total Ab Hepatitis C Ab (EIA) HIV 1&2 Ab/P24 Ag 4thGn Blood Type Antibody Screen 08/03/21 08/03/21 08/04/21 15:38 19:20 05:40 WBC 8.6 RBC 4.10 L Hgb 12.3 L Hct 37.9 L MCV 92.4 MCH 30.0 MCHC 32.5 RDW 13.3 Plt Count 222 MPV 9.4 Immature Gran % (Auto) Neut % (Auto) Lymph % (Auto) [place] % (Auto) Eos % (Auto) Baso % (Auto) Lymph # (Auto) [place] # (Auto) Eos # (Auto) Baso # (Auto) Abs Immat Gran (auto) Absolute Neuts (auto) Absolute Nucleated RBC 0.000 Nucleated RBC % (auto) 0.0 PT INR APTT Sodium Potassium Chloride Carbon Dioxide Anion Gap BUN Creatinine Estim Creat Clear Calc Estimated GFR POC Glucose 89 76 Random Glucose Estimat Average Glucose Hemoglobin A1c % Calcium Total Bilirubin Direct Bilirubin AST ALT Alkaline Phosphatase Troponin I High Sens Total Protein Albumin Lipase Urine Color Urine Appearance Urine pH Ur Specific [place] Urine Protein Urine Glucose (UA) Urine Ketones Urine Blood Urine Nitrite Ur Leukocyte Esterase Urine RBC Urine WBC Ur Squamous Epith Cells Urine Bacteria Stool Occult Blood Urine Opiates Screen Urine Fentanyl Screen Ur Barbiturates Screen Ur Phencyclidine Scrn Ur Amphetamines Screen U Benzodiazepines Scrn Urine Cocaine Screen U Marijuana (THC) Screen COVID-19 (ALEJANDRO) COVID-19 Clin Com Hep Bs Antigen Hep Bs Antibody Hep B Core Total Ab Hepatitis C Ab (EIA) HIV 1&2 Ab/P24 Ag 4thGn Blood Type Antibody Screen 08/04/21 08/04/21 08/04/21 05:40 07:31 11:25 WBC RBC Hgb Hct MCV MCH MCHC RDW Plt Count MPV Immature Gran % (Auto) Neut % (Auto) Lymph % (Auto) [place] % (Auto) Eos % (Auto) Baso % (Auto) Lymph # (Auto) [place] # (Auto) Eos # (Auto) Baso # (Auto) Abs Immat Gran (auto) Absolute Neuts (auto) Absolute Nucleated RBC Nucleated RBC % (auto) PT INR APTT Sodium 141 Potassium 4.6 Chloride 105 Carbon Dioxide 29 Anion Gap 12 BUN 13 Creatinine 0.83 Estim Creat Clear Calc 94.3 Estimated GFR > 60 POC Glucose 95 97 Random Glucose 83 D Estimat Average Glucose Hemoglobin A1c % Calcium 8.9 Total Bilirubin 0.6 Direct Bilirubin AST 53 H ALT 103 H Alkaline Phosphatase 184 H D Troponin I High Sens Total Protein 5.9 L Albumin 3.5 Lipase Urine Color Urine Appearance Urine pH Ur Specific [place] Urine Protein Urine Glucose (UA) Urine Ketones Urine Blood Urine Nitrite Ur Leukocyte Esterase Urine RBC Urine WBC Ur Squamous Epith Cells Urine Bacteria Stool Occult Blood Urine Opiates Screen Urine Fentanyl Screen Ur Barbiturates Screen Ur Phencyclidine Scrn Ur Amphetamines Screen U Benzodiazepines Scrn Urine Cocaine Screen U Marijuana (THC) Screen COVID-19 (ALEJANDRO) COVID-19 Clin Com Hep Bs Antigen Hep Bs Antibody Hep B Core Total Ab Hepatitis C Ab (EIA) HIV 1&2 Ab/P24 Ag 4thGn Blood Type Antibody Screen Airway Mallampati Class: II (Missing multiple teeth) TM Dist: >3cm Neck ROM: Full Heart: rrr Lungs: cta Assessment and Plan Assessment Anesthesia Assessment: Anesthesia Plan Discussed and Chart Reviewed Final Anesthetic Review Family History of Problems with Anesthesia: No History of Problems with Anesthesia: No NPO: Yes ASA Class: III Final Preanesthetic Review: No Changes in Pt Med Stat, Meds/Allgs Chart Reviewed and Consent Obtained/Reviewed Patient Risk: Intermediate Procedure Risk: Intermediate Anesthetic Plan Anesthetic Plan: MAC: Disposition: Standard PACU
--- NOTE | 2021-08-04 14:51 | MHC.CM.PN ---
PLAN FOR EGD TODAY, HAS NOT BEEN DONE AT TIME OF THIS NOTE, ANTIC PT WILL D/C HOME WEDNESDAY W/ [facility] AND WILL PROVIDE SHUTTLE VOUCHER FOR TRANSPORT HOME.
--- NOTE | 2021-08-04 14:58 | P.OP_ITS ---
Operative Note Operative Note Date of Service: 08/04/21 Narrative: Pre-op diagnosis: Upper abdominal pain, hematemsis Post-op diagnosis:?other (Gastritis, gastric polyps, suspected Nelli esophagitis) Procedure: FLEXIBLE TRANSORAL UPPER GASTROINTESTINAL ENDOSCOPY WITH BIOPSIES AND BRUSHINGS Consent:?Indications for the procedure and potential complications of bleeding, perforation, reaction to medications and missed diagnosis were discussed with the patient and informed consent was obtained. Instrument:?Olympus GIF H 190 mid size upper endoscope Monitoring: Vital signs and clinical assessment, continuous EKG monitoring, Pulse oximetry, Carbon Dioxide monitoring and blood pressure monitoring were done throughout the procedure. Procedure:?The patient was placed in the left lateral decubitis position and pre-procedure medications were administered and a bite block was placed. The endoscope was inserted into the mouth and advanced under direct vision to the third part of duodenum. A careful inspection was made as the upper endoscope was withdrawn including a retroflexed examination of the proximal stomach; Findings and interventions are described below. Findings: Larynx:? Normal Esophagus: GE junction at 40 cms. Scattered yellow white exudates coating the esophageal mucosa - brushings were obtained to check for Nelli. Stomach: A few 5 to 10 mm benign appearing polyps in the gastric body - biopsied. Mild gastric erythema. Biopsies were obtained to check for H Pylori. Grade 2 flap valve on retroflexed examination of the cardia. Duodenum: Normal bulb and descending duodenum Intervention: Biopsies as noted above Impression and Post Procedure Diagnosis: Endoscopy Findings: ESOPHAGUS: GE junction at 40 cms. Scattered yellow white exudates coating the esophageal mucosa - brushings were obtained to check for Nelli. STOMACH: Gastritis and gastric polyps No clear source found for hematemesis - likely from esophagitis or a MW tear which has healed. Plan: Start empiric fluconazole 400 mg on day 1, then 200 mg daily x 10 days. Await pathology results Patient to schedule a FU appointment in the GI Clinic with Natali Glynn M.D for FU of elevated LFTs. Above findings were reviewed with the patient and Gastric Polyps and GERD handouts were given in the discharge area Surgeon: Natali Glynn MD Anesthesia:?MAC (Dr Ruano) Was an Polystyrene Molding Machine Tender used for this Procedure?:?Yes Polystyrene Molding Machine Tender:?Yamel Fenton Estimated blood loss (mL):?0 Pathology:?other (A. gastric antrum bxs, R/O H. pylori? B. gastric polyp) Condition:?stable Disposition:?PACU
[2021-08-04 16:38] LABS: Glucose, Whole Blood 69 mg/dL (60-115)
[2021-08-04] MEDS: Dextrose 5 % and 0.45 % NaCl 1,000 ML 50 ML IVCONT (17:01)
[2021-08-04] MEDS: Gabapentin 100 MG CAPSULE PO ×2 (17:01→20:42)
[2021-08-04] MEDS: Fluconazole in NaCl,Iso-Osm 200 MG/100 ML PIGGYBACK 100 MG IV (17:01)
[2021-08-04 17:05] LABS: Glucose, Whole Blood 78 mg/dL (60-115)
[2021-08-04 20:17] LABS: Glucose, Whole Blood 360 mg/dL (60-115)
[2021-08-04] MEDS: Insulin Lispro 100 UNIT/ML 3 ML VIAL SUBCUT (20:41)
[2021-08-04] MEDS: Atorvastatin Calcium 80 MG TABLET PO (20:42)
[2021-08-04 21:47] LABS: Glucose, Whole Blood 387 mg/dL (60-115)
--- NOTE | 2021-08-04 21:48 | PC.NURSE ---
Addendum entered by Mary Ellen Leslie RN 08/04/21 22:35: 10 units of Humulog was administered as ordered,IV fluids d/c,will monitor Original Note: P BS [address] Wilhelm notified E awaiting new orders
[2021-08-04] MEDS: Insulin Lispro 100 UNIT/ML 3 ML VIAL 10 UNIT SUBCUT (22:01)
[2021-08-05] MEDS: 0.9 % Sodium Chloride Flush 3 ML SYRINGE IVFLUSH ×2 (00:03→08:28)
[2021-08-05 03:39] VITALS: BP 119/59; PULSE 88; RESP 14; TEMP 36.7; O2SAT 92
[2021-08-05] MEDS: Pantoprazole Sodium 40 MG/10 ML VIAL IVPUSH (05:39)
[2021-08-05 05:43] LABS: Hematocrit 34.4 % (42.0-52.0); Hemoglobin 11.2 g/dl (14.0-18.0)
[2021-08-05 06:04] LABS: Alanine Aminotransferase 68 U/L (0-40); Albumin Level 3.3 g/dL (3.5-5.0); Alkaline Phosphatase 145 U/L (39-117); Anion Gap 11 (12-20); Aspartate Amino Transferase 23 U/L (5-37); Bilirubin Total 0.4 mg/dL (0.0-1.0); Blood Urea Nitrogen 13 mg/dL (9-16); Calcium 8.4 mg/dL (8.4-10.2); Carbon Dioxide 28 mmol/L (22-29); Chloride 102 mmol/L (96-108); Creatinine Clr Calc Pharmacy 67.5; Estimated Glomerular Filt Rate > 60; Glucose Random 340 mg/dL (60-115); Sodium 137 mmol/L (135-145); Total Protein 5.5 g/dL (6.5-8.0)
[2021-08-05 07:19] VITALS: BP 110/72; PULSE 88; TEMP 36.5; O2SAT 96
[2021-08-05 07:30] LABS: Glucose, Whole Blood 330 mg/dL (60-115)
--- NOTE | 2021-08-05 08:25 | HO.POSTANES ---
Post Anesthesia Evaluation Post Anesthesia Evaluation Vital Signs: Vital Signs Temp Pulse Resp BP Pulse Ox 08/05/21 07:19 97.7 F 88 110/72 96 08/05/21 03:39 98.0 F 88 14 119/59 L 92 08/04/21 23:46 97.8 F 91 16 92/56 L 96 08/04/21 21:00 97.9 F 96 18 95 Anesthesia: Monitored Mental Status: Awake Pain Control: Satisfactory Nausea/Vomiting: None Hydration: Adequate Anesthesia-Related Issues: No Anes. Related Issues
[2021-08-05] MEDS: Insulin Glargine,Hum.rec.anlog 100 UNIT/ML 10 ML VIAL 40 UNIT SUBCUT (08:27)
[2021-08-05] MEDS: Fluconazole 100 MG TABLET PO (08:28)
[2021-08-05] MEDS: Insulin Lispro 100 UNIT/ML 3 ML VIAL SUBCUT (08:28)
[2021-08-05] MEDS: Aspirin 81 MG TAB.CHEW PO (08:28)
[2021-08-05] MEDS: Clopidogrel Bisulfate 75 MG TABLET PO (08:28)
[2021-08-05] MEDS: Gabapentin 100 MG CAPSULE PO (08:28)
[2021-08-05] MEDS: Metoprolol Succinate ER 25 MG TAB.ER.24H PO (08:28)
[2021-08-05] MEDS: oxyCODONE HCl Immed Release 5 MG TABLET PO (08:33)
--- NOTE | 2021-08-05 10:24 | P.DS_ITS ---
DS: Providers Provider Date of Service: 08/05/21 Date of admission: 07/31/21 19:38 Date of discharge: 08/05/21 Primary care physician: Quincy Dugan [facility]- Consults: 07/31/21 19:39 Consult to Gastroenterology Routine Consulting Provider: Natali Glynn Reason for consultation: GI bleed 08/01/21 08:10 Addiction Medicine Routine Consulting Provider: Sheryl Coles Reason for consultation: cocaine Consult to Care Team Routine Comment: Reason for consultation: cocaine 08/02/21 14:46 Consult to Gastroenterology Routine Consulting Provider: Ronal Sims Reason for consultation: ongoing hematemsis; to schedule inpatient EGD for Mon? DS: Diagnosis Discharge Diagnosis (1) GI bleed: Status: Acute (2) Hematemesis: Status: Acute (3) Gastritis: Status: Acute (4) Candidal esophagitis: Status: Acute (5) Hyperkalemia: Status: Acute (6) Uncontrolled diabetes mellitus: Status: Acute DS: Summary Hospital Course Hospital Course: From admission history and physical by Aditya Delgado, 07/31/21: 61-year-old male with a past medical history of hypertension, hyperlipidemia, diabetes, CAD status post stent presented to the hospital with a chief complaint of nausea vomiting and abdominal pain / vomiting blood.? Patient reported that the past 1 day he has been having multiple episodes of nausea and vomiting, complains of bright red vomitus; later he had coffee-ground emesis.? Also complains of severe abdominal pain diffuse in nature.? Denies any diarrhea.? Denies any chest pain palpitations lightheadedness or dizziness. Mentioned that he takes aspirin Plavix at home.? Denies any fever chills cough Denies any urinary symptoms.? Review of all other systems is negative except mentioned above ER course: Per ER team patient vitals are stable, has diffuse abdominal tenderness, CT abdomen was done which showed no acute findings; hemoglobin initially noted to be 15.6-after fluids dropped to 13.0.? Given pantoprazole.? Discussed with Dr. Glynn from Gastroenterology who/ stat admission to the hospital for possible EGD in the morning. This 61yo M with DM2, HTN, and CAD on DAPT s/p PCI for STEMI in Feb 2021 presenting with hematemesis/coffee-ground emesis was admitted to the medical/surgical floor. EGD was postponed from 08/01/21 to 08/04/21 due to cocaine- positive urine toxicology and mild hyperkalemia. He adamantly denied cocaine abuse, saying he was exposed by a neighbor who was smoking cocaine while driving the patient to the hospital. He had ongoing episodes of hematemesis and was placed on IV PPI and DAPT was held. EGD on 08/04/[address] Glynn showed scattered esophageal exudates suspicious for candidal esophagitis, as well as gastritis and gastric polyps. Biopsies were taken. There was no clear source for hematemesis; it was thought due to esophagitis or healed Yohana-Munoz tear. He was treated with fluconazole for candidal esophagitis. He had mild transaminasemia and tested negative for chronic HBV and HCV. Hyperkalemia resolved after SZC administration. DAPT was resumed after the EGD. His A1c was noted to be 12.6 and he will need Endocrinology follow-up for uncontrolled diabetes. He was discharged home and should follow up with Primary Care and Gastroenterology for biopsy results. Time Spent with Patient Time attestation: Total time spent providing and/or coordinating discharge services: Discharge coordination time: Greater than 30 minutes Quality: Stroke Does the patient have a stroke diagnosis?: No Physical Exam Vital Signs: Vital Signs: Last Vital Signs Temp 97.7 F 08/05/21 07:19 Pulse 88 08/05/21 07:19 Resp 14 08/05/21 03:39 BP 110/72 08/05/21 07:19 Pulse Ox 96 08/05/21 07:19 BMI result Body Mass Index 29.0 Gen: in no acute distress HEENT: sclera anicteric, moist mucus membranes Neck: supple Lungs: clear to auscultation bilaterally Heart: regular rate and rhythm, no murmurs Abd: soft, mild epigastric tenderness without rebound, non-distended Ext: no edema Skin: warm/well-perfused Neuro: alert and oriented x3, no focal findings Psych: appropriate affect DS: Data Data Completed and Pending Completed studies during hospitalization [Text1]: Laboratory Results WBC 8.6 X10*3/uL (4.8-10.8) 08/04/21 05:40 RBC 4.10 X10*6/uL (4.60-5.80) L 08/04/21 05:40 Hgb 11.2 g/dl (14.0-18.0) L 08/05/21 05:24 Hct 34.4 % (42.0-52.0) L 08/05/21 05:24 MCV 92.4 fL (80.0-98.0) 08/04/21 05:40 MCH 30.0 pg (27.0-33.0) 08/04/21 05:40 MCHC 32.5 g/dl (31.0-36.0) 08/04/21 05:40 RDW 13.3 % (11.0-16.0) 08/04/21 05:40 Plt Count 222 X10*3/uL (160-400) 08/04/21 05:40 MPV 9.4 fL (9.4-12.4) 08/04/21 05:40 Immature Gran % (Auto) 0.5 % (0.0-0.4) H 08/01/21 08:01 Neut % (Auto) 66.9 % (45-73) 08/01/21 08:01 Lymph % (Auto) 23.4 % (20-40) 08/01/21 08:01 [place] % (Auto) 7.3 % (2-11) 08/01/21 08:01 Eos % (Auto) 1.4 % (0-4) 08/01/21 08:01 Baso % (Auto) 0.5 % (0-2) 08/01/21 08:01 Lymph # (Auto) 2.0 X10*3/uL (1.2-4.9) 08/01/21 08:01 [place] # (Auto) 0.6 X10*3/uL (0.1-1.2) 08/01/21 08:01 Eos # (Auto) 0.1 X10*3/uL (0.0-0.4) 08/01/21 08:01 Baso # (Auto) 0.0 X10*3/uL (0.0-0.2) 08/01/21 08:01 Abs Immat Gran (auto) 0.04 X10*3/uL (0.00-0.03) H 08/01/21 08:01 Absolute Neuts (auto) 5.8 x10*3/uL (2.0-8.3) 08/01/21 08:01 Absolute Nucleated RBC 0.000 X10*3/uL (0.0-0.012) 08/04/21 05:40 Nucleated RBC % (auto) 0.0 /100WBC (0.0-0.2) 08/04/21 05:40 PT 11.6 SEC (9.9-13.0) 07/31/21 10:59 INR 1.0 (0.9-1.1) 07/31/21 10:59 APTT 30.5 SEC (24.1-38.0) 07/31/21 10:59 Sodium 137 mmol/L (135-145) 08/05/21 05:24 Potassium 4.0 mmol/L (3.3-5.1) 08/05/21 05:24 Chloride 102 mmol/L (96-108) 08/05/21 05:24 Carbon Dioxide 28 mmol/L (22-29) 08/05/21 05:24 Anion Gap 11 (12-20) L 08/05/21 05:24 BUN 13 mg/dL (9-16) 08/05/21 05:24 Creatinine 1.16 mg/dL (0.5-1.4) 08/05/21 05:24 Estim Creat Clear Calc 67.5 08/05/21 05:24 Estimated GFR > 60 08/05/21 05:24 POC Glucose 330 mg/dL (60-115) H 08/05/21 07:17 Random Glucose 340 mg/dL (60-115) H D 08/05/21 05:24 Estimat Average Glucose 315 mg/dL 08/02/21 06:06 Hemoglobin A1c % 12.6 % 08/02/21 06:06 Calcium 8.4 mg/dL (8.4-10.2) 08/05/21 05:24 Total Bilirubin 0.4 mg/dL (0.0-1.0) 08/05/21 05:24 Direct Bilirubin 0.3 mg/dL (0.0-0.5) 07/31/21 10:52 AST 23 U/L (5-37) D 08/05/21 05:24 ALT 68 U/L (0-40) H 08/05/21 05:24 Alkaline Phosphatase 145 U/L (39-117) H D 08/05/21 05:24 Troponin I High Sens 32.3 ng/L (<3.5-35.0) 07/31/21 12:58 Total Protein 5.5 g/dL (6.5-8.0) L 08/05/21 05:24 Albumin 3.3 g/dL (3.5-5.0) L 08/05/21 05:24 Lipase 65 U/L (8-78) 07/31/21 10:52 Urine Color YELLOW 07/31/21 15:59 Urine Appearance CLEAR 07/31/21 15:59 Urine pH 6.5 (5.0-8.0) 07/31/21 15:59 Ur Specific [place] <= 1.005 (1.005-1.025) 07/31/21 15:59 Urine Protein NEG MG/DL (NEG-TRACE) 07/31/21 15:59 Urine Glucose (UA) >=1000 MG/DL (NEG) H 07/31/21 15:59 Urine Ketones 5 MG/DL (NEG) 07/31/21 15:59 Urine Blood NEG (NEG) 07/31/21 15:59 Urine Nitrite NEG (NEG) 07/31/21 15:59 Ur Leukocyte Esterase NEG (NEG) 07/31/21 15:59 Urine RBC 0 /HPF (0) 07/31/21 15:59 Urine WBC 0 /HPF (0-4) 07/31/21 15:59 Ur Squamous Epith Cells TRACE /LPF 07/31/21 15:59 Urine Bacteria NONE /LPF 07/31/21 15:59 Stool Occult Blood NEGATIVE (NEGATIVE) 07/31/21 10:59 Urine Opiates Screen POSITIVE (Not Detect) H 07/31/21 15:59 Urine Fentanyl Screen Not Detected (Not Detect) 07/31/21 15:59 Ur Barbiturates Screen POSITIVE (Not Detect) H 07/31/21 15:59 Ur Phencyclidine Scrn Not Detected (Not Detect) 07/31/21 15:59 Ur Amphetamines Screen Not Detected (Not Detect) 07/31/21 15:59 U Benzodiazepines Scrn Not Detected (Not Detect) 07/31/21 15:59 Urine Cocaine Screen POSITIVE (Not Detect) H 07/31/21 15:59 U Marijuana (THC) Screen Not Detected (Not Detect) 07/31/21 15:59 COVID-19 (ALEJANDRO) Negative (Negative) 07/31/21 10:52 COVID-19 Clin Com See Note 07/31/21 10:52 Hep Bs Antigen Negative (Negative) 08/02/21 06:07 Hep Bs Antibody NONREACTIVE (Nonreactive) 08/02/21 06:07 Hep B Core Total Ab Nonreactive (Nonreactive) 08/02/21 06:07 Hepatitis C Ab (EIA) Nonreactive (Nonreactive) 08/02/21 06:07 HIV 1&2 Ab/P24 Ag 4thGn Nonreactive (Nonreactive) 08/02/21 06:07 Blood Type A Positive 07/31/21 11:23 Antibody Screen NEGATIVE 07/31/21 11:23 Impressions Chest X-Ray 07/31/21 13:57 IMPRESSION: -Well aerated lungs without lobar consolidation. -No gross free intra-abdominal air identified on these supine views of the abdomen. KUB X-Ray 07/31/21 13:57 IMPRESSION: -Well aerated lungs without lobar consolidation. -No gross free intra-abdominal air identified on these supine views of the abdomen. Abdomen/Pelvis CT 07/31/21 14:47 IMPRESSION: No evidence of ileus or obstruction. No free air. No evidence of obstructive uropathy. No evidence of acute appendicitis or acute diverticulitis. Fleischner guidelines were followed. Pending studies at discharge: Pending at discharge 08/04/21 15:05 Surgical [PTH] Routine 08/05/21 07:32 Cytology [PTH] Urgent Discharge Plan Discharge Patient Disposition: Home, Self-Care Discharge Diagnosis: Upper GI bleed due to gastritis/candidal esophagitis [place] [facility] [place]Other] - 1 Week (PLEASE CALL [phone] TO SCHEDULE TRANSPORTATION SOON YOU MAKE YOUR DOCTOR'S APPOINTMENTS.) [facility] [Other] - 1 Week ( FOR [employer] & HOUSING SERVICES) Quincy Dugan FNP- [Primary Care Provider] - 1 Week Natali Glynn MD [Physician] - 2 Weeks Cheri Avery MD [Physician] - 1 Week Discharge Medications: New fluconazole 100 mg Tablet 100 mg PO DAILY Qty: 12 0RF pantoprazole 40 mg tablet,delayed release (DR/EC) 40 mg PO BID Qty: 60 0RF aspirin [Aspirin Childrens] 81 mg tablet,chewable 81 mg PO DAILY Qty: 30 0RF Continued metoprolol succinate 25 mg tablet extended release 24 hr 25 mg PO DAILY 90 Days Qty: 90 1RF nitroglycerin 0.4 mg tablet, sublingual 0.4 mg sublingual Q5M PRN (Reason: chest pain) 30 Days Qty: 30 0RF Rx Instructions: do not exceed 3 doses per episode clopidogrel 75 mg tablet 75 mg PO DAILY 90 Days Qty: 90 0RF lisinopril 20 mg tablet 20 mg PO DAILY Qty: 30 2RF montelukast 10 mg tablet 10 mg PO DAILY Qty: 30 2RF gabapentin 100 mg capsule 100 mg PO TID Qty: 90 2RF metformin 1,000 mg tablet 1,000 mg PO DAILY 90 Days Qty: 90 1RF Lantus Solostar U-100 Insulin 100 unit/mL (3 mL) insulin pen 40 unit subcut BID 30 Days Qty: 24 0RF insulin lispro [Humalog KwikPen Insulin] 100 unit/mL insulin pen 14 - 20 unit subcut TID 0RF Rx Instructions: 14-20 units 3 times daily before meals Jardiance 10 mg tablet 10 mg PO QAM 0RF atorvastatin 80 mg tablet 80 mg PO BEDTIME 90 Days Qty: 90 2RF Discontinued pantoprazole 20 mg tablet,delayed release (DR/EC) 20 mg PO DAILY 90 Days Qty: 90 1RF aspirin 325 mg tablet,delayed release (DR/EC) 650 mg PO TID 0RF Discharge Orders: Discharge Order (Routine); Ordered 08/05/21 Ordered By: Whitney Conde Diet: advance to usual diet Activity on Discharge: As tolerated Stand Alone Forms: Patient Portal Discharge page Care Plan Goals: resolution of GI bleeding prevention of stent thrombosis Health Concerns: upper GI bleed due to gastritis/candidal esophagitis take fluconazole 100 mg daily for 12 more days; increase pantoprazole to 40 mg twice daily continue clopidogrel 75 mg daily; reduce aspirin to 81 mg daily avoid exposure to cocaine and all substances of abuse your diabetes is uncontrolled with A1c 12.6; take insulin as prescribed, avoid sugar and simple carbohydrates, and follow up with Primary Care and Endocrinology Plan of Treatment: follow up with Primary Care in 1 week and Gastroenterology [Dr Natali Glynn] in 2 weeks Assessment: see Discharge Summary Patient Instructions: Upper Endoscopy (DC)
--- NOTE | 2021-08-05 11:30 | W.MHC.F2F ---
Service Date Service Date: 08/05/21 Encounter Date of encounter: 08/05/21 Reasons for Services Signs and symptoms assessed: hyperglycemia Reason for correction: diabetic teaching, monitoring of unstable blood sugar, medication management, medication treatment and teach disease management MD Overseeing Care: Quincy Dugan Homebound: Leaving the home is medically contraindicated at this time without the asist of a device and/or another person due th the listed conditions above and below. Reason homebound: poor balance / fall risk, immunosuppression / infection risk and weakness related to hospital stay Certification: Based on the above findings, I certify that this patient is confined to the home and needs intermittent correction care, physical therapy and/or speech therapy, or continues to need occupational therapy. The patient is under my care, and I have initiated the establishment of the plan of care. The patient will be followed by a physician who will periodically review the plan of care.
--- NOTE | 2021-08-05 11:48 | MHC.CM.PN ---
PT MEDICALLY CLEARED FOR D/C HOME W/HVNA, PT [place] [facility] [place] [facility] CONTACT INFO, PT HAS ARRANGED FOR DTR TO TRANSPORT
== END 2021-08-05 12:00 | disposition home health service (06) | DRG 378 ==
LOC: HO.ED 19:42 → HO.EDOVER 21:20 → HO.S3 08-01 15:09
PROVIDERS: Internal Medicine Gastroenterology; Physician Assistant; Admitting Provider Hospitalist; Emergency Provider Emergency Medicine; PCP Nurse Practitioner Family; Visit Provider Family Medicine
PROC: 0DJ08ZZ Inspection of Upper Intestinal Tract, Via Natural or Artificial Opening Endoscopic (ICD-10-PCS; CPT 43235; principal; 2021-08-04 13:50)
DX: K29.71 Gastritis, unspecified, with bleeding (principal); B37.81 Candidal esophagitis; E78.5 Hyperlipidemia, unspecified; Z20.822 Contact with and (suspected) exposure to COVID-19; Z79.4 Long term (current) use of insulin; E11.65 Type 2 diabetes mellitus with hyperglycemia; K31.7 Polyp of stomach and duodenum; I25.2 Old myocardial infarction; E11.40 Type 2 diabetes mellitus with diabetic neuropathy, unspecified; E87.5 Hyperkalemia; Z79.84 Long term (current) use of oral hypoglycemic drugs; Z79.02 Long term (current) use of antithrombotics/antiplatelets; Z79.899 Other long term (current) drug therapy
CPT/HCPCS: 43239; 36415; 71045; 71275; 74018; 74177; 80048; 80053; 80076; 80307; 81001; 82272; 82947; 83036; 83690; 84484; 85014; 85018; 85025; 85027; 85610; 85730; 86704; 86706; 86803; 86850; 86900; 86901; 87040; 87102; 87340; 87389; 87635; 88112; 88305; 88342; 93005; 96361; 96374; 96375; 96376; 99218; 99285; J1450; J2060; J2270; J2405; Q9967

== ENCOUNTER 2022-03-28 09:11 | Inpatient (IN) | payer MEDICARE, OTHER, SELFPAY ==
[2022-03-28] VITALS (9 sets, daily range): BP systolic 100–139; BP diastolic 72–95; PULSE 95–110; RESP 18–36; TEMP 36.3–37.2; O2SAT 92–96; BMI 29.0
--- NOTE | ~2022-03-28 | CT_ITS ---
EXAMINATION: CT HEAD WITHOUT CONTRAST CLINICAL INFORMATION: Headache COMPARISON: None TECHNIQUE: Contiguous axial imaging was performed from the skull base to vertex without intravenous administration of contrast. This CT examination was performed using dose optimization techniques as appropriate, variously including the following: *Automated exposure control *Adjustment of mA and/or kV according to patient size (this includes techniques or standardized protocols for targeted exams where dose is matched to indication/reason for exam; i.e. extremities or head) *Use of iterative reconstruction technique DLP: 739 mGy-cm FINDINGS: There is no evidence of an extra-axial collection. There is no evidence of intra-axial or extra-axial hemorrhage. The ventricles and extra-axial CSF spaces are appropriate. Mora-white matter differentiation is normal. No mass, mass effect or infarct is seen. No skull fracture. There are mild inflammatory changes of the right maxillary sinus. Visualized paranasal sinuses, mastoid air cells and middle ears are otherwise clear. CT/CT head/brain wo IV con IMPRESSION: No acute intracranial findings.
--- NOTE | ~2022-03-28 | XR_ITS ---
EXAMINATION: XR CHEST CLINICAL INFORMATION: Weakness and shortness of breath. COMPARISON: 07/31/2021 chest radiograph. TECHNIQUE: Frontal view of the chest was obtained. FINDINGS: Opacities are seen at the right lung base. The right upper lung field and left lung are clear. The heart and mediastinal structures are unremarkable. XR/XR chest 1V IMPRESSION: Right lung base infiltrate.
--- NOTE | ~2022-03-28 | US_ITS ---
EXAMINATION: US ABDOMEN LIMITED CLINICAL INFORMATION: Ascites.. COMPARISON: CT scan of the chest, abdomen and pelvis dated 03/28/2022. TECHNIQUE: Limited abdominal ultrasound. US/US abdomen limited FINDINGS/IMPRESSION: No peritoneal ascites. Right pleural effusion.
--- NOTE | ~2022-03-28 | CT_ITS ---
EXAMINATION: CT CHEST, ABDOMEN AND PELVIS WITHOUT CONTRAST CLINICAL INFORMATION: Abdominal pain, abnormal chest x-rays COMPARISON: Recent imaging on back to 07/31/2021 TECHNIQUE: Multidetector volumetric imaging was performed from the thoracic inlet through the pubic symphysis without contrast. Sagittal and coronal reformatted images were obtained on the technologist workstation. This CT examination was performed using dose optimization techniques as appropriate, variously including the following: *Automated exposure control *Adjustment of mA and/or kV according to patient size (this includes techniques or standardized protocols for targeted exams where dose is matched to indication/reason for exam; i.e. extremities or head) *Use of iterative reconstruction technique DLP: 335 and 708 mGy-cm FINDINGS: CHEST: LUNGS: Large right greater than left layering pleural effusions at both lung bases. Compressive atelectasis both bases right greater than left. Scattered minor airspace disease favoring discoid atelectasis versus infiltrates. MEDIASTINUM: Severe coronary atherosclerosis. Reactive appearing mediastinal and small hilar lymph nodes. No endobronchial abnormality. No pericardial fluid. PERICARDIUM/PLEURA: As above. CHEST WALL/AXILLA: Reactive appearing axillary lymph nodes. Generalized nonspecific subcutaneous infiltration of the fat within the right hemithorax especially without a discrete abnormality or fluid collection. ABDOMEN/PELVIS: LIVER, GALLBLADDER, BILIARY TREE: The liver is normal in size, shape, and attenuation. No focal hepatic lesion or biliary ductal dilatation is present. Clips consistent cholecystectomy. Mild generalized ascites. PANCREAS: Unremarkable. SPLEEN: Unremarkable. ADRENAL GLANDS: Unremarkable. KIDNEYS AND URETERS: The kidneys are normal in size, shape, and attenuation. No hydronephrosis or hydroureter or calculi seen. No perinephric stranding. BLADDER: There is high density material within the bladder lumen without a discrete lesion. This is too high to be blood products presumably related to recent contrast injection. Correlate with any procedures. Significant prostate enlargement. GASTROINTESTINAL TRACT: Moderate diverticulosis throughout the colon. No acute inflammatory changes. No obstruction. No extraluminal air. Normal appendix. No mesenteric mass or fluid collections. ABDOMINAL WALL: No hernia is demonstrated. LYMPH NODES: Normal. VASCULAR: Unremarkable. PELVIC VISCERA: Unremarkable. OSSEOUS STRUCTURES: Advanced spondylosis throughout the spine. CT/CT abdomen pelvis wo IV con IMPRESSION: 1. Large pleural effusion as above with bibasilar airspace disease nonspecific but could represent pneumonia. 2. High density fluid within the bladder lumen which is too high to be blood products but favor related to contrast injection performed recently. Correlate with patient's procedural history. 3. Nonspecific ascites. 4. Severe coronary atherosclerosis.
--- NOTE | ~2022-03-28 | XR_ITS ---
EXAMINATION: XR CHEST ONE VIEW XR ABDOMEN KUB CLINICAL INFORMATION: Shortness of breath Abdominal pain and constipation COMPARISON: CXR from 03/31/2022 CT exams from 03/28/2022. TECHNIQUE: Chest, AP view Abdomen, AP view, patient in supine position FINDINGS: CHEST: Cardiac silhouette exhibits stable mild enlargement. The persistent opacity in the medial left lung base is nonspecific but based on CT findings from 03/28/2022 probably represents mild residual pleural effusion and medial basilar atelectasis. Trace amount of fluid is present in the minor fissure. There is nonspecific hazy opacity of the right lower hemithorax in this patient who has recently undergone right-sided thoracentesis. This hazy opacity could represent layering of minimal residual effusion as well as mild atelectasis, but unable to exclude airspace disease. No pneumothorax after the recent thoracentesis. The visualized bones are intact. ABDOMEN: Cholecystectomy clips are present in the right upper quadrant. The bowel gas pattern is normal. No dilated bowel loops. No pneumoperitoneum is seen on this examination performed with the patient in supine position. No evidence of renal calculi. Multilevel osteophyte formation disc narrowing of the degenerated lumbar spine. XR/XR KUB IMPRESSION: * Mild cardiomegaly. No overt pulmonary edema. * The persistent opacity in the medial left lung base probably represents small residual pleural effusion and atelectasis. Also, the mild hazy opacity of the right lower hemithorax could be caused by layering of small residual effusion and atelectasis. There is no pneumothorax after the recent thoracentesis * No acute radiographic abnormalities within the abdomen.
--- NOTE | ~2022-03-28 | XR_ITS ---
EXAMINATION: XR CHEST ONE VIEW XR ABDOMEN KUB CLINICAL INFORMATION: Shortness of breath Abdominal pain and constipation COMPARISON: CXR from 03/31/2022 CT exams from 03/28/2022. TECHNIQUE: Chest, AP view Abdomen, AP view, patient in supine position FINDINGS: CHEST: Cardiac silhouette exhibits stable mild enlargement. The persistent opacity in the medial left lung base is nonspecific but based on CT findings from 03/28/2022 probably represents mild residual pleural effusion and medial basilar atelectasis. Trace amount of fluid is present in the minor fissure. There is nonspecific hazy opacity of the right lower hemithorax in this patient who has recently undergone right-sided thoracentesis. This hazy opacity could represent layering of minimal residual effusion as well as mild atelectasis, but unable to exclude airspace disease. No pneumothorax after the recent thoracentesis. The visualized bones are intact. ABDOMEN: Cholecystectomy clips are present in the right upper quadrant. The bowel gas pattern is normal. No dilated bowel loops. No pneumoperitoneum is seen on this examination performed with the patient in supine position. No evidence of renal calculi. Multilevel osteophyte formation disc narrowing of the degenerated lumbar spine. XR/XR chest 1V IMPRESSION: * Mild cardiomegaly. No overt pulmonary edema. * The persistent opacity in the medial left lung base probably represents small residual pleural effusion and atelectasis. Also, the mild hazy opacity of the right lower hemithorax could be caused by layering of small residual effusion and atelectasis. There is no pneumothorax after the recent thoracentesis * No acute radiographic abnormalities within the abdomen.
--- NOTE | ~2022-03-28 | CT_ITS ---
EXAMINATION: CT ABDOMEN AND PELVIS WITHOUT CONTRAST CLINICAL INFORMATION: Abdominal pain. COMPARISON: CT scans dating between March 28, 2022 and October 01, 2009. TECHNIQUE: Multidetector volumetric imaging was performed from the superior aspect of the liver through the pubic symphysis. Sagittal and coronal reformatted images were obtained on the technologist's workstation. This CT examination was performed using dose optimization techniques as appropriate, variously including the following: *Automated exposure control *Adjustment of mA and/or kV according to patient size (this includes techniques or standardized protocols for targeted exams where dose is matched to indication/reason for exam; i.e. extremities or head) *Use of iterative reconstruction technique DLP: 665 mGy-cm FINDINGS: LUNG BASES: Small to moderate bilateral pleural effusions with associated dependent airspace disease, improved compared with 6 days prior. Severe coronary arterial calcification. Heart normal in size. LIVER, GALLBLADDER, AND BILIARY TREE: The liver appears unremarkable in size, shape, and attenuation. No focal hepatic lesion or biliary ductal dilatation is appreciated. Status post cholecystectomy. PANCREAS: Unremarkable SPLEEN: Unremarkable ADRENAL GLANDS: Unremarkable KIDNEYS AND URETERS: The kidneys appear unremarkable in size, shape, and attenuation. No hydronephrosis, hydroureter, or calculi seen. BLADDER: Distended. Otherwise unremarkable. GASTROINTESTINAL TRACT: Unremarkable appearance of the stomach and small bowel. Few, scattered colonic diverticula without evidence of diverticulitis. Normal-appearing distal ileum and vermiform appendix. PERITONEAL CAVITY: Trace right subdiaphragmatic ascites, improved. ABDOMINAL WALL: Anasarca, not significantly changed. No significant hernia is appreciated. LYMPH NODES: No evidence of adenopathy by size criteria. VASCULAR: Unremarkable PELVIC VISCERA: Unremarkable OSSEOUS STRUCTURES: Degenerative changes of the spine with mild lumbar dextrocurvature. CT/CT abdomen pelvis wo IV con IMPRESSION: Small to moderate bilateral pleural effusions with associated dependent airspace disease, improved compared with March 28, 2022. Trace right subdiaphragmatic ascites, improved. Anasarca, not significantly changed. Severe coronary arterial calcification.
--- NOTE | ~2022-03-28 | US_ITS ---
EXAMINATION: US ABDOMEN COMPLETE CLINICAL INFORMATION: Thrombocytopenia, rule out portal vein thrombosis. COMPARISON: CT abdomen pelvis on 04/03/2022 TECHNIQUE: Real-time imaging and Doppler of the abdominal viscera. FINDINGS: PANCREAS: Not visualized due to overlying bowel gas. LIVER: The liver is normal in size. The liver contour is normal. There is diffuse increased liver parenchymal echogenicity, consistent with infiltrative hepatocellular disease. No focal hepatic lesion. There is no intrahepatic biliary duct dilatation seen. Patent portal vein with appropriate directional flow. GALLBLADDER: Prior cholecystectomy. COMMON BILE DUCT: Normal in caliber measuring 0.5 cm in diameter. RIGHT KIDNEY: Normal. No hydronephrosis. No renal calculi or focal parenchymal lesions. The kidney measures 12.0 cm in maximum dimension. LEFT KIDNEY: Normal. No hydronephrosis. No renal calculi or focal parenchymal lesions. The kidney measures 11.3 cm in maximum dimension. SPLEEN: Normal. The spleen measures 9.0 cm in maximum dimension. FREE FLUID: Trace US/US duplex arterial venous comp IMPRESSION: 1. Patent portal vein. 2. Trace ascites.
--- NOTE | ~2022-03-28 | XR_ITS ---
EXAMINATION: XR CHEST CLINICAL INFORMATION: Status post right thoracentesis. COMPARISON: CT chest and chest x-ray 03/28/2022 TECHNIQUE: 2 views of the chest were obtained. FINDINGS: Status post right thoracentesis the right lung is expanded with no visible pneumothorax. No residual pleural effusion. The left lung is clear. The heart size is borderline enlarged. Pulmonary vascularity is normal. No gross bony abnormality seen. XR/XR chest 2V IMPRESSION: Status post right thoracentesis there is no pneumothorax. No residual pleural effusion seen.
--- NOTE | ~2022-03-28 | US_ITS ---
EXAMINATION: ULTRASOUND-GUIDED RIGHT THORACENTESIS. CLINICAL INFORMATION: Right pleural effusion. COMPARISON: None TECHNIQUE: Following explaining ultrasound-guided right thoracentesis procedure, benefits and risk, a written consent was obtained. Patient was placed upright sitting on stretcher and preliminary ultrasound imaging to the right posterior chest was performed. An optimal site was selected along the infrascapular line at approximately 10th interspace and marked on the skin the marked area was cleaned and draped in usual sterile manner with 2% chlorhexidine solution. 1% lidocaine was injected puncture site. Through a small skin incision a 4 [place] Loyalz[place] catheter was advanced into the pleural space. After observing fluid return, stylet was withdrawn and catheter connected to vacuum bottle via connecting cannula. After obtaining all fluid and observing normal fluid return, catheter was withdrawn and complete hemostasis achieved at puncture site. Sterile dressing applied postprocedure. Patient tolerated procedure extremely well. FINDINGS: On preliminary ultrasound imaging there is moderate to large right pleural effusion. Approximately 1.3 L of clear yellowish fluid was drained from the right pleural space. Part of this fluid was sent to lab as per referring physician's orders.. Chest x-ray was to be obtained portably. US/US thoracentesis IMPRESSION: Successful ultrasound guided therapeutic and diagnostic right thoracentesis performed.
--- NOTE | ~2022-03-28 | US_ITS ---
EXAMINATION: US ABDOMEN COMPLETE CLINICAL INFORMATION: Thrombocytopenia, rule out portal vein thrombosis. COMPARISON: CT abdomen pelvis on 04/03/2022 TECHNIQUE: Real-time imaging and Doppler of the abdominal viscera. FINDINGS: PANCREAS: Not visualized due to overlying bowel gas. LIVER: The liver is normal in size. The liver contour is normal. There is diffuse increased liver parenchymal echogenicity, consistent with infiltrative hepatocellular disease. No focal hepatic lesion. There is no intrahepatic biliary duct dilatation seen. Patent portal vein with appropriate directional flow. GALLBLADDER: Prior cholecystectomy. COMMON BILE DUCT: Normal in caliber measuring 0.5 cm in diameter. RIGHT KIDNEY: Normal. No hydronephrosis. No renal calculi or focal parenchymal lesions. The kidney measures 12.0 cm in maximum dimension. LEFT KIDNEY: Normal. No hydronephrosis. No renal calculi or focal parenchymal lesions. The kidney measures 11.3 cm in maximum dimension. SPLEEN: Normal. The spleen measures 9.0 cm in maximum dimension. FREE FLUID: Trace US/US abdomen complete IMPRESSION: 1. Patent portal vein. 2. Trace ascites.
--- NOTE | ~2022-03-28 | MR_ITS ---
EXAMINATION: MR LUMBAR SPINE WITHOUT AND WITH CONTRAST CLINICAL INFORMATION: Lower extremity weakness, loss of sensation COMPARISON: None TECHNIQUE: MRI of the lumbar spine was obtained using routine sequences with and without contrast. Intravenous contrast: Gadavist 8.5 mL FINDINGS: Lower lumbar levocurvature. Heterogeneous marrow signal without suspicious focal osseous lesion.. Multilevel predominantly fatty degenerative endplate marrow signal changes. Multilevel endplate Schmorl's nodes. The vertebral body heights are maintained. Multilevel degenerative disc desiccation and height loss, worst at L2-L3.. The conus medullaris terminates at the level of T12-L1. The distal spinal cord is normal in appearance. The cauda equina nerve roots appear normal. No abnormal enhancement. No significant abnormalities of the paraspinal musculature.. Limited evaluation of the intra-abdominal structures without significant abnormalities. The abdominal aorta is of normal contour and caliber. SPINAL LEVELS: L1-L2: Shallow disc bulge, mild to moderate facet arthropathy. Mild spinal canal stenosis and mild bilateral neural foraminal narrowing. L2-L3: Left eccentric disc bulge. Mild to moderate facet arthropathy. Ligamentum flavum thickening. Mild central spinal canal stenosis. Left greater than right subarticular zone narrowing with likely mass effect on the left L3 nerve root. Mild right and moderate left neural foraminal narrowing. L3-L4: Shallow disc bulge and mild facet arthropathy. No significant spinal canal stenosis. Mild bilateral neural foraminal narrowing. L4-L5: Right eccentric disc bulge with superimposed left central disc extrusion with slight cranial migration. Moderate facet arthropathy with small left joint fluid. Bilateral subarticular zone narrowing and mild spinal canal stenosis. Mild left and moderate right neural foraminal narrowing L5-S1: Broadbase disc bulge, endplate spurring, moderate facet arthropathy. Left greater than right subarticular zone narrowing with likely mass effect on the traversing left S1 nerve root. No significant central spinal canal stenosis. Moderate right and moderate to severe left neural foraminal narrowing. MR/MR lumbar spine wo/w con IMPRESSION: No acute abnormality of the lumbar spine is identified. There are multilevel degenerative changes as detailed above without high-grade spinal canal stenosis.
--- NOTE | ~2022-03-28 | NM_ITS ---
Myocardial perfusion study Indication: Chest pain with ischemic cardiomyopathy to evaluate for myocardial ischemia Technique: The patient was brought in for a Lexiscan perfusion study on 04/03/2022. Patient performed low-level exercise and was injected 0.4 mg of Lexiscan intravenously. Within a minute of injection, 25 mCi of sestamibi was given intravenously. Images were obtained using the SPECT gamma camera interlaced with the gating device. Images were obtained in supine position. Resting perfusion study was performed on 04/02/2022. Patient was administered 25 mCi of sestamibi intravenously at rest. Images were then obtained in supine position. Images obtained with and without CT attenuation. Total DLP 99 mGy-cm Images were processed with the software and compared side to side in short axis, horizontal long axis and vertical long axis views. Findings: The stress perfusion study showed large area of absent myocardium from mid anterior apex as well as severely reduced uptake in the septum and absent uptake in the distal septum and the distal lateral wall of the LV myocardium.. The gated study shows severely reduced LV systolic function with calculated LVEF of 19%. LV cavity is moderate to severely dilated size. The gated study shows diffuse hypokinesis with absent wall thickening and contraction of the mid to distal anterior, apical as well as septal segments. Resting study shows no change in perfusion pattern to stress perfusion study. Gating at rest reveals anterior and apical wall motion with ejection fraction at 16%. The findings are consistent with large area of possible infarct in LAD territory without ischemia. NM/NM casandra perf SPECT rest & str Impression: 1. Myocardial perfusion imaging study shows large transmural infarct in LAD territory 2. Gated LVEF is 19% 3. Transient ischemic dilatation not present but LV cavity is dilated EKG is nondiagnostic for ischemia
--- OUTSIDE RECORDS SUMMARY | 2022-03-28 10:01 | XMS_ITS | Continuity of Care Document ---
:1960 Author Organization [facility] Address [address] [place] [id number]- Care Team Providers Name Role Phone Not on Staff, PCP Primary Care Physician Unavailable [place] [facility] [place] 03/[place]/[address] [id number] Discharge Disposition: A-D/C Home Attending Physician: Vincent Love MD Admitting Physician: Preeti Gonzalez MD Referring Physician: Not on Staff, Referring MD Allergies, Adverse Reactions, Alerts Substance Reaction Severity Status NKA Active Immunizations Given and Recorded Vaccine Date Status Refusal Reason SARS-CoV-2 (COVID-19) mRNA-1273 vaccine 03/07/21 Given influenza virus vaccine, inactivated 05/20/16 Given influenza virus vaccine, inactivated 03/28/15 Given influenza virus vaccine, inactivated 04/30/14 Given influenza virus vaccine, inactivated 09/19/13 Given influenza virus vaccine, inactivated 04/17/08 Given tetanus/diphtheria/pertussis, acel(Tdap) 03/21/15 Given FluLaval (oldterm)1 03/15/12 Given FluLaval (oldterm)2 06/03/10 Given Fluarix (oldterm) 06/19/11 Given Influenza Virus Vaccine (oldterm) 05/30/09 Given Pneumococcal Poly (PPV23) (oldterm) 12/16/06 Given Tetanus Toxoid Vaccine (oldterm) 06/28/04 Given 1Admin Note: [employer] [place]2Admin Note: [employer] Medications aspirin 325 mg oral tablet 650 mg, 2, tablet, By Mouth, 3 times a day, # 66 tablet, Refills 0, Tot. Refills 0, Maintenance, 03/07/21 13:59:00 EDT, Route to Pharmacy Electronically, [facility], Partial fill upon patient request if the prescription is for a sc... Start Date: 03/07/21 Stop Date: 03/18/21 Status: Orderedatorvastatin 40 mg oral tablet 1 tablet = 40 mg, By Mouth, Daily, # 30 tablet, 0 Refills, Maintenance, 03/03/21 19:13:00 EDT, Tablet, Partial fill upon patient request if the prescription is for a schedule II opioid drug. Start Date: 03/03/21 Status: Orderedcolchicine 0.6 mg oral tablet 0.6 mg, 1, tablet, By Mouth, 2 times a day, # 174 tablet, Refills 0, Tot. Refills 0, Maintenance, 03/07/21 14:00:00 EDT, Route to Pharmacy Electronically, [facility], Partial fill upon patient request if the prescription is for a s... Start Date: 03/07/21 Stop Date: 06/02/21 Status: OrderedEASY TOUCH PEN NEEDLES EASY TOUCH PEN NEEDLES, See Instructions, # 200 each, Refills 11, Tot. Refills 11, Maintenance, USE 5 TIMES DAILY WITH INSULIN E 11.9 IDDMII MARYLOU LIFETIME FAX [phone], 07/16/16 10:21:18, Compound Start Date: 07/16/16 Status: OrderedFreestyle Lite Lancets See Instructions, # 200 each, Refills 5, Tot. Refills 5, Maintenance, use as directed for Type 2 Diabetes Mellitus test sugars tid, 07/08/11 15:32:04 Start Date: 07/08/11 Stop Date: 01/04/12 Status: OrderedFreestyle Lite Monitor See Instructions, # 1 each, Refills 0, Tot. Refills 0, Maintenance, use as directed for Type 2 Diabetes Mellitus test sugars tid, 07/08/11 15:27:26 Start Date: 07/08/11 Stop Date: 08/07/11 Status: OrderedFreestyle Lite Test Strips See Instructions, # 600 each, Tot. Refills 2, Maintenance, use as directed for Type 1 Diabetes Mellitus, 09/25/16 15:55:35, Compound Start Date: 09/25/16 Stop Date: 12/24/16 Status: Orderedgabapentin 100 mg oral capsule 100 mg, 1, capsule, By Mouth, 3 times a day, # 90 capsule, Refills 0, Maintenance, 03/03/21 19:12:00EDT, Partial fill upon patient request if the prescription is for a schedule II opioid drug. Start Date: 03/03/21 Status: Orderedgabapentin 100 mg oral capsule 100 mg, Capsule, By Mouth, 03/07/21 9:00:00 EDT Start Date: 03/07/21 Stop Date: 03/07/21 Status: Completedgabapentin 100 mg oral capsule 100 mg, Capsule, By Mouth, 03/07/21 15:00:00 EDT Start Date: 03/07/21 Stop Date: 03/07/21 Status: CompletedHumalog Kwik Pen 100 units/mL subcutaneous injection 14-20 units, Subcutaneous Infusion, 3 times a day before meals, # 15 mL, 0 Refills, Maintenance, 10/08/16 14:14:37 EDT Start Date: 10/08/16 Stop Date: 01/06/17 Status: OrderedJardiance 10 mg oral tablet 1 tablet = 10 mg, By Mouth, Daily in AM, # 30 tablet, 5 Refills, Maintenance, 03/07/21 13:52:00 EDT,Tablet, [facility], Partial fill upon patient request if the prescription is fora schedule II opioid drug., 169, cm, 03/07/21 7:3... Start Date: 03/07/21 Status: OrderedLantus 100 u/ml subcutaneous solution = 50 units, Subcutaneous Injection, 2 times a day, # 10 mL, 0 Refills, Maintenance, 03/03/21 19:09:00 EDT, Solution, Partial fill upon patient request if the prescription is for a schedule II opioid drug. Start Date: 03/03/21 Status: Orderedlisinopril 20 mg oral tablet 20 mg, 1, tablet, By Mouth, Daily, # 30 tablet, Refills 0, Maintenance, 03/03/21 19:13:00 EDT, Partial fill upon patient request if the prescription is for a schedule II opioid drug. Start Date: 03/03/21 Status: OrderedmetFORMIN 1000 mg oral tablet 1 tablet = 1,000 mg, By Mouth, Daily, # 180 tablet, 0 Refills, Maintenance, 03/03/21 19:13:00 EDT, Tablet, Partial fill upon patient request if the prescription is for a schedule II opioid drug. Start Date: 03/03/21 Status: Orderedmetoprolol 25 mg oral tablet, extended release 25 mg, 1, tablet, By Mouth, Daily, # 90 tablet, Refills 6, Tot. Refills 6, Maintenance, 03/07/21 14:01:00 EDT, Route to Pharmacy Electronically, [facility], 169, cm, 03/07/21 7:31:00 EDT, Height, 78.4, kg, 03/03/21 18:32:00 EDT, . Start Date: 03/07/21 Status: Orderedmetoprolol 25 mg oral tablet, extended release 25 mg, XL Tablet, By Mouth, 03/07/21 9:00:00 EDT Start Date: 03/07/21 Stop Date: 03/07/21 Status: Completedmontelukast 10 mg oral tablet 10 mg, 1, tablet, By Mouth, Daily, Refills 0, Maintenance, 03/03/21 19:13:00 EDT, Partial fill upon patient request if the prescription is for a schedule II opioid drug. Start Date: 03/03/21 Status: Orderednitroglycerin 0.4 mg sublingual tablet 1 tablet = 0.4 mg, Sublingual, Every 5 minutes, PRN Chest Pain, # 100 tablet, 0 Refills, Maintenance, 03/07/21 14:01:00 EDT, Tablet, [facility], Partial fill upon patient request ifthe prescription is for a schedule II opioid drug... Start Date: 03/07/21 Status: Orderedomeprazole 20 mg oral enteric coated capsule 1 capsule = 20 mg, By Mouth, Daily, # 30 capsule, 0 Refills, Maintenance, 03/03/21 19:11:00 EDT, EC Capsule, Partial fill upon patient request if the prescription is for a schedule II opioid drug. Start Date: 03/03/21 Status: OrderedPen [place] [id number] BD Ultra Fine III Pen [place] [id number] BD Ultra Fine III, See Instructions, # 200 each, Refills 0, Tot. Refills 0, Maintenance, INJECT BID-TID SQ FOR 30 DAYS, 09/25/16 17:22:00, Compound Start Date: 09/25/16 Status: OrderedPen [place] [id number] BD Ultra Fine III Pen [place] [id number] BD Ultra Fine III, See Instructions, # 300 each, Refills 0, Tot. Refills 0, Maintenance, INJECT BID-TID SQ FOR 30 DAYS, 09/25/16 15:38:06, Compound Start Date: 09/25/16 Status: OrderedPlavix 75 mg oral tablet 75 mg, 1, tablet, By Mouth, Daily, # 30 tablet, Refills 6, Tot. Refills 6, Maintenance, 03/07/21 14:00:00 EDT, Route to Pharmacy Electronically, [facility], Partial fill upon patient request if the prescription is for a schedule II... Start Date: 03/07/21 Status: OrderedProAir HFA 90 mcg/inh inhalation aerosol with adapter 2, puffs, Inhalation, 4 times a day, # 1 each, Refills 3, Tot. Refills 3, Maintenance, 09/25/16 15:35:57, Print Requisition Start Date: 09/25/16 Status: Ordered Problem List Condition Effective Dates Status Health Status Informant Asthma(Confirmed) Active BMI 30.0-30.9,adult(Confirmed) Active CKD (chronic kidney disease) stage 1, Active GFR 90 ml/min or greater(Confirmed) Colonoscopy(Confirmed)1 Active Complex regional pain 03/25/09 Active syndrome(Confirmed) CAD (coronary artery Active disease)(Confirmed)2 Current use of insulin(Confirmed) Active Diaphoresis(Confirmed) Active Gastroesophageal reflux disease with Active hiatal hernia(Confirmed)3 Hypercholesterolemia(Confirmed) Active Hypertension(Confirmed) Active 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) Active Shoulder pain(Confirmed) Active SK (seborrheic keratosis)(Confirmed) Active Tobacco abuse(Confirmed) Active Type 2 diabetes, uncontrolled, with 03/25/09 Active neuropathy(Confirmed) Type 2 diabetes, uncontrolled, with Active renal manifestation(Confirmed) [id number] nl, repeat [id number] chest [id number] 2006 negative barretts Vital Signs Most recent to oldest 1 2 3 [Reference Range]: Height 169 cm 169 cm 169 cm (03/07/21 2:15 PM) (03/07/21 7:31 AM) (03/07/21 1:4 4 AM) Weight 80.4 kg 80.1 kg 78.4 kg (03/07/21 1:44 AM) (03/05/21 3:11 AM) (03/03/21 6:00 PM) Oxygen Saturation [94-100 96 % 99 % 98 % %] (03/07/21 2:15 PM) (03/07/21 7:31 AM) (03/07/21 1:4 4 AM) Pulse Rate [55-90 bpm] 88 bpm 90 bpm 90 bpm (03/07/21 2:15 PM) (03/07/21 8:57 AM) (03/07/21 7:3 1 AM) Body Mass Index 28.15 28.05 27.45 [18.5-24.99] *H* *H* *H* (03/07/21 1:44 AM) (03/05/21 3:11 AM) (03/03/21 6:00 PM) Blood Pressure 133/54 mm Hg 136/84 mm Hg 136/84 mm Hg [90-138/55-84 mm Hg] (03/07/21 2:15 PM) (03/07/21 8:57 AM) ( 7:31 AM) Respiratory Rate [16-30 18 br/min 18 br/min 18 br/mi n br/min] (03/07/21 2:15 PM) (03/07/21 1:40 PM) (03/07/21 10: 47 AM) Temperature [96.8-100.4 97.4 DegF 97.3 DegF 98.6 Deg F DegF] (03/07/21 2:15 PM) (03/07/21 7:31 AM) (03/07/21 1:4 4 AM) Liters per Minute 3 L/min 3 L/min 3 L/min (03/04/21 10:00 AM) (03/04/21 9:00 AM) (03/04/21 8:00 AM) Mode of Delivery (Oxygen) Room air Room air Room a ir (03/07/21 2:15 PM) (03/07/21 7:31 AM) (03/07/21 1:4 4 AM) Blood pressure sites Arm, left Arm, left Arm, left (03/07/21 2:15 PM) (03/07/21 7:31 AM) (03/07/21 1:4 4 AM) Temperature Route Oral Oral Oral (03/07/21 2:15 PM) (03/07/21 7:31 AM) (03/07/21 1:4 4 AM) Dry Weight 78.4 kg (03/03/21 6:00 PM) Weight Obtained Via Bed scale Bed scale Bed scale (03/07/21 1:44 AM) (03/05/21 3:11 AM) (03/03/21 6:00 PM) Dry Weight Obtained Via Patient/family stated (03/03/21 6:00 PM) Social History Social History Type Response Smoking Status Former smoker; Other: Zaire saxena November 2015; entered on: 05/20/16 Sex
--- OUTSIDE RECORDS SUMMARY | 2022-03-28 10:01 | XMS_ITS | Continuity of Care Document ---
:1960 Author Organization [facility] Address [address] [place] [id number] Care Team Providers Name Role Phone Not on Staff, PCP Primary Care Physician Unavailable Encounter [facility] [place] Date(s): 03/12/21 - 04/17/[address] [id number] Attending Physician: Ari Yarbrough MD Admitting Physician: Ari Yarbrough MD Referring Physician: Ari Yarbrough MD Allergies, Adverse Reactions, Alerts Substance Reaction [...] Toxoid Vaccine (oldterm) 06/28/04 Given 1Admin Note: Mercora2Admin Note: Mercora Medications aspirin 325 mg oral tablet 650 mg, 2, tablet, By Mouth, 3 times a day, # 66 tablet, Refills 0, Tot. Refills 0, Maintenance, 03/07/21 13:59:00 EDT, Route to Pharmacy Electronically, [facility], Partial fill upon patient request [...] 03/07/21 14:00:00 EDT, Route to Pharmacy Electronically, [facility], Partial fill upon patient request if the prescription is for a s... Start Date: 03/07/21 Stop Date: 06/02/21 Status: OrderedEASY TOUCH PEN NEEDLES EASY TOUCH PEN NEEDLES, See Instructions, # 200 each, Refills 11, Tot. Refills 11, Maintenance, USE 5 TIMES DAILY WITH INSULIN E 11.9 IDDMII MARYLOU LIFETIME FAX [phone], 07/16/16 10:21:18, Compound Start Date: 07/16/16 Status: [...] II opioid drug. Start Date: 03/03/21 Status: OrderedHumalog Kwik Pen 100 units/mL subcutaneous injection 14-20 units, Subcutaneous Infusion, 3 times a day before meals, # 15 mL, 0 Refills, Maintenance, 10/08/16 14:14:37 EDT Start Date: 10/08/16 Stop Date: 01/06/17 Status: OrderedJardiance 10 mg oral tablet 1 tablet = 10 mg, By Mouth, Daily in AM, # 30 tablet, 5 Refills, Maintenance, 03/07/21 13:52:00 EDT,Tablet, [facility], Partial fill upon patient request [...] 03/07/21 14:01:00 EDT, Route to Pharmacy Electronically, [facility], 169, cm, 03/07/21 7:31:00 EDT, Height, 78.4, kg, 03/03/21 18:32:00 EDT, Start Date: 03/07/21 Status: Orderedmontelukast 10 mg oral tablet 10 mg, 1, tablet, By Mouth, Daily, Refills 0, Maintenance, 03/03/21 19:13:00 EDT, Partial fill upon patient request if the prescription is for a schedule II opioid drug. Start Date: 03/03/21 Status: Orderednitroglycerin 0.4 mg sublingual tablet 1 tablet = 0.4 mg, Sublingual, Every 5 minutes, PRN Chest Pain, # 100 tablet, 0 Refills, Maintenance, 03/07/21 14:01:00 EDT, Tablet, [facility], Partial fill upon patient request [...] opioid drug. Start Date: 03/03/21 Status: OrderedPen Borger [id number] BD Ultra Fine III Pen Borger [id number] BD Ultra Fine III, See Instructions, # 200 each, Refills 0, Tot. Refills 0, Maintenance, INJECT BID-TID SQ FOR 30 DAYS, 09/25/16 17:22:00, Compound Start Date: 09/25/16 Status: OrderedPen Borger [id number] BD Ultra Fine III Pen Borger [id number] BD Ultra Fine III, See Instructions, # 300 each, Refills 0, Tot. Refills 0, Maintenance, INJECT BID-TID SQ FOR 30 DAYS, 09/25/16 15:38:06, Compound Start Date: 09/25/16 Status: OrderedPlavix 75 mg oral tablet 75 mg, 1, tablet, By Mouth, Daily, # 30 tablet, Refills 6, Tot. Refills 6, Maintenance, 03/07/21 14:00:00 EDT, Route to Pharmacy Electronically, [facility], Partial fill upon patient request if the prescription is for a schedule II... Start Date: 9/10/21 Status: OrderedProAir HFA 90 mcg/inh inhalation aerosol [...] 2 diabetes, uncontrolled, with Active renal manifestation(Confirmed) [id number] nl, repeat [id number] chest [id number] 2006 negative barretts Social History Social History Type Response Smoking Status Former smoker; Other: Zaire g November 2015; entered on: 05/20/16 Sex
--- NOTE | 2022-03-28 10:12 | ECG_ITS ---
Test Reason : CHEST PAIN Blood Pressure : / mmHG Vent. Rate : 103 BPM Atrial Rate : 103 BPM P-R Int : 166 ms QRS Dur : 104 ms QT Int : 354 ms P-R-T Axes : 025 -55 044 degrees QTc Int : 463 ms Sinus tachycardia Left axis deviation Inferior infarct , age undetermined Anterolateral infarct (cited on or before 02-AUG-2014) Abnormal ECG When compared with ECG of 31-JUL-2021 10:01, Left anterior fascicular block is no longer Present Inferior infarct is now Present Questionable change in initial forces of Lateral leads ST less elevated in Anterior leads Referred By: Lobo Tan Electronically Signed By:ANH JACKSON
--- NOTE | 2022-03-28 10:33 | ED.CHESTPAIN ---
HPI - Chest Pain General Chief Complaint: Chest Pain Stated Complaint: chest pain no balance abd swelling disorented Time Seen by Provider: 03/28/22 10:10 Source: patient Mode of arrival: ambulatory Limitations: no limitations History of Present Illness HPI narrative: 61-year-old male came in for multiple complaints. chest pain and shortness of breath for the past 4 days, patient is exertional, shortness of breath also was exertional, pain is localized to the left chest wall more with exertion with no radiation pain is intermittent now there is no chest pain, shortness of breath is mostly exertional not to do with position or pain in supine position. Patient also been having weakness in bilateral lower extremities for the past week with decreased sensation to both legs for the past week also, patient is sustaining multiple falls due to weakness in lower extremities. Patient otherwise decline urinary or stool incontinence no back pain patient thinks that the weakness is worsening of the peripheral neuropathy that already pre-existing. Related Data Home Medications Medication Instructions Recorded Confirmed insulin lispro 100 unit/mL See Rx Instructions .Route .COMPLEX 05/13/21 03/28/22 subcutaneous pen (Humalog KwikPen (U-100) Insulin) empagliflozin 10 mg tablet 10 mg PO DAILY 03/28/22 03/28/22 (Jardiance) insulin glargine 100 unit/mL (3 50 unit subcut BID 03/28/22 03/28/22 mL) subcutaneous pen (Lantus Solostar U-100 Insulin) Previous Rx's Medication Instructions Recorded metoprolol succinate 25 mg 25 mg PO DAILY 90 days #90 tabs 01/29/21 tablet,extended release 24 hr nitroglycerin 0.4 mg sublingual 0.4 mg sublingual Q5M PRN chest 04/01/21 tablet pain 30 days #30 tabs atorvastatin 80 mg tablet 80 mg PO BEDTIME 90 days #90 tabs 04/15/21 metformin 1,000 mg tablet 1,000 mg PO DAILY 90 days #90 tabs 07/27/21 gabapentin 100 mg capsule 100 mg PO TID #90 caps 11/04/21 clopidogrel 75 mg tablet 75 mg PO DAILY 90 days #90 tabs 11/29/21 aspirin 81 mg chewable tablet 81 mg PO DAILY #30 tabs 12/09/21 (Aspirin Childrens) lisinopril 20 mg tablet 20 mg PO DAILY #30 tabs 12/09/21 montelukast 10 mg tablet 10 mg PO DAILY #30 tabs 12/09/21 Allergies Allergy/AdvReac Type Severity Reaction Status Date / Time No Known Allergies Allergy Verified 04/15/21 16:30 Review of Systems Review of Systems: All other systems are reviewed and are negative Constitutional: Reports as per HPI and Reports no additional constitutional complaints Eyes: Reports as per HPI and Reports no additional eye complaints Reports system reviewed and no additional complaints, except as documented Cardiovascular: Reports as per HPI and Reports no additional cardiovascular complaints Respiratory: Reports as per HPI and Reports no additional respiratory complaints Gastrointestinal: Reports as per HPI and Reports no additional gastrointestinal complaints Genitourinary: Reports no additional female genitourinary complaints Musculoskeletal: Reports no additional musculoskeletal complaints Skin/Breast: Reports system reviewed and no additional complaints, except as docu Psychiatric: Reports no additional psychiatric complaints Endocrine: Reports no additional endocrine complaints Hematologic/Lymphatic: Reports no additional hematologic/lymphatic complaints Allergic/Immunologic: Reports no additional allergic/immunologic complaints Reports system reviewed and no additional complaints, except as documented and Reports Abnormal speech present [facility] Past Medical History Medical History Diabetes Essential (primary) hypertension GI bleed Hematemesis HLD (hyperlipidemia) STEMI (ST elevation myocardial infarction) Unspecified asthma, uncomplicated Surgical History H/O heart artery stent Social History Social History Household Members: None Housing: Apartment Do you presently have visiting nurse or other home services: No Alcohol intake: former Patient Tobacco Use Status: Former Tobacco user Smoked in Last 30 Days: No Use of substances other than those prescribed or required for medical reasons: No Substance Use Type: Former Substance User Advance Directives: Yes Advance Directives on File: Yes Advance Directives Date on File: 08/02/21 service: No Physical Exam Vital Signs: Vital Signs: Last Vital Signs Temp 99.0 F 03/28/22 10:29 Pulse 103 H 03/28/22 14:42 Resp 35 H 03/28/22 14:42 BP 120/85 03/28/22 14:42 Pulse Ox 92 03/28/22 14:42 O2 Del Method 03/28/22 14:42 O2 Flow Rate 1.5 03/28/22 14:42 BMI result Body Mass Index 29.0 Vital signs have been reviewed as appeared to be correct. Blood pressure normal. Heart rate normal. Respiration rate normal. Temperature normal. Oxygen saturation normal. Appearance: Alert. Oriented X3. No acute distress. Head: Normal external exam. Normocephalic. Atraumatic. No Kerr signs noted. No raccoon eyes noted Eyes: PERRLA. EOMI. Conjunctiva and sclera normal. Eyelids normal. ENT: TM's Normal. Pharynx normal. Uvula midline. Moist mucous membranes. No trismus noted. No drooling noted. No muffled voice noted. Neck: Normal inspection. Neck supple. FROM. No adenopathy. Thyroid Normal. No meningeal signs. No neck mass noted. CVS: Normal heart rate and rhythm. Heart sound normal. No murmurs noted. Pulses normal throughout. Respiratory: No respiratory distress. Painless inspiration. Breath sounds normal. No wheezes/rales/rhonchi noted. Chest nontender. No accessory muscle usage noted or decreased air movement noted. Abdomen: Soft and nontender. Bowel sounds normal in all 4 quadrants. No distention noted. No organomegaly noted. No visible injury noted. Back: No CVA tenderness. Full range of motion noted. Skin: Skin warm and dry. Normal skin color. Normal skin turgor. No rashes/lesions/lacerations noted. Extremities: No lower extremity edema. Extremities exhibit normal range of motion. Extremities nontender. Neuro: Oriented X 3. Cranial nerve exam: II-XII are grossly intact Mild bilateral lower extremity weakness, decreased light touch sensation to both lower extremities. Reflexes normal. Course Course Course Narrative: 61-year-old male presented with shortness of breath, patient with large bilateral pleural effusion, CHF. Possible left lower lobe pneumonia. Patient is given ceftriaxone and Zithromax for lower lobe pneumonia. Patient will be admitted for further evaluation. MDM - Chest Pain Medical Records Data Attestation: I reviewed the patient's medical records. Lab Data Attestation: I reviewed the patient's lab results. Result diagrams: 03/28/22 11:20 03/28/22 11:20 Labs: Lab Results 03/28/22 03/28/22 03/28/22 Range/Units 11:20 11:20 11:20 WBC 7.8 (4.8-10.8) X10*3/uL RBC 5.05 D (4.60-5.80) X10*6/uL Hgb 15.2 D (14.0-18.0) g/dl Hct 48.3 D (42.0-52.0) % MCV 95.6 (80.0-98.0) fL MCH 30.1 (27.0-33.0) pg MCHC 31.5 (31.0-36.0) g/dl RDW 14.1 (11.0-16.0) % Plt Count 235 (160-400) X10*3/uL MPV 10.3 (9.4-12.4) fL Immature Gran % (Auto) 0.3 (0.0-0.4) % Neut % (Auto) 70.4 (45-73) % Lymph % (Auto) 19.4 L (20-40) % Jewell % (Auto) 7.8 (2-11) % Eos % (Auto) 1.3 (0-4) % Baso % (Auto) 0.8 (0-2) % Lymph # (Auto) 1.5 (1.2-4.9) X10*3/uL Jewell # (Auto) 0.6 (0.1-1.2) X10*3/uL Eos # (Auto) 0.1 (0.0-0.4) X10*3/uL Baso # (Auto) 0.1 (0.0-0.2) X10*3/uL Abs Immat Gran (auto) 0.02 (0.00-0.03) X10*3/uL Absolute Neuts (auto) 5.5 (2.0-8.3) x10*3/uL Absolute Nucleated RBC 0.000 (0.0-0.012) X10*3/uL Nucleated RBC % (auto) 0.0 (0.0-0.2) /100WBC Sodium 138 (135-145) mmol/L Potassium 5.3 H D (3.3-5.1) mmol/L Chloride 97 (96-108) mmol/L Carbon Dioxide 29 (22-29) mmol/L Anion Gap 17 (12-20) BUN 19 H (9-16) mg/dL Creatinine 1.37 (0.5-1.4) mg/dL Estim Creat Clear Calc 57.1 Estimated GFR 52 Random Glucose 437 H* (60-115) mg/dL Lactic Acid (0.5-2.0) mmol/L Calcium 8.9 (8.4-10.2) mg/dL Total Bilirubin 0.6 (0.0-1.0) mg/dL Direct Bilirubin 0.2 (0.0-0.5) mg/dL AST 17 (5-37) U/L ALT 47 H (0-40) U/L Alkaline Phosphatase 117 (39-117) U/L Troponin I High Sens 33.2 (<3.5-35.0) ng/L B-Natriuretic Peptide 2109 H (<100) pg/mL Total Protein 6.7 D (6.5-8.0) g/dL Albumin 3.9 (3.5-5.0) g/dL Lipase 65 (8-78) U/L COVID-19 (ALEJANDRO) (Negative) COVID-19 Clin Com 03/28/22 03/28/22 Range/Units 11:20 13:26 WBC (4.8-10.8) X10*3/uL RBC (4.60-5.80) X10*6/uL Hgb (14.0-18.0) g/dl Hct (42.0-52.0) % MCV (80.0-98.0) fL MCH (27.0-33.0) pg MCHC (31.0-36.0) g/dl RDW (11.0-16.0) % Plt Count (160-400) X10*3/uL MPV (9.4-12.4) fL Immature Gran % (Auto) (0.0-0.4) % Neut % (Auto) (45-73) % Lymph % (Auto) (20-40) % Jewell % (Auto) (2-11) % Eos % (Auto) (0-4) % Baso % (Auto) (0-2) % Lymph # (Auto) (1.2-4.9) X10*3/uL Jewell # (Auto) (0.1-1.2) X10*3/uL Eos # (Auto) (0.0-0.4) X10*3/uL Baso # (Auto) (0.0-0.2) X10*3/uL Abs Immat Gran (auto) (0.00-0.03) X10*3/uL Absolute Neuts (auto) (2.0-8.3) x10*3/uL Absolute Nucleated RBC (0.0-0.012) X10*3/uL Nucleated RBC % (auto) (0.0-0.2) /100WBC Sodium (135-145) mmol/L Potassium (3.3-5.1) mmol/L Chloride (96-108) mmol/L Carbon Dioxide (22-29) mmol/L Anion Gap (12-20) BUN (9-16) mg/dL Creatinine (0.5-1.4) mg/dL Estim Creat Clear Calc Estimated GFR Random Glucose (60-115) mg/dL Lactic Acid 1.6 (0.5-2.0) mmol/L Calcium (8.4-10.2) mg/dL Total Bilirubin (0.0-1.0) mg/dL Direct Bilirubin (0.0-0.5) mg/dL AST (5-37) U/L ALT (0-40) U/L Alkaline Phosphatase (39-117) U/L Troponin I High Sens (<3.5-35.0) ng/L B-Natriuretic Peptide (<100) pg/mL Total Protein (6.5-8.0) g/dL Albumin (3.5-5.0) g/dL Lipase (8-78) U/L COVID-19 (ALEJANDRO) Negative (Negative) COVID-19 Clin Com See Note Imaging Data Chest CT/abdomen: Attestation: I personally reviewed and interpreted this imaging study as follows: Radiologist's impression: 1. Large pleural effusion as above with bibasilar airspace disease nonspecific but could represent pneumonia. 2. High density fluid within the bladder lumen which is too high to be blood products but favor related to contrast injection performed recently. Correlate with patient's procedural history. 3. Nonspecific ascites. 4. Severe coronary atherosclerosis. ECG Data ECG #1: Attestation: I personally reviewed and interpreted this ECG as follows: Interpretation: Sinus tachycardia at 103 beats per minute, left axis deviation, first-degree AV. Discharge Plan Discharge Clinical Impression: Pneumonia, CHF (congestive heart failure), Pleural effusion Patient Disposition: Admitted As Inpatient
[2022-03-28 11:25] LABS: MANUAL DIFF FLAG NO
[2022-03-28 11:27] LABS: Basophils Absolute Auto 0.1 X10*3/uL (0.0-0.2); Basophils Percent Auto 0.8 % (0-2); Eosinophils Absolute Auto 0.1 X10*3/uL (0.0-0.4); Eosinophils Percent Auto 1.3 % (0-4); Hematocrit 48.3 % (42.0-52.0); Hemoglobin 15.2 g/dl (14.0-18.0); Imm Gran Abs Auto 0.02 X10*3/uL (0.00-0.03); Imm Gran Pct Auto 0.3 % (0.0-0.4); Lymphocytes Absolute Auto 1.5 X10*3/uL (1.2-4.9); Lymphocytes Percent Auto 19.4 % (20-40); Mean Corpuscular HGB Conc 31.5 g/dl (31.0-36.0); Mean Corpuscular Hemoglobin 30.1 pg (27.0-33.0); Mean Corpuscular Volume 95.6 fL (80.0-98.0); Mean Platelet Volume 10.3 fL (9.4-12.4); Monocytes Absolute Auto 0.6 X10*3/uL (0.1-1.2); Monocytes Percent Auto 7.8 % (2-11); Neutrophils Absolute Auto 5.5 x10*3/uL (2.0-8.3); Neutrophils Percent Auto 70.4 % (45-73); Platelet Count 235 X10*3/uL (160-400); Red Blood Count 5.05 X10*6/uL (4.60-5.80); Red Cell Distribution Width 14.1 % (11.0-16.0); White Blood Count 7.8 X10*3/uL (4.8-10.8)
[2022-03-28 11:47] LABS: COVID-19 Test Negative (Negative); IDNOW Serial# 9DB6401D
[2022-03-28 11:49] LABS: B Type Natriuretic Peptide 2109 pg/mL (<100); Troponin-I High Sensitivity 33.2 ng/L (<3.5-35.0)
[2022-03-28 12:02] LABS: Alanine Aminotransferase 47 U/L (0-40); Albumin Level 3.9 g/dL (3.5-5.0); Alkaline Phosphatase 117 U/L (39-117); Anion Gap 17 (12-20); Aspartate Amino Transferase 17 U/L (5-37); Bilirubin Direct 0.2 mg/dL (0.0-0.5); Bilirubin Total 0.6 mg/dL (0.0-1.0); Blood Urea Nitrogen 19 mg/dL (9-16); Calcium 8.9 mg/dL (8.4-10.2); Carbon Dioxide 29 mmol/L (22-29); Chloride 97 mmol/L (96-108); Creatinine Clr Calc Pharmacy 57.1; Estimated Glomerular Filt Rate 52; Glucose Random 437 mg/dL (60-115); Lipase 65 U/L (8-78); Potassium 5.3 mmol/L (3.3-5.1); Sodium 138 mmol/L (135-145); Total Protein 6.7 g/dL (6.5-8.0)
[2022-03-28] MEDS: Azithromycin 500 MG TABLET PO (13:33)
[2022-03-28] MEDS: cefTRIAXone sodium 1 GM in 0.9 % Sodium Chloride 50 ML IV (13:33)
[2022-03-28] MEDS: Furosemide 40 MG/4 ML VIAL IVPUSH ×2 (13:33→18:28)
--- NOTE | 2022-03-28 13:35 | PHA.MEDREC ---
Pharmacy Consult ? Medication Reconciliation Pharmacy has completed the medication reconciliation. Patient attests to being on all meds confirmed, despite claim history reflecting last fills for 30 days supply in December.
[2022-03-28 13:53] LABS: Lactic Acid 1.6 mmol/L (0.5-2.0)
[2022-03-28] MEDS: Enoxaparin Sodium 40 MG/0.4 ML SYRINGE SUBCUT (15:14)
[2022-03-28] MEDS: Gabapentin 100 MG CAPSULE PO ×2 (15:14→21:24)
[2022-03-28] MEDS: 0.9 % Sodium Chloride Flush 3 ML SYRINGE IVFLUSH ×2 (15:15→23:39)
--- NOTE | 2022-03-28 15:48 | P.HPHOSP_ITS ---
History of Present Illness Date of Service: 03/28/22 Chief Complaint: Weakness and shortness of breath 61-year-old male presents with worsening shortness of breath over the last 4-5 days. States his shortness of breath is worse with exertion however denies chest pain. Patient is status post anterior STEMI 02/2021. Underwent cardiac catheterization was found to have proximal LAD lesions stents x2 or placed. Ec ho at that time showed severely reduced LV function an estimated ejection fraction of 20-25% with akinesis of the mid to distal inferior and anteroseptal kaminski. He has not been adherent to follow-up. He does state he takes his meds on a regular basis. Diabetes is poorly controlled. ER course CT abdomen pelvis/chest demonstrated right greater than left pleural effusion with can for compressive atelectasis versus infiltrate. Abdomen was significant for mild diffuse ascites. He was given azithromycin and ceftriaxone in the ER; also noted to have a BNP greater than 2000 which he received 40 of IV Lasix; will be admitted for further workup and treatment. Review of Systems Review of Systems: Denies chest pain Admit shortness of breath Admits abdominal pain no nausea, vomiting, diarrhea Denies fever chills [facility] Medical History (Updated 03/28/22 @ 15:58 by Velasquez Stephens DO) Diabetes Essential (primary) hypertension GI bleed Hematemesis HLD (hyperlipidemia) STEMI (ST elevation myocardial infarction) Unspecified asthma, uncomplicated Surgical History H/O heart artery stent Social History Household Members: None Housing: Apartment Do you presently have visiting nurse or other home services: No Alcohol intake: former Patient Tobacco Use Status: Former Tobacco user Smoked in Last 30 Days: No Use of substances other than those prescribed or required for medical reasons: No Substance Use Type: Former Substance User Advance Directives: Yes Advance Directives on File: Yes Advance Directives Date on File: 08/02/21 service: No Meds Allergies Allergy/AdvReac Type Severity Reaction Status Date / Time No Known Allergies Allergy Verified 04/15/21 16:30 Active Medications: Current Medications Acetaminophen (Acetaminophen Supp 650 Mg Supp.Rect) 650 mg PA Q6H PRN PRN Reason: Pain, Mild (Pain Scale 1-3) Aspirin (Aspirin 81 Mg Tab.Chew) 81 mg PO DAILY [facility] Atorvastatin Calcium (Atorvastatin Calcium 80 Mg Tablet) 80 mg PO BEDTIME [facility] Clopidogrel Bisulfate (Clopidogrel Bisulfate 75 Mg Tablet) 75 mg PO DAILY [facility] Empagliflozin (Empagliflozin 10 Mg Tablet) 10 mg PO DAILY [facility] Enoxaparin Sodium (Enoxaparin Sodium 40 Mg/0.4 Ml Syringe) 40 mg SUBCUT Q24H [facility] Last Admin: 03/28/22 15:14 Dose: 40 mg Furosemide (Furosemide 40 Mg/4 Ml Vial) 40 mg IVPUSH BID@0900,1800 [facility]; Protocol Gabapentin (Gabapentin 100 Mg Capsule) 100 mg PO TID [facility] Last Admin: 03/28/22 15:14 Dose: 100 mg Ceftriaxone Sodium 1 gm/ (Sodium Chloride) 50 mls @ 100 mls/hr IV Q24H [facility] Azithromycin 500 mg/ Sodium (Chloride) 250 mls @ 125 mls/hr IV Q24H [facility] Insulin Glargine (Insulin Glargine,Hum.Rec.Anlog 100 Unit/Ml 10 Ml Vial) 50 unit SUBCUT BID [facility] Insulin Human Lispro (Insulin Lispro 100 Unit/Ml 3 Ml Vial) 0 unit SUBCUT QIDACHS [facility]; Protocol Lisinopril (Lisinopril 20 Mg Tablet) 20 mg PO DAILY [facility]; Protocol Metformin HCl (Metformin Hcl 1,000 Mg Tablet) 1,000 mg PO DAILY [facility] Metoprolol Succinate (Metoprolol Succinate Er 25 Mg Tab.Er.24h) 25 mg PO DAILY [facility]; Protocol Montelukast Sodium (Montelukast Sodium 10 Mg Tablet) 10 mg PO DAILY [facility] Nitroglycerin (Nitroglycerin 0.4 Mg Tab.Subl) 0.4 mg SUBLINGUAL Q5M PRN PRN Reason: chest pain Ondansetron HCl (Ondansetron Hcl 4 Mg/2 Ml Vial) 4 mg IVPUSH Q8H PRN PRN Reason: Nausea and Vomiting Pharmacy Consult (Consult Rx Perform Med Rec) 1 each MISCELLANE ONCE PRN PRN Reason: Consult order Sodium Chloride (0.9 % Sodium Chloride Flush 3 Ml Syringe) 3 ml IVFLUSH QSHIFT [facility] Last Admin: 03/28/22 15:15 Dose: 3 ml Home Medications Medication Instructions Recorded Confirmed Last Taken Type insulin lispro 100 unit/mL See Rx Instructions .Route .COMPLEX 11/1603/28/22 03/27/22 History subcutaneous pen (Humalog KwikPen (U-100) Insulin) empagliflozin 10 mg tablet 10 mg PO DAILY 03/28/22 03/28/22 03/27/22 History (Jardiance) insulin glargine 100 unit/mL (3 50 unit subcut BID 03/28/22 03/28/22 03/27/22 History mL) subcutaneous pen (Lantus Solostar U-100 Insulin) Physical Exam Vital Signs and Narrative: Vital Signs: Last Vital Signs Temp 97.8 F 03/28/22 15:42 Pulse 103 H 03/28/22 15:42 Resp 20 03/28/22 15:42 BP 130/84 03/28/22 15:42 Pulse Ox 96 03/28/22 15:42 O2 Del Method 03/28/22 15:42 O2 Flow Rate 2 03/28/22 15:42 BMI result Body Mass Index 29.0 Const: Other: Awake alert; visibly short of breath at rest Resp: Other: Diminished breath sounds mid scapula distally Cardio: Other: No S4; positive S1-S2; no S3 murmurs rubs or gallops GI: Other: Firm without palpable fluid wave. Quiet bowel sounds Neuro: Other: Cranial nerves 2-12 grossly intact as tested. Moving all extremities with equal power. Describes diminished sensation in a stocking-glove distribution Extrem: Other: No edema bilaterally Results Labs CBC and Chem 7: 03/28/22 11:20 03/28/22 11:20 Labs: Laboratory Results - last 24 hr 03/28/22 03/28/22 03/28/22 11:20 11:20 11:20 MCV 95.6 MCH 30.1 MCHC 31.5 RDW 14.1 Plt Count 235 MPV 10.3 Immature Gran % (Auto) 0.3 Neut % (Auto) 70.4 Lymph % (Auto) 19.4 L [place] % (Auto) 7.8 Eos % (Auto) 1.3 Baso % (Auto) 0.8 Lymph # (Auto) 1.5 [place] # (Auto) 0.6 Eos # (Auto) 0.1 Baso # (Auto) 0.1 Abs Immat Gran (auto) 0.02 Absolute Neuts (auto) 5.5 Absolute Nucleated RBC 0.000 Nucleated RBC % (auto) 0.0 Anion Gap 17 Estim Creat Clear Calc 57.1 Estimated GFR 52 Random Glucose 437 H* Lactic Acid Calcium 8.9 Total Bilirubin 0.6 Direct Bilirubin 0.2 AST 17 ALT 47 H Alkaline Phosphatase 117 Troponin I High Sens 33.2 B-Natriuretic Peptide 2109 H Total Protein 6.7 D Albumin 3.9 Lipase 65 COVID-19 ([facility]) COVID-19 Clin Com 03/28/22 03/28/22 11:20 13:26 MCV MCH MCHC RDW Plt Count MPV Immature Gran % (Auto) Neut % (Auto) Lymph % (Auto) [place] % (Auto) Eos % (Auto) Baso % (Auto) Lymph # (Auto) [place] # (Auto) Eos # (Auto) Baso # (Auto) Abs Immat Gran (auto) Absolute Neuts (auto) Absolute Nucleated RBC Nucleated RBC % (auto) Anion Gap Estim Creat Clear Calc Estimated GFR Random Glucose Lactic Acid 1.6 Calcium Total Bilirubin Direct Bilirubin AST ALT Alkaline Phosphatase Troponin I High Sens B-Natriuretic Peptide Total Protein Albumin Lipase COVID-19 ([facility]) Negative COVID-19 Clin Com See Note Imaging Radiologist's Impressions: Impressions Chest X-Ray 03/28/22 10:33 IMPRESSION: Right lung base infiltrate. Lumbar Spine MRI 03/28/22 12:18 IMPRESSION: No acute abnormality of the lumbar spine is identified. There are multilevel degenerative changes as detailed above without high-grade spinal canal stenosis. Head CT 03/28/22 12:42 IMPRESSION: No acute intracranial findings. Abdomen/Pelvis CT 03/28/22 14:00 IMPRESSION: 1. Large pleural effusion as above with bibasilar airspace disease nonspecific but could represent pneumonia. 2. High density fluid within the bladder lumen which is too high to be blood products but favor related to contrast injection performed recently. Correlate with patient's procedural history. 3. Nonspecific ascites. 4. Severe coronary atherosclerosis. Chest CT 03/28/22 14:02 IMPRESSION: 1. Large pleural effusion as above with bibasilar airspace disease nonspecific but could represent pneumonia. 2. High density fluid within the bladder lumen which is too high to be blood products but favor related to contrast injection performed recently. Correlate with patient's procedural history. 3. Nonspecific ascites. 4. Severe coronary atherosclerosis. Assessment and Plan (1) CHF (congestive heart failure): Status: Acute (2) Uncontrolled diabetes mellitus: Status: Acute (3) Paresthesias with subjective weakness: Status: Acute (4) Essential (primary) hypertension: Status: Acute Plan 61-year-old male with progressive shortness of breath over the last 4-5 days as well as stocking-glove paresthesias with weakness presents to the ER today for workup. CT abdomen pelvis and chest demonstrate right greater than left pleural effusions question left base infiltrate. 1. Acute systolic CHF/CAD -IV Lasix b.i.d. -continue Plavix lisinopril and metoprolol as ordered -admit to telemetry follow troponin -2D echo -cardiology consult 2. Uncontrolled diabetes type 2 -add on A1c -continue outpatient regimen including metformin Jardiance and insulin -add lispro correctional scale -ADA diet 3.Paresthesias with subjective weakness -given stocking-glove distribution likely related to diabetes -ordered EMG 03/30 4. Pleural effusions -will ask Interventional Radiology to drain when available 5. Hypertension -unacceptable control on current therapies -await Cardiology input for further antihypertensive Full code Lovenox Patient will require 2 midnights going forward for IV diuresis for acute systolic CHF. Will also require Interventional Radiology to drain pleural effusion given symptoms. This cannot be achieved in a lesser acute setting Quality Stroke Does the patient have a stroke diagnosis?: No VTE Prior VTE?: No VTE Risk Level:: Medical - moderate - high VTE Device Contraindication: Treatment Not Indicated VTE Drug Contraindication: N/A - Med Ordered
[2022-03-28] MEDS: Morphine Sulfate 4 MG/ML CARTRIDGE IVPUSH ×2 (16:27→22:27)
[2022-03-28 16:37] LABS: Appearance Urine Clear; Color Urine Yellow; Glucose Urine UA >=1000 mg/dL (Negative); Leukocyte Esterase Urine Negative (Negative); Nitrite Urine Negative (Negative); Specific Gravity - Urine 1.015 (1.005-1.025); UMIC TRIGGER UACC YES; Urine Blood Negative (Negative); Urine Ketones Negative (Negative); Urine Protein 100 (2+) mg/dL (Neg-Trace)
[2022-03-28 16:39] LABS: Bacteria Urine None Seen (None Seen); Hyaline Casts Urine 0-2 /LPF (0-2); RBC Urine 0-2 /HPF (0-2); Squamous Epithelial Cell Urine 0-2 /HPF (0-2); WBC Urine 0-5 /HPF (0-5)
[2022-03-28 16:50] LABS: Hemoglobin A1c % > 14.0 %
--- NOTE | 2022-03-28 17:10 | PC.NURSE ---
PATIENT WAS ASSISTED TO THE BATHROOM BY THIS PCT .
--- NOTE | 2022-03-28 17:14 | PC.NURSE ---
Pt daughter called asking for update, would like a call when pt gets a room. ([phone])
[2022-03-28 18:14] LABS: Glucose, Whole Blood 390 mg/dL (60-115)
[2022-03-28] MEDS: Insulin Lispro 100 UNIT/ML 3 ML VIAL SUBCUT ×2 (18:28→21:24)
[2022-03-28] MEDS: Atorvastatin Calcium 80 MG TABLET PO (21:24)
[2022-03-28 22:11] LABS: Glucose, Whole Blood 248 mg/dL (60-115)
[2022-03-28] MEDS: Insulin Glargine,Hum.rec.anlog 100 UNIT/ML 10 ML VIAL 50 UNIT SUBCUT (23:35)
[2022-03-29] VITALS (7 sets, daily range): BP systolic 82–128; BP diastolic 52–80; PULSE 72–102; RESP 16–20; TEMP 36.2–37.1; O2SAT 93–98; BMI 29.0
[2022-03-29] MEDS: lisinopriL 20 MG TABLET PO (07:43)
[2022-03-29] MEDS: Montelukast Sodium 10 MG TABLET PO (07:43)
[2022-03-29] MEDS: Gabapentin 100 MG CAPSULE PO ×3 (07:43→21:32)
[2022-03-29] MEDS: Aspirin 81 MG TAB.CHEW PO (07:43)
[2022-03-29] MEDS: Metoprolol Succinate ER 25 MG TAB.ER.24H PO (07:43)
[2022-03-29] MEDS: Clopidogrel Bisulfate 75 MG TABLET PO (07:43)
[2022-03-29] MEDS: Furosemide 40 MG/4 ML VIAL IVPUSH ×2 (07:44→18:52)
[2022-03-29] MEDS: Morphine Sulfate 4 MG/ML CARTRIDGE IVPUSH ×2 (07:45→15:05)
[2022-03-29 08:19] LABS: Glucose, Whole Blood 52 mg/dL (60-115)
[2022-03-29 08:19] LABS: Glucose, Whole Blood 47 mg/dL (60-115)
[2022-03-29 08:19] LABS: Glucose, Whole Blood 83 mg/dL (60-115)
[2022-03-29 09:26] LABS: MANUAL DIFF FLAG NO
[2022-03-29 09:29] LABS: Basophils Percent Auto 0.5 % (0-2); Eosinophils Absolute Auto 0.1 X10*3/uL (0.0-0.4); Eosinophils Percent Auto 1.6 % (0-4); Hematocrit 40.9 % (42.0-52.0); Imm Gran Abs Auto 0.01 X10*3/uL (0.00-0.03); Imm Gran Pct Auto 0.2 % (0.0-0.4); Lymphocytes Absolute Auto 1.1 X10*3/uL (1.2-4.9); Lymphocytes Percent Auto 17.2 % (20-40); Mean Corpuscular HGB Conc 31.8 g/dl (31.0-36.0); Mean Corpuscular Hemoglobin 30.1 pg (27.0-33.0); Mean Corpuscular Volume 94.7 fL (80.0-98.0); Mean Platelet Volume 10.4 fL (9.4-12.4); Monocytes Absolute Auto 0.6 X10*3/uL (0.1-1.2); Monocytes Percent Auto 9.7 % (2-11); Neutrophils Absolute Auto 4.5 x10*3/uL (2.0-8.3); Neutrophils Percent Auto 70.8 % (45-73); Platelet Count 163 X10*3/uL (160-400); Red Blood Count 4.32 X10*6/uL (4.60-5.80); Red Cell Distribution Width 13.8 % (11.0-16.0); White Blood Count 6.4 X10*3/uL (4.8-10.8)
[2022-03-29] MEDS: 0.9 % Sodium Chloride Flush 3 ML SYRINGE IVFLUSH (09:39)
[2022-03-29 09:48] LABS: Alanine Aminotransferase 34 U/L (0-40); Albumin Level 3.3 g/dL (3.5-5.0); Alkaline Phosphatase 90 U/L (39-117); Anion Gap 17 (12-20); Aspartate Amino Transferase 22 U/L (5-37); Bilirubin Total 0.2 mg/dL (0.0-1.0); Blood Urea Nitrogen 22 mg/dL (9-16); Carbon Dioxide 25 mmol/L (22-29); Chloride 99 mmol/L (96-108); Creatinine Clr Calc Pharmacy 70.5; Estimated Glomerular Filt Rate > 60; Glucose Fasting 90 mg/dL (60-99); Potassium 4.3 mmol/L (3.3-5.1); Sodium 137 mmol/L (135-145); Total Protein 5.7 g/dL (6.5-8.0)
[2022-03-29 09:52] LABS: B Type Natriuretic Peptide 1078 pg/mL (<100)
[2022-03-29 11:17] LABS: Glucose, Whole Blood 40 mg/dL (60-115)
--- NOTE | 2022-03-29 11:29 | PC.NURSE ---
Pt is aox 3, sitting at bedside with over the bed table at front. Wearing 2L 02 via NC, abdomen is round and distended- reports this is new and why he came into the hospital. Positive bowel sounds x 4, denies n/v, no tympani heard on auscultation. +PP bilateral, lungs are notable dminshed, RLL no air sounds heard, LLL very very slight sound, bilat UL CTA. NSR on tele monitor, denies any CP, dizzy, SOB. POC have been varying, per overnight report bedtime POC was 258, this am POC was 52, notified MD Stephens, gave sherbet and juice, recheck in 15 min was 47, given breakfast ray and rechecked again in 15 more minutes, result was 83. Noon POC was 40 pt is alert and oriented sitting at bedside table, given sandwich and orange juice (4oz), 4 oz of low fat milk and small container of cereal. Will recheck again in 15 minutes. Call jean in place, denies any other needs at this time, will continue to monitor.
--- NOTE | 2022-03-29 12:00 | P.CONCA_ITS ---
History of Present Illness History of Present Illness Date of Service: 03/29/22 Requesting physician: Velasquez Stephens Chief complaint: Shortness of Breath Narrative: 61-year-old gentleman who has background history of anterior wall [place] last year when he underwent 2 drug-eluting stents by Dr. Yarbrough. His ejection fraction was severely reduced with EF of 20 25%. He has not followed up with anyone since then. He is now presenting with shortness of breath and weakness. He was noted to have evidence of congestive heart failure with pleural effusions as well as ascites in the abdomen. His BNP was elevated was admitted for further care. He is saying his breathing is better since this started getting some diuretics but he continues to have significant shortness of breath. He is a former smoker. Denying any other drug abuse or alcohol use. [facility] Past Medical History Medical History (Updated 03/29/22 @ 12:02 by Henrique Brooks MD) Diabetes Essential (primary) hypertension GI bleed Hematemesis HLD (hyperlipidemia) STEMI (ST elevation myocardial infarction) Unspecified asthma, uncomplicated Surgical History Surgical History H/O heart artery stent Social History Social History Household Members: None Housing: Apartment Do you presently have visiting nurse or other home services: No Alcohol intake: former Patient Tobacco Use Status: Former Tobacco user Smoked in Last 30 Days: No Use of substances other than those prescribed or required for medical reasons: No Substance Use Type: Former Substance User Advance Directives: Yes Advance Directives on File: Yes Advance Directives Date on File: 08/02/21 service: No Meds Allergies Allergy/AdvReac Type Severity Reaction Status Date / Time No Known Allergies Allergy Verified 04/15/21 16:30 Active Medications: Current Medications Acetaminophen (Acetaminophen Supp 650 Mg Supp.Rect) [address] Q6H PRN PRN Reason: Pain, Mild (Pain Scale 1-3) Aspirin (Aspirin 81 Mg Tab.Chew) 81 mg PO DAILY [facility] Last Admin: 03/29/22 07:43 Dose: 81 mg Atorvastatin Calcium (Atorvastatin Calcium 80 Mg Tablet) 80 mg PO BEDTIME [facility] Last Admin: 03/28/22 21:24 Dose: 80 mg Clopidogrel Bisulfate (Clopidogrel Bisulfate 75 Mg Tablet) 75 mg PO DAILY [facility] Last Admin: 03/29/22 07:43 Dose: 75 mg Empagliflozin (Empagliflozin 10 Mg Tablet) 10 mg PO DAILY [facility] Last Admin: 03/29/22 09:41 Dose: Not Given Enoxaparin Sodium (Enoxaparin Sodium 40 Mg/0.4 Ml Syringe) 40 mg SUBCUT Q24H [facility] Last Admin: 03/28/22 15:14 Dose: 40 mg Furosemide (Furosemide 40 Mg/4 Ml Vial) 40 mg IVPUSH BID@0900,1800 [facility]; Protocol Last Admin: 03/29/22 07:44 Dose: 40 mg Gabapentin (Gabapentin 100 Mg Capsule) 100 mg PO TID [facility] Last Admin: 03/29/22 07:43 Dose: 100 mg Ceftriaxone Sodium 1 gm/ (Sodium Chloride) 50 mls @ 100 mls/hr IV Q24H [facility] Azithromycin 500 mg/ Sodium (Chloride) 250 mls @ 125 mls/hr IV Q24H [facility] Insulin Glargine (Insulin Glargine,Hum.Rec.Anlog 100 Unit/Ml 10 Ml Vial) 50 unit SUBCUT BID [facility] Last Admin: 03/29/22 09:40 Dose: Not Given Insulin Human Lispro (Insulin Lispro 100 Unit/Ml 3 Ml Vial) 0 unit SUBCUT QIDACHS [facility]; Protocol Last Admin: 03/29/22 09:40 Dose: Not Given Lisinopril (Lisinopril 20 Mg Tablet) 20 mg PO DAILY [facility]; Protocol Last Admin: 03/29/22 07:43 Dose: 20 mg Metformin HCl (Metformin Hcl 1,000 Mg Tablet) 1,000 mg PO DAILY [facility] Last Admin: 03/29/22 09:41 Dose: Not Given Metoprolol Succinate (Metoprolol Succinate Er 25 Mg Tab.Er.24h) 25 mg PO DAILY [facility]; Protocol Last Admin: 03/29/22 07:43 Dose: 25 mg Montelukast Sodium (Montelukast Sodium 10 Mg Tablet) 10 mg PO DAILY [facility] Last Admin: 03/29/22 07:43 Dose: 10 mg Morphine Sulfate (Morphine Sulfate 4 Mg/Ml Cartridge) 4 mg IVPUSH Q6H PRN; Protocol PRN Reason: Pain, Severe (Pain Scale 7-10) Last Admin: 03/29/22 07:45 Dose: 4 mg Nitroglycerin (Nitroglycerin 0.4 Mg Tab.Subl) 0.4 mg SUBLINGUAL Q5M PRN PRN Reason: chest pain Ondansetron HCl (Ondansetron Hcl 4 Mg/2 Ml Vial) 4 mg IVPUSH Q8H PRN PRN Reason: Nausea and Vomiting Pharmacy Consult (Consult Rx Perform Med Rec) 1 each MISCELLANE ONCE PRN PRN Reason: Consult order Sodium Chloride (0.9 % Sodium Chloride Flush 3 Ml Syringe) 3 ml IVFLUSH QSHIFT [facility] Last Admin: 03/29/22 09:39 Dose: 3 ml Home Medications Medication Instructions Recorded Confirmed Last Taken Type insulin lispro 100 unit/mL See Rx Instructions .Route .COMPLEX 05/13/21 03/28/22 03/27/22 History subcutaneous pen (Humalog KwikPen (U-100) Insulin) empagliflozin 10 mg tablet 10 mg PO DAILY 03/28/22 03/28/22 03/27/22 History (Jardiance) insulin glargine 100 unit/mL (3 50 unit subcut BID 03/28/22 03/28/22 03/27/22 History mL) subcutaneous pen (Lantus Solostar U-100 Insulin) Physical Exam Vital Signs: Vital Signs: Last Vital Signs Temp 97.1 F 03/29/22 08:00 Pulse 102 H 03/29/22 08:00 Resp 18 03/29/22 08:00 BP 107/70 03/29/22 08:00 Pulse Ox 96 03/29/22 08:00 O2 Del Method 03/29/22 08:00 O2 Flow Rate 2 03/29/22 08:00 BMI result Body Mass Index 29.0 GENERAL APPEARANCE: Appear short of breath. NECK: no carotid bruit, positive jugular venous distention. SKIN: no suspicious lesions, warm and dry. HEART: no murmurs, regular rate and rhythm. LUNGS: Mild wheezes, crackles at bases. ABDOMEN: Distended, nontender. EXTREMITIES: no edema. PERIPHERAL PULSES: equal. NEUROLOGIC: No gross deficits, AAO X 3 Objective Labs and Meds Result diagrams: 03/29/22 09:22 03/29/22 09:22 Lab results: Laboratory Results - last 24 hr 03/28/22 03/28/22 03/28/22 11:20 11:20 13:26 WBC RBC Hgb Hct MCV MCH MCHC RDW Plt Count MPV Immature Gran % (Auto) Neut % (Auto) Lymph % (Auto) [place] % (Auto) Eos % (Auto) Baso % (Auto) Lymph # (Auto) [place] # (Auto) Eos # (Auto) Baso # (Auto) Abs Immat Gran (auto) Absolute Neuts (auto) Absolute Nucleated RBC Nucleated RBC % (auto) Sodium 138 Potassium 5.3 H D Chloride 97 Carbon Dioxide 29 Anion Gap 17 BUN 19 H Creatinine 1.37 Estim Creat Clear Calc 57.1 Estimated GFR 52 POC Glucose Random Glucose 437 H* Fasting Glucose Estimat Average Glucose TNP Hemoglobin A1c % > 14.0 Lactic Acid 1.6 Calcium 8.9 Total Bilirubin 0.6 Direct Bilirubin 0.2 AST 17 ALT 47 H Alkaline Phosphatase 117 B-Natriuretic Peptide Total Protein 6.7 D Albumin 3.9 Lipase 65 Urine Color Urine Appearance Urine pH Ur Specific [place] Urine Protein Urine Glucose (UA) Urine Ketones Urine Blood Urine Nitrite Ur Leukocyte Esterase Urine RBC Urine WBC Ur Squamous Epith Cells Urine Bacteria Hyaline Casts 03/28/22 03/28/22 03/28/22 16:26 18:10 21:11 WBC RBC Hgb Hct MCV MCH MCHC RDW Plt Count MPV Immature Gran % (Auto) Neut % (Auto) Lymph % (Auto) [place] % (Auto) Eos % (Auto) Baso % (Auto) Lymph # (Auto) [place] # (Auto) Eos # (Auto) Baso # (Auto) Abs Immat Gran (auto) Absolute Neuts (auto) Absolute Nucleated RBC Nucleated RBC % (auto) Sodium Potassium Chloride Carbon Dioxide Anion Gap BUN Creatinine Estim Creat Clear Calc Estimated GFR POC Glucose 390 H* 248 H Random Glucose Fasting Glucose Estimat Average Glucose Hemoglobin A1c % Lactic Acid Calcium Total Bilirubin Direct Bilirubin AST ALT Alkaline Phosphatase B-Natriuretic Peptide Total Protein Albumin Lipase Urine Color Yellow Urine Appearance Clear Urine pH 5.0 Ur Specific [place] 1.015 Urine Protein 100 (2+) H Urine Glucose (UA) >=1000 H Urine Ketones Negative Urine Blood Negative Urine Nitrite Negative Ur Leukocyte Esterase Negative Urine RBC 0-2 Urine WBC 0-5 Ur Squamous Epith Cells 0-2 Urine Bacteria None Seen Hyaline Casts 0-2 03/29/22 03/29/22 03/29/22 07:17 07:36 08:15 WBC RBC Hgb Hct MCV MCH MCHC RDW Plt Count MPV Immature Gran % (Auto) Neut % (Auto) Lymph % (Auto) [place] % (Auto) Eos % (Auto) Baso % (Auto) Lymph # (Auto) [place] # (Auto) Eos # (Auto) Baso # (Auto) Abs Immat Gran (auto) Absolute Neuts (auto) Absolute Nucleated RBC Nucleated RBC % (auto) Sodium Potassium Chloride Carbon Dioxide Anion Gap BUN Creatinine Estim Creat Clear Calc Estimated GFR POC Glucose 52 L* 47 L* 83 Random Glucose Fasting Glucose Estimat Average Glucose Hemoglobin A1c % Lactic Acid Calcium Total Bilirubin Direct Bilirubin AST ALT Alkaline Phosphatase B-Natriuretic Peptide Total Protein Albumin Lipase Urine Color Urine Appearance Urine pH Ur Specific [place] Urine Protein Urine Glucose (UA) Urine Ketones Urine Blood Urine Nitrite Ur Leukocyte Esterase Urine RBC Urine WBC Ur Squamous Epith Cells Urine Bacteria Hyaline Casts 03/29/22 03/29/22 03/29/22 09:22 09:22 09:22 WBC 6.4 RBC 4.32 L Hgb 13.0 L Hct 40.9 L MCV 94.7 MCH 30.1 MCHC 31.8 RDW 13.8 Plt Count 163 D MPV 10.4 Immature Gran % (Auto) 0.2 Neut % (Auto) 70.8 Lymph % (Auto) 17.2 L [place] % (Auto) 9.7 Eos % (Auto) 1.6 Baso % (Auto) 0.5 Lymph # (Auto) 1.1 L [place] # (Auto) 0.6 Eos # (Auto) 0.1 Baso # (Auto) 0.0 Abs Immat Gran (auto) 0.01 Absolute Neuts (auto) 4.5 Absolute Nucleated RBC 0.000 Nucleated RBC % (auto) 0.0 Sodium 137 Potassium 4.3 Chloride 99 Carbon Dioxide 25 Anion Gap 17 BUN 22 H Creatinine 1.11 Estim Creat Clear Calc 70.5 Estimated GFR > 60 POC Glucose Random Glucose Fasting Glucose 90 Estimat Average Glucose Hemoglobin A1c % Lactic Acid Calcium 8.0 L D Total Bilirubin 0.2 Direct Bilirubin AST 22 ALT 34 Alkaline Phosphatase 90 D B-Natriuretic Peptide 1078 H Total Protein 5.7 L Albumin 3.3 L Lipase Urine Color Urine Appearance Urine pH Ur Specific [place] Urine Protein Urine Glucose (UA) Urine Ketones Urine Blood Urine Nitrite Ur Leukocyte Esterase Urine RBC Urine WBC Ur Squamous Epith Cells Urine Bacteria Hyaline Casts 03/29/22 11:07 WBC RBC Hgb Hct MCV MCH MCHC RDW Plt Count MPV Immature Gran % (Auto) Neut % (Auto) Lymph % (Auto) [place] % (Auto) Eos % (Auto) Baso % (Auto) Lymph # (Auto) [place] # (Auto) Eos # (Auto) Baso # (Auto) Abs Immat Gran (auto) Absolute Neuts (auto) Absolute Nucleated RBC Nucleated RBC % (auto) Sodium Potassium Chloride Carbon Dioxide Anion Gap BUN Creatinine Estim Creat Clear Calc Estimated GFR POC Glucose 40 L* Random Glucose Fasting Glucose Estimat Average Glucose Hemoglobin A1c % Lactic Acid Calcium Total Bilirubin Direct Bilirubin AST ALT Alkaline Phosphatase B-Natriuretic Peptide Total Protein Albumin Lipase Urine Color Urine Appearance Urine pH Ur Specific [place] Urine Protein Urine Glucose (UA) Urine Ketones Urine Blood Urine Nitrite Ur Leukocyte Esterase Urine RBC Urine WBC Ur Squamous Epith Cells Urine Bacteria Hyaline Casts Imaging Radiologist's impression: Impressions Lumbar Spine MRI 03/28/22 12:18 IMPRESSION: No acute abnormality of the lumbar spine is identified. There are multilevel degenerative changes as detailed above without high-grade spinal canal stenosis. Head CT 03/28/22 12:42 IMPRESSION: No acute intracranial findings. Abdomen/Pelvis CT 03/28/22 14:00 IMPRESSION: 1. Large pleural effusion as above with bibasilar airspace disease nonspecific but could represent pneumonia. 2. High density fluid within the bladder lumen which is too high to be blood products but favor related to contrast injection performed recently. Correlate with patient's procedural history. 3. Nonspecific ascites. 4. Severe coronary atherosclerosis. Chest CT 03/28/22 14:02 IMPRESSION: 1. Large pleural effusion as above with bibasilar airspace disease nonspecific but could represent pneumonia. 2. High density fluid within the bladder lumen which is too high to be blood products but favor related to contrast injection performed recently. Correlate with patient's procedural history. 3. Nonspecific ascites. 4. Severe coronary atherosclerosis. Assessment and Plan (1) Essential (primary) hypertension: Status: Acute (2) CHF (congestive heart failure): Status: Acute (3) Coronary artery disease: Status: Acute Plan 61-year-old gentleman here for dyspnea. I have reviewed his labs an EKG. He has anterolateral Q-waves as well as inferior Q-waves. Last ECHO at [facility] was 20 25% ejection fraction. He had anterior wall [place] and underwent 2 drug- eluting stent to the LAD last year. Continue antiplatelet therapy. He is not here for ACS. Clinically he is volume overloaded. Agree with IV diuretics. Monitor I's and O's closely. Currently it appears there are be monitor very well. Check echocardiogram tomorrow to assess LV and particular right ventricular fun ction because he has ascites and pleural effusions. Thank you for allowing me to participate in the care of your patient. Please feel free to contact me if you have any questions. Procedures Date of Service Date of Service: 03/29/22
[2022-03-29 12:09] LABS: Glucose, Whole Blood 80 mg/dL (60-115)
--- NOTE | 2022-03-29 14:04 | HO.PM.IMPN ---
Subjective Subjective Date of Service: 03/29/22 Interval History: No acute issues overnight. Remains short of breath at rest Review of Systems Denies chest pain Admit shortness of breath Admits abdominal pain no nausea, vomiting, diarrhea Denies fever chills Physical Exam Vital Signs: Vital Signs: Last Vital Signs Temp 97.2 F 03/29/22 12:50 Pulse 88 03/29/22 12:50 Resp 18 03/29/22 12:50 BP 90/75 03/29/22 12:50 Pulse Ox 93 03/29/22 12:50 O2 Del Method 03/29/22 12:50 O2 Flow Rate 2 03/29/22 12:50 BMI result Body Mass Index 29.0 Const: Other: Awake alert; visibly short of breath at rest Resp: Other: Diminished breath sounds mid scapula distally Cardio: Other: No S4; positive S1-S2; no S3 murmurs rubs or gallops GI: Other: Firm without palpable fluid wave. Quiet bowel sounds Neuro: Other: Cranial nerves 2-12 grossly intact as tested. Moving all extremities with equal power. Describes diminished sensation in a stocking-glove distribution Extrem: Other: No edema bilaterally Objective Data Active Medications Acetaminophen (Acetaminophen Supp 650 Mg Supp.Rect) 650 mg ID Q6H PRN PRN Reason: Pain, Mild (Pain Scale 1-3) Aspirin (Aspirin 81 Mg Tab.Chew) 81 mg PO DAILY [facility] Last Admin: 03/29/22 07:43 Dose: 81 mg Documented By: JO Atorvastatin Calcium (Atorvastatin Calcium 80 Mg Tablet) 80 mg PO BEDTIME [facility] Last Admin: 03/28/22 21:24 Dose: 80 mg Documented By: IZZY Clopidogrel Bisulfate (Clopidogrel Bisulfate 75 Mg Tablet) 75 mg PO DAILY [facility] Last Admin: 03/29/22 07:43 Dose: 75 mg Documented By: JO Empagliflozin (Empagliflozin 10 Mg Tablet) 10 mg PO DAILY [facility] Last Admin: 03/29/22 09:41 Dose: Not Given Documented By: JO Non-Admin Reason: Physician Held Med Furosemide (Furosemide 40 Mg/4 Ml Vial) 40 mg IVPUSH BID@0900,1800 [facility]; Protocol Last Admin: 03/29/22 07:44 Dose: 40 mg Documented By: JO Gabapentin (Gabapentin 100 Mg Capsule) 100 mg PO TID [facility] Last Admin: 03/29/22 07:43 Dose: 100 mg Documented By: JO Ceftriaxone Sodium 1 gm/ (Sodium Chloride) 50 mls @ 100 mls/hr IV Q24H [facility] Azithromycin 500 mg/ Sodium (Chloride) 250 mls @ 125 mls/hr IV Q24H [facility] Insulin Glargine (Insulin Glargine,Hum.Rec.Anlog 100 Unit/Ml 10 Ml Vial) 50 unit SUBCUT BID [facility] Last Admin: 03/29/22 09:40 Dose: Not Given Documented By: JO Non-Admin Reason: No Insulin Coverage Comments: per MD VALERA Insulin Human Lispro (Insulin Lispro 100 Unit/Ml 3 Ml Vial) 0 unit SUBCUT QIDACHS [facility]; Protocol Last Admin: 03/29/22 13:11 Dose: Not Given Documented By: OSCAR Non-Admin Reason: No Insulin Coverage Lisinopril (Lisinopril 20 Mg Tablet) 20 mg PO DAILY [facility]; Protocol Last Admin: 03/29/22 07:43 Dose: 20 mg Documented By: JO Metformin HCl (Metformin Hcl 1,000 Mg Tablet) 1,000 mg PO DAILY [facility] Last Admin: 03/29/22 09:41 Dose: Not Given Documented By: JO Non-Admin Reason: Physician Held Med Metoprolol Succinate (Metoprolol Succinate Er 25 Mg Tab.Er.24h) 25 mg PO DAILY [facility]; Protocol Last Admin: 03/29/22 07:43 Dose: 25 mg Documented By: JO Montelukast Sodium (Montelukast Sodium 10 Mg Tablet) 10 mg PO DAILY [facility] Last Admin: 03/29/22 07:43 Dose: 10 mg Documented By: JO Morphine Sulfate (Morphine Sulfate 4 Mg/Ml Cartridge) 4 mg IVPUSH Q6H PRN; Protocol PRN Reason: Pain, Severe (Pain Scale 7-10) Last Admin: 03/29/22 07:45 Dose: 4 mg Documented By: JO Nitroglycerin (Nitroglycerin 0.4 Mg Tab.Subl) 0.4 mg SUBLINGUAL Q5M PRN PRN Reason: chest pain Ondansetron HCl (Ondansetron Hcl 4 Mg/2 Ml Vial) 4 mg IVPUSH Q8H PRN PRN Reason: Nausea and Vomiting Pharmacy Consult (Consult Rx Perform Med Rec) 1 each MISCELLANE ONCE PRN PRN Reason: Consult order Sodium Chloride (0.9 % Sodium Chloride Flush 3 Ml Syringe) 3 ml IVFLUSH QSHIFT [facility] Last Admin: 03/29/22 09:39 Dose: 3 ml Documented By: JO Labs CBC & Chem 7: 03/29/22 09:22 03/29/22 09:22 Labs: Laboratory Results - last 24 hr 03/28/22 03/28/22 03/28/22 11:20 16:26 18:10 MCV MCH MCHC RDW Plt Count MPV Immature Gran % (Auto) Neut % (Auto) Lymph % (Auto) [place] % (Auto) Eos % (Auto) Baso % (Auto) Lymph # (Auto) [place] # (Auto) Eos # (Auto) Baso # (Auto) Abs Immat Gran (auto) Absolute Neuts (auto) Absolute Nucleated RBC Nucleated RBC % (auto) Anion Gap Estim Creat Clear Calc Estimated GFR POC Glucose 390 H* Fasting Glucose Estimat Average Glucose TNP Hemoglobin A1c % > 14.0 Calcium Total Bilirubin AST ALT Alkaline Phosphatase B-Natriuretic Peptide Total Protein Albumin Urine Color Yellow Urine Appearance Clear Urine pH 5.0 Ur Specific [place] 1.015 Urine Protein 100 (2+) H Urine Glucose (UA) >=1000 H Urine Ketones Negative Urine Blood Negative Urine Nitrite Negative Ur Leukocyte Esterase Negative Urine RBC 0-2 Urine WBC 0-5 Ur Squamous Epith Cells 0-2 Urine Bacteria None Seen Hyaline Casts 0-2 03/28/22 03/29/22 03/29/22 21:11 07:17 07:36 MCV MCH MCHC RDW Plt Count MPV Immature Gran % (Auto) Neut % (Auto) Lymph % (Auto) [place] % (Auto) Eos % (Auto) Baso % (Auto) Lymph # (Auto) [place] # (Auto) Eos # (Auto) Baso # (Auto) Abs Immat Gran (auto) Absolute Neuts (auto) Absolute Nucleated RBC Nucleated RBC % (auto) Anion Gap Estim Creat Clear Calc Estimated GFR POC Glucose 248 H 52 L* 47 L* Fasting Glucose Estimat Average Glucose Hemoglobin A1c % Calcium Total Bilirubin AST ALT Alkaline Phosphatase B-Natriuretic Peptide Total Protein Albumin Urine Color Urine Appearance Urine pH Ur Specific [place] Urine Protein Urine Glucose (UA) Urine Ketones Urine Blood Urine Nitrite Ur Leukocyte Esterase Urine RBC Urine WBC Ur Squamous Epith Cells Urine Bacteria Hyaline Casts 03/29/22 03/29/22 03/29/22 08:15 09:22 09:22 MCV 94.7 MCH 30.1 MCHC 31.8 RDW 13.8 Plt Count 163 D MPV 10.4 Immature Gran % (Auto) 0.2 Neut % (Auto) 70.8 Lymph % (Auto) 17.2 L [place] % (Auto) 9.7 Eos % (Auto) 1.6 Baso % (Auto) 0.5 Lymph # (Auto) 1.1 L [place] # (Auto) 0.6 Eos # (Auto) 0.1 Baso # (Auto) 0.0 Abs Immat Gran (auto) 0.01 Absolute Neuts (auto) 4.5 Absolute Nucleated RBC 0.000 Nucleated RBC % (auto) 0.0 Anion Gap 17 Estim Creat Clear Calc 70.5 Estimated GFR > 60 POC Glucose 83 Fasting Glucose 90 Estimat Average Glucose Hemoglobin A1c % Calcium 8.0 L D Total Bilirubin 0.2 AST 22 ALT 34 Alkaline Phosphatase 90 D B-Natriuretic Peptide Total Protein 5.7 L Albumin 3.3 L Urine Color Urine Appearance Urine pH Ur Specific [place] Urine Protein Urine Glucose (UA) Urine Ketones Urine Blood Urine Nitrite Ur Leukocyte Esterase Urine RBC Urine WBC Ur Squamous Epith Cells Urine Bacteria Hyaline Casts 03/29/22 03/29/22 03/29/22 09:22 11:07 12:05 MCV MCH MCHC RDW Plt Count MPV Immature Gran % (Auto) Neut % (Auto) Lymph % (Auto) [place] % (Auto) Eos % (Auto) Baso % (Auto) Lymph # (Auto) [place] # (Auto) Eos # (Auto) Baso # (Auto) Abs Immat Gran (auto) Absolute Neuts (auto) Absolute Nucleated RBC Nucleated RBC % (auto) Anion Gap Estim Creat Clear Calc Estimated GFR POC Glucose 40 L* 80 Fasting Glucose Estimat Average Glucose Hemoglobin A1c % Calcium Total Bilirubin AST ALT Alkaline Phosphatase B-Natriuretic Peptide 1078 H Total Protein Albumin Urine Color Urine Appearance Urine pH Ur Specific [place] Urine Protein Urine Glucose (UA) Urine Ketones Urine Blood Urine Nitrite Ur Leukocyte Esterase Urine RBC Urine WBC Ur Squamous Epith Cells Urine Bacteria Hyaline Casts Assessment and Plan (1) CHF (congestive heart failure): Status: Acute (2) Uncontrolled diabetes mellitus: Status: Acute (3) Paresthesias with subjective weakness: Status: Acute (4) Essential (primary) hypertension: Status: Acute Plan 61-year-old male with progressive shortness of breath over the last 4-5 days as well as stocking-glove paresthesias with weakness presents to the ER today for workup. CT abdomen pelvis and chest demonstrate right greater than left pleural effusions question left base infiltrate. 1. Acute systolic CHF/CAD -IV Lasix b.i.d. -continue Plavix lisinopril and metoprolol as ordered -admit to telemetry follow troponin -2D echo 2. Uncontrolled diabetes type 2 -add on A1c -continue outpatient regimen including metformin Jardiance and insulin -add lispro correctional scale -ADA diet 3.Paresthesias with subjective weakness -given stocking-glove distribution likely related to diabetes -ordered EMG 03/30 4. Pleural effusions -will ask Interventional Radiology to drain when available -hold Plavix 5. Hypertension -unacceptable control on current therapies -await Cardiology input for further antihypertensive Full code Lovenox Will require ongoing hospitalization for IV diuresis to treat pleural effusions and CHF Quality Stroke Does the patient have a stroke diagnosis?: No VTE Prior VTE?: No VTE Risk Level:: Medical - moderate - high VTE Device Contraindication: Treatment Not Indicated VTE Drug Contraindication: N/A - Med Ordered
[2022-03-29 14:44] LABS: Glucose, Whole Blood 158 mg/dL (60-115)
[2022-03-29] MEDS: Azithromycin 500 MG in 0.9 % Sodium Chloride 250 ML 125 MG IV (14:55)
[2022-03-29] MEDS: Lactulose 20 GM/30 ML SOLUTION 10 GM PO (16:44)
[2022-03-29 16:46] LABS: Glucose, Whole Blood 198 mg/dL (60-115)
--- NOTE | 2022-03-29 16:46 | PC.NURSE ---
Manual Bp check 82/52, reported to Velasquez Stephens MD, pt reports feeling fullness in the abdomen, states wishes he could fart or poop , otherwise denies dizzy, changes in vision, lightheadedness. Ordered 15ml/10mg PO lactulose once. Given, will continue to monitor at this time. Will hold POC coverage as well per MD, POC for dinner is 198 continue to hold coverage. Will hold off on PRN morphine while monitoring for improvement in pressure as well.
[2022-03-29] MEDS: cefTRIAXone sodium 1 GM in 0.9 % Sodium Chloride 50 ML IV (17:08)
[2022-03-29 21:09] LABS: Glucose, Whole Blood 104 mg/dL (60-115)
[2022-03-29] MEDS: Atorvastatin Calcium 80 MG TABLET PO (21:32)
[2022-03-29 21:52] LABS: Glucose, Whole Blood 139 mg/dL (60-115)
--- NOTE | 2022-03-30 02:00 | PC.NURSE ---
pt refuses high fall risk measure. pt was educated on the importance for his safety. Pt stated if yo want to have a good rest of the night you better leave the alarm off and get out of my room
--- NOTE | 2022-03-30 02:04 | PC.NURSE ---
pt gets up to go to the bathroom with walker, closed bathroom door and shortly after screamed as he exclaimed his pants made him fall. pt was found on knees, he noted he did not hit his head, no signs of LOC, only a an abrasion present on his left upper shoulder. It is new, however pt claimed its old. vitals stable and pt educated once again on safety measure, however he still refuses and furthermore wanted me out of his room.. Call jean is present on bed with pt, he was instructed to call if he needs to get up.Initiated putting the bed alarm on and pt refused and noted that he would sit in the recliner if i kept it on.
--- NOTE | 2022-03-30 03:14 | PC.NURSE ---
Provider came to see pt, pt acknowledged that he is okay and doesn't want bed alarm , urinal or bedside commode
--- NOTE | 2022-03-30 03:17 | PM.EVENT ---
Event Note Date of Service: 03/30/22 Event Note: Fall: Patient slide off the commode in the bathroom, denies any head strike or loss of consciousness. Exam benign. Fall precautions.
[2022-03-30 04:00] VITALS: BP 96/63; PULSE 84; RESP 18; TEMP 37.2; O2SAT 98
[2022-03-30 07:02] LABS: Basophils Absolute Auto 0.1 X10*3/uL (0.0-0.2); Basophils Percent Auto 0.7 % (0-2); Eosinophils Absolute Auto 0.2 X10*3/uL (0.0-0.4); Eosinophils Percent Auto 2.1 % (0-4); Hematocrit 42.5 % (42.0-52.0); Imm Gran Abs Auto 0.02 X10*3/uL (0.00-0.03); Imm Gran Pct Auto 0.3 % (0.0-0.4); Lymphocytes Absolute Auto 1.7 X10*3/uL (1.2-4.9); Lymphocytes Percent Auto 22.6 % (20-40); MANUAL DIFF FLAG NO; Mean Corpuscular HGB Conc 30.6 g/dl (31.0-36.0); Mean Corpuscular Hemoglobin 29.8 pg (27.0-33.0); Mean Corpuscular Volume 97.5 fL (80.0-98.0); Mean Platelet Volume 10.7 fL (9.4-12.4); Monocytes Absolute Auto 0.7 X10*3/uL (0.1-1.2); Neutrophils Percent Auto 65.3 % (45-73); Platelet Count 189 X10*3/uL (160-400); Red Blood Count 4.36 X10*6/uL (4.60-5.80); Red Cell Distribution Width 13.6 % (11.0-16.0); White Blood Count 7.6 X10*3/uL (4.8-10.8)
[2022-03-30 07:28] LABS: Alanine Aminotransferase 30 U/L (0-40); Albumin Level 3.4 g/dL (3.5-5.0); Alkaline Phosphatase 93 U/L (39-117); Anion Gap 16 (12-20); Aspartate Amino Transferase 19 U/L (5-37); Bilirubin Total 0.3 mg/dL (0.0-1.0); Blood Urea Nitrogen 30 mg/dL (9-16); Calcium 8.4 mg/dL (8.4-10.2); Carbon Dioxide 30 mmol/L (22-29); Chloride 97 mmol/L (96-108); Estimated Glomerular Filt Rate 53; Glucose Fasting 201 mg/dL (60-99); Potassium 4.6 mmol/L (3.3-5.1); Sodium 138 mmol/L (135-145); Total Protein 5.8 g/dL (6.5-8.0)
[2022-03-30 07:39] LABS: Glucose, Whole Blood 219 mg/dL (60-115)
[2022-03-30 07:53] VITALS: BP 120/69; PULSE 104; RESP 20; TEMP 36.3; O2SAT 97
[2022-03-30 08:55] LABS: INTERNATIONAL NORM RATIO 1.1 (0.9-1.1); Prothrombin Time 12.3 SEC (10.0-13.1)
[2022-03-30 08:58] LABS: Partial Thromboplastin Time 30.9 SEC (26.0-36.4)
[2022-03-30] MEDS: Furosemide 40 MG/4 ML VIAL IVPUSH ×2 (09:01→18:18)
[2022-03-30 11:24] LABS: Glucose, Whole Blood 179 mg/dL (60-115)
[2022-03-30 12:00] VITALS: BP 117/76; PULSE 105; RESP 20; TEMP 36.2
--- NOTE | 2022-03-30 12:24 | MHC.CM.PN ---
met with pt who is indepedent pt is covid vax x 2 does not feel he will need servceis when dcd
--- NOTE | 2022-03-30 12:30 | P.PNIM_ITS ---
Subjective Subjective Date of Service: 03/30/22 Interval History: Continues with abdominal pain and states abdomen enlarging Review of Systems Denies chest pain Admit shortness of breath Admits abdominal pain no nausea, vomiting, diarrhea Denies fever chills Physical Exam Vital Signs: Vital Signs: Last Vital Signs Temp 97.1 F 03/30/22 12:00 Pulse 105 H 03/30/22 12:00 Resp 20 03/30/22 12:00 BP 117/76 03/30/22 12:00 Pulse Ox 97 03/30/22 07:53 O2 Del Method 03/30/22 12:00 O2 Flow Rate 2 03/30/22 07:53 BMI result Body Mass Index 29.0 Const: Other: Awake alert; visibly short of breath at rest Resp: Other: Diminished breath sounds mid scapula distally Cardio: Other: No S4; positive S1-S2; no S3 murmurs rubs or gallops GI: Other: Firm without palpable fluid wave. Quiet bowel sounds Neuro: Other: Cranial nerves 2-12 grossly intact as tested. Moving all extremities with equal power. Describes diminished sensation in a stocking-glove distribution Extrem: Other: No edema bilaterally Objective Data Active Medications Acetaminophen (Acetaminophen Supp 650 Mg Supp.Rect) 650 mg ND Q6H PRN PRN Reason: Pain, Mild (Pain Scale 1-3) Aspirin (Aspirin 81 Mg Tab.Chew) 81 mg PO DAILY [facility] Last Admin: 03/30/22 08:55 Dose: Not Given Documented By: TAMICA Non-Admin Reason: Physician Held Med Atorvastatin Calcium (Atorvastatin Calcium 80 Mg Tablet) 80 mg PO BEDTIME [facility] Last Admin: 03/29/22 21:32 Dose: 80 mg Documented By: JESSI Empagliflozin (Empagliflozin 10 Mg Tablet) 10 mg PO DAILY [facility] Last Admin: 03/30/22 08:55 Dose: Not Given Documented By: TAMICA Non-Admin Reason: physician held med Furosemide (Furosemide 40 Mg/4 Ml Vial) 40 mg IVPUSH BID@0900,1800 [facility]; Protocol Last Admin: 03/30/22 09:01 Dose: 40 mg Documented By: TAMICA Gabapentin (Gabapentin 100 Mg Capsule) 100 mg PO TID [facility] Last Admin: 03/30/22 08:55 Dose: Not Given Documented By: TAMICA Non-Admin Reason: physician held med Ceftriaxone Sodium 1 gm/ (Sodium Chloride) 50 mls @ 100 mls/hr IV Q24H [facility] Last Infusion: 03/29/22 20:46 Dose: 0 mls/hr Documented By: JESSI Azithromycin 500 mg/ Sodium (Chloride) 250 mls @ 125 mls/hr IV Q24H [facility] Last Infusion: 03/29/22 17:13 Dose: 125 mls/hr Documented By: JO Insulin Glargine (Insulin Glargine,Hum.Rec.Anlog 100 Unit/Ml 10 Ml Vial) 50 unit SUBCUT BID [facility] Last Admin: 03/30/22 08:56 Dose: Not Given Documented By: TAMICA Non-Admin Reason: physician held med Insulin Human Lispro (Insulin Lispro 100 Unit/Ml 3 Ml Vial) 0 unit SUBCUT QIDACHS [facility]; Protocol Last Admin: 03/30/22 11:42 Dose: Not Given Documented By: TAMICA Non-Admin Reason: NPO pending procedure. physician held med Lisinopril (Lisinopril 20 Mg Tablet) 20 mg PO DAILY [facility]; Protocol Last Admin: 03/30/22 08:56 Dose: Not Given Documented By: TAMICA Non-Admin Reason: physician held med Metformin HCl (Metformin Hcl 1,000 Mg Tablet) 1,000 mg PO DAILY [facility] Last Admin: 03/30/22 08:56 Dose: Not Given Documented By: TAMICA Non-Admin Reason: physician held med Metoprolol Succinate (Metoprolol Succinate Er 25 Mg Tab.Er.24h) 25 mg PO DAILY [facility]; Protocol Last Admin: 03/30/22 08:56 Dose: Not Given Documented By: TAMICA Non-Admin Reason: physician held med Montelukast Sodium (Montelukast Sodium 10 Mg Tablet) 10 mg PO DAILY [facility] Last Admin: 03/30/22 08:56 Dose: Not Given Documented By: TAMICA Non-Admin Reason: physician held med Morphine Sulfate (Morphine Sulfate 4 Mg/Ml Cartridge) 4 mg IVPUSH Q6H PRN; Protocol PRN Reason: Pain, Severe (Pain Scale 7-10) Last Admin: 03/29/22 15:05 Dose: 4 mg Documented By: JO Nitroglycerin (Nitroglycerin 0.4 Mg Tab.Subl) 0.4 mg SUBLINGUAL Q5M PRN PRN Reason: chest pain Ondansetron HCl (Ondansetron Hcl 4 Mg/2 Ml Vial) 4 mg IVPUSH Q8H PRN PRN Reason: Nausea and Vomiting Pharmacy Consult (Consult Rx Perform Med Rec) 1 each MISCELLANE ONCE PRN PRN Reason: Consult order Sodium Chloride (0.9 % Sodium Chloride Flush 3 Ml Syringe) 3 ml IVFLUSH QSHIFT [facility] Last Admin: 03/30/22 08:55 Dose: Not Given Documented By: TAMICA Non-Admin Reason: Patient Refused Labs CBC & Chem 7: 03/30/22 06:26 03/30/22 06:26 Labs: Laboratory Results - last 24 hr 03/29/22 03/29/22 03/29/22 14:39 16:14 20:36 MCV MCH MCHC RDW Plt Count MPV Immature Gran % (Auto) Neut % (Auto) Lymph % (Auto) [place] % (Auto) Eos % (Auto) Baso % (Auto) Lymph # (Auto) [place] # (Auto) Eos # (Auto) Baso # (Auto) Abs Immat Gran (auto) Absolute Neuts (auto) Absolute Nucleated RBC Nucleated RBC % (auto) PT INR APTT Anion Gap Estim Creat Clear Calc Estimated GFR POC Glucose 158 H 198 H 104 Fasting Glucose Calcium Total Bilirubin AST ALT Alkaline Phosphatase Total Protein Albumin 03/29/22 03/30/22 03/30/22 21:49 06:26 06:26 MCV 97.5 MCH 29.8 MCHC 30.6 L RDW 13.6 Plt Count 189 MPV 10.7 Immature Gran % (Auto) 0.3 Neut % (Auto) 65.3 Lymph % (Auto) 22.6 [place] % (Auto) 9.0 Eos % (Auto) 2.1 Baso % (Auto) 0.7 Lymph # (Auto) 1.7 [place] # (Auto) 0.7 Eos # (Auto) 0.2 Baso # (Auto) 0.1 Abs Immat Gran (auto) 0.02 Absolute Neuts (auto) 5.0 Absolute Nucleated RBC 0.000 Nucleated RBC % (auto) 0.0 PT INR APTT Anion Gap 16 Estim Creat Clear Calc 58.0 Estimated GFR 53 POC Glucose 139 H Fasting Glucose 201 H D Calcium 8.4 Total Bilirubin 0.3 AST 19 ALT 30 Alkaline Phosphatase 93 Total Protein 5.8 L Albumin 3.4 L 03/30/22 03/30/22 03/30/22 07:36 08:42 11:13 MCV MCH MCHC RDW Plt Count MPV Immature Gran % (Auto) Neut % (Auto) Lymph % (Auto) [place] % (Auto) Eos % (Auto) Baso % (Auto) Lymph # (Auto) [place] # (Auto) Eos # (Auto) Baso # (Auto) Abs Immat Gran (auto) Absolute Neuts (auto) Absolute Nucleated RBC Nucleated RBC % (auto) PT 12.3 INR 1.1 APTT 30.9 Anion Gap Estim Creat Clear Calc Estimated GFR POC Glucose 219 H 179 H Fasting Glucose Calcium Total Bilirubin AST ALT Alkaline Phosphatase Total Protein Albumin Microbiology Microbiology Results: Microbiology 03/28/22 13:29 Blood Culture - Preliminary Blood - Venous No growth after 24 hours. 03/28/22 13:26 Blood Culture - Preliminary Blood - Venous No growth after 24 hours. Assessment and Plan (1) CHF (congestive heart failure): Status: Acute (2) Uncontrolled diabetes mellitus: Status: Acute (3) Paresthesias with subjective weakness: Status: Acute (4) Essential (primary) hypertension: Status: Acute Plan 61-year-old male with progressive shortness of breath over the last 4-5 days as well as stocking-glove paresthesias with weakness presents to the ER today for workup. CT abdomen pelvis and chest demonstrate right greater than left pleural effusions question left base infiltrate. 1. Acute systolic CHF/CAD -IV Lasix b.i.d. -hold Plavix pendingpara/thoracentesis -as per Cardiology; DC lisinopril in favor of Diovan 80 mg b.i.d. and add Aldactone 12.5mg daily -2D echo 2. Uncontrolled diabetes type 2 -add on A1c -continue outpatient regimen including metformin Jardiance and insulin -add lispro correctional scale -ADA diet 3.Paresthesias with subjective weakness -given stocking-glove distribution likely related to diabetes -ordered EMG 03/30 4. Pleural effusions -will ask Interventional Radiology to drain when available -hold Plavix 5. Hypertension -unacceptable control on current therapies -follow response to changes Full code Lovenox Will require ongoing hospitalization for IV diuresis to treat pleural effusions and CHF Quality Stroke Does the patient have a stroke diagnosis?: No VTE Prior VTE?: No VTE Risk Level:: Medical - moderate - high VTE Device Contraindication: Treatment Not Indicated VTE Drug Contraindication: N/A - Med Ordered
[2022-03-30] MEDS: Azithromycin 500 MG in 0.9 % Sodium Chloride 250 ML 125 MG IV (14:30)
[2022-03-30 15:23] VITALS: BP 121/74; PULSE 102; RESP 17; TEMP 36.4; O2SAT 96
[2022-03-30 16:35] LABS: Glucose, Whole Blood 180 mg/dL (60-115)
[2022-03-30] MEDS: cefTRIAXone sodium 1 GM in 0.9 % Sodium Chloride 50 ML IV (16:39)
[2022-03-30] MEDS: Insulin Lispro 100 UNIT/ML 3 ML VIAL SUBCUT ×2 (16:39→21:48)
[2022-03-30] MEDS: Gabapentin 100 MG CAPSULE PO ×2 (16:40→21:12)
[2022-03-30] MEDS: 0.9 % Sodium Chloride Flush 3 ML SYRINGE IVFLUSH ×2 (16:46→21:24)
--- NOTE | 2022-03-30 17:02 | PM.PNCARD ---
Subjective Subjective Date of Service: 03/30/22 Principal diagnosis: CHF Interval history: Patient not very happy as ease NPO. Patient was seen and around 11:30. Complain of abdominal discomfort and distention. Still having leg edema. Intake and output chart is not accurate. Noted low blood pressures overnight. Currently not on any neurohormonal modulation. Continues to get diuresis. Also getting aspirin, atorvastatin and Jardiance. Review of Systems Constitutional: Reports no additional constitutional complaints Cardiovascular: Denies chest pain, Denies syncope, Denies rapid heart rate, Reports leg edema, Denies lightheadedness, Denies palpitations and Reports dyspnea Respiratory: Reports dyspnea Gastrointestinal: Reports abdominal pain Denies syncope Endocrine: Denies palpitations Physical Exam Vital Signs: Last Vital Signs Temp 97.6 F 03/30/22 15:23 Pulse 102 H 03/30/22 15:23 Resp 17 03/30/22 15:23 BP 121/74 03/30/22 15:23 Pulse Ox 96 03/30/22 15:23 O2 Del Method 03/30/22 15:23 O2 Flow Rate 2 03/30/22 07:53 BMI result Body Mass Index 29.0 Const General: cooperative, comfortable, alert, awake and ill appearing Nutritional Appearance: average body habitus Orientation/consciousness: patient oriented x3 Neck Neck: Yes trachea midline, Yes supple and Yes JVD Resp Effort & Inspection: normal respiratory effort Auscultation: no crackles and diminished lung sounds Cardio Jugular venous distension: JVD Palpation: abnormal PMI displaced PMI Rate: regular rate Heart sounds: S1 normal heart sound present, S2 normal heart sound present, no click, no gallops and no murmurs GI Inspection: Yes distended Auscultation: normal bowel sounds Skin General skin exam: no rashes or lesions noted Neuro General: patient oriented x3 and no focal motor deficits Extrem General: No clubbing, No cyanosis and Yes edema Objective Labs and Meds Result diagrams: 03/30/22 06:26 03/30/22 06:26 Lab results: Laboratory Results - last 24 hr 03/29/22 03/29/22 03/30/22 20:36 21:49 06:26 WBC 7.6 RBC 4.36 L Hgb 13.0 L Hct 42.5 MCV 97.5 MCH 29.8 MCHC 30.6 L RDW 13.6 Plt Count 189 MPV 10.7 Immature Gran % (Auto) 0.3 Neut % (Auto) 65.3 Lymph % (Auto) 22.6 [place] % (Auto) 9.0 Eos % (Auto) 2.1 Baso % (Auto) 0.7 Lymph # (Auto) 1.7 [place] # (Auto) 0.7 Eos # (Auto) 0.2 Baso # (Auto) 0.1 Abs Immat Gran (auto) 0.02 Absolute Neuts (auto) 5.0 Absolute Nucleated RBC 0.000 Nucleated RBC % (auto) 0.0 PT INR APTT Sodium Potassium Chloride Carbon Dioxide Anion Gap BUN Creatinine Estim Creat Clear Calc Estimated GFR POC Glucose 104 139 H Fasting Glucose Calcium Total Bilirubin AST ALT Alkaline Phosphatase Total Protein Albumin 03/30/22 03/30/22 03/30/22 06:26 07:36 08:42 WBC RBC Hgb Hct MCV MCH MCHC RDW Plt Count MPV Immature Gran % (Auto) Neut % (Auto) Lymph % (Auto) [place] % (Auto) Eos % (Auto) Baso % (Auto) Lymph # (Auto) [place] # (Auto) Eos # (Auto) Baso # (Auto) Abs Immat Gran (auto) Absolute Neuts (auto) Absolute Nucleated RBC Nucleated RBC % (auto) PT 12.3 INR 1.1 APTT 30.9 Sodium 138 Potassium 4.6 Chloride 97 Carbon Dioxide 30 H Anion Gap 16 BUN 30 H Creatinine 1.35 Estim Creat Clear Calc 58.0 Estimated GFR 53 POC Glucose 219 H Fasting Glucose 201 H D Calcium 8.4 Total Bilirubin 0.3 AST 19 ALT 30 Alkaline Phosphatase 93 Total Protein 5.8 L Albumin 3.4 L 03/30/22 03/30/22 11:13 15:29 WBC RBC Hgb Hct MCV MCH MCHC RDW Plt Count MPV Immature Gran % (Auto) Neut % (Auto) Lymph % (Auto) [place] % (Auto) Eos % (Auto) Baso % (Auto) Lymph # (Auto) [place] # (Auto) Eos # (Auto) Baso # (Auto) Abs Immat Gran (auto) Absolute Neuts (auto) Absolute Nucleated RBC Nucleated RBC % (auto) PT INR APTT Sodium Potassium Chloride Carbon Dioxide Anion Gap BUN Creatinine Estim Creat Clear Calc Estimated GFR POC Glucose 179 H 180 H Fasting Glucose Calcium Total Bilirubin AST ALT Alkaline Phosphatase Total Protein Albumin Progress Note: A&P Assessment and plan (1) Acute heart failure: Status: Acute Assessment and Plan: Patient with significant fluid overload on clinical exam with acute heart failure. BNP is improved. Blood pressure on the low side probably from aggressive diuresis. Will be more gentle with diuresis with Lasix 20 mg IV b.i.d.. We discussed about management of heart failure and adverse prognosis associated with heart failure. He does not seem to care. He is most bothered about abdominal distension. Was scheduled for paracentesis today but this did not happen. Plan for tomorrow. Continue intake and output chart monitoring which is not being done accurately. Continue to monitor blood work including renal function electrolytes and replace potassium. Once blood pressure is optimized will need to start him on neurohormonal modulation and consider switching him to Diovan 20 mg b.i.d. and Aldactone 12.5 mg daily as well as add metoprolol therapy. Will gradually uptitrate neurohormonal modulation. Importance of medical therapy was discussed. Will need echocardiogram during this hospitalization. Overall prognosis is guarded. (2) Coronary artery disease: Status: Acute Assessment and Plan: Patient with prior anterior STEMI with severely reduced LV ejection fraction in the past post LAD stenting. Continue aspirin high-intensity statin therapy. Will continue to follow with you Time Spent With Patient Time: Total time spent is greater than 50% in coordination of care (as documented) at patient's floor/unit and/or counseling patient: Progress Note: Quality Stroke Does the patient have a stroke diagnosis?: No Procedures Date of Service Date of Service: 03/30/22
[2022-03-30] MEDS: Morphine Sulfate 4 MG/ML CARTRIDGE IVPUSH (18:22)
[2022-03-30 20:00] VITALS: BP 124/88; PULSE 107; RESP 18; TEMP 36.2; O2SAT 99
[2022-03-30] MEDS: Atorvastatin Calcium 80 MG TABLET PO (21:12)
[2022-03-30 21:40] LABS: Glucose, Whole Blood 367 mg/dL (60-115)
[2022-03-30] MEDS: Insulin Glargine,Hum.rec.anlog 100 UNIT/ML 10 ML VIAL 50 UNIT SUBCUT (21:47)
[2022-03-30 23:24] LABS: Glucose, Whole Blood 320 mg/dL (60-115)
[2022-03-30 23:36] VITALS: BP 124/81; PULSE 76; RESP 18; TEMP 37; O2SAT 94
[2022-03-31 04:00] VITALS: RESP 20
[2022-03-31 06:45] LABS: MANUAL DIFF FLAG NO
[2022-03-31 06:56] LABS: Basophils Absolute Auto 0.1 X10*3/uL (0.0-0.2); Basophils Percent Auto 0.7 % (0-2); Eosinophils Absolute Auto 0.2 X10*3/uL (0.0-0.4); Eosinophils Percent Auto 2.8 % (0-4); Hematocrit 39.5 % (42.0-52.0); Hemoglobin 12.5 g/dl (14.0-18.0); Imm Gran Abs Auto 0.02 X10*3/uL (0.00-0.03); Imm Gran Pct Auto 0.3 % (0.0-0.4); Lymphocytes Absolute Auto 1.7 X10*3/uL (1.2-4.9); Mean Corpuscular HGB Conc 31.6 g/dl (31.0-36.0); Mean Corpuscular Hemoglobin 30.3 pg (27.0-33.0); Mean Corpuscular Volume 95.6 fL (80.0-98.0); Mean Platelet Volume 10.3 fL (9.4-12.4); Monocytes Absolute Auto 0.8 X10*3/uL (0.1-1.2); Monocytes Percent Auto 11.9 % (2-11); Neutrophils Absolute Auto 4.1 x10*3/uL (2.0-8.3); Neutrophils Percent Auto 60.3 % (45-73); Platelet Count 175 X10*3/uL (160-400); Red Blood Count 4.13 X10*6/uL (4.60-5.80); Red Cell Distribution Width 13.5 % (11.0-16.0); White Blood Count 6.9 X10*3/uL (4.8-10.8)
--- NOTE | 2022-03-31 07:00 | CA_ITS ---
Transthoracic Echocardiogram Patient (Last, First, Middle): Raj Chandra E Gender: Male Date of : 1960 Age: 61 Procedure Date: 03/31/2022 Procedure Type: Transthoracic Echocardiogram Location: [facility] – [place] Height: 170.18 cm Weight: 83.92 kg BSA: 1.96 m2 Heart Rate: bpm BP: 98 / 79 mmHg Drum Sealer: TONA Referring MD: Velasquez Stephens DO Time Study Engineer: Mike Wallace MD Symptoms: CHF Study Quality: Technically Difficult ECG Rhythm: Sinus Conclusions: - 1. Severe LV systolic dysfunction with LVEF of 15-20% with grade 3 diastolic dysfunction with regional wall motion abnormality consistent with ischemic cardiomyopathy. 2. Large apical thrombus 3. Mildly dilated left atrium 4. Mild mitral regurgitation 5. Mildly elevated right ventricular systolic pressure with significantly elevated right atrial pressures 6. No gross pericardial effusion Findings Procedure Information Contrast agent, definity, is being given per protocol without apparent complications. Left Ventricle Normal left ventricular cavity size. There is normal left ventricular wall thickness. The left ventricular systolic function is severely decreased. The visually estimated ejection fraction is between 15-20%. Spectral Doppler is indicative of a restrictive filling pattern. E/E prime ratio is >15, consistent with elevated filling pressures. Evidence suggests grade III (severe) diastolic dysfunction. There is a large immobile apical thrombus in the left ventricle. Wall Motion Rest Echo Findings The anterolateral wall, inferolateral wall, the basal inferior, basal anterior, mid anterior, mid inferior, basal inferoseptal, and basal anteroseptal segments are hypokinetic. The apical anterior, apical inferior, apical lateral, apical septum, mid inferoseptal, and mid anteroseptal segments are akinetic. The apex segment is dyskinetic. Right Ventricle Normal right ventricular cavity size. There is mildly decreased right ventricular systolic function. Atria The left atrium is mildly dilated. Interatrial shunt cannot be excluded. The right atrium was not well visualized. Aortic Valve There is mild calcification of the aortic valve. There is no aortic valve stenosis. There is no aortic valve regurgitation. Mitral Valve There is mild anterior and posterior mitral leaflet thickening. There is mild mitral valve regurgitation. There is no mitral valve stenosis. Pulmonic Valve The pulmonic valve was not well visualized. Tricuspid Valve Likely normal tricuspid valve structure and function. Significantly elevated right atrial pressure. Mild pulmonary hypertension is present. Great Vessels All visible segments of the aorta are normal in size. The pulmonary artery was not well visualized. Venous The inferior vena cava is mildly dilated and does not collapse with inspiration. Pericardium/Pleural There is no evidence of pericardial effusion. Prior Study Comparison No prior study available for comparison. Measurements 2D Linear Measurements IVSd: 0.99 0.6-0.9/0.6-1.0 cm LVIDd: 5.49 3.9-5.3/4.2-5.9 cm LVIDd Index: 2.80 2.4-3.2/2.2-3.1 cm/m2 LVIDs: 5.17 2.0-3.6 cm LVPWd: 1.02 0.7-1.1 cm LA Diam: 4.40 2.7-3.8/3.0-4.0 cm LAIDs Index: 2.24 1.5-2.3 cm/m2 LV Mass: 266.49 67-162/88-224 g LV Mass Index: 135.96 43-95/49-115 g/m2 LVOT Diam: 2.10 3.0+(-)1.3 cm 2D Systolic Function EF 4C: 19.00 >55% EF 2C: 22.60 >55% EF BiP: 18.80 >55% Mitral Valve MV Pk E: 1.08 MV PK A: 0.40 MV Decel Time: 98.00 E/A: 2.70 E'Lateral: 6.46 E'Medial: 3.09 E/E' Med: 35.00 E/E' Lat: 16.70 PHT: 29.00 MVA PHT: 7.59 Decel [place]: 11.03 Aortic Valve AoV Pk Anibal: 0.99 AoV Mn Anibal: 0.78 AoV VTI: 0.16 AoV Pk Grad: 4.00 Aov Mn Grad: 3.00 MEG Cont.VTI: 2.07 LVOT LVOT Pk Anibal: 0.65 LVOT Mn Anibal: 0.49 LVOT VTI: 0.09 LVOT Pk Grad: 2.00 LVOT Mn Grad: 1.00 LVOT Diam: 2.10 LVOT Area: 3.46 Diastolic Function MV Pk E: 1.08 MV Pk A: 0.40 E/A: 2.70 E'Medial: 3.09 E/E' Med: 35.00 E' Laterial: 6.46 E/E' Lat: 16.70 Right Ventricle TAPSE (mm): 15.30 TVS' Anibal: 6.25 Tricuspid Valve TR Pk Anibal: 2.51 TR Pk Grad: 25.00 RA Press: 15.00 RVSP: 40.00 Great Vessels Aorta Sinus of Valsalva: 3.87 2.0-3.[address] [place]: 3.11 1.7-3.4 cm Ao Asc: 3.70 2.1-3.4 cm Updated in Other Vendor System with Status of Final Mike Wallace MD electronically signed on 03/31/2022 11:51:38 AM with status of Final
[2022-03-31 07:17] VITALS: BP 98/79; PULSE 92; RESP 20; TEMP 36.6; O2SAT 93
[2022-03-31 07:32] LABS: Alanine Aminotransferase 24 U/L (0-40); Albumin Level 3.4 g/dL (3.5-5.0); Alkaline Phosphatase 91 U/L (39-117); Anion Gap 16 (12-20); Aspartate Amino Transferase 17 U/L (5-37); Bilirubin Total 0.4 mg/dL (0.0-1.0); Blood Urea Nitrogen 27 mg/dL (9-16); Calcium 8.2 mg/dL (8.4-10.2); Carbon Dioxide 30 mmol/L (22-29); Chloride 96 mmol/L (96-108); Creatinine Clr Calc Pharmacy 68.1; Estimated Glomerular Filt Rate > 60; Glucose Fasting 105 mg/dL (60-99); Potassium 4.1 mmol/L (3.3-5.1); Sodium 138 mmol/L (135-145); Total Protein 5.7 g/dL (6.5-8.0)
[2022-03-31] MEDS: 0.9 % Sodium Chloride Flush 3 ML SYRINGE IVFLUSH ×2 (08:19→23:07)
[2022-03-31] MEDS: Furosemide 40 MG/4 ML VIAL IVPUSH ×2 (08:19→18:03)
[2022-03-31] MEDS: metFORMIN HCl 1,000 MG TABLET 1000 MG PO (08:20)
[2022-03-31] MEDS: Empagliflozin 10 MG TABLET PO (08:20)
[2022-03-31] MEDS: Gabapentin 100 MG CAPSULE PO ×3 (08:20→22:20)
[2022-03-31] MEDS: Aspirin 81 MG TAB.CHEW PO (08:20)
[2022-03-31] MEDS: Montelukast Sodium 10 MG TABLET PO (08:20)
[2022-03-31 08:28] LABS: Glucose, Whole Blood 53 mg/dL (60-115)
[2022-03-31] MEDS: Dextrose 50 % 25 GM/50 ML SYRINGE IVPUSH (09:05)
[2022-03-31 09:10] LABS: Glucose, Whole Blood 55 mg/dL (60-115)
[2022-03-31 09:43] LABS: Glucose, Whole Blood 115 mg/dL (60-115)
[2022-03-31 11:26] VITALS: BP 118/80; PULSE 98; RESP 18; TEMP 36.6; O2SAT 95
[2022-03-31 11:27] LABS: Glucose, Whole Blood 66 mg/dL (60-115)
--- NOTE | 2022-03-31 12:21 | PM.PNCARD ---
Subjective Subjective Date of Service: 03/31/22 Principal diagnosis: CHF Interval history: Echocardiogram shows LVEF of 15-20% with large wall motion abnormality with the apical thrombus. Continues to be short of breath. There is no significant ascites. There is evidence of large pleural effusion. Patient has borderline blood pressure. Has not been able to be started on neurohormonal modulation. Currently receiving Lasix. Intake and output chart sign not well maintain. Review of Systems Constitutional: Reports no additional constitutional complaints Cardiovascular: Denies chest pain, Reports leg edema, Denies lightheadedness, Denies Loss of Consciousness, Denies palpitations and Reports dyspnea on exertion Respiratory: Reports no additional respiratory complaints and Reports dyspnea on exertion Musculoskeletal: Reports no additional musculoskeletal complaints Skin/Breast: Reports system reviewed and no additional complaints, except as docu Reports system reviewed and no additional complaints, except as documented Endocrine: Reports no additional endocrine complaints and Denies palpitations Physical Exam Vital Signs: Last Vital Signs Temp 97.9 F 03/31/22 11:26 Pulse 98 03/31/22 11:26 Resp 18 03/31/22 11:26 BP 118/80 03/31/22 11:26 Pulse Ox 95 03/31/22 11:26 O2 Del Method 03/31/22 11:26 O2 Flow Rate 2 03/31/22 07:17 BMI result Body Mass Index 29.0 Const General: cooperative, in distress mild and respiratory and tired appearing Nutritional Appearance: overweight Orientation/consciousness: patient oriented x3 Neck Neck: Yes trachea midline, Yes supple and Yes JVD Resp Effort & Inspection: normal respiratory effort Auscultation: breath sounds absent Cardio Jugular venous distension: JVD Palpation: abnormal PMI displaced PMI Rate: regular rate Rhythm: regular rhythm Heart sounds: S1 normal heart sound present, S2 normal heart sound present, no click, no gallops and no murmurs GI Auscultation: normal bowel sounds Skin General skin exam: no rashes or lesions noted Neuro General: patient oriented x3 and no focal motor deficits Extrem General: No clubbing, No cyanosis and Yes edema Objective Labs and Meds Result diagrams: 03/31/22 06:01 03/31/22 06:01 Lab results: Laboratory Results - last 24 hr 03/30/22 03/30/22 03/30/22 15:29 21:36 23:21 WBC RBC Hgb Hct MCV MCH MCHC RDW Plt Count MPV Immature Gran % (Auto) Neut % (Auto) Lymph % (Auto) [place] % (Auto) Eos % (Auto) Baso % (Auto) Lymph # (Auto) [place] # (Auto) Eos # (Auto) Baso # (Auto) Abs Immat Gran (auto) Absolute Neuts (auto) Absolute Nucleated RBC Nucleated RBC % (auto) Sodium Potassium Chloride Carbon Dioxide Anion Gap BUN Creatinine Estim Creat Clear Calc Estimated GFR POC Glucose 180 H 367 H* 320 H Fasting Glucose Calcium Total Bilirubin AST ALT Alkaline Phosphatase Total Protein Albumin 03/31/22 03/31/22 03/31/22 06:01 06:01 08:25 WBC 6.9 RBC 4.13 L Hgb 12.5 L Hct 39.5 L MCV 95.6 MCH 30.3 MCHC 31.6 RDW 13.5 Plt Count 175 MPV 10.3 Immature Gran % (Auto) 0.3 Neut % (Auto) 60.3 Lymph % (Auto) 24.0 [place] % (Auto) 11.9 H Eos % (Auto) 2.8 Baso % (Auto) 0.7 Lymph # (Auto) 1.7 [place] # (Auto) 0.8 Eos # (Auto) 0.2 Baso # (Auto) 0.1 Abs Immat Gran (auto) 0.02 Absolute Neuts (auto) 4.1 Absolute Nucleated RBC 0.000 Nucleated RBC % (auto) 0.0 Sodium 138 Potassium 4.1 Chloride 96 Carbon Dioxide 30 H Anion Gap 16 BUN 27 H Creatinine 1.15 Estim Creat Clear Calc 68.1 Estimated GFR > 60 POC Glucose 53 L* Fasting Glucose 105 H D Calcium 8.2 L Total Bilirubin 0.4 AST 17 ALT 24 Alkaline Phosphatase 91 Total Protein 5.7 L Albumin 3.4 L 03/31/22 03/31/22 03/31/22 09:05 09:39 11:23 WBC RBC Hgb Hct MCV MCH MCHC RDW Plt Count MPV Immature Gran % (Auto) Neut % (Auto) Lymph % (Auto) [place] % (Auto) Eos % (Auto) Baso % (Auto) Lymph # (Auto) [place] # (Auto) Eos # (Auto) Baso # (Auto) Abs Immat Gran (auto) Absolute Neuts (auto) Absolute Nucleated RBC Nucleated RBC % (auto) Sodium Potassium Chloride Carbon Dioxide Anion Gap BUN Creatinine Estim Creat Clear Calc Estimated GFR POC Glucose 55 L* 115 66 Fasting Glucose Calcium Total Bilirubin AST ALT Alkaline Phosphatase Total Protein Albumin Imaging Radiologist's impression: Impressions Abdomen Ultrasound 03/31/22 10:50 FINDINGS/IMPRESSION: No peritoneal ascites. Right pleural effusion. Progress Note: A&P Assessment and plan (1) Acute heart failure: Status: Acute Assessment and Plan: Acute heart failure in this management secondary to severe ischemic cardiomyopathy related to prior myocardial infarction with poor follow-up in the past with no medical therapy. Currently still appears to be fluid overloaded. Also has large pleural effusion which should undergo thoracocentesis. Will be gentle with removing fluid to avoid reexpansion pulmonary edema. Add low-dose valsartan 20 mg b.i.d. as well as low-dose Aldactone 12.5 mg to his regimen. Strict intake and output chart needs to be pursued. Educated patient regarding need to monitor his output. He is going to try to do the same. Continue monitor renal function as well as BNP. (2) Coronary artery disease: Status: Acute Assessment and Plan: CAD with prior anterior wall MS. he now has a large apical thrombus in the apical akinetic segment. Will require oral anticoagulation therapy with warfarin. Continue aspirin therapy. Continue high-intensity statin therapy. Will continue to follow with you Time Spent With Patient Time: Total time spent is greater than 50% in coordination of care (as documented) at patient's floor/unit and/or counseling patient: Progress Note: Quality Stroke Does the patient have a stroke diagnosis?: No Procedures Date of Service Date of Service: 03/31/22
--- NOTE | 2022-03-31 12:34 | P.CDIC_ITS ---
CDI Concurrent Query Documentation Clarification: PHYSICIAN'S DOCUMENTATION REQUEST Date of Query: 03/31/22 1236 Patient Name: Raj Chandra Admit Date: 03/28/22 Dear Doctor, A review of the medical record indicates additional documentation may be needed. Please review below and update the documentation accordingly. Clinical Indicators: Are there diagnoses that correlate with the findings below: Risk Factors/Clinical Indicators/Treatments POA/RESOLVED/TREAT/RULE OUT LABS: -POC glucose on 03/30: 367 -POC glucose on 03/31: 53 Per provider notes: uncontrolled diabetes Please clarify the following regarding Diabetes Mellitus (DM): * Hyperglycemia and hypoglycemia * Hypoglycemia * Hyperglycemia * No complications of DM * Other complication ? please specify * Unable to determine Use of terms such as suspected, likely, concern for, or probable (associated with a specific diagnosis that is being evaluated, monitored, or treated as if it exists) are acceptable and can be coded in the inpatient setting, when documented at the time of discharge. Thank you, Kaylynn Ledesma MS, RN, CCRN Extension: [phone] Please use your independent medical judgment in providing your response. THIS QUERY IS PART OF THE PERMANENT MEDICAL RECORD Provider Response: Other Other Diagnosis: Hyperglycemia and hypoglycemia
[2022-03-31] MEDS: Lidocaine HCl 1 % MPF 5 ML VIAL SUBCUT (13:01)
[2022-03-31 13:56] LABS: MN% 88.4 %; PMN% 11.6 %
[2022-03-31 14:00] LABS: RBC Pleural Fluid < 0.002 X10*3/uL
[2022-03-31 14:02] LABS: WBC Pleural Fluid 0.152 X10*3/uL
[2022-03-31] MEDS: Azithromycin 500 MG in 0.9 % Sodium Chloride 250 ML 125 MG IV (14:29)
--- NOTE | 2022-03-31 14:51 | P.PNIM_ITS ---
Subjective Subjective Date of Service: 03/31/22 Interval History: Underwent successful thoracentesis right lung. 1.3 L removed. Breathing improved per patient. Noted to have 800 cc postvoid residual. .. Catheter placed Review of Systems Denies chest pain Admit shortness of breath Admits abdominal pain no nausea, vomiting, diarrhea Denies fever chills Physical Exam Vital Signs: Vital Signs: Last Vital Signs Temp 97.9 F 03/31/22 11:26 Pulse 98 03/31/22 11:26 Resp 18 03/31/22 11:26 BP 118/80 03/31/22 11:26 Pulse Ox 95 03/31/22 11:26 O2 Del Method 03/31/22 11:26 O2 Flow Rate 2 03/31/22 07:17 BMI result Body Mass Index 29.0 Const: Other: Awake alert; visibly short of breath at rest Resp: Other: Diminished breath sounds mid scapula distally Cardio: Other: No S4; positive S1-S2; no S3 murmurs rubs or gallops GI: Other: Firm without palpable fluid wave. Quiet bowel sounds Neuro: Other: Cranial nerves 2-12 grossly intact as tested. Moving all extremities with equal power. Describes diminished sensation in a stocking-glove distribution Extrem: Other: No edema bilaterally Objective Data Active Medications Acetaminophen (Acetaminophen Supp 650 Mg Supp.Rect) 650 mg TX Q6H PRN PRN Reason: Pain, Mild (Pain Scale 1-3) Aspirin (Aspirin 81 Mg Tab.Chew) 81 mg PO DAILY [facility] Last Admin: 03/31/22 08:20 Dose: 81 mg Documented By: GAMAL Atorvastatin Calcium (Atorvastatin Calcium 80 Mg Tablet) 80 mg PO BEDTIME [facility] Last Admin: 03/30/22 21:12 Dose: 80 mg Documented By: TANESHA Dextrose (Dextrose 50 % 25 Gm/50 Ml Syringe) 25 gm IVPUSH Q15M PRN; Protocol PRN Reason: per Hypoglycemia Standing Ord. Last Admin: 03/31/22 09:05 Dose: 25 gm Documented By: GAMAL Empagliflozin (Empagliflozin 10 Mg Tablet) 10 mg PO DAILY [facility] Last Admin: 03/31/22 08:20 Dose: 10 mg Documented By: GAMAL Furosemide (Furosemide 40 Mg/4 Ml Vial) 40 mg IVPUSH BID@0900,1800 [facility]; Protocol Last Admin: 03/31/22 08:19 Dose: 40 mg Documented By: GAMAL Gabapentin (Gabapentin 100 Mg Capsule) 100 mg PO TID [facility] Last Admin: 03/31/22 08:20 Dose: 100 mg Documented By: GAMAL Glucose (Glucose Gel 15 Gm Gel..Gram.) 15 gm PO Q15M PRN; Protocol PRN Reason: per Hypoglycemia Standing Ord. Ceftriaxone Sodium 1 gm/ (Sodium Chloride) 50 mls @ 100 mls/hr IV Q24H [facility] Last Infusion: 03/30/22 17:21 Dose: 0 mls/hr Documented By: TAMICA Azithromycin 500 mg/ Sodium (Chloride) 250 mls @ 125 mls/hr IV Q24H [facility] Last Admin: 03/31/22 14:29 Dose: 125 mls/hr Documented By: CHINMAY Insulin Glargine (Insulin Glargine,Hum.Rec.Anlog 100 Unit/Ml 10 Ml Vial) 50 unit SUBCUT BID [facility] Last Admin: 03/31/22 08:27 Dose: Not Given Documented By: GAMAL Non-Admin Reason: NPO Insulin Human Lispro (Insulin Lispro 100 Unit/Ml 3 Ml Vial) 0 unit SUBCUT QIDACHS [facility]; Protocol Last Admin: 03/31/22 11:29 Dose: Not Given Documented By: GAMAL Non-Moni Reason: No Insulin Coverage Insulin Human Lispro (Insulin Lispro 100 Unit/Ml 3 Ml Vial) 0 unit SUBCUT QIDACHS [facility]; Protocol Last Admin: 03/31/22 11:29 Dose: Not Given Documented By: GAMAL Non-Admin Reason: Duplicate Order Metformin HCl (Metformin Hcl 1,000 Mg Tablet) 1,000 mg PO DAILY [facility] Last Admin: 03/31/22 08:20 Dose: 1,000 mg Documented By: GAMAL Montelukast Sodium (Montelukast Sodium 10 Mg Tablet) 10 mg PO DAILY [facility] Last Admin: 03/31/22 08:20 Dose: 10 mg Documented By: GAMAL Morphine Sulfate (Morphine Sulfate 4 Mg/Ml Cartridge) 4 mg IVPUSH Q6H PRN; Protocol PRN Reason: Pain, Severe (Pain Scale 7-10) Last Admin: 03/30/22 18:22 Dose: 4 mg Documented By: HO.LINGH Nitroglycerin (Nitroglycerin 0.4 Mg Tab.Subl) 0.4 mg SUBLINGUAL Q5M PRN PRN Reason: chest pain Ondansetron HCl (Ondansetron Hcl 4 Mg/2 Ml Vial) 4 mg IVPUSH Q8H PRN PRN Reason: Nausea and Vomiting Pharmacy Consult (Consult Rx Perform Med Rec) 1 each MISCELLANE ONCE PRN PRN Reason: Consult order Sodium Chloride (0.9 % Sodium Chloride Flush 3 Ml Syringe) 3 ml IVFLUSH QSHIFT [facility] Last Admin: 03/31/22 08:19 Dose: 3 ml Documented By: GAMAL Spironolactone (Spironolactone 25 Mg Tablet) 12.5 mg PO DAILY [facility]; Protocol Valsartan (Valsartan 40 Mg Tablet) 20 mg PO BID [facility]; Protocol Warfarin Sodium (Warfarin Sodium 5 Mg Tablet) 5 mg PO DAILY@1800 [facility] Labs CBC & Chem 7: 03/31/22 06:01 03/31/22 06:01 Labs: Laboratory Results - last 24 hr 03/30/22 03/30/22 03/30/22 15:29 21:36 23:21 MCV MCH MCHC RDW Plt Count MPV Immature Gran % (Auto) Neut % (Auto) Lymph % (Auto) [place] % (Auto) Eos % (Auto) Baso % (Auto) Lymph # (Auto) [place] # (Auto) Eos # (Auto) Baso # (Auto) Abs Immat Gran (auto) Absolute Neuts (auto) Absolute Nucleated RBC Nucleated RBC % (auto) Anion Gap Estim Creat Clear Calc Estimated GFR POC Glucose 180 H 367 H* 320 H Fasting Glucose Calcium Total Bilirubin AST ALT Alkaline Phosphatase Total Protein Albumin Pleural WBC Pleural RBC 03/31/22 03/31/22 03/31/22 06:01 06:01 08:25 MCV 95.6 MCH 30.3 MCHC 31.6 RDW 13.5 Plt Count 175 MPV 10.3 Immature Gran % (Auto) 0.3 Neut % (Auto) 60.3 Lymph % (Auto) 24.0 [place] % (Auto) 11.9 H Eos % (Auto) 2.8 Baso % (Auto) 0.7 Lymph # (Auto) 1.7 [place] # (Auto) 0.8 Eos # (Auto) 0.2 Baso # (Auto) 0.1 Abs Immat Gran (auto) 0.02 Absolute Neuts (auto) 4.1 Absolute Nucleated RBC 0.000 Nucleated RBC % (auto) 0.0 Anion Gap 16 Estim Creat Clear Calc 68.1 Estimated GFR > 60 POC Glucose 53 L* Fasting Glucose 105 H D Calcium 8.2 L Total Bilirubin 0.4 AST 17 ALT 24 Alkaline Phosphatase 91 Total Protein 5.7 L Albumin 3.4 L Pleural WBC Pleural RBC 03/31/22 03/31/22 03/31/22 09:05 09:39 11:23 MCV MCH MCHC RDW Plt Count MPV Immature Gran % (Auto) Neut % (Auto) Lymph % (Auto) [place] % (Auto) Eos % (Auto) Baso % (Auto) Lymph # (Auto) [place] # (Auto) Eos # (Auto) Baso # (Auto) Abs Immat Gran (auto) Absolute Neuts (auto) Absolute Nucleated RBC Nucleated RBC % (auto) Anion Gap Estim Creat Clear Calc Estimated GFR POC Glucose 55 L* 115 66 Fasting Glucose Calcium Total Bilirubin AST ALT Alkaline Phosphatase Total Protein Albumin Pleural WBC Pleural RBC 03/31/22 12:00 MCV MCH MCHC RDW Plt Count MPV Immature Gran % (Auto) Neut % (Auto) Lymph % (Auto) [place] % (Auto) Eos % (Auto) Baso % (Auto) Lymph # (Auto) [place] # (Auto) Eos # (Auto) Baso # (Auto) Abs Immat Gran (auto) Absolute Neuts (auto) Absolute Nucleated RBC Nucleated RBC % (auto) Anion Gap Estim Creat Clear Calc Estimated GFR POC Glucose Fasting Glucose Calcium Total Bilirubin AST ALT Alkaline Phosphatase Total Protein Albumin Pleural WBC 0.152 Pleural RBC < 0.002 Microbiology Microbiology Results: Microbiology 03/28/22 13:29 Blood Culture - Preliminary Blood - Venous No growth after 48 hours. 03/28/22 13:26 Blood Culture - Preliminary Blood - Venous No growth after 48 hours. Assessment and Plan (1) Acute heart failure: Status: Acute (2) Apical mural thrombus: Status: Acute (3) Coronary artery disease: Status: Acute (4) Essential (primary) hypertension: Status: Acute Plan 61-year-old male with progressive shortness of breath over the last 4-5 days as well as stocking-glove paresthesias with weakness presents to the ER today for workup. CT abdomen pelvis and chest demonstrate right greater than left pleural effusions question left base infiltrate. 1. Acute systolic CHF/CAD -IV Lasix b.i.d. -echocardiogram consistent with moderately reduced EF and apical thrombus. -start heparin drip and oral Coumadin. Bridge until INR between 2 and 3 2. Uncontrolled diabetes type 2 -add on A1c -continue outpatient regimen including metformin Jardiance and insulin -add lispro correctional scale -ADA diet 3.Paresthesias with subjective weakness -given stocking-glove distribution likely related to diabetes -ordered EMG 03/30 4. Hypertension -unacceptable control on current therapies -follow response to changes Full code Lovenox Will require ongoing hospitalization for IV diuresis to treat pleural effusions and CHF Quality Stroke Does the patient have a stroke diagnosis?: No VTE Prior VTE?: No VTE Risk Level:: Medical - moderate - high VTE Device Contraindication: Treatment Not Indicated VTE Drug Contraindication: N/A - Med Ordered
[2022-03-31 15:10] LABS: BF Shift QC OK YES; Lymphocytes Pleural Fluid 88 %; Man Diluent Bkgrd OK YES; Monocytes Pleural Fluid 3 %; Neutrophils Pleural Fluid 6 %; Other Cells Plerual Fl 3 %
[2022-03-31 15:49] VITALS: BP 128/70; PULSE 119; RESP 17; TEMP 37; O2SAT 95
[2022-03-31 16:36] LABS: Glucose, Whole Blood 149 mg/dL (60-115)
[2022-03-31] MEDS: cefTRIAXone sodium 1 GM in 0.9 % Sodium Chloride 50 ML IV (17:11)
--- NOTE | 2022-03-31 17:11 | PC.NURSE ---
patient has been voiding minimally. bladder scan was performed post void with 807 mL residual at 11:20. Patient voided 250 mL. Bladder scan repeated at 15:[address] Stephens notified and put in an order for roa catheter, patient has refused placement and states he would like to continue to try to see if he can void a good amount with the next few voids. Pt has also had 2 episodes of diarrhea. Both time unable to make it to the commode at time. Message has been sent to provider to put in an order for stool cultures as patient is on antibiotics.
[2022-03-31] MEDS: Warfarin Sodium 5 MG TABLET PO (18:03)
--- NOTE | 2022-03-31 18:35 | PC.NURSE ---
S/P right lung thoracenthesis, 1.3L of fluids removed. Occasional coughing noted. increased o2 to 3L. Dr. Stephens updated. Resting at this time. Will continue to monitor and treat per plan of care.
[2022-03-31 19:00] VITALS: BP 142/92; PULSE 105; RESP 18; TEMP 36; O2SAT 89
[2022-03-31 19:59] LABS: Glucose, Whole Blood 142 mg/dL (60-115)
[2022-03-31] MEDS: Atorvastatin Calcium 80 MG TABLET PO (22:20)
[2022-03-31] MEDS: Valsartan 40 MG TABLET 20 MG PO (22:20)
[2022-03-31] MEDS: Morphine Sulfate 4 MG/ML CARTRIDGE IVPUSH (22:32)
[2022-03-31 23:00] VITALS: BP 121/75; PULSE 108; RESP 18; TEMP 37.2; O2SAT 96
[2022-03-31 23:25] LABS: Glucose, Whole Blood 130 mg/dL (60-115)
[2022-04-01 04:45] LABS: Glucose, Whole Blood 219 mg/dL (60-115)
[2022-04-01 06:58] LABS: MANUAL DIFF FLAG NO
[2022-04-01 07:00] VITALS: BP 109/73; PULSE 103; RESP 18; TEMP 36.7; O2SAT 96
[2022-04-01 07:12] LABS: Basophils Percent Auto 0.5 % (0-2); Eosinophils Absolute Auto 0.2 X10*3/uL (0.0-0.4); Eosinophils Percent Auto 1.9 % (0-4); Hematocrit 37.8 % (42.0-52.0); Imm Gran Abs Auto 0.03 X10*3/uL (0.00-0.03); Imm Gran Pct Auto 0.4 % (0.0-0.4); Lymphocytes Absolute Auto 1.2 X10*3/uL (1.2-4.9); Mean Corpuscular HGB Conc 31.7 g/dl (31.0-36.0); Mean Corpuscular Hemoglobin 30.4 pg (27.0-33.0); Mean Corpuscular Volume 95.7 fL (80.0-98.0); Mean Platelet Volume 10.6 fL (9.4-12.4); Monocytes Absolute Auto 0.8 X10*3/uL (0.1-1.2); Monocytes Percent Auto 10.2 % (2-11); Neutrophils Absolute Auto 5.7 x10*3/uL (2.0-8.3); Platelet Count 145 X10*3/uL (160-400); Red Blood Count 3.95 X10*6/uL (4.60-5.80); Red Cell Distribution Width 13.6 % (11.0-16.0); White Blood Count 7.9 X10*3/uL (4.8-10.8)
[2022-04-01 07:27] LABS: INTERNATIONAL NORM RATIO 1.2 (0.9-1.1)
[2022-04-01 07:30] LABS: Glucose, Whole Blood 279 mg/dL (60-115)
[2022-04-01 07:38] LABS: Alanine Aminotransferase 22 U/L (0-40); Alkaline Phosphatase 84 U/L (39-117); Anion Gap 14 (12-20); Aspartate Amino Transferase 22 U/L (5-37); Bilirubin Total 0.5 mg/dL (0.0-1.0); Blood Urea Nitrogen 27 mg/dL (9-16); Calcium 7.8 mg/dL (8.4-10.2); Carbon Dioxide 29 mmol/L (22-29); Chloride 95 mmol/L (96-108); Creatinine Clr Calc Pharmacy 67.5; Estimated Glomerular Filt Rate > 60; Glucose Fasting 289 mg/dL (60-99); Potassium 4.2 mmol/L (3.3-5.1); Sodium 134 mmol/L (135-145); Total Protein 5.3 g/dL (6.5-8.0)
[2022-04-01] MEDS: Insulin Lispro 100 UNIT/ML 3 ML VIAL SUBCUT ×3 (08:03→21:25)
[2022-04-01] MEDS: Aspirin 81 MG TAB.CHEW PO (08:04)
[2022-04-01] MEDS: Montelukast Sodium 10 MG TABLET PO (08:04)
[2022-04-01] MEDS: Gabapentin 100 MG CAPSULE PO ×3 (08:04→21:24)
[2022-04-01] MEDS: metFORMIN HCl 1,000 MG TABLET 1000 MG PO (08:04)
[2022-04-01] MEDS: Empagliflozin 10 MG TABLET PO (08:04)
[2022-04-01] MEDS: Spironolactone 25 MG TABLET 12.5 MG PO (08:04)
[2022-04-01] MEDS: Valsartan 40 MG TABLET 20 MG PO (08:08)
[2022-04-01] MEDS: Furosemide 40 MG/4 ML VIAL IVPUSH ×2 (08:12→17:57)
[2022-04-01] MEDS: 0.9 % Sodium Chloride Flush 3 ML SYRINGE IVFLUSH (08:14)
[2022-04-01 10:00] LABS: Glucose, Whole Blood 369 mg/dL (60-115)
[2022-04-01 10:23] VITALS: BMI 29.0
[2022-04-01 11:00] VITALS: BP 110/70; PULSE 100; RESP 18; TEMP 37; O2SAT 98
[2022-04-01 11:01] LABS: Hematocrit 39.9 % (42.0-52.0); Hemoglobin 12.7 g/dl (14.0-18.0); Mean Corpuscular HGB Conc 31.8 g/dl (31.0-36.0); Mean Corpuscular Hemoglobin 30.6 pg (27.0-33.0); Mean Corpuscular Volume 96.1 fL (80.0-98.0); Mean Platelet Volume 10.6 fL (9.4-12.4); Platelet Count 142 X10*3/uL (160-400); Red Blood Count 4.15 X10*6/uL (4.60-5.80); Red Cell Distribution Width 13.6 % (11.0-16.0); White Blood Count 7.1 X10*3/uL (4.8-10.8)
[2022-04-01 11:22] LABS: Glucose, Whole Blood 331 mg/dL (60-115)
[2022-04-01 11:23] LABS: PTT Heparin Drip 32.2 SEC (53-77.9)
[2022-04-01] MEDS: Insulin Glargine,Hum.rec.anlog 100 UNIT/ML 10 ML VIAL 50 UNIT SUBCUT ×2 (11:45→21:25)
[2022-04-01] MEDS: Heparin Sodium,Porcine/1/2NS 25,000 UNIT/250 ML IV.SOLN 10 UNIT IVCONT (12:05)
[2022-04-01] MEDS: Heparin Sodium,Porcine 5,000 UNIT/ML VIAL 4000 UNIT IVPUSH (12:07)
--- NOTE | 2022-04-01 13:04 | MHC.CM.PN ---
Per ROUNDS discussion, Patient is not yet medically cleared for dc (IV Azithromycin, IV Ceftriaxone, IV Heparin); Home is the goal and CM will continue to follow.
[2022-04-01] MEDS: Azithromycin 500 MG in 0.9 % Sodium Chloride 250 ML 125 MG IV (14:40)
[2022-04-01 14:50] VITALS: BP 100/73; PULSE 97; RESP 18; TEMP 36.2; O2SAT 98
--- NOTE | 2022-04-01 15:32 | P.PNCA_ITS ---
Subjective Subjective Date of Service: 04/01/22 <CAMILLE Pino - Last Filed: 04/01/22 15:48> 04/01/22 <Mike Wallace MD - Last Filed: 04/01/22 17:48> Principal diagnosis: CHF <CAMILLE Pino - Last Filed: 04/01/22 15:48> Interval history: Seen at 1015. Today he reports that after his thoracentesis yesterday he had extensive diarrhea. He is still having some loose stools today but not as much. He denies abdominal discomfort. He reports ongoing mild shortness of breath especially with activity. He has no orthopnea and does have mild lower leg edema. No chest pains, palpitations, dizziness. Reports that his abdomen is is distended compare to his normal. He has been voiding frequently. <CAMILLE Pino - Last Filed: 04/01/22 15:48> Review of Systems Review of Systems As above <CAMILLE Pino - Last Filed: 04/01/22 15:48> Yes all other systems are reviewed and are negative <CAMILLE Pino - Last Filed: 04/01/22 15:48> Physical Exam Vital Signs: Last Vital Signs Temp 97.2 F 04/01/22 14:50 Pulse 97 04/01/22 14:50 Resp 18 04/01/22 14:50 BP 100/73 04/01/22 14:50 Pulse Ox 98 04/01/22 14:50 O2 Del Method 04/01/22 14:50 O2 Flow Rate 2 04/01/22 11:00 BMI result Body Mass Index 29.0 <CAMILLE Pino - Last Filed: 04/01/22 15:48> Const General: cooperative, healthy appearing, comfortable and no acute distress <CAMILLE Pion Last Filed: 04/01/22 15:48> Orientation/consciousness: patient oriented x3 <CAMILLE Pino Last Filed: 04/01/22 15:48> Neck Neck: Yes normal visual inspection <CAMILLE Pino Last Filed: 04/01/22 15:48> Chest Chest palpation & inspection: normal inspection of the chest <[facility] Last Filed: 04/01/22 15:48> Resp Other: Lungs dim each lower lobe, no distinct rales noted <No Bonnie [facility] Last Filed: 04/01/22 15:48> Effort & Inspection: normal respiratory effort <No Bonnie [facility] Last Filed: 04/01/22 15:48> Auscultation: clear to auscultation bilaterally, no crackles, no rales, no rhonchi and no wheezes <[facility] Bonnie [facility] Last Filed: 04/01/22 15:48> Cardio Rate: regular rate <[facility] Bonnie [facility] Last Filed: 04/01/22 15:48> Rhythm: regular rhythm <[facility] Last Filed: 04/01/22 15:48> Heart sounds: S1 normal heart sound present, S2 normal heart sound present, no gallops, no murmurs and no rubs <No Bonnie [facility] Last Filed: 04/01/22 15:48> Peripheral pulses: Peripheral pulses 2+ throughout <No Bonnie [facility] Last Filed: 04/01/22 15:48> GI Other: Rounded, soft, nontender <Novinay Nicole [facility] Last Filed: 04/01/22 15:48> Neuro General: patient oriented x3 <No Bonnie [facility] Last Filed: 04/01/22 15:48> Extrem Other: Plus one lower leg/ankle edema <[facility] Last Filed: 04/01/22 15:48> Psych Appearance: grossly normal <No Bonnie [facility] Last Filed: 04/01/22 15:48> Mental Status: mental status grossly normal <No Bonnie [facility] Last Filed: 04/01/22 15:48> Speech and movement: Normal speech and movement present <No [facility] Last Filed: 04/01/22 15:48> Objective Labs and Meds Result diagrams: : 04/01/22 10:52 04/01/22 06:49 <CAMILLE Pino - Last Filed: 04/01/22 15:48> Lab results: Laboratory Results - last 24 hr 03/31/22 03/31/22 03/31/22 16:31 19:56 23:17 WBC RBC Hgb Hct MCV MCH MCHC RDW Plt Count MPV Immature Gran % (Auto) Neut % (Auto) Lymph % (Auto) [place] % (Auto) Eos % (Auto) Baso % (Auto) Lymph # (Auto) [place] # (Auto) Eos # (Auto) Baso # (Auto) Abs Immat Gran (auto) Absolute Neuts (auto) Absolute Nucleated RBC Nucleated RBC % (auto) PT INR aPTT Heparin Protocol Sodium Potassium Chloride Carbon Dioxide Anion Gap BUN Creatinine Estim Creat Clear Calc Estimated GFR POC Glucose 149 H 142 H 130 H Fasting Glucose Calcium Total Bilirubin AST ALT Alkaline Phosphatase Total Protein Albumin 04/01/22 04/01/22 04/01/22 04:41 06:49 06:49 WBC 7.9 RBC 3.95 L Hgb 12.0 L Hct 37.8 L MCV 95.7 MCH 30.4 MCHC 31.7 RDW 13.6 Plt Count 145 L MPV 10.6 Immature Gran % (Auto) 0.4 Neut % (Auto) 72.0 Lymph % (Auto) 15.0 L [place] % (Auto) 10.2 Eos % (Auto) 1.9 Baso % (Auto) 0.5 Lymph # (Auto) 1.2 [place] # (Auto) 0.8 Eos # (Auto) 0.2 Baso # (Auto) 0.0 Abs Immat Gran (auto) 0.03 Absolute Neuts (auto) 5.7 Absolute Nucleated RBC 0.000 Nucleated RBC % (auto) 0.0 PT INR aPTT Heparin Protocol Sodium 134 L Potassium 4.2 Chloride 95 L Carbon Dioxide 29 Anion Gap 14 BUN 27 H Creatinine 1.16 Estim Creat Clear Calc 67.5 Estimated GFR > 60 POC Glucose 219 H Fasting Glucose 289 H D Calcium 7.8 L Total Bilirubin 0.5 AST 22 ALT 22 Alkaline Phosphatase 84 Total Protein 5.3 L Albumin 3.0 L 04/01/22 04/01/22 04/01/22 06:49 07:21 09:56 WBC RBC Hgb Hct MCV MCH MCHC RDW Plt Count MPV Immature Gran % (Auto) Neut % (Auto) Lymph % (Auto) [place] % (Auto) Eos % (Auto) Baso % (Auto) Lymph # (Auto) [place] # (Auto) Eos # (Auto) Baso # (Auto) Abs Immat Gran (auto) Absolute Neuts (auto) Absolute Nucleated RBC Nucleated RBC % (auto) PT 14.0 H INR 1.2 H aPTT Heparin Protocol Sodium Potassium Chloride Carbon Dioxide Anion Gap BUN Creatinine Estim Creat Clear Calc Estimated GFR POC Glucose 279 H 369 H* Fasting Glucose Calcium Total Bilirubin AST ALT Alkaline Phosphatase Total Protein Albumin 04/01/22 04/01/22 04/01/22 10:52 10:52 11:07 WBC 7.1 RBC 4.15 L Hgb 12.7 L Hct 39.9 L MCV 96.1 MCH 30.6 MCHC 31.8 RDW 13.6 Plt Count 142 L MPV 10.6 Immature Gran % (Auto) Neut % (Auto) Lymph % (Auto) [place] % (Auto) Eos % (Auto) Baso % (Auto) Lymph # (Auto) [place] # (Auto) Eos # (Auto) Baso # (Auto) Abs Immat Gran (auto) Absolute Neuts (auto) Absolute Nucleated RBC 0.000 Nucleated RBC % (auto) 0.0 PT INR aPTT Heparin Protocol 32.2 L Sodium Potassium Chloride Carbon Dioxide Anion Gap BUN Creatinine Estim Creat Clear Calc Estimated GFR POC Glucose 331 H Fasting Glucose Calcium Total Bilirubin AST ALT Alkaline Phosphatase Total Protein Albumin <CAMILLE Pino - Last Filed: 04/01/22 15:48> Progress Note: A&P Assessment and plan (1) Acute heart failure: Status: Acute <CAMILLE Pino - Last Filed: 04/01/22 15:48> Assessment and Plan: Being treated for acute systolic/diastolic heart failure secondary to severe ischemic cardiomyopathy related to anterior wall FL 2020 with poor follow-up and medical therapy. Echocardiogram done 03/31/2022 shows EF 15-20%, grade 3 diastolic dysfunction, regional wall motion abnormalities consistent with ischemic cardiomyopathy and a large apical thrombus. He is being diuresed with IV Lasix with-1500 cc fluid balance in the last day. On prior days outputs were not accurately measured. He initially had large pleural effusions, right greater than left. He did undergo a right thoracentesis yesterday with removal of 1300 cc of clear yellow fluid. He still reports having shortness of breath with activity. He still appears fluid overloaded. His abdomen is distended and round however an ultrasound done yesterday showed no ascites. Chest x-ray done yesterday post thoracentesis showed no pneumothorax, no effusion and left lung clear. Oxygen saturation 98% on room air. Labs today show potassium 4.2, creatinine 1.16. Continue IV Lasix, Aldactone. Will increase his valsartan to 40 mg b.i.d.. Close monitoring of electrolytes and kidney function. BNP in a.m. Strict I&O monitoring. We will follow. <CAMILLE Pino - Last Filed: 04/01/22 15:48> Being treated for acute systolic/diastolic heart failure secondary to severe ischemic cardiomyopathy related to anterior wall FL 2020 with poor follow-up and medical therapy. Echocardiogram done 03/31/2022 shows EF 15-20%, grade 3 diastolic dysfunction, regional wall motion abnormalities consistent with ischemic cardiomyopathy and a large apical thrombus. He is being diuresed with IV Lasix with-1500 cc fluid balance in the last day. On prior days outputs were not accurately measured. He initially had large pleural effusions, right greater than left. He did undergo a right thoracentesis yesterday with removal of 1300 cc of clear yellow fluid. He still reports having shortness of breath with activity. He still appears fluid overloaded. His abdomen is distended and round however an ultrasound done yesterday showed no ascites. Chest x-ray done yesterday post thoracentesis showed no pneumothorax, no effusion and left lung clear. Oxygen saturation 98% on room air. Labs today show potassium 4.2, creatinine 1.16. Continue IV Lasix, Aldactone. Will increase his valsartan to 40 mg b.i.d.. Close monitoring of electrolytes and kidney function. BNP in a.m. Strict I&O monitoring. We will follow. Patient seen and examined. Case discussed with No Nicole. With monitoring appears like patient diuresing gently and has negative balance of about 1500 cc. Also underwent thoracocentesis. Still remain short of breath as per him. Tolerating his medications. Blood pressure is adequate at this point time. Continue to increase valsartan 40 mg b.i.d. and continue spironolactone therapy. Blood pressure is stable will increase spironolactone tomorrow. Also once gets more euvolemic will add beta-oscar therapy. Continue IV diuresis. Strict intake and output chart needs to be pursued. Continue to monitor renal function and electrolytes replace electrolytes. Will continue to follow. <Mike Wallace MD - Last Filed: 04/01/22 17:48> (2) Coronary artery disease: Status: Acute <CAMILLE Pino - Last Filed: 04/01/22 15:48> Assessment and Plan: History of anterior wall FL last year with 2 SANDRA placed to the LAD with post FL EF 20-25%. Cardiac risks of prior smoking Sarkis, diabetes, hypertension, heart BD me a. He did not present for routine follow-up and now admitted with heart failure syndrome as above. Troponin levels are normal. No ACS at this time. Continue medical management for stable CAD including aspirin, high-dose atorvastatin. Valsartan has been added this admission and once heart failure further improved will add beta-oscar. <CAMILLE Pino - Last Filed: 04/01/22 15:48> History of anterior wall FL last year with 2 SANDRA placed to the LAD with post FL EF 20-25%. Cardiac risks of prior smoking Sarkis, diabetes, hypertension, heart BD me a. He did not present for routine follow-up and now admitted with heart failure syndrome as above. Troponin levels are normal. No ACS at this time. Continue medical management for stable CAD including aspirin, high-dose atorvastatin. Valsartan has been added this admission and once heart failure further improved will add beta-oscar. Continue as above. <Mike Wallace MD - Last Filed: 04/01/22 17:48> (3) Apical mural thrombus: Status: Acute <CAMILLE Pino - Last Filed: 04/01/22 15:48> Assessment and Plan: Large apical thrombus noted on echocardiogram. He has been started on heparin drip per protocol as bridge to Coumadin. <CAMILLE Pino - Last Filed: 04/01/22 15:48> Large apical thrombus noted on echocardiogram. He has been started on heparin drip per protocol as bridge to Coumadin. Agree <Mike Wallace MD - Last Filed: 04/01/22 17:48> (4) Essential (primary) hypertension: Status: Acute <CAMILLE Pino - Last Filed: 04/01/22 15:48> Assessment and Plan: Running on soft side, 110/70 this a.m.. This admission he has been started on Lasix, valsartan, Aldactone. Will further titrate valsartan up to 40 mg b.i.d.. <CAMILLE Pino - Last Filed: 04/01/22 15:48> Time Spent With Patient Time: Total time spent is greater than 50% in coordination of care (as documented) at patient's floor/unit and/or counseling patient: 26 <CAMILLE Pino - Last Filed: 04/01/22 15:48> Progress Note: Quality Stroke Does the patient have a stroke diagnosis?: No <CAMILLE Pino - Last Filed: 04/01/22 15:48> Procedures Date of Service Date of Service: 04/01/22 <CAMILLE Pino - Last Filed: 04/01/22 15:48>
--- NOTE | 2022-04-01 15:50 | HO.PM.IMPN ---
Subjective Subjective Date of Service: 04/01/22 Interval History: Still short of breath despite tap. Diarrhea improving Review of Systems Denies chest pain Admit shortness of breath Admits abdominal pain no nausea, vomiting, diarrhea Denies fever chills Physical Exam Vital Signs: Vital Signs: Last Vital Signs Temp 97.2 F 04/01/22 14:50 Pulse 97 04/01/22 14:50 Resp 18 04/01/22 14:50 BP 100/73 04/01/22 14:50 Pulse Ox 98 04/01/22 14:50 O2 Del Method 04/01/22 14:50 O2 Flow Rate 2 04/01/22 11:00 BMI result Body Mass Index 29.0 Const: Other: Awake alert; visibly short of breath at rest Resp: Other: Diminished breath sounds mid scapula distally Cardio: Other: No S4; positive S1-S2; no S3 murmurs rubs or gallops GI: Other: Firm without palpable fluid wave. Quiet bowel sounds Neuro: Other: Cranial nerves 2-12 grossly intact as tested. Moving all extremities with equal power. Describes diminished sensation in a stocking-glove distribution Extrem: Other: No edema bilaterally Objective Data Active Medications Acetaminophen (Acetaminophen Supp 650 Mg Supp.Rect) 650 mg UT Q6H PRN PRN Reason: Pain, Mild (Pain Scale 1-3) Aspirin (Aspirin 81 Mg Tab.Chew) 81 mg PO DAILY [facility] Last Admin: 04/01/22 08:04 Dose: 81 mg Documented By: EVANGELISTA Atorvastatin Calcium (Atorvastatin Calcium 80 Mg Tablet) 80 mg PO BEDTIME [facility] Last Admin: 03/31/22 22:20 Dose: 80 mg Documented By: JOEL Dextrose (Dextrose 50 % 25 Gm/50 Ml Syringe) 25 gm IVPUSH Q15M PRN; Protocol PRN Reason: per Hypoglycemia Standing Ord. Last Admin: 03/31/22 09:05 Dose: 25 gm Documented By: GAMAL Empagliflozin (Empagliflozin 10 Mg Tablet) 10 mg PO DAILY [facility] Last Admin: 04/01/22 08:04 Dose: 10 mg Documented By: EVANGELISTA Furosemide (Furosemide 40 Mg/4 Ml Vial) 40 mg IVPUSH BID@0900,1800 [facility]; Protocol Last Admin: 04/01/22 08:12 Dose: 40 mg Documented By: EVANGELISTA Gabapentin (Gabapentin 100 Mg Capsule) 100 mg PO TID [facility] Last Admin: 04/01/22 08:04 Dose: 100 mg Documented By: EVANGELISTA Glucose (Glucose Gel 15 Gm Gel..Gram.) 15 gm PO Q15M PRN; Protocol PRN Reason: per Hypoglycemia Standing Ord. Heparin Sodium (Porcine) (Heparin Sodium,Porcine 5,000 Unit/Ml Vial) 3,400 unit 40 unit/kg (3400 unit) IVPUSH PROTOCOL BOLUS PRN; Protocol PRN Reason: 40 unit/kg - Heparin Protocol Heparin Sodium (Porcine) (Heparin Sodium,Porcine 5,000 Unit/Ml Vial) 6,700 unit 80 unit/kg (6700 unit) IVPUSH PROTOCOL BOLUS PRN; Protocol PRN Reason: 80 unit/kg - Heparin Protocol Ceftriaxone Sodium 1 gm/ (Sodium Chloride) 50 mls @ 100 mls/hr IV Q24H [facility] Last Infusion: 03/31/22 18:28 Dose: 100 mls/hr Documented By: GAMAL Azithromycin 500 mg/ Sodium (Chloride) 250 mls @ 125 mls/hr IV Q24H [facility] Last Infusion: 04/01/22 14:47 Dose: 0 mls/hr Documented By: JORGE Heparin Sodium/Sodium Chloride (Heparin Sodium,Porcine/1/2ns) 25,000 unit in 250 mls @ 0 mls/hr IVCONT .Q0M [facility]; Protocol Last Admin: 04/01/22 12:05 Dose: 11.88 units/kg/hr, 10 mls/hr Documented By: EVANGELISTA Co-signed By: JORGE Insulin Glargine (Insulin Glargine,Hum.Rec.Anlog 100 Unit/Ml 10 Ml Vial) 50 unit SUBCUT BID [facility] Last Admin: 04/01/22 11:45 Dose: 40 unit Documented By: JORGE Comments: patient refused 10 units Insulin Human Lispro (Insulin Lispro 100 Unit/Ml 3 Ml Vial) 0 unit SUBCUT QIDACHS [facility]; Protocol Last Admin: 04/01/22 14:28 Dose: Not Given Documented By: JORGE Non-Admin Reason: Patient Refused Insulin Human Lispro (Insulin Lispro 100 Unit/Ml 3 Ml Vial) 0 unit SUBCUT QIDACHS [facility]; Protocol Last Admin: 04/01/22 11:47 Dose: Not Given Documented By: JORGE Non-Admin Reason: Duplicate Order Metformin HCl (Metformin Hcl 1,000 Mg Tablet) 1,000 mg PO DAILY [facility] Last Admin: 04/01/22 08:04 Dose: 1,000 mg Documented By: EVANGELISTA Montelukast Sodium (Montelukast Sodium 10 Mg Tablet) 10 mg PO DAILY [facility] Last Admin: 04/01/22 08:04 Dose: 10 mg Documented By: EVANGELISTA Morphine Sulfate (Morphine Sulfate 4 Mg/Ml Cartridge) 4 mg IVPUSH Q6H PRN; Protocol PRN Reason: Pain, Severe (Pain Scale 7-10) Last Admin: 03/31/22 22:32 Dose: 4 mg Documented By: JOEL Nitroglycerin (Nitroglycerin 0.4 Mg Tab.Subl) 0.4 mg SUBLINGUAL Q5M PRN PRN Reason: chest pain Ondansetron HCl (Ondansetron Hcl 4 Mg/2 Ml Vial) 4 mg IVPUSH Q8H PRN PRN Reason: Nausea and Vomiting Pharmacy Consult (Consult Rx Perform Med Rec) 1 each MISCELLANE ONCE PRN PRN Reason: Consult order Sodium Chloride (0.9 % Sodium Chloride Flush 3 Ml Syringe) 3 ml IVFLUSH QSHIFT [facility] Last Admin: 04/01/22 08:14 Dose: 3 ml Documented By: EVANGELISTA Spironolactone (Spironolactone 25 Mg Tablet) 12.5 mg PO DAILY [facility]; Protocol Last Admin: 04/01/22 08:04 Dose: 12.5 mg Documented By: EVANGELISTA Valsartan (Valsartan 40 Mg Tablet) 40 mg PO BID [facility]; Protocol Warfarin Sodium (Warfarin Sodium 5 Mg Tablet) 5 mg PO DAILY@1800 [facility] Last Admin: 03/31/22 18:03 Dose: 5 mg Documented By: GAMAL Labs CBC & Chem 7: 04/01/22 10:52 04/01/22 06:49 Labs: Laboratory Results - last 24 hr 03/31/22 03/31/22 03/31/22 16:31 19:56 23:17 MCV MCH MCHC RDW Plt Count MPV Immature Gran % (Auto) Neut % (Auto) Lymph % (Auto) Divide % (Auto) Eos % (Auto) Baso % (Auto) Lymph # (Auto) Divide # (Auto) Eos # (Auto) Baso # (Auto) Abs Immat Gran (auto) Absolute Neuts (auto) Absolute Nucleated RBC Nucleated RBC % (auto) PT INR aPTT Heparin Protocol Anion Gap Estim Creat Clear Calc Estimated GFR POC Glucose 149 H 142 H 130 H Fasting Glucose Calcium Total Bilirubin AST ALT Alkaline Phosphatase Total Protein Albumin 04/01/22 04/01/22 04/01/22 04:41 06:49 06:49 MCV 95.7 MCH 30.4 MCHC 31.7 RDW 13.6 Plt Count 145 L MPV 10.6 Immature Gran % (Auto) 0.4 Neut % (Auto) 72.0 Lymph % (Auto) 15.0 L Divide % (Auto) 10.2 Eos % (Auto) 1.9 Baso % (Auto) 0.5 Lymph # (Auto) 1.2 Divide # (Auto) 0.8 Eos # (Auto) 0.2 Baso # (Auto) 0.0 Abs Immat Gran (auto) 0.03 Absolute Neuts (auto) 5.7 Absolute Nucleated RBC 0.000 Nucleated RBC % (auto) 0.0 PT INR aPTT Heparin Protocol Anion Gap 14 Estim Creat Clear Calc 67.5 Estimated GFR > 60 POC Glucose 219 H Fasting Glucose 289 H D Calcium 7.8 L Total Bilirubin 0.5 AST 22 ALT 22 Alkaline Phosphatase 84 Total Protein 5.3 L Albumin 3.0 L 04/01/22 04/01/22 04/01/22 06:49 07:21 09:56 MCV MCH MCHC RDW Plt Count MPV Immature Gran % (Auto) Neut % (Auto) Lymph % (Auto) Divide % (Auto) Eos % (Auto) Baso % (Auto) Lymph # (Auto) Divide # (Auto) Eos # (Auto) Baso # (Auto) Abs Immat Gran (auto) Absolute Neuts (auto) Absolute Nucleated RBC Nucleated RBC % (auto) PT 14.0 H INR 1.2 H aPTT Heparin Protocol Anion Gap Estim Creat Clear Calc Estimated GFR POC Glucose 279 H 369 H* Fasting Glucose Calcium Total Bilirubin AST ALT Alkaline Phosphatase Total Protein Albumin 04/01/22 04/01/22 04/01/22 10:52 10:52 11:07 MCV 96.1 MCH 30.6 MCHC 31.8 RDW 13.6 Plt Count 142 L MPV 10.6 Immature Gran % (Auto) Neut % (Auto) Lymph % (Auto) Divide % (Auto) Eos % (Auto) Baso % (Auto) Lymph # (Auto) Divide # (Auto) Eos # (Auto) Baso # (Auto) Abs Immat Gran (auto) Absolute Neuts (auto) Absolute Nucleated RBC 0.000 Nucleated RBC % (auto) 0.0 PT INR aPTT Heparin Protocol 32.2 L Anion Gap Estim Creat Clear Calc Estimated GFR POC Glucose 331 H Fasting Glucose Calcium Total Bilirubin AST ALT Alkaline Phosphatase Total Protein Albumin Microbiology Microbiology Results: Microbiology 03/31/22 12:00 Gram Stain - Final Paracentesis Fluid Anaerobic Culture - Preliminary No growth to date. Body Fluid Culture - Preliminary No growth after 1 day Assessment and Plan (1) CHF (congestive heart failure): Status: Acute (2) Apical mural thrombus: Status: Acute (3) Essential (primary) hypertension: Status: Acute Plan 61-year-old male with progressive shortness of breath over the last 4-5 days as well as stocking-glove paresthesias with weakness presents to the ER today for workup. CT abdomen pelvis and chest demonstrate right greater than left pleural effusions question left base infiltrate. 1. Acute systolic CHF/CAD -IV Lasix b.i.d. -echocardiogram consistent with moderately reduced EF and apical thrombus. -start heparin drip and oral Coumadin. Bridge until INR between 2 and 3 2. Uncontrolled diabetes type 2 -add on A1c -continue outpatient regimen including metformin Jardiance and insulin -add lispro correctional scale -ADA diet (poor compliance) 3.Paresthesias with subjective weakness -given stocking-glove distribution likely related to diabetes -ordered EMG 03/30 4. Hypertension -unacceptable control on current therapies -follow response to changes Full code Lovenox Will require ongoing hospitalization for IV diuresis to treat pleural effusions and CHF Quality Stroke Does the patient have a stroke diagnosis?: No VTE Prior VTE?: No VTE Risk Level:: Medical - moderate - high VTE Device Contraindication: Treatment Not Indicated VTE Drug Contraindication: N/A - Med Ordered
[2022-04-01 16:19] LABS: Glucose, Whole Blood 187 mg/dL (60-115)
[2022-04-01] MEDS: Morphine Sulfate 4 MG/ML CARTRIDGE IVPUSH (16:41)
[2022-04-01] MEDS: cefTRIAXone sodium 1 GM in 0.9 % Sodium Chloride 50 ML IV (17:54)
[2022-04-01] MEDS: Warfarin Sodium 5 MG TABLET PO (18:03)
[2022-04-01 18:14] LABS: PTT Heparin Drip 77.3 SEC (53-77.9)
[2022-04-01 19:00] VITALS: BP 114/73; PULSE 103; RESP 18; TEMP 36.3
[2022-04-01 20:29] LABS: Glucose, Whole Blood 219 mg/dL (60-115)
[2022-04-01] MEDS: Valsartan 40 MG TABLET PO (21:24)
[2022-04-01] MEDS: Atorvastatin Calcium 80 MG TABLET PO (21:24)
[2022-04-01 23:00] VITALS: BP 111/67; PULSE 68; RESP 18; TEMP 37; O2SAT 92
[2022-04-02] VITALS (10 sets, daily range): BP systolic 88–138; BP diastolic 60–98; PULSE 77–105; RESP 16–20; TEMP 36.2–36.8; O2SAT 93–100; BMI 31.4
--- NOTE | 2022-04-02 | CA_ITS ---
Acquisition Time: 2022-04-03 09:31:35 Total Exercise Time: 00:02:00 Test Indications: CP, NSVT Medications: SEE CHART Protocol: LEXISCAN Max HR: 105 BPM 66% of Pred: 157 BPM Max BP: 102/068 mmHG Max Work Load: 1.0 METS Pharmacological stress test with Lexiscan injection, while sitting and kicking his legs, with mild sob, no chest discomfort, with one 7 beat NSVT in recovery, with normotensive response to injection, with nondiagnostic EKG for ischemia. In recovery he was treated with Aminophylline 75mg IVP to reverse Lexiscan. Nuclear images pending. Test reviewed with Dr Wallace Referred By: No Nicole Overread By: NO NICOLE
--- NOTE | 2022-04-02 | ECG_ITS ---
Test Reason : chest pain Blood Pressure : / mmHG Vent. Rate : 095 BPM Atrial Rate : 095 BPM P-R Int : 168 ms QRS Dur : 114 ms QT Int : 376 ms P-R-T Axes : 041 -53 092 degrees QTc Int : 472 ms Normal sinus rhythm Left axis deviation Inferior infarct (cited on or before 02-AUG-2014) Anteroseptal infarct (cited on or before 02-AUG-2014) Abnormal ECG When compared with ECG of 28-MAR-2022 10:20, Questionable change in initial forces of Lateral leads ST no longer elevated in Lateral leads Referred By: Yosef Wilhelm Electronically Signed By:ANH JACKSON
[2022-04-02 01:10] LABS: PTT Heparin Drip 63.4 SEC (53-77.9)
[2022-04-02] MEDS: Morphine Sulfate 4 MG/ML CARTRIDGE IVPUSH (01:52)
[2022-04-02] MEDS: Nitroglycerin 0.4 MG TAB.SUBL SUBLINGUAL (02:33)
[2022-04-02 02:43] LABS: Anion Gap 15 (12-20); Blood Urea Nitrogen 26 mg/dL (9-16); Carbon Dioxide 29 mmol/L (22-29); Chloride 97 mmol/L (96-108); Creatinine Clr Calc Pharmacy 65.3; Estimated Glomerular Filt Rate > 60; Glucose Random 160 mg/dL (60-115); Magnesium 1.9 mg/dL (1.6-2.6); Potassium 4.1 mmol/L (3.3-5.1); Sodium 137 mmol/L (135-145)
--- NOTE | 2022-04-02 06:57 | PM.EVENT ---
Event Note Date of Service: 04/02/22 Event Note: Pt had a 8 beat of vtach. when pt was woken he complained of chest pain. was given nitro by nurse as it was in his EMR for chest pain which dropped his BP to 88/50 manually . checked several times. pot was given 500 cc of LR with improvement of his bp. no change in his resp status. and pt breathing comfortably post fluids Mag and potassium normal. Trop pending EKG showed no changes of ACS
[2022-04-02 07:10] LABS: INTERNATIONAL NORM RATIO 2.3 (0.9-1.1); Prothrombin Time 27.2 SEC (10.0-13.1)
[2022-04-02 07:19] LABS: B Type Natriuretic Peptide 1081 pg/mL (<100)
[2022-04-02 07:20] LABS: Troponin-I High Sensitivity 32.1 ng/L (<3.5-35.0)
[2022-04-02 07:21] LABS: Hematocrit 38.4 % (42.0-52.0); Hemoglobin 11.8 g/dl (14.0-18.0); Mean Corpuscular HGB Conc 30.7 g/dl (31.0-36.0); Mean Corpuscular Hemoglobin 30.3 pg (27.0-33.0); Mean Corpuscular Volume 98.7 fL (80.0-98.0); Mean Platelet Volume 11.2 fL (9.4-12.4); Platelet Count 117 X10*3/uL (160-400); Red Blood Count 3.89 X10*6/uL (4.60-5.80); Red Cell Distribution Width 13.4 % (11.0-16.0); White Blood Count 8.3 X10*3/uL (4.8-10.8)
[2022-04-02 07:27] LABS: Glucose, Whole Blood 42 mg/dL (60-115)
[2022-04-02 08:06] LABS: Alanine Aminotransferase 18 U/L (0-40); Alkaline Phosphatase 79 U/L (39-117); Anion Gap 13 (12-20); Aspartate Amino Transferase 16 U/L (5-37); Bilirubin Total 0.5 mg/dL (0.0-1.0); Blood Urea Nitrogen 24 mg/dL (9-16); Carbon Dioxide 32 mmol/L (22-29); Chloride 98 mmol/L (96-108); Creatinine Clr Calc Pharmacy 80.5; Estimated Glomerular Filt Rate > 60; Glucose Fasting 51 mg/dL (60-99); Potassium 3.6 mmol/L (3.3-5.1); Sodium 139 mmol/L (135-145); Total Protein 5.7 g/dL (6.5-8.0)
[2022-04-02 08:07] LABS: PTT Heparin Drip > 200.0 SEC (53-77.9)
[2022-04-02 08:17] LABS: Glucose, Whole Blood 136 mg/dL (60-115)
[2022-04-02 09:10] LABS: Magnesium 1.9 mg/dL (1.6-2.6)
[2022-04-02 09:51] LABS: Troponin-I High Sensitivity 24.7 ng/L (<3.5-35.0)
[2022-04-02] MEDS: Furosemide 40 MG/4 ML VIAL IVPUSH ×2 (10:15→18:33)
[2022-04-02] MEDS: Empagliflozin 10 MG TABLET PO (10:15)
[2022-04-02] MEDS: Aspirin 81 MG TAB.CHEW PO (10:15)
[2022-04-02] MEDS: Montelukast Sodium 10 MG TABLET PO (10:15)
[2022-04-02] MEDS: Gabapentin 100 MG CAPSULE PO ×3 (10:15→23:03)
--- NOTE | 2022-04-02 10:19 | PM.PNCARD ---
Subjective Subjective Date of Service: 04/02/22 <CAMILLE Pino - Last Filed: 04/02/22 12:46> 04/02/22 <Mike Wallace MD - Last Filed: 04/02/22 16:26> Principal diagnosis: CHF <CAMILLE Pino - Last Filed: 04/02/22 12:46> Interval history: Seen at 0930. Today he reports that he woke in night with a stabbing pain to his left chest region that lasted several minutes. Has not had pain like that in the past. His CA discomfort was left jaw pain. No further CP this am. He says he didnt sleep well. Laying flat in bed, no cough. Reports feeling like breathing is shallow. Wearing O2 with cannula. No palpitations, dizziness. Still has edema in his legs. Reports ambulates to bathroom with his walker. Diarrhea has resolved. Abdomen is still distended for him and sore to press on. No nausea, asking for an Omlette. IV heparin off. Tele shows SR, rates 90s, did have on 9 beat NSVT episode during the night. <CAMILLE Pino - Last Filed: 04/02/22 12:46> Review of Systems Review of Systems as above <CAMILLE Pino - Last Filed: 04/02/22 12:46> Yes all other systems are reviewed and are negative <CAMILLE Pino - Last Filed: 04/02/22 12:46> Physical Exam Vital Signs: Last Vital Signs Temp 97.2 F 04/02/22 08:34 Pulse 96 04/02/22 08:34 Resp 20 04/02/22 08:34 BP 111/74 04/02/22 08:34 Pulse Ox 93 04/02/22 08:34 O2 Del Method 04/02/22 08:34 O2 Flow Rate 3 04/02/22 08:34 FiO2 100 04/01/22 19:00 BMI result Body Mass Index 31.4 <CAMILLE Pino - Last Filed: 04/02/22 12:46> Const General: cooperative, comfortable and no acute distress <CAMILLE Pino - Last Filed: 04/02/22 12:46> Neck Neck: Yes normal visual inspection and Yes no JVD <CASSIDY Pino - Last Filed: 04/02/22 12:46> Resp Effort & Inspection: normal respiratory effort <CASSIDY Pino - Last Filed: 04/02/22 12:46> Auscultation: clear to auscultation bilaterally, crackles (right lower lobe, dim left lower lobe), no rhonchi and no wheezes <No Nicole NP - Last Filed: 04/02/22 12:46> Cardio Rate: regular rate <No Nicole NP - Last Filed: 04/02/22 12:46> Rhythm: regular rhythm <No Nicole NP - Last Filed: 04/02/22 12:46> Heart sounds: S1 normal heart sound present, S2 normal heart sound present, no murmurs and no rubs <No Nicole NP - Last Filed: 04/02/22 12:46> GI Other: Rounded, semifirm, grimaces to palpation Left side more than right <No Nicole NP - Last Filed: 04/02/22 12:46> Skin General skin exam: no rashes or lesions noted <CASSIDY Pino - Last Filed: 04/02/22 12:46> Extrem Other: pitting edema to above knees bilaterally <No Nicole NP - Last Filed: 04/02/22 12:46> Psych Appearance: grossly normal <CASSIDY Pino - Last Filed: 04/02/22 12:46> Mental Status: mental status grossly normal <No Nicole NP - Last Filed: 04/02/22 12:46> Speech and movement: Normal speech and movement present <No Nicole NP - Last Filed: 04/02/22 12:46> Objective Labs and Meds Result diagrams: : 04/02/22 06:16 04/02/22 06:16 <No Nicole [employer] ADMINISTRATOR - Last Filed: 04/02/22 12:46> Lab results: Laboratory Results - last 24 hr 04/01/22 04/01/2222 10:52 10:52 11:07 WBC 7.1 RBC 4.15 L Hgb 12.7 L Hct 39.9 L MCV 96.1 MCH 30.6 MCHC 31.8 RDW 13.6 Plt Count 142 L MPV 10.6 Absolute Nucleated RBC 0.000 Nucleated RBC % (auto) 0.0 PT INR aPTT Heparin Protocol 32.2 L Sodium Potassium Chloride Carbon Dioxide Anion Gap BUN Creatinine Estim Creat Clear Calc Estimated GFR POC Glucose 331 H Random Glucose Fasting Glucose Calcium Magnesium Total Bilirubin AST ALT Alkaline Phosphatase Troponin I High Sens B-Natriuretic Peptide Total Protein Albumin 04/01/22 04/01/22 04/01/22 16:12 17:59 20:21 WBC RBC Hgb Hct MCV MCH MCHC RDW Plt Count MPV Absolute Nucleated RBC Nucleated RBC % (auto) PT INR aPTT Heparin Protocol 77.3 D Sodium Potassium Chloride Carbon Dioxide Anion Gap BUN Creatinine Estim Creat Clear Calc Estimated GFR POC Glucose 187 H 219 H Random Glucose Fasting Glucose Calcium Magnesium Total Bilirubin AST ALT Alkaline Phosphatase Troponin I High Sens B-Natriuretic Peptide Total Protein Albumin 04/02/22 04/02/22 04/02/22 00:20 00:20 06:16 WBC RBC Hgb Hct MCV MCH MCHC RDW Plt Count MPV Absolute Nucleated RBC Nucleated RBC % (auto) PT 27.2 H INR 2.3 H aPTT Heparin Protocol 63.4 > 200.0 H* D Sodium 137 Potassium 4.1 Chloride 97 Carbon Dioxide 29 Anion Gap 15 BUN 26 H Creatinine 1.20 Estim Creat Clear Calc 65.3 Estimated GFR > 60 POC Glucose Random Glucose 160 H D Fasting Glucose Calcium 8.0 L Magnesium 1.9 Total Bilirubin AST ALT Alkaline Phosphatase Troponin I High Sens B-Natriuretic Peptide Total Protein Albumin 04/02/22 04/02/22 04/02/22 06:16 06:16 06:16 WBC 8.3 RBC 3.89 L Hgb 11.8 L Hct 38.4 L MCV 98.7 H MCH 30.3 MCHC 30.7 L RDW 13.4 Plt Count 117 L MPV 11.2 Absolute Nucleated RBC 0.000 Nucleated RBC % (auto) 0.0 PT INR aPTT Heparin Protocol Sodium 139 Potassium 3.6 Chloride 98 Carbon Dioxide 32 H Anion Gap 13 BUN 24 H Creatinine 1.01 Estim Creat Clear Calc 80.5 Estimated GFR > 60 POC Glucose Random Glucose Fasting Glucose 51 L* Calcium 8.0 L Magnesium 1.9 Total Bilirubin 0.5 AST 16 ALT 18 Alkaline Phosphatase 79 Troponin I High Sens B-Natriuretic Peptide 1081 H Total Protein 5.7 L Albumin 3.0 L 04/02/22 04/02/22 04/02/22 06:16 07:20 08:14 WBC RBC Hgb Hct MCV MCH MCHC RDW Plt Count MPV Absolute Nucleated RBC Nucleated RBC % (auto) PT INR aPTT Heparin Protocol Sodium Potassium Chloride Carbon Dioxide Anion Gap BUN Creatinine Estim Creat Clear Calc Estimated GFR POC Glucose 42 L* 136 H Random Glucose Fasting Glucose Calcium Magnesium Total Bilirubin AST ALT Alkaline Phosphatase Troponin I High Sens 32.1 B-Natriuretic Peptide Total Protein Albumin 04/02/22 04/02/22 08:58 08:58 WBC RBC Hgb Hct MCV MCH MCHC RDW Plt Count MPV Absolute Nucleated RBC Nucleated RBC % (auto) PT INR aPTT Heparin Protocol 40.0 L D Sodium Potassium Chloride Carbon Dioxide Anion Gap BUN Creatinine Estim Creat Clear Calc Estimated GFR POC Glucose Random Glucose Fasting Glucose Calcium Magnesium Total Bilirubin AST ALT Alkaline Phosphatase Troponin I High Sens 24.7 B-Natriuretic Peptide Total Protein Albumin <CAMILLE Pino - Last Filed: 04/02/22 12:46> Progress Note: A&P Assessment and plan (1) Acute heart failure: Status: Acute <CAMILLE Pino - Last Filed: 04/02/22 12:46> Assessment and Plan: Being treated for acute systolic/diastolic heart failure secondary to severe ischemic cardiomyopathy related to anterior wall CA 2020 with poor follow-up and medical therapy. Echocardiogram done 03/31/2022 shows EF 15-20%, grade 3 diastolic dysfunction, regional wall motion abnormalities consistent with ischemic cardiomyopathy and a large apical thrombus. He is being diuresed with IV Lasix. I+Os not accurately measured during admit. Pt using bathroom and had frequent loose stools on 03/31/22. He initially had large pleural effusions, right greater than left. He did undergo a right thoracentesis 03/31 with removal of 1300 cc of clear yellow fluid. Today he still reports having shallow breathing and feeling shortness of breath with activity. He still appears fluid overloaded with pitting edema in his legs obove level of kness. His abdomen is distended and round however an ultrasound done 03/31 showed no ascites. Chest x-ray done 03/31 post thoracentesis showed no pneumothorax, no effusion and left lung clear. He does have rales noted in right base today. Oxygen saturation 98% on 3 liters with cannula. Labs today show potassium 3.6, creatinine 1.01, BNP 1081 ( BNP 2109 on admit). Needs further diuresis. Will IV Lasix Will increase Aldactone to 25 mg daily. BP this am 111/74. Continue Valsartan at 40 mg b.i.d.. BB to be added when he is more euvolemic. Strict I+O monitoring. Close monitoring of electrolytes and kidney function. Needs Potassium supplement today. We will follow. <CAMILLE Pino - Last Filed: 04/02/22 12:46> Being treated for acute systolic/diastolic heart failure secondary to severe ischemic cardiomyopathy related to anterior wall CA 2020 with poor follow-up and medical therapy. Echocardiogram done 03/31/2022 shows EF 15-20%, grade 3 diastolic dysfunction, regional wall motion abnormalities consistent with ischemic cardiomyopathy and a large apical thrombus. He is being diuresed with IV Lasix. I+Os not accurately measured during admit. Pt using bathroom and had frequent loose stools on 03/31/22. He initially had large pleural effusions, right greater than left. He did undergo a right thoracentesis 03/31 with removal of 1300 cc of clear yellow fluid. Today he still reports having shallow breathing and feeling shortness of breath with activity. He still appears fluid overloaded with pitting edema in his legs obove level of kness. His abdomen is distended and round however an ultrasound done 03/31 showed no ascites. Chest x-ray done 03/31 post thoracentesis showed no pneumothorax, no effusion and left lung clear. He does have rales noted in right base today. Oxygen saturation 98% on 3 liters with cannula. Labs today show potassium 3.6, creatinine 1.01, BNP 1081 ( BNP 2109 on admit). Needs further diuresis. Will IV Lasix Will increase Aldactone to 25 mg daily. BP this am 111/74. Continue Valsartan at 40 mg b.i.d.. BB to be added when he is more euvolemic. Strict I+O monitoring. Close monitoring of electrolytes and kidney function. Needs Potassium supplement today. We will follow. Patient seen and examined. Continue diuresis. Continue to increase Aldactone to 25 mg b.i.d.. Continue also therapy continue monitor renal function electrolytes and replace electrolytes as needed. Continue to monitor BNP. Strict intake and output chart needs to be pursued. Chest x-ray to be repeated. <Mike Wallace MD - Last Filed: 04/02/22 16:26> (2) Coronary artery disease: Status: Acute <CAMILLE Pino - Last Filed: 04/02/22 12:46> Assessment and Plan: History of anterior wall CA last year with 2 SANDRA placed to the LAD with post CA EF 20-25%. Cardiac risks of prior smoking, diabetes, hypertension, HLD. He did not present for routine follow-up and now admitted with heart failure syndrome as above. Troponin levels are normal. No ACS at this time. - He did wake during the night with sharp left CP that lasted several minutes which was no like his prior angina. EKG reviewed - no acute changes. Troponin 24.7 this am. Tele did show a 9 beat NSVT earlier in the night. Continue medical management for stable CAD including aspirin, high-dose atorvastatin. Valsartan has been added this admission and once heart failure further improved will add beta-oscar. <CAMILLE Pino - Last Filed: 04/02/22 12:46> History of anterior wall CA last year with 2 SANDRA placed to the LAD with post CA EF 20-25%. Cardiac risks of prior smoking, diabetes, hypertension, HLD. He did not present for routine follow-up and now admitted with heart failure syndrome as above. Troponin levels are normal. No ACS at this time. - He did wake during the night with sharp left CP that lasted several minutes which was no like his prior angina. EKG reviewed - no acute changes. Troponin 24.7 this am. Tele did show a 9 beat NSVT earlier in the night. Continue medical management for stable CAD including aspirin, high-dose atorvastatin. Valsartan has been added this admission and once heart failure further improved will add beta-oscar. Patient with chest pain today he says similar to his myocardial infarction pain. Will perform myocardial perfusion imaging with resting today and stress tomorrow. Will follow with the results. <Mike Wallace MD - Last Filed: 04/02/22 16:26> (3) Apical mural thrombus: Status: Acute <CAMILLE Pino - Last Filed: 04/02/22 12:46> Assessment and Plan: Large apical thrombus noted on echocardiogram. He was on heparin drip per protocol as bridge to Coumadin. INR 2.4 this am and Heparin stopped. INR goal 2-3. Will need INR followed as outpt through [facility] anticoagulation clinic. Pt informed of echo findings and need for anticoagulation. <CAMILLE Pino - Last Filed: 04/02/22 12:46> (4) Essential (primary) hypertension: Status: Acute <CAMILLE Pino - Last Filed: 04/02/22 12:46> Assessment and Plan: Running on [employer] side, 111/74 this a.m. Was lower during the night, when resting. This admission he has been started on Lasix, valsartan, Aldactone. Will increase Aldactone to 25mg daily. <CAMILLE Pino - Last Filed: 04/02/22 12:46> (5) NSVT (nonsustained ventricular tachycardia): Status: Acute <CAMILLE Pino - Last Filed: 04/02/22 12:46> Assessment and Plan: Tele showed a 9 beat NSVT during night. Has known EF 15-20%. K 3.6 , Mg 1.9. Needs K supplement today. Will add BB once more euvolemic. Ongoing tele monitoring. <CAMILLE Pino - Last Filed: 04/02/22 12:46> Tele showed a 9 beat NSVT during night. Has known EF 15-20%. K 3.6 , Mg 1.9. Needs K supplement today. Will add BB once more euvolemic. Ongoing tele monitoring. Will start beta-oscar once more euvolemic. Also consider vest defibrillator on discharge. <Mike Wallace MD - Last Filed: 04/02/22 16:26> Time Spent With Patient Time: Total time spent is greater than 50% in coordination of care (as documented) at patient's floor/unit and/or counseling patient: 24 <CAMILLE Pino Last Filed: 04/02/22 12:46> Progress Note: Quality Stroke Does the patient have a stroke diagnosis?: No <CAMILLE Pino - Last Filed: 04/02/22 12:46> Procedures Date of Service Date of Service: 04/02/22 <CAMILLE Pino - Last Filed: 04/02/22 12:46>
[2022-04-02 11:30] LABS: Glucose, Whole Blood 161 mg/dL (60-115)
[2022-04-02] MEDS: Heparin Sodium,Porcine/1/2NS 25,000 UNIT/250 ML IV.SOLN 6 UNIT IVCONT (12:52)
--- NOTE | 2022-04-02 14:17 | PC.NURSE ---
Received critical result on the patient - PTT heparin drip >200. Heparin drip was stopped per protocol and PTT HD was rechecked in one hr. Next check PTT HD came back low at 40.0. Called pharmacy and spoke with [facility] to confirm that morning protocol should be followed - which was to restart drip when PTT < 93 and decrease the rate by 4. Next PTT HD draw 6 hrs after drip was restarted. No bleeding or bruising noticed.
--- NOTE | 2022-04-02 14:24 | P.PNIM_ITS ---
Subjective Subjective Date of Service: 04/02/22 Interval History: seen and examined this morning follow up for CHF, apical thrombus, pleural effusion episode of VTACH overnight, also with episode of chest pain overnight and received nitro subsequently BP dropped and got 500 cc bolus of fluid3 trop flat, no ekg changes. no chest pain this am, pt reporting some right side abdominal pain, states he hasn't had BM in few days no sob, no cough Review of Systems Review of Systems: Yes all other systems are reviewed and are negative Constitutional Constitutional: Denies chills and Denies fever(s) Cardiovascular Cardiovascular: Denies chest pain, Denies palpitations and Denies dyspnea Respiratory Respiratory: Denies cough and Denies dyspnea Gastrointestinal Gastrointestinal: Reports abdominal pain, Reports constipation, Denies nausea and Denies vomiting Endocrine Endocrine: Denies palpitations Physical Exam Vital Signs: Vital Signs: Last Vital Signs Temp 98.3 F 04/02/22 11:28 Pulse 105 H 04/02/22 11:28 Resp 20 04/02/22 11:28 BP 138/98 H 04/02/22 11:28 Pulse Ox 97 04/02/22 11:28 O2 Del Method 04/02/22 11:28 O2 Flow Rate 3 04/02/22 11:28 FiO2 100 04/01/22 19:00 BMI result Body Mass Index 31.4 Const: General: alert and awake Nutritional Appearance: overweight Orientation/consciousness: patient oriented x3 Resp: Other: crackles right side primarily Effort & Inspection: normal respiratory effort, able to speak in complete sentences, not tachypneic and no use of accessory muscles Cardio: Rate: regular rate Heart sounds: S1 normal heart sound present and S2 normal heart sound present GI: Other: +BS, mild tenderness left side Palpation (GI): Soft to palpation Neuro: Other: grossly nonfocal General: patient oriented x3 Extrem: Other: b/l leg edema Objective Data Active Medications Acetaminophen (Acetaminophen Supp 650 Mg Supp.Rect) 650 mg SD Q6H PRN PRN Reason: Pain, Mild (Pain Scale 1-3) Aspirin (Aspirin 81 Mg Tab.Chew) 81 mg PO DAILY [facility] Last Admin: 04/02/22 10:15 Dose: 81 mg Documented By: DOBROB Atorvastatin Calcium (Atorvastatin Calcium 80 Mg Tablet) 80 mg PO BEDTIME [facility] Last Admin: 04/01/22 21:24 Dose: 80 mg Documented By: SANCHEZ Dextrose (Dextrose 50 % 25 Gm/50 Ml Syringe) 25 gm IVPUSH Q15M PRN; Protocol PRN Reason: per Hypoglycemia Standing Ord. Last Admin: 03/31/22 09:05 Dose: 25 gm Documented By: GAMAL Empagliflozin (Empagliflozin 10 Mg Tablet) 10 mg PO DAILY [facility] Last Admin: 04/02/22 10:15 Dose: 10 mg Documented By: JORGE Furosemide (Furosemide 40 Mg/4 Ml Vial) 40 mg IVPUSH BID@0900,1800 [facility]; Protocol Last Admin: 04/02/22 10:15 Dose: 40 mg Documented By: JORGE Gabapentin (Gabapentin 100 Mg Capsule) 100 mg PO TID [facility] Last Admin: 04/02/22 10:15 Dose: 100 mg Documented By: JORGE Glucose (Glucose Gel 15 Gm Gel..Gram.) 15 gm PO Q15M PRN; Protocol PRN Reason: per Hypoglycemia Standing Ord. Heparin Sodium (Porcine) (Heparin Sodium,Porcine 5,000 Unit/Ml Vial) 3,400 unit 40 unit/kg (3400 unit) IVPUSH PROTOCOL BOLUS PRN; Protocol PRN Reason: 40 unit/kg - Heparin Protocol Heparin Sodium (Porcine) (Heparin Sodium,Porcine 5,000 Unit/Ml Vial) 6,700 unit 80 unit/kg (6700 unit) IVPUSH PROTOCOL BOLUS PRN; Protocol PRN Reason: 80 unit/kg - Heparin Protocol Ceftriaxone Sodium 1 gm/ (Sodium Chloride) 50 mls @ 100 mls/hr IV Q24H [facility] Stop: 04/03/22 14:59 Last Infusion: 04/01/22 18:42 Dose: 0 mls/hr Documented By: JORGE Azithromycin 500 mg/ Sodium (Chloride) 250 mls @ 125 mls/hr IV Q24H [facility] Stop: 04/03/22 12:59 Last Infusion: 04/01/22 18:06 Dose: 0 mls/hr Documented By: JORGE Heparin Sodium/Sodium Chloride (Heparin Sodium,Porcine/1/2ns) 25,000 unit in 250 mls @ 0 mls/hr IVCONT .Q0M [facility]; Protocol Last Admin: 04/02/22 12:52 Dose: 7.13 units/kg/hr, 6 mls/hr Documented By: JORGE Co-signed By: TRACIE Insulin Glargine (Insulin Glargine,Hum.Rec.Anlog 100 Unit/Ml 10 Ml Vial) 20 unit SUBCUT BEDTIME [facility] Insulin Glargine (Insulin Glargine,Hum.Rec.Anlog 100 Unit/Ml 10 Ml Vial) 40 unit SUBCUT DAILY [facility] Insulin Human Lispro (Insulin Lispro 100 Unit/Ml 3 Ml Vial) 0 unit SUBCUT QIDACHS [facility]; Protocol Last Admin: 04/02/22 11:58 Dose: Not Given Documented By: JORGE Non-Admin Reason: Patient Refused Montelukast Sodium (Montelukast Sodium 10 Mg Tablet) 10 mg PO DAILY [facility] Last Admin: 04/02/22 10:15 Dose: 10 mg Documented By: JORGE Morphine Sulfate (Morphine Sulfate 4 Mg/Ml Cartridge) 4 mg IVPUSH Q6H PRN; Protocol PRN Reason: Pain, Severe (Pain Scale 7-10) Last Admin: 04/02/22 01:52 Dose: 4 mg Documented By: ROSS Nitroglycerin (Nitroglycerin 0.4 Mg Tab.Subl) 0.4 mg SUBLINGUAL Q5M PRN PRN Reason: chest pain Last Admin: 04/02/22 02:33 Dose: 0.4 mg Documented By: SANCHEZ Ondansetron HCl (Ondansetron Hcl 4 Mg/2 Ml Vial) 4 mg IVPUSH Q8H PRN PRN Reason: Nausea and Vomiting Pharmacy Consult (Consult Rx Perform Med Rec) 1 each MISCELLANE ONCE PRN PRN Reason: Consult order Sodium Chloride (0.9 % Sodium Chloride Flush 3 Ml Syringe) 3 ml IVFLUSH [facility] Last Admin: 04/02/22 09:01 Dose: Not Given Documented By: JORGE Non-Admin Reason: IV Running Sodium Chloride (0.9 % Sodium Chloride Flush 3 Ml Syringe) 3 ml IVFLUSH [facility] Last Admin: 04/02/22 09:01 Dose: Not Given Documented By: JORGE Non-Admin Reason: IV Running Spironolactone (Spironolactone 25 Mg Tablet) 25 mg PO DAILY [facility]; Protocol Valsartan (Valsartan 40 Mg Tablet) 40 mg PO BID [facility]; Protocol Last Admin: 04/02/22 10:16 Dose: Not Given Documented By: JORGE Non-Admin Reason: Physician Held Med Warfarin Sodium (Warfarin Sodium 2.5 Mg Tablet) 2.5 mg PO DAILY@1800 [facility] Labs CBC & Chem 7: 04/02/22 06:16 04/02/22 06:16 Labs: Laboratory Results - last 24 hr 04/01/22 04/01/22 04/01/22 16:12 17:59 20:21 MCV MCH MCHC RDW Plt Count MPV Absolute Nucleated RBC Nucleated RBC % (auto) PT INR aPTT Heparin Protocol 77.3 D Anion Gap Estim Creat Clear Calc Estimated GFR POC Glucose 187 H 219 H Random Glucose Fasting Glucose Calcium Magnesium Total Bilirubin AST ALT Alkaline Phosphatase Troponin I High Sens B-Natriuretic Peptide Total Protein Albumin 04/02/22 04/02/22 04/02/22 00:20 00:20 06:16 MCV MCH MCHC RDW Plt Count MPV Absolute Nucleated RBC Nucleated RBC % (auto) PT 27.2 H INR 2.3 H aPTT Heparin Protocol 63.4 > 200.0 H* D Anion Gap 15 Estim Creat Clear Calc 65.3 Estimated GFR > 60 POC Glucose Random Glucose 160 H D Fasting Glucose Calcium 8.0 L Magnesium 1.9 Total Bilirubin AST ALT Alkaline Phosphatase Troponin I High Sens B-Natriuretic Peptide Total Protein Albumin 04/02/22 04/02/22 04/02/22 06:16 06:16 06:16 MCV 98.7 H MCH 30.3 MCHC 30.7 L RDW 13.4 Plt Count 117 L MPV 11.2 Absolute Nucleated RBC 0.000 Nucleated RBC % (auto) 0.0 PT INR aPTT Heparin Protocol Anion Gap 13 Estim Creat Clear Calc 80.5 Estimated GFR > 60 POC Glucose Random Glucose Fasting Glucose 51 L* Calcium 8.0 L Magnesium 1.9 Total Bilirubin 0.5 AST 16 ALT 18 Alkaline Phosphatase 79 Troponin I High Sens B-Natriuretic Peptide 1081 H Total Protein 5.7 L Albumin 3.0 L 04/02/22 04/02/22 04/02/22 06:16 07:20 08:14 MCV MCH MCHC RDW Plt Count MPV Absolute Nucleated RBC Nucleated RBC % (auto) PT INR aPTT Heparin Protocol Anion Gap Estim Creat Clear Calc Estimated GFR POC Glucose 42 L* 136 H Random Glucose Fasting Glucose Calcium Magnesium Total Bilirubin AST ALT Alkaline Phosphatase Troponin I High Sens 32.1 B-Natriuretic Peptide Total Protein Albumin 04/02/22 04/02/22 04/02/22 08:58 08:58 11:26 MCV MCH MCHC RDW Plt Count MPV Absolute Nucleated RBC Nucleated RBC % (auto) PT INR aPTT Heparin Protocol 40.0 L D Anion Gap Estim Creat Clear Calc Estimated GFR POC Glucose 161 H Random Glucose Fasting Glucose Calcium Magnesium Total Bilirubin AST ALT Alkaline Phosphatase Troponin I High Sens 24.7 B-Natriuretic Peptide Total Protein Albumin Microbiology Microbiology Results: Microbiology 03/31/22 12:00 Gram Stain - Final Paracentesis Fluid Anaerobic Culture - Preliminary No growth to date. Body Fluid Culture - Final No growth after 2 days Assessment and Plan (1) NSVT (nonsustained ventricular tachycardia): Status: Acute (2) Apical mural thrombus: Status: Acute (3) Acute heart failure: Status: Acute (4) Coronary artery disease: Status: Acute Plan 61-year-old male with progressive shortness of breath over the last 4-5 days as well as stocking-glove paresthesias with weakness presents to the ER today for workup. CT abdomen pelvis and chest demonstrate right greater than left pleural effusions question left base infiltrate. Acute combined systolic and diastolic CHF ECHO with severe LVEF 15-20%, grade 3 diastolic dysfunction and regional WMA and large apical thrombus. -continue IV lasix -continue spironolactone, jardiance -cardiology following Apical thrombus -continue heparin drip and oral Coumadin. Bridge until INR between 2 and 3, two days of therapeutic INR per cardiology, INR today 2.3 CAD h/o anterior wall ND with 2 stents CP overnight, trops flat on full AC plan for inpatient stress test cardiology following NSVT 9 beat vtach overnight known low EF not on BB due to acute CHF goal to keep K>4, mag >2 cardiology following Thrombocytopenia on heparin drip, and drop noted since admission hematology consult pending Pleural effusion s/p thoracentesis 03/31 with removal of 1.3L of fluid likely secondary to CHF vs pneumonia repeat CXR showing small residual effusion Possible pneumonia no sepsis initial CT scan showing large effusion with airspace dz ?pneumonia continue azithromycin, ceftriaxone day 10/30 Uncontrolled diabetes type 2 intermittent episodes of hypoglycemia, mostly fasting -will decrease lantus, lower dose at bedtime -d/c metformin -SSI, POCs, ADA diet Paresthesias with subjective weakness -given stocking-glove distribution likely related to diabetes -ordered EMG 03/30 Hypertension -unacceptable control on current therapies -follow response to changes Full code DVT ppx - heparin bridge with coumadin attending - dr. way Will require ongoing hospitalization for IV lasix for CHF, tele monitoring for arrhythmia, IV heparin drip and inpatient stress test Quality Stroke Does the patient have a stroke diagnosis?: No VTE Prior VTE?: No VTE Risk Level:: Medical - moderate - high VTE Device Contraindication: Treatment Not Indicated VTE Drug Contraindication: N/A - Med Ordered
[2022-04-02] MEDS: Azithromycin 500 MG in 0.9 % Sodium Chloride 250 ML 125 MG IV (14:49)
[2022-04-02] MEDS: Potassium Chloride Packet 20 MEQ PACKET PO (14:50)
[2022-04-02] MEDS: polyethylene glycoL 3350 17 GM POWD.PACK PO (14:50)
[2022-04-02 16:13] LABS: Glucose, Whole Blood 128 mg/dL (60-115)
[2022-04-02 16:21] LABS: PTT Heparin Drip 40.2 SEC (53-77.9)
[2022-04-02] MEDS: cefTRIAXone sodium 1 GM in 0.9 % Sodium Chloride 50 ML IV (16:52)
[2022-04-02] MEDS: Magnesium Sulfate/D5W 1 GM/100 ML PIGGYBACK IV (16:53)
[2022-04-02] MEDS: Heparin Sodium,Porcine 5,000 UNIT/ML VIAL 3400 UNIT IVPUSH ×2 (17:37→23:43)
[2022-04-02] MEDS: Warfarin Sodium 2.5 MG TABLET PO (18:33)
[2022-04-02 19:36] LABS: Glucose, Whole Blood 198 mg/dL (60-115)
--- NOTE | 2022-04-02 19:37 | HE.PHANOTE ---
HEPARIN DRIP MONITORING AT 0900 HEPARIN DRIP WAS DECREASED BY 4ML/HR INSTEAD OF 4 UNITS/KG/HR. AT 1602 CONTACTED RN WHO INCREASED DOSE BY 2 ML/HR INSTEAD OF 2 UNITS/KG/HR. NEXT LEVEL IS BEING DRAWN IN 2 HOURS RECOMMENDED TO LEAVE THE DOSE FOR NOW AND ADJUST CORRECTLY AT NEXT PTT.
[2022-04-02 22:59] LABS: PTT Heparin Drip 45.6 SEC (53-77.9)
[2022-04-02] MEDS: Valsartan 40 MG TABLET PO (23:03)
[2022-04-02] MEDS: Atorvastatin Calcium 80 MG TABLET PO (23:03)
[2022-04-02] MEDS: Insulin Lispro 100 UNIT/ML 3 ML VIAL SUBCUT (23:03)
[2022-04-02] MEDS: Insulin Glargine,Hum.rec.anlog 100 UNIT/ML 10 ML VIAL 20 UNIT SUBCUT (23:04)
[2022-04-03] VITALS (11 sets, daily range): BP systolic 110–132; BP diastolic 56–91; PULSE 95–109; RESP 16–20; TEMP 36–37.1; O2SAT 92–97; BMI 32.4
[2022-04-03] MEDS: Morphine Sulfate 4 MG/ML CARTRIDGE IVPUSH (05:46)
[2022-04-03 07:14] LABS: Glucose, Whole Blood 219 mg/dL (60-115)
[2022-04-03 07:15] LABS: Hematocrit 36.9 % (42.0-52.0); Hemoglobin 11.4 g/dl (14.0-18.0); Mean Corpuscular HGB Conc 30.9 g/dl (31.0-36.0); Mean Corpuscular Hemoglobin 29.7 pg (27.0-33.0); Mean Corpuscular Volume 96.1 fL (80.0-98.0); Mean Platelet Volume 10.8 fL (9.4-12.4); Red Blood Count 3.84 X10*6/uL (4.60-5.80); Red Cell Distribution Width 13.4 % (11.0-16.0); White Blood Count 6.5 X10*3/uL (4.8-10.8)
[2022-04-03 07:17] LABS: INTERNATIONAL NORM RATIO 1.5 (0.9-1.1); Prothrombin Time 17.4 SEC (10.0-13.1)
[2022-04-03 07:20] LABS: PTT Heparin Drip 75.2 SEC (53-77.9)
[2022-04-03 07:37] LABS: Platelet Count 21 X10*3/uL (160-400)
[2022-04-03 07:48] LABS: Alanine Aminotransferase 29 U/L (0-40); Albumin Level 3.2 g/dL (3.5-5.0); Alkaline Phosphatase 116 U/L (39-117); Anion Gap 14 (12-20); Aspartate Amino Transferase 26 U/L (5-37); Bilirubin Total 0.4 mg/dL (0.0-1.0); Blood Urea Nitrogen 27 mg/dL (9-16); Carbon Dioxide 30 mmol/L (22-29); Chloride 97 mmol/L (96-108); Creatinine Clr Calc Pharmacy 71.2; Estimated Glomerular Filt Rate > 60; Glucose Fasting 239 mg/dL (60-99); Magnesium 2.3 mg/dL (1.6-2.6); Potassium 4.5 mmol/L (3.3-5.1); Sodium 136 mmol/L (135-145); Total Protein 5.6 g/dL (6.5-8.0)
[2022-04-03] MEDS: Valsartan 40 MG TABLET PO ×2 (08:43→19:25)
[2022-04-03] MEDS: Gabapentin 100 MG CAPSULE PO ×3 (08:43→19:25)
[2022-04-03] MEDS: Empagliflozin 10 MG TABLET PO (08:43)
[2022-04-03] MEDS: Insulin Lispro 100 UNIT/ML 3 ML VIAL SUBCUT ×3 (08:44→21:46)
[2022-04-03] MEDS: Montelukast Sodium 10 MG TABLET PO (08:44)
[2022-04-03] MEDS: Furosemide 40 MG/4 ML VIAL IVPUSH ×2 (08:44→18:10)
[2022-04-03] MEDS: Insulin Glargine,Hum.rec.anlog 100 UNIT/ML 10 ML VIAL 40 UNIT SUBCUT (08:44)
[2022-04-03] MEDS: Spironolactone 25 MG TABLET PO (08:44)
[2022-04-03 09:03] LABS: Lactate Dehydrogenase 294 U/L (118-273)
[2022-04-03 09:04] LABS: Basophils Percent Auto 0.6 % (0-2); Eosinophils Absolute Auto 0.2 X10*3/uL (0.0-0.4); Eosinophils Percent Auto 2.7 % (0-4); Imm Gran Abs Auto 0.02 X10*3/uL (0.00-0.03); Imm Gran Pct Auto 0.3 % (0.0-0.4)
[2022-04-03 09:05] LABS: Hematocrit 37.8 % (42.0-52.0); Hemoglobin 11.8 g/dl (14.0-18.0); Lymphocytes Absolute Auto 1.4 X10*3/uL (1.2-4.9); Lymphocytes Percent Auto 22.2 % (20-40); Mean Corpuscular HGB Conc 31.2 g/dl (31.0-36.0); Mean Corpuscular Hemoglobin 29.6 pg (27.0-33.0); Mean Platelet Volume 12.2 fL (9.4-12.4); Monocytes Absolute Auto 0.6 X10*3/uL (0.1-1.2); Monocytes Percent Auto 8.9 % (2-11); Neutrophils Absolute Auto 4.1 x10*3/uL (2.0-8.3); Neutrophils Percent Auto 65.3 % (45-73); Red Blood Count 3.98 X10*6/uL (4.60-5.80); Red Cell Distribution Width 13.3 % (11.0-16.0); White Blood Count 6.3 X10*3/uL (4.8-10.8)
--- NOTE | 2022-04-03 09:07 | PM.HEMONCCN ---
Subjective - Subjective Chief complaint: Chest/abd pain Patient: new to practice Consult date: 04/03/22 Primary Care Provider: SONALI Rubio HPI - Consult Narrative Reason for consult: Thrombocytopenia Narrative: Raj Chandra is a 61 year old male who was admitted on 03/28/2022 for weakness and shortness of breath. Patient has a history of coronary artery disease, he underwent imaging study, CT chest/abdomen and pelvis which showed left pleural effusion with compressive atelectasis and mild diffuse ascites. He was admitted for congestive heart failure and left basal infiltrate. He was started on IV Lasix and IV antibiotics with ceftriaxone and Zithromax. His platelet count on day of admission was normal at 235 K. his platelets started to decline around 04/01/2022 a few days after receiving IV antibiotics. He was started on heparin on 04/01/2022. Patient has never been told of low platelets in the past. He had a stress test today. He has been on warfarin at home. He reports slight oozing from the IV site. He has no hematochezia or nose bleeds. Review of Systems - Constitutional Reports as per HPI, Reports anorexia, Reports poor appetite - Neurologic Reports no additional neurologic complaints, Denies syncope [facility] Medical History: Medical History (Last Reviewed 03/29/22 @ 21:41 by Megan Negrete RN) Diabetes Essential (primary) hypertension GI bleed Hematemesis HLD (hyperlipidemia) STEMI (ST elevation myocardial infarction) Unspecified asthma, uncomplicated Surgical History: Surgical History (Last Reviewed 03/29/22 @ 21:41 by Megan Negrete RN) H/O heart artery stent Social History: Social History (Last Updated 03/29/22 @ 21:39 by Megan Negrete RN) Living Situation History: Household Members: None Caregiver staying overnight: No Housing: Apartment Do you presently have visiting nurse or other home services: No Tobacco History: Patient Tobacco Use Status: Former Tobacco user Substance Use History: Substance Use Type: Former Substance User Advance Directives: Advance Directives Date on File: 08/02/21 Occupation Assessmet: service: No Home Medications and Allergies Current Medications: Current Medications Acetaminophen (Acetaminophen Supp 650 Mg Supp.Rect) 650 mg GA Q6H PRN PRN Reason: Pain, Mild (Pain Scale 1-3) Aspirin (Aspirin 81 Mg Tab.Chew) 81 mg PO DAILY [facility] Last Admin: 04/02/22 10:15 Dose: 81 mg Atorvastatin Calcium (Atorvastatin Calcium 80 Mg Tablet) 80 mg PO BEDTIME [facility] Last Admin: 04/02/22 23:03 Dose: 80 mg Dextrose (Dextrose 50 % 25 Gm/50 Ml Syringe) 25 gm IVPUSH Q15M PRN; Protocol PRN Reason: per Hypoglycemia Standing Ord. Last Admin: 03/31/22 09:05 Dose: 25 gm Empagliflozin (Empagliflozin 10 Mg Tablet) 10 mg PO DAILY [facility] Last Admin: 04/03/22 08:43 Dose: 10 mg Furosemide (Furosemide 40 Mg/4 Ml Vial) 40 mg IVPUSH BID@0900,1800 [facility]; Protocol Last Admin: 04/03/22 08:44 Dose: 40 mg Gabapentin (Gabapentin 100 Mg Capsule) 100 mg PO TID [facility] Last Admin: 04/03/22 08:43 Dose: 100 mg Glucose (Glucose Gel 15 Gm Gel..Gram.) 15 gm PO Q15M PRN; Protocol PRN Reason: per Hypoglycemia Standing Ord. Azithromycin 500 mg/ Sodium (Chloride) 250 mls @ 125 mls/hr IV Q24H [facility] Stop: 04/03/22 12:59 Last Infusion: 04/02/22 17:14 Dose: Infused Heparin Sodium/Sodium Chloride (Heparin Sodium,Porcine/1/2ns) 25,000 unit in 250 mls @ 0 mls/hr IVCONT .Q0M [facility]; Protocol Last Titration: 04/03/22 08:11 Dose: Infused Insulin Glargine (Insulin Glargine,Hum.Rec.Anlog 100 Unit/Ml 10 Ml Vial) 20 unit SUBCUT BEDTIME [facility] Last Admin: 04/02/22 23:04 Dose: 20 unit Insulin Glargine (Insulin Glargine,Hum.Rec.Anlog 100 Unit/Ml 10 Ml Vial) 40 unit SUBCUT DAILY [facility] Last Admin: 04/03/22 08:44 Dose: 40 unit Insulin Human Lispro (Insulin Lispro 100 Unit/Ml 3 Ml Vial) 0 unit SUBCUT QIDACHS [facility]; Protocol Last Admin: 04/03/22 08:44 Dose: 4 unit Montelukast Sodium (Montelukast Sodium 10 Mg Tablet) 10 mg PO DAILY [facility] Last Admin: 04/03/22 08:44 Dose: 10 mg Nitroglycerin (Nitroglycerin 0.4 Mg Tab.Subl) 0.4 mg SUBLINGUAL Q5M PRN PRN Reason: chest pain Last Admin: 04/02/22 02:33 Dose: 0.4 mg Ondansetron HCl (Ondansetron Hcl 4 Mg/2 Ml Vial) 4 mg IVPUSH Q8H PRN PRN Reason: Nausea and Vomiting Pharmacy Consult (Consult Rx Perform Med Rec) 1 each MISCELLANE ONCE PRN PRN Reason: Consult order Polyethylene Glycol (Polyethylene Glycol 3350 17 Gm Powd.Pack) 17 gm PO DAILY [facility] Last Admin: 04/03/22 08:42 Dose: Not Given Sodium Chloride (0.9 % Sodium Chloride Flush 3 Ml Syringe) 3 ml IVFLUSH [facility] Last Admin: 04/03/22 08:11 Dose: Not Given Sodium Chloride (0.9 % Sodium Chloride Flush 3 Ml Syringe) 3 ml IVFLUSH [facility] Last Admin: 04/03/22 08:37 Dose: Not Given Spironolactone (Spironolactone 25 Mg Tablet) 25 mg PO DAILY [facility]; Protocol Last Admin: 04/03/22 08:44 Dose: 25 mg Valsartan (Valsartan 40 Mg Tablet) 40 mg PO BID [facility]; Protocol Last Admin: 04/03/22 08:43 Dose: 40 mg Warfarin Sodium (Warfarin Sodium 2.5 Mg Tablet) 2.5 mg PO DAILY@1800 [facility] Last Admin: 04/02/22 18:33 Dose: 2.5 mg Home Medications Medication Instructions Recorded Confirmed Type insulin lispro 100 unit/mL See Rx Instructions .Route .COMPLEX 05/13/21 03/28/22 History subcutaneous pen (Humalog KwikPen (U-100) Insulin) empagliflozin 10 mg tablet 10 mg PO DAILY 03/28/22 03/28/22 History (Jardiance) insulin glargine 100 unit/mL (3 50 unit subcut BID 03/28/22 03/28/22 History mL) subcutaneous pen (Lantus Solostar U-100 Insulin) Allergies Allergy/AdvReac Type Severity Reaction Status Date / Time No Known Allergies Allergy Verified 04/15/21 16:30 Physical Exam Vital signs: Vital Signs Temp 98 F 04/03/22 07:00 Pulse 95 04/03/22 07:00 Resp 20 04/03/22 07:00 BP 110/56 L 04/03/22 07:00 Pulse Ox 97 04/03/22 07:00 O2 Del Method 04/03/22 07:00 O2 Flow Rate 2 04/03/22 07:00 FiO2 100 04/01/22 19:00 Intake & Output 04/02/22 04/03/22 04/03/22 18:59 06:59 18:59 Intake Total 504.2 / 1057.133 552.933 / 1057.133 83.248 / 83.248 Output Total 750 / 1150 400 / 1150 Balance -245.8 / -92.867 152.933 / -92.867 83.248 / 83.248 Urine Output (Average ml/kg/hr) 0.69 0.35 0.35 Intake: Intake, Oral Amount 500 / 500 Intake, IV Amount 504.2 / 557.133 52.933 / 557.133 83.248 / 83.248 Azithromycin 500 mg In 0.9 % 250 / 250 Sodium Chloride 250 ml @ 125 mls/hr IV Q24H [facility] Rx#: [id number] Magnesium Sulfate/D5W 1 gm In 100 / 100 100 ml @ 100 mls/hr IV ONCE ONE Rx#:[id number] cefTRIAXone sodium 1 gm In 0.9 50 / 50 % Sodium Chloride 50 ml @ 100 mls/hr IV Q24H [facility] Rx#: [id number] Heparin Sodium,Porcine/1/2NS 25 104.2 / 157.133 52.933 / 157.133 83.248 / 83.248 ,000 unit In 250 ml @ Per Protocol IVCONT .Q0M [facility] Rx#: [id number] Output: Output, Urine Amount 750 / 1150 400 / 1150 Other: Number of Bowel Movements 1 Urine Urinal Bedside Commode Urine Color Yellow Last Bowel Movement 04/03/22 Stool Bedside Commode Stool Amount Large Stool Color Herrera Stool Consistency Formed Weight 94 kg Weight in Grams [id number] Weight 94 kg - Constitutional Present: mild distress - Routine HEENT Exam Head: Present: normal inspection Eye: Present: PERRL - Routine Neck Exam Present: supple - Routine Respiratory Exam Present: accessory muscle use, rales - Routine Cardiovascular Exam Cardiovascular: Present: S1, S2 - Routine Abdominal Exam Present: distended - Routine Skin Exam Present: intact, ecchymosis Hem/Onc Consult Result - Labs CBC & Chem 7: 04/03/22 08:36 04/03/22 06:35 Labs: Short CBC 04/03/22 Range/Units 06:35 WBC 6.5 (4.8-10.8) X10*3/uL Hgb 11.4 L (14.0-18.0) g/dl Hct 36.9 L (42.0-52.0) % Plt Count 21 L D (160-400) X10*3/uL BMP 04/03/22 06:35 Sodium 136 Potassium 4.5 D Chloride 97 Carbon Dioxide 30 H BUN 27 H Creatinine 1.16 Calcium 8.0 L Liver Function 04/03/22 Range/Units 06:35 Total Bilirubin 0.4 (0.0-1.0) mg/dL AST 26 D (5-37) U/L ALT 29 (0-40) U/L Alkaline Phosphatase 116 D (39-117) U/L Albumin 3.2 L (3.5-5.0) g/dL Assessment and Plan Patient Active problem list reviewed?: Yes (1) Thrombocytopenia Status: Acute Assessment and plan: 1. This is a 61-year-old male with cardiomyopathy, coronary artery disease with LV ejection fraction of 15-20% and apical thrombus now diagnosed with thrombocytopenia. He was admitted for CHF and possible pneumonia. He has been on ceftriaxone and azithromycin since 03/28/2022. His platelets have begun to drop since 04/01/2022 and reached a naif of 18 K today. He was started on IV heparin on 04/01/2022. His platelets therefore, began to decline even before he was started on heparin. Both heparin and ceftriaxone were discontinued today. DIC profile is negative, his fibrinogen level is over 700. LDH is marginally elevated and he does not have significant anemia or kidney dysfunction to suggest TTP or H U.S.. 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 This can be associated with bleeding complications. He has not been hospitalized recently or exposed to heparin prior to this admission. Non immune mediated heparin induced thrombocytopenia can be seen within 1-2 days of heparin infusion generally does not go below [id number]. I recommend repeat labs this evening at 16:00. If his platelet counts are declining further or there is any signs of bleeding, to transfuse platelets. IVIG is also treatment option if he does not respond to platelet transfusion or withholding implicated medications. I thank you for this consult, will follow with you. - Time Spent With Patient Time Spent with Patient (in minutes): 25
[2022-04-03 09:20] LABS: Platelet Count 18 X10*3/uL (160-400)
[2022-04-03 11:07] LABS: Fibrinogen > 700 MG/DL (259-690)
[2022-04-03 11:25] LABS: Glucose, Whole Blood 205 mg/dL (60-115)
--- NOTE | 2022-04-03 11:25 | PC.NURSE ---
Addendum entered by Saturnino Salmon RN 04/03/22 14:08: debt collection specialist informed of all ciritcal results Original Note: pt refuses all fall precautions, continues to refuse post education. stress test performed. pt had no caffeine prior. poc maintained. hep gtt stopped as ordered. 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 no s/sx of bleeding. CT to be obtained.
--- NOTE | 2022-04-03 12:04 | PM.PNCARD ---
Subjective Subjective Date of Service: 04/03/22 <CAMILLE Pino - Last Filed: 04/03/22 12:28> 04/03/22 <Mike Wallace MD - Last Filed: 04/03/22 15:16> Principal diagnosis: CHF <CAMILLE Pino - Last Filed: 04/03/22 12:28> Interval history: Seen at 1000. Today he reports that he is still having some sob with walking to bathroom. No sob laying down and no cough. He says he had CP again during night, sharp like previous night. No CP this am. No palpitations, dizziness. Abdomen is still distended and firm. Reports that he is moving his bowels, no longer having diarrhea. No nausea. Legs still have tight edema to above knees. Tele shows SR, rate 90-100. Having stress portion of his stress test today. <CAMILLE Pino - Last Filed: 04/03/22 12:28> Review of Systems Review of Systems as above <CAMILLE Pino - Last Filed: 04/03/22 12:28> Physical Exam Vital Signs: Last Vital Signs Temp 98.0 F 04/03/22 11:00 Pulse 104 H 04/03/22 11:00 Resp 20 04/03/22 11:00 BP 111/70 04/03/22 11:00 Pulse Ox 95 04/03/22 11:00 O2 Del Method 04/03/22 11:00 O2 Flow Rate 2 04/03/22 07:00 FiO2 100 04/01/22 19:00 BMI result Body Mass Index 32.4 <CAMILLE Pino - Last Filed: 04/03/22 12:28> Const General: cooperative, comfortable and no acute distress <CAMILLE Pino - Last Filed: 04/03/22 12:28> Neck Neck: Yes normal visual inspection and Yes no JVD <CAMILLE Pino Last Filed: 04/03/22 12:28> Resp Effort & Inspection: normal respiratory effort <CAMILLE Pino Last Filed: 04/03/22 12:28> Auscultation: clear to auscultation bilaterally, crackles (right 1/3 up and left base), no rhonchi and no wheezes <No Nicole NPC - Last Filed: 04/03/22 12:28> Cardio Rate: regular rate <No Nicole NP - Last Filed: 04/03/22 12:28> Rhythm: regular rhythm <No Nicole NP - Last Filed: 04/03/22 12:28> Heart sounds: S1 normal heart sound present, S2 normal heart sound present, no murmurs and no rubs <No Nicole [facility] - Last Filed: 04/03/22 12:28> GI Other: Rounded, semifirm, grimaces to palpation Left side more than right <No Nicole NP - Last Filed: 04/03/22 12:28> Skin General skin exam: no rashes or lesions noted <No Nicole [facility] - Last Filed: 04/03/22 12:28> Extrem Other: pitting edema to above knees bilaterally <No Nicole [facility] - Last Filed: 04/03/22 12:28> Psych Appearance: grossly normal <No Nicole [facility] - Last Filed: 04/03/22 12:28> Mental Status: mental status grossly normal <No Nicole NP - Last Filed: 04/03/22 12:28> Speech and movement: Normal speech and movement present <No Nicole [facility] - Last Filed: 04/03/22 12:28> Objective Labs and Meds Result diagrams: : 04/03/22 13:04 04/03/22 06:35 <No Nicole [facility] - Last Filed: 04/03/22 12:28> Lab results: Laboratory Results - last 24 hr 04/02/22 04/02/22 04/02/22 15:33 16:02 19:07 WBC RBC Hgb Hct MCV MCH MCHC RDW Plt Count MPV Immature Gran % (Auto) Neut % (Auto) Lymph % (Auto) [place] % (Auto) Eos % (Auto) Baso % (Auto) Lymph # (Auto) [place] # (Auto) Eos # (Auto) Baso # (Auto) Abs Immat Gran (auto) Absolute Neuts (auto) Absolute Nucleated RBC Nucleated RBC % (auto) PT INR aPTT Heparin Protocol 40.2 L Fibrinogen Sodium Potassium Chloride Carbon Dioxide Anion Gap BUN Creatinine Estim Creat Clear Calc Estimated GFR POC Glucose 128 H 198 H Random Glucose Fasting Glucose Calcium Magnesium Total Bilirubin AST ALT Alkaline Phosphatase Lactate Dehydrogenase Total Protein Albumin 04/02/22 04/03/22 04/03/22 22:33 06:35 06:35 WBC 6.5 RBC 3.84 L Hgb 11.4 L Hct 36.9 L MCV 96.1 MCH 29.7 MCHC 30.9 L RDW 13.4 Plt Count 21 L D MPV 10.8 Immature Gran % (Auto) Neut % (Auto) Lymph % (Auto) [place] % (Auto) Eos % (Auto) Baso % (Auto) Lymph # (Auto) [place] # (Auto) Eos # (Auto) Baso # (Auto) Abs Immat Gran (auto) Absolute Neuts (auto) Absolute Nucleated RBC 0.000 Nucleated RBC % (auto) 0.0 PT INR aPTT Heparin Protocol 45.6 L Fibrinogen Sodium 136 Potassium 4.5 D Chloride 97 Carbon Dioxide 30 H Anion Gap 14 BUN 27 H Creatinine 1.16 Estim Creat Clear Calc 71.2 Estimated GFR > 60 POC Glucose Random Glucose TNP Fasting Glucose 239 H D Calcium 8.0 L Magnesium 2.3 Total Bilirubin 0.4 AST 26 D ALT 29 Alkaline Phosphatase 116 D Lactate Dehydrogenase 294 H Total Protein 5.6 L Albumin 3.2 L 04/03/22 04/03/22 04/03/22 06:35 06:35 06:35 WBC RBC Hgb Hct MCV MCH MCHC RDW Plt Count MPV Immature Gran % (Auto) Neut % (Auto) Lymph % (Auto) [place] % (Auto) Eos % (Auto) Baso % (Auto) Lymph # (Auto) [place] # (Auto) Eos # (Auto) Baso # (Auto) Abs Immat Gran (auto) Absolute Neuts (auto) Absolute Nucleated RBC Nucleated RBC % (auto) PT 17.4 H INR 1.5 H aPTT Heparin Protocol 75.2 D Fibrinogen > 700 H Cancelled Sodium Potassium Chloride Carbon Dioxide Anion Gap BUN Creatinine Estim Creat Clear Calc Estimated GFR POC Glucose Random Glucose Fasting Glucose Calcium Magnesium Total Bilirubin AST ALT Alkaline Phosphatase Lactate Dehydrogenase Total Protein Albumin 10/01/1604/03/22 04/03/22 07:07 08:36 11:17 WBC 6.3 RBC 3.98 L Hgb 11.8 L Hct 37.8 L MCV 95.0 MCH 29.6 MCHC 31.2 RDW 13.3 Plt Count 18 L* MPV 12.2 Immature Gran % (Auto) 0.3 Neut % (Auto) 65.3 Lymph % (Auto) 22.2 [place] % (Auto) 8.9 Eos % (Auto) 2.7 Baso % (Auto) 0.6 Lymph # (Auto) 1.4 [place] # (Auto) 0.6 Eos # (Auto) 0.2 Baso # (Auto) 0.0 Abs Immat Gran (auto) 0.02 Absolute Neuts (auto) 4.1 Absolute Nucleated RBC 0.000 Nucleated RBC % (auto) 0.0 PT INR aPTT Heparin Protocol Fibrinogen Sodium Potassium Chloride Carbon Dioxide Anion Gap BUN Creatinine Estim Creat Clear Calc Estimated GFR POC Glucose 219 H 205 H Random Glucose Fasting Glucose Calcium Magnesium Total Bilirubin AST ALT Alkaline Phosphatase Lactate Dehydrogenase Total Protein Albumin <CAMILLE Pino - Last Filed: 04/03/22 12:28> Imaging Radiologist's impression: Impressions Chest X-Ray 04/02/22 11:18 IMPRESSION: * Mild cardiomegaly. No overt pulmonary edema. * The persistent opacity in the medial left lung base probably represents small residual pleural effusion and atelectasis. Also, the mild hazy opacity of the right lower hemithorax could be caused by layering of small residual effusion and atelectasis. There is no pneumothorax after the recent thoracentesis * No acute radiographic abnormalities within the abdomen. KUB X-Ray 04/02/22 11:18 IMPRESSION: * Mild cardiomegaly. No overt pulmonary edema. * The persistent opacity in the medial left lung base probably represents small residual pleural effusion and atelectasis. Also, the mild hazy opacity of the right lower hemithorax could be caused by layering of small residual effusion and atelectasis. There is no pneumothorax after the recent thoracentesis * No acute radiographic abnormalities within the abdomen. <CAMLILE Pino - Last Filed: 04/03/22 12:28> Progress Note: A&P Assessment and plan (1) Acute heart failure: Status: Acute <CAMILLE Pino - Last Filed: 04/03/22 12:28> Assessment and Plan: Being treated for acute systolic/diastolic heart failure secondary to severe ischemic cardiomyopathy related to anterior wall SC 2020 with poor follow-up and medical therapy. Echocardiogram done 03/31/2022 shows EF 15-20% grade 3 diastolic dysfunction, regional wall motion abnormalities consistent with ischemic cardiomyopathy and a large apical thrombus. He is being diuresed with IV Lasix. I+Os still not accurately measured during admit. Pt using bathroom and had frequent loose stools on 03/31/22. He initially had large pleural effusions, right greater than left. He did undergo a right thoracentesis 03/31 with removal of 1300 cc of clear yellow fluid. CXR yesterday showed No overt pulmonary edema, opacity left base question small effusion, Opacity right base small effusion vs atelectasis. Today he still reports having shortness of breath when walking to the bathroom. No PND, orthopnea. He still has pitting edema in his leg to level aove knees. His abdomen is distended, firm and round however an ultrasound done 03/31 showed no ascites and KUB yestereday showed no acute findings. He does have rales noted each lower lobe R>L. Oxygen saturation 97% on 2 liters with cannula. Labs today show potassium 4.5, creatinine 1.16, BNP 1081 yesterday ( BNP 2109 on admit). Still needs further diuresis with IV Lasix Continue Aldactone. Valsartan at 40 mg b.i.d.. BB to be added when he is more euvolemic. Incentive spirometry use. Strict I+O monitoring. Close monitoring of electrolytes and kidney function. BNP in am. We will follow. <CAMILLE Pino - Last Filed: 04/03/22 12:28> Being treated for acute systolic/diastolic heart failure secondary to severe ischemic cardiomyopathy related to anterior wall SC 2020 with poor follow-up and medical therapy. Echocardiogram done 03/31/2022 shows EF 15-20% grade 3 diastolic dysfunction, regional wall motion abnormalities consistent with ischemic cardiomyopathy and a large apical thrombus. He is being diuresed with IV Lasix. I+Os still not accurately measured during admit. Pt using bathroom and had frequent loose stools on 03/31/22. He initially had large pleural effusions, right greater than left. He did undergo a right thoracentesis 03/31 with removal of 1300 cc of clear yellow fluid. CXR yesterday showed No overt pulmonary edema, opacity left base question small effusion, Opacity right base small effusion vs atelectasis. Today he still reports having shortness of breath when walking to the bathroom. No PND, orthopnea. He still has pitting edema in his leg to level aove knees. His abdomen is distended, firm and round however an ultrasound done 03/31 showed no ascites and KUB yestereday showed no acute findings. He does have rales noted each lower lobe R>L. Oxygen saturation 97% on 2 liters with cannula. Labs today show potassium 4.5, creatinine 1.16, BNP 1081 yesterday ( BNP 2109 on admit). Still needs further diuresis with IV Lasix Continue Aldactone. Valsartan at 40 mg b.i.d.. BB to be added when he is more euvolemic. Incentive spirometry use. Strict I+O monitoring. Close monitoring of electrolytes and kidney function. BNP in am. We will follow. Patient seen and examined. Case discussed with No sanchez . As discussed above continue IV diuresis. Strict intake and output chart needs to be pursued. Continue current valsartan and spironolactone. Check labs tomorrow. Replace electrolytes as needed. Will continue to follow with you. <Mike Wallace MD - Last Filed: 04/03/22 15:16> (2) Coronary artery disease: Status: Acute <CAMILLE Pino - Last Filed: 04/03/22 12:28> Assessment and Plan: History of anterior wall SC last year with 2 SANDRA placed to the LAD with post SC EF 20-25%. Cardiac risks of prior smoking, diabetes, hypertension, HLD. He did not present for routine follow-up and now admitted with heart failure syndrome as above. Troponin levels are normal. No ACS at this time. - He did wake during the night 04/02 with sharp left CP that lasted several minutes which was he told me was notlike his prior angina. ( he told Dr Wallace it Was like prior angina) EKG reviewed - no acute changes. Troponin 24.7 yest am. Tele did show a 9 beat NSVT 10/6 early am and & beat NSVT noted during stress test today. He tells me he had CP again last night, not seen in notes. Continue medical management for CAD including aspirin, high-dose atorvastatin. Valsartan has been added this admission and once heart failure further improved will add beta-oscar. Nuclear stress test to be completed today. <CAMILLE Pino - Last Filed: 04/03/22 12:28> History of anterior wall SC last year with 2 SANDRA placed to the LAD with post SC EF 20-25%. Cardiac risks of prior smoking, diabetes, hypertension, HLD. He did not present for routine follow-up and now admitted with heart failure syndrome as above. Troponin levels are normal. No ACS at this time. - He did wake during the night 10/6 with sharp left CP that lasted several minutes which was he told me was notlike his prior angina. ( he told Dr Wallace it Was like prior angina) EKG reviewed - no acute changes. Troponin 24.7 yest am. Tele did show a 9 beat NSVT 10/6 early am and & beat NSVT noted during stress test today. He tells me he had CP again last night, not seen in notes. Continue medical management for CAD including aspirin, high-dose atorvastatin. Valsartan has been added this admission and once heart failure further improved will add beta-oscar. Nuclear stress test to be completed today. Continue high-intensity statin therapy. Hold aspirin therapy as he is Also on warfarin therapy due to large apical thrombus. He is also thrombocytopenic. Stress test is pending. <Mike Wallace MD - Last Filed: 04/03/22 15:16> (3) Apical mural thrombus: Status: Acute <CAMILLE Pino - Last Filed: 04/03/22 12:28> Assessment and Plan: Large apical thrombus noted on echocardiogram. He was on heparin drip per protocol as bridge to Coumadin. INR 2.4 yet am and 1.5 this am. Significant thrombocytopenia noted this am and being evaluated by hematology. Off Heparin. No active bleeding noted. He is being eval for HIT. Coumadin on hold. Once appropriate - he will need to resume anticoagulation/ Couamdin for treatment of the apical thrombus. INR goal 2-3. Will eventually need INR followed as outpt through [facility] anticoagulation clinic. Pt previously informed of echo findings and need for anticoagulation. <CAMILLE Pino - Last Filed: 04/03/22 12:28> (4) Essential (primary) hypertension: Status: Acute <CAMILLE Pino Last Filed: 04/03/22 12:28> Assessment and Plan: Running on soft side, 110/56 this a.m. This admission he has been started on Lasix, valsartan, Aldactone - continue. <CAMILLE Pino - Last Filed: 04/03/22 12:28> (5) NSVT (nonsustained ventricular tachycardia): Status: Acute <CAMILLE Pino - Last Filed: 04/03/22 12:28> Assessment and Plan: Tele showed a 9 beat NSVT during night. Has known EF 15-20%. K 3.6 , Mg 1.9. yesterday and received supplements. Will add BB once more euvolemic. Ongoing tele monitoring. During his stress test he had aan asymptomatic 7 beat NSVT run. Will follow and consider vest defibrillator on discharge. <CAMILLE Pino - Last Filed: 04/03/22 12:28> Time Spent With Patient Time: Total time spent is greater than 50% in coordination of care (as documented) at patient's floor/unit and/or counseling patient: 24 <CAMILLE Pino Last Filed: 04/03/22 12:28> Progress Note: Quality Stroke Does the patient have a stroke diagnosis?: No <CAMILLE Pino Last Filed: 04/03/22 12:28> Procedures Date of Service Date of Service: 04/03/22 <CAMILLE Pino - Last Filed: 04/03/22 12:28>
--- NOTE | 2022-04-03 12:35 | HO.PM.IMPN ---
Subjective Subjective Date of Service: 04/03/22 Interval History: seen and examined this morning follow up for CHF, pleural effusion, apical thrombus, chest pain platelets with significant drop overnight, no bleeding at this time reporting abdominal discomfort, had 3 BM overnight. no nausea, no vomiting no chest pain this am, still with sob with ambulation Review of Systems Review of Systems: Yes all other systems are reviewed and are negative Constitutional Constitutional: Denies chills and Denies fever(s) ENT Ears, Nose, Mouth, and Throat: Denies dizziness Cardiovascular Cardiovascular: Denies chest pain, Denies palpitations and Reports dyspnea on exertion Respiratory Respiratory: Denies cough and Reports dyspnea on exertion Gastrointestinal Gastrointestinal: Reports abdominal pain, Denies constipation, Denies nausea and Denies vomiting Neurologic Neurologic: Denies dizziness Endocrine Endocrine: Denies palpitations Physical Exam Vital Signs: Vital Signs: Last Vital Signs Temp 98.0 F 04/03/22 11:00 Pulse 104 H 04/03/22 11:00 Resp 20 04/03/22 11:00 BP 111/70 04/03/22 11:00 Pulse Ox 95 04/03/22 11:00 O2 Del Method 04/03/22 11:00 O2 Flow Rate 2 04/03/22 07:00 FiO2 100 04/01/22 19:00 BMI result Body Mass Index 32.4 Const: General: alert and awake Nutritional Appearance: overweight Orientation/consciousness: patient oriented x3 Resp: Other: crackles right side primarily Effort & Inspection: normal respiratory effort, able to speak in complete sentences, not tachypneic and no use of accessory muscles Cardio: Rate: regular rate Heart sounds: S1 normal heart sound present and S2 normal heart sound present GI: Other: +BS, mild tenderness left side, no rebound; softly distended Neuro: Other: grossly nonfocal General: patient oriented x3 Extrem: Other: b/l leg edema Objective Data Active Medications Acetaminophen (Acetaminophen Supp 650 Mg Supp.Rect) 650 mg [place] Q6H PRN PRN Reason: Pain, Mild (Pain Scale 1-3) Atorvastatin Calcium (Atorvastatin Calcium 80 Mg Tablet) 80 mg PO BEDTIME [facility] Last Admin: 04/02/22 23:03 Dose: 80 mg Documented By: SANCHEZ Dextrose (Dextrose 50 % 25 Gm/50 Ml Syringe) 25 gm IVPUSH Q15M PRN; Protocol PRN Reason: per Hypoglycemia Standing Ord. Last Admin: 03/31/22 09:05 Dose: 25 gm Documented By: GAMAL Empagliflozin (Empagliflozin 10 Mg Tablet) 10 mg PO DAILY [facility] Last Admin: 04/03/22 08:43 Dose: 10 mg Documented By: MARK Furosemide (Furosemide 40 Mg/4 Ml Vial) 40 mg IVPUSH BID@0900,1800 [facility]; Protocol Last Admin: 04/03/22 08:44 Dose: 40 mg Documented By: MARK Gabapentin (Gabapentin 100 Mg Capsule) 100 mg PO TID [facility] Last Admin: 04/03/22 08:43 Dose: 100 mg Documented By: MARK Glucose (Glucose Gel 15 Gm Gel..Gram.) 15 gm PO Q15M PRN; Protocol PRN Reason: per Hypoglycemia Standing Ord. Heparin Sodium/Sodium Chloride (Heparin Sodium,Porcine/1/2ns) 25,000 unit in 250 mls @ 0 mls/hr IVCONT .Q0M SUSAN; Protocol Last Titration: 04/03/22 08:11 Dose: 0 units/kg/hr, 0 mls/hr Documented By: MARK Co-signed By: ROLANDO Insulin Glargine (Insulin Glargine,Hum.Rec.Anlog 100 Unit/Ml 10 Ml Vial) 20 unit SUBCUT BEDTIME [facility] Last Admin: 04/02/22 23:04 Dose: 20 unit Documented By: SANCHEZ Insulin Glargine (Insulin Glargine,Hum.Rec.Anlog 100 Unit/Ml 10 Ml Vial) 40 unit SUBCUT DAILY [facility] Last Admin: 04/03/22 08:44 Dose: 40 unit Documented By: MARK Insulin Human Lispro (Insulin Lispro 100 Unit/Ml 3 Ml Vial) 0 unit SUBCUT QIDACHS [facility]; Protocol Last Admin: 04/03/22 11:46 Dose: 4 unit Documented By: MARK Montelukast Sodium (Montelukast Sodium 10 Mg Tablet) 10 mg PO DAILY [facility] Last Admin: 04/03/22 08:44 Dose: 10 mg Documented By: MARK Nitroglycerin (Nitroglycerin 0.4 Mg Tab.Subl) 0.4 mg SUBLINGUAL Q5M PRN PRN Reason: chest pain Last Admin: 04/02/22 02:33 Dose: 0.4 mg Documented By: SANCHEZ Ondansetron HCl (Ondansetron Hcl 4 Mg/2 Ml Vial) 4 mg IVPUSH Q8H PRN PRN Reason: Nausea and Vomiting Pharmacy Consult (Consult Rx Perform Med Rec) 1 each MISCELLANE ONCE PRN PRN Reason: Consult order Polyethylene Glycol (Polyethylene Glycol 3350 17 Gm Powd.Pack) 17 gm PO DAILY [facility] Last Admin: 04/03/22 08:42 Dose: Not Given Documented By: MARK Non-Admin Reason: Patient Refused Sodium Chloride (0.9 % Sodium Chloride Flush 3 Ml Syringe) 3 ml IVFLUSH QSHIFT [facility] Last Admin: 04/03/22 08:11 Dose: Not Given Documented By: MARK Non-Admin Reason: See Note Sodium Chloride (0.9 % Sodium Chloride Flush 3 Ml Syringe) 3 ml IVFLUSH QSHIFT [facility] Last Admin: 04/03/22 08:37 Dose: Not Given Documented By: MARK Non-Admin Reason: See Note Spironolactone (Spironolactone 25 Mg Tablet) 25 mg PO DAILY [facility]; Protocol Last Admin: 04/03/22 08:44 Dose: 25 mg Documented By: MARK Valsartan (Valsartan 40 Mg Tablet) 40 mg PO BID [facility]; Protocol Last Admin: 04/03/22 08:43 Dose: 40 mg Documented By: MARK Labs CBC & Chem 7: 04/03/22 13:04 04/03/22 06:35 Labs: Laboratory Results - last 24 hr 04/02/22 04/02/22 04/02/22 15:33 16:02 19:07 MCV MCH MCHC RDW Plt Count MPV Immature Gran % (Auto) Neut % (Auto) Lymph % (Auto) [place] % (Auto) Eos % (Auto) Baso % (Auto) Lymph # (Auto) [place] # (Auto) Eos # (Auto) Baso # (Auto) Abs Immat Gran (auto) Absolute Neuts (auto) Absolute Nucleated RBC Nucleated RBC % (auto) PT INR aPTT Heparin Protocol 40.2 L Fibrinogen Anion Gap Estim Creat Clear Calc Estimated GFR POC Glucose 128 H 198 H Random Glucose Fasting Glucose Calcium Magnesium Total Bilirubin AST ALT Alkaline Phosphatase Lactate Dehydrogenase Total Protein Albumin 04/02/22 04/03/22 04/03/22 22:33 06:35 06:35 MCV 96.1 MCH 29.7 MCHC 30.9 L RDW 13.4 Plt Count 21 L D MPV 10.8 Immature Gran % (Auto) Neut % (Auto) Lymph % (Auto) [place] % (Auto) Eos % (Auto) Baso % (Auto) Lymph # (Auto) [place] # (Auto) Eos # (Auto) Baso # (Auto) Abs Immat Gran (auto) Absolute Neuts (auto) Absolute Nucleated RBC 0.000 Nucleated RBC % (auto) 0.0 PT INR aPTT Heparin Protocol 45.6 L Fibrinogen Anion Gap 14 Estim Creat Clear Calc 71.2 Estimated GFR > 60 POC Glucose Random Glucose TNP Fasting Glucose 239 H D Calcium 8.0 L Magnesium 2.3 Total Bilirubin 0.4 AST 26 D ALT 29 Alkaline Phosphatase 116 D Lactate Dehydrogenase 294 H Total Protein 5.6 L Albumin 3.2 L 04/03/22 04/03/22 04/03/22 06:35 06:35 06:35 MCV MCH MCHC RDW Plt Count MPV Immature Gran % (Auto) Neut % (Auto) Lymph % (Auto) [place] % (Auto) Eos % (Auto) Baso % (Auto) Lymph # (Auto) [place] # (Auto) Eos # (Auto) Baso # (Auto) Abs Immat Gran (auto) Absolute Neuts (auto) Absolute Nucleated RBC Nucleated RBC % (auto) PT 17.4 H INR 1.5 H aPTT Heparin Protocol 75.2 D Fibrinogen > 700 H Cancelled Anion Gap Estim Creat Clear Calc Estimated GFR POC Glucose Random Glucose Fasting Glucose Calcium Magnesium Total Bilirubin AST ALT Alkaline Phosphatase Lactate Dehydrogenase Total Protein Albumin 04/03/22 04/03/22 04/03/22 07:07 08:36 11:17 MCV 95.0 MCH 29.6 MCHC 31.2 RDW 13.3 Plt Count 18 L* MPV 12.2 Immature Gran % (Auto) 0.3 Neut % (Auto) 65.3 Lymph % (Auto) 22.2 [place] % (Auto) 8.9 Eos % (Auto) 2.7 Baso % (Auto) 0.6 Lymph # (Auto) 1.4 [place] # (Auto) 0.6 Eos # (Auto) 0.2 Baso # (Auto) 0.0 Abs Immat Gran (auto) 0.02 Absolute Neuts (auto) 4.1 Absolute Nucleated RBC 0.000 Nucleated RBC % (auto) 0.0 PT INR aPTT Heparin Protocol Fibrinogen Anion Gap Estim Creat Clear Calc Estimated GFR POC Glucose 219 H 205 H Random Glucose Fasting Glucose Calcium Magnesium Total Bilirubin AST ALT Alkaline Phosphatase Lactate Dehydrogenase Total Protein Albumin Microbiology Microbiology Results: Microbiology 03/31/22 12:00 Gram Stain - Final Paracentesis Fluid Anaerobic Culture - Preliminary No growth to date. Body Fluid Culture - Final No growth after 2 days 03/28/22 13:29 Blood Culture - Final Blood - Venous No growth after 5 days. 03/28/22 13:26 Blood Culture - Final Blood - Venous No growth after 5 days. Assessment and Plan (1) Thrombocytopenia: Status: Acute (2) NSVT (nonsustained ventricular tachycardia): Status: Acute (3) Apical mural thrombus: Status: Acute (4) Acute heart failure: Status: Acute (5) Coronary artery disease: Status: Acute Plan 61-year-old male with progressive shortness of breath over the last 4-5 days as well as stocking-glove paresthesias with weakness presents to the ER today for workup.? CT abdomen pelvis and chest demonstrate right greater than left pleural effusions question left base infiltrate. 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 -continue IV lasix -continue spironolactone, jardiance -cardiology following Apical thrombus previously on heparin drip and oral Coumadin.? - AC d/c for severe thrombocytopenia no AC now per hematology CAD h/o anterior wall [place] with 2 stents CP overnight, trops flat on full AC inpatient stress test - results pending cardiology following NSVT 9 beat vtach known low EF not on BB due to acute CHF goal to keep K>4, mag >2 cardiology following Pleural effusion s/p thoracentesis 03/31 with removal of 1.3L of fluid likely secondary to CHF vs pneumonia repeat CXR showing small residual effusion abdominal pain ct scan with no acute abdominal pathology LFTs wnl symptomatic care continue bowel regimine Possible pneumonia no sepsis initial CT scan showing large effusion with airspace dz ?pneumonia treated with iv ceftriaxone, azithromycin for 5 days abx d/c for severe thrombocytopenia - no further abx at this time blood cultures have remained negative Uncontrolled diabetes type 2 intermittent episodes of hypoglycemia, mostly fasting -will decrease lantus, lower dose at bedtime -d/c metformin -SSI, POCs, ADA diet Paresthesias with subjective weakness -given stocking-glove distribution likely related to diabetes -ordered EMG 03/30 Hypertension bp controlled, continue current meds Full code DVT ppx - AC d/c for severe thrombocytopenia; mechanical devices ordered attending - dr.? way Will require ongoing hospitalization for IV lasix for CHF, tele monitoring for arrhythmia,close monitoring for thrombocytopenia Quality Stroke Does the patient have a stroke diagnosis?: No VTE Prior VTE?: No VTE Risk Level:: Medical - moderate - high VTE Device Contraindication: Treatment Not Indicated VTE Drug Contraindication: N/A - Med Ordered
[2022-04-03 13:13] LABS: Eosinophils Absolute Auto 0.2 X10*3/uL (0.0-0.4); Eosinophils Percent Auto 2.3 % (0-4); Red Cell Distribution Width 13.4 % (11.0-16.0)
[2022-04-03 13:14] LABS: Basophils Percent Auto 0.5 % (0-2); Hematocrit 41.5 % (42.0-52.0); Hemoglobin 12.9 g/dl (14.0-18.0); Imm Gran Abs Auto 0.02 X10*3/uL (0.00-0.03); Imm Gran Pct Auto 0.3 % (0.0-0.4); Mean Corpuscular HGB Conc 31.1 g/dl (31.0-36.0); Mean Corpuscular Hemoglobin 29.9 pg (27.0-33.0); Mean Corpuscular Volume 96.3 fL (80.0-98.0); Mean Platelet Volume 11.2 fL (9.4-12.4); Monocytes Absolute Auto 0.5 X10*3/uL (0.1-1.2); Monocytes Percent Auto 8.1 % (2-11); Neutrophils Absolute Auto 4.8 x10*3/uL (2.0-8.3); Neutrophils Percent Auto 73.8 % (45-73); Red Blood Count 4.31 X10*6/uL (4.60-5.80); White Blood Count 6.5 X10*3/uL (4.8-10.8)
[2022-04-03 13:30] LABS: Platelet Count 13 X10*3/uL (160-400)
[2022-04-03] MEDS: Morphine Sulfate 2 MG/ML CARTRIDGE IVPUSH (14:56)
[2022-04-03] MEDS: polyethylene glycoL 3350 17 GM POWD.PACK PO (17:44)
[2022-04-03 18:24] LABS: PLT CLUMP 1
[2022-04-03 18:26] LABS: Hematocrit 37.5 % (42.0-52.0); Mean Corpuscular Hemoglobin 30.3 pg (27.0-33.0); Mean Corpuscular Volume 94.7 fL (80.0-98.0); Mean Platelet Volume 11.3 fL (9.4-12.4); Red Blood Count 3.96 X10*6/uL (4.60-5.80); Red Cell Distribution Width 13.3 % (11.0-16.0)
[2022-04-03 18:27] LABS: Platelet Count 26 X10*3/uL (160-400); White Blood Count 7.6 X10*3/uL (4.8-10.8)
[2022-04-03 18:39] LABS: Glucose, Whole Blood 138 mg/dL (60-115)
[2022-04-03] MEDS: 0.9 % Sodium Chloride Flush 3 ML SYRINGE IVFLUSH ×2 (19:25)
[2022-04-03] MEDS: Atorvastatin Calcium 80 MG TABLET PO (19:25)
[2022-04-03] MEDS: Insulin Glargine,Hum.rec.anlog 100 UNIT/ML 10 ML VIAL 20 UNIT SUBCUT (21:46)
[2022-04-03 21:51] LABS: Glucose, Whole Blood 184 mg/dL (60-115)
[2022-04-04] VITALS (8 sets, daily range): BP systolic 93–110; BP diastolic 68–83; PULSE 80–105; RESP 16–20; TEMP 36.4–37.2; O2SAT 92–100
[2022-04-04] MEDS: Morphine Sulfate 2 MG/ML CARTRIDGE IVPUSH ×3 (01:27→22:36)
[2022-04-04 06:54] LABS: Hematocrit 39.5 % (42.0-52.0); PLT CLUMP 1; Red Cell Distribution Width 13.3 % (11.0-16.0); SCAN SMEAR FLAG 1
[2022-04-04 06:56] LABS: Basophils Percent Auto 0.7 % (0-2); Eosinophils Absolute Auto 0.2 X10*3/uL (0.0-0.4); Eosinophils Percent Auto 2.9 % (0-4); Hemoglobin 12.3 g/dl (14.0-18.0); Imm Gran Abs Auto 0.01 X10*3/uL (0.00-0.03); Imm Gran Pct Auto 0.2 % (0.0-0.4); Lymphocytes Absolute Auto 1.3 X10*3/uL (1.2-4.9); Lymphocytes Percent Auto 22.3 % (20-40); MANUAL DIFF FLAG SCAN; Mean Corpuscular HGB Conc 31.1 g/dl (31.0-36.0); Mean Corpuscular Hemoglobin 29.9 pg (27.0-33.0); Mean Corpuscular Volume 96.1 fL (80.0-98.0); Mean Platelet Volume 8.8 fL (9.4-12.4); Monocytes Absolute Auto 0.6 X10*3/uL (0.1-1.2); Monocytes Percent Auto 10.5 % (2-11); Neutrophils Absolute Auto 3.8 x10*3/uL (2.0-8.3); Neutrophils Percent Auto 63.4 % (45-73); Red Blood Count 4.11 X10*6/uL (4.60-5.80)
[2022-04-04 07:24] LABS: Glucose, Whole Blood 180 mg/dL (60-115)
[2022-04-04 07:24] LABS: Alanine Aminotransferase 25 U/L (0-40); Albumin Level 3.4 g/dL (3.5-5.0); Alkaline Phosphatase 110 U/L (39-117); Anion Gap 15 (12-20); Aspartate Amino Transferase 17 U/L (5-37); Bilirubin Total 0.7 mg/dL (0.0-1.0); Blood Urea Nitrogen 26 mg/dL (9-16); Calcium 8.4 mg/dL (8.4-10.2); Carbon Dioxide 34 mmol/L (22-29); Chloride 96 mmol/L (96-108); Creatinine Clr Calc Pharmacy 75.1; Estimated Glomerular Filt Rate > 60; Glucose Fasting 171 mg/dL (60-99); Magnesium 2.2 mg/dL (1.6-2.6); Potassium 4.7 mmol/L (3.3-5.1); Sodium 140 mmol/L (135-145); Total Protein 5.9 g/dL (6.5-8.0)
[2022-04-04 07:27] LABS: White Blood Count 5.9 X10*3/uL (4.8-10.8)
[2022-04-04 07:42] LABS: Platelet Count 5 X10*3/uL (160-400)
[2022-04-04 07:43] LABS: SLIDE REVIEW VERIFIED
[2022-04-04] MEDS: Insulin Lispro 100 UNIT/ML 3 ML VIAL SUBCUT ×3 (07:59→21:00)
[2022-04-04] MEDS: Montelukast Sodium 10 MG TABLET PO (08:01)
[2022-04-04] MEDS: Gabapentin 100 MG CAPSULE PO ×3 (08:01→21:01)
[2022-04-04] MEDS: Empagliflozin 10 MG TABLET PO (08:01)
[2022-04-04] MEDS: 0.9 % Sodium Chloride Flush 3 ML SYRINGE IVFLUSH ×6 (08:01→21:01)
[2022-04-04] MEDS: Insulin Glargine,Hum.rec.anlog 100 UNIT/ML 10 ML VIAL 40 UNIT SUBCUT (08:02)
[2022-04-04] MEDS: polyethylene glycoL 3350 17 GM POWD.PACK PO (08:04)
[2022-04-04] MEDS: Immun Glob G(IgG)/Gly/IGA Ov50 200 ML IV ×2 (09:58→14:34)
--- NOTE | 2022-04-04 10:57 | HO.PM.IMPN ---
Subjective Subjective Date of Service: 04/04/22 Interval History: Follow up for CHF, pleural effusion, apical thrombus, chest pain, severe thrombocytopenia platelets with significant drop overnight, no bleeding at this time Denies abdominal pain, bleeding, nausea, vomiting, diarrhea Review of Systems Review of Systems: Yes all other systems are reviewed and are negative Constitutional Constitutional: Denies chills and Denies fever(s) ENT Ears, Nose, Mouth, and Throat: Denies dizziness Cardiovascular Cardiovascular: Denies chest pain, Denies palpitations and Reports dyspnea on exertion Respiratory Respiratory: Denies cough and Reports dyspnea on exertion Gastrointestinal Gastrointestinal: Reports abdominal pain, Denies constipation, Denies nausea and Denies vomiting Neurologic Neurologic: Denies dizziness Endocrine Endocrine: Denies palpitations Physical Exam Vital Signs: Vital Signs: Last Vital Signs Temp 98.0 F 04/04/22 07:33 Pulse 80 04/04/22 07:33 Resp 16 04/04/22 07:33 BP 93/74 04/04/22 07:33 Pulse Ox 92 04/04/22 07:33 O2 Del Method 04/04/22 07:33 O2 Flow Rate 2 04/03/22 20:00 FiO2 100 04/01/22 19:00 BMI result Body Mass Index 32.4 Appearing in no acute distress lung sounds are clear to auscultation heart regular rate rhythm, clear S1, S2 positive bowel sounds, abdomen is soft, nontender neuro patient is alert x3, no focal deficits Objective Data Active Medications Acetaminophen (Acetaminophen Supp 650 Mg Supp.Rect) 650 mg [place] Q6H PRN PRN Reason: Pain, Mild (Pain Scale 1-3) Atorvastatin Calcium (Atorvastatin Calcium 80 Mg Tablet) 80 mg PO BEDTIME [facility] Last Admin: 04/03/22 19:25 Dose: 80 mg Documented By: PADDY Dextrose (Dextrose 50 % 25 Gm/50 Ml Syringe) 25 gm IVPUSH Q15M PRN; Protocol PRN Reason: per Hypoglycemia Standing Ord. Last Admin: 03/31/22 09:05 Dose: 25 gm Documented By: GAMAL Empagliflozin (Empagliflozin 10 Mg Tablet) 10 mg PO DAILY [facility] Last Admin: 04/04/22 08:01 Dose: 10 mg Documented By: ROBERT Furosemide (Furosemide 40 Mg/4 Ml Vial) 40 mg IVPUSH BID@0900,1800 [facility]; Protocol Last Admin: 04/03/22 18:10 Dose: 40 mg Documented By: MARK Gabapentin (Gabapentin 100 Mg Capsule) 100 mg PO TID [facility] Last Admin: 04/04/22 08:01 Dose: 100 mg Documented By: ROBERT Glucose (Glucose Gel 15 Gm Gel..Gram.) 15 gm PO Q15M PRN; Protocol PRN Reason: per Hypoglycemia Standing Ord. Heparin Sodium/Sodium Chloride (Heparin Sodium,Porcine/1/2ns) 25,000 unit in 250 mls @ 0 mls/hr IVCONT .Q0M [facility]; Protocol Last Titration: 04/03/22 08:11 Dose: 0 units/kg/hr, 0 mls/hr Documented By: MARK Co-signed By: ROLANDO Immune Globulin (Gammagard 10%) 200 mls @ 47 mls/hr IV DAILY@0900 [facility] Stop: 04/06/22 13:16 Last Admin: 04/04/22 09:58 Dose: 47 mls/hr Documented By: ROBERT Immune Globulin (Gammagard 10%) 200 mls @ 47 mls/hr IV DAILY@1315 [facility] Stop: 04/06/22 17:31 Insulin Glargine (Insulin Glargine,Hum.Rec.Anlog 100 Unit/Ml 10 Ml Vial) 20 unit SUBCUT BEDTIME [facility] Last Admin: 04/03/22 21:46 Dose: 20 unit Documented By: PADDY Insulin Glargine (Insulin Glargine,Hum.Rec.Anlog 100 Unit/Ml 10 Ml Vial) 40 unit SUBCUT DAILY [facility] Last Admin: 04/04/22 08:02 Dose: 40 unit Documented By: ROBERT Insulin Human Lispro (Insulin Lispro 100 Unit/Ml 3 Ml Vial) 0 unit SUBCUT QIDACHS [facility]; Protocol Last Admin: 04/04/22 07:59 Dose: 2 unit Documented By: ROBERT Montelukast Sodium (Montelukast Sodium 10 Mg Tablet) 10 mg PO DAILY [facility] Last Admin: 04/04/22 08:01 Dose: 10 mg Documented By: ORBERT Morphine Sulfate (Morphine Sulfate 2 Mg/Ml Cartridge) 2 mg IVPUSH Q4H PRN; Protocol PRN Reason: Pain, Severe (Pain Scale 7-10) Last Admin: 04/04/22 01:27 Dose: 2 mg Documented By: PADDY Nitroglycerin (Nitroglycerin 0.4 Mg Tab.Subl) 0.4 mg SUBLINGUAL Q5M PRN PRN Reason: chest pain Last Admin: 04/02/22 02:33 Dose: 0.4 mg Documented By: SANCHEZ Ondansetron HCl (Ondansetron Hcl 4 Mg/2 Ml Vial) 4 mg IVPUSH Q8H PRN PRN Reason: Nausea and Vomiting Pharmacy Consult (Consult Rx Perform Med Rec) 1 each MISCELLANE ONCE PRN PRN Reason: Consult order Polyethylene Glycol (Polyethylene Glycol 3350 17 Gm Powd.Pack) 17 gm PO DAILY [facility] Last Admin: 04/04/22 08:04 Dose: 17 gm Documented By: ROBERT Sodium Chloride (0.9 % Sodium Chloride Flush 3 Ml [facility]ringe) [facility] Last Admin: 04/04/22 08:01 Dose: 3 ml Documented By: ROBERT Sodium Chloride (0.9 % Sodium Chloride Flush 3 Ml Syringe) [facility] Last Admin: 04/04/22 08:01 Dose: 3 ml Documented By: ROBERT Spironolactone (Spironolactone 25 Mg Tablet) 25 mg PO DAILY [facility]; Protocol Last Admin: 04/03/22 08:44 Dose: 25 mg Documented By: CADY-LEMUEL Valsartan (Valsartan 40 Mg Tablet) 40 mg PO BID [facility]; Protocol Last Admin: 04/03/22 19:25 Dose: 40 mg Documented By: PADDY Labs CBC & Chem 7: 04/04/22 06:16 04/04/22 06:16 Labs: Laboratory Results - last 24 hr 04/03/22 04/03/22 04/03/22 06:35 11:17 13:04 MCV MCH MCHC RDW Plt Count MPV Immature Gran % (Auto) Neut % (Auto) Lymph % (Auto) [place] % (Auto) Eos % (Auto) Baso % (Auto) Lymph # (Auto) [place] # (Auto) Eos # (Auto) Baso # (Auto) Abs Immat Gran (auto) Absolute Neuts (auto) Absolute Nucleated RBC Nucleated RBC % (auto) Smear Tech's Comments Fibrinogen > 700 H Anion Gap Estim Creat Clear Calc Estimated GFR POC Glucose 205 H Random Glucose Fasting Glucose Calcium Magnesium Total Bilirubin AST ALT Alkaline Phosphatase Total Protein Albumin Blood Type A Positive Antibody Screen NEGATIVE 04/03/22 04/03/22 04/03/22 13:04 16:50 17:38 MCV 96.3 94.7 MCH 29.9 30.3 MCHC 31.1 32.0 RDW 13.4 13.3 Plt Count 13 L* 26 L D MPV 11.2 11.3 Immature Gran % (Auto) 0.3 Neut % (Auto) 73.8 H Lymph % (Auto) 15.0 L [place] % (Auto) 8.1 Eos % (Auto) 2.3 Baso % (Auto) 0.5 Lymph # (Auto) 1.0 L [place] # (Auto) 0.5 Eos # (Auto) 0.2 Baso # (Auto) 0.0 Abs Immat Gran (auto) 0.02 Absolute Neuts (auto) 4.8 Absolute Nucleated RBC 0.000 0.000 Nucleated RBC % (auto) 0.0 0.0 Smear Tech's Comments Fibrinogen Anion Gap Estim Creat Clear Calc Estimated GFR POC Glucose 138 H Random Glucose Fasting Glucose Calcium Magnesium Total Bilirubin AST ALT Alkaline Phosphatase Total Protein Albumin Blood Type Antibody Screen 04/03/22 04/04/22 04/04/22 19:38 06:16 06:16 MCV 96.1 MCH 29.9 MCHC 31.1 RDW 13.3 Plt Count 5 L* D MPV 8.8 L Immature Gran % (Auto) 0.2 Neut % (Auto) 63.4 Lymph % (Auto) 22.3 [place] % (Auto) 10.5 Eos % (Auto) 2.9 Baso % (Auto) 0.7 Lymph # (Auto) 1.3 [place] # (Auto) 0.6 Eos # (Auto) 0.2 Baso # (Auto) 0.0 Abs Immat Gran (auto) 0.01 Absolute Neuts (auto) 3.8 Absolute Nucleated RBC 0.000 Nucleated RBC % (auto) 0.0 Smear Tech's Comments VERIFIED Fibrinogen Anion Gap 15 Estim Creat Clear Calc 75.1 Estimated GFR > 60 POC Glucose 184 H Random Glucose TNP Fasting Glucose 171 H Calcium 8.4 Magnesium 2.2 Total Bilirubin 0.7 AST 17 ALT 25 Alkaline Phosphatase 110 Total Protein 5.9 L Albumin 3.4 L Blood Type Antibody Screen 04/04/22 07:12 MCV MCH MCHC RDW Plt Count MPV Immature Gran % (Auto) Neut % (Auto) Lymph % (Auto) [place] % (Auto) Eos % (Auto) Baso % (Auto) Lymph # (Auto) [place] # (Auto) Eos # (Auto) Baso # (Auto) Abs Immat Gran (auto) Absolute Neuts (auto) Absolute Nucleated RBC Nucleated RBC % (auto) Smear Tech's Comments Fibrinogen Anion Gap Estim Creat Clear Calc Estimated GFR POC Glucose 180 H Random Glucose Fasting Glucose Calcium Magnesium Total Bilirubin AST ALT Alkaline Phosphatase Total Protein Albumin Blood Type Antibody Screen Microbiology Microbiology Results: Microbiology 03/31/22 12:00 Gram Stain - Final Paracentesis Fluid Anaerobic Culture - Preliminary No growth to date. Body Fluid Culture - Final No growth after 2 days Assessment and Plan (1) Thrombocytopenia: Status: Acute (2) NSVT (nonsustained ventricular tachycardia): Status: Acute (3) Apical mural thrombus: Status: Acute (4) Acute heart failure: Status: Acute (5) Coronary artery disease: Status: Acute Plan 61-year-old male with progressive shortness of breath over the last 4-5 days as well as stocking-glove paresthesias with weakness presents to the ER today for workup.? CT abdomen pelvis and chest demonstrate right greater than left pleural effusions question left base infiltrate. 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 Blood pressure on the lower side, will hold Lasix and spironolactone for now Continue Jardiance Cardiology following Apical thrombus previously on heparin drip and oral Coumadin.? Stopped due to severe thrombocytopenia with platelets 5 today no AC now per hematology CAD h/o anterior wall [place] with 2 stents CP overnight, trops flat on full AC initially but held due to severe thrombocytopenia inpatient stress test - EF 19%, myocardial perfusion showing large transmural infarct in LAD territory, transient ischemic dilatation not present, Lexiscan portion with a 7 be an SVT in recovery with normotensive response nondiagnostic EKG for ischemia cardiology following NSVT 9 beat vtach during resting phase of stress test known low EF not on BB due to acute CHF goal to keep K>4, mag >2 cardiology following Pleural effusion s/p thoracentesis 03/31 with removal of 1.3L of fluid likely secondary to CHF vs pneumonia repeat CXR showing small residual effusion abdominal pain ct scan with no acute abdominal pathology LFTs wnl symptomatic care continue bowel regimine Possible pneumonia no sepsis initial CT scan showing large effusion with airspace dz ?pneumonia treated with iv ceftriaxone, azithromycin for 5 days abx d/c for severe thrombocytopenia - no further abx at this time blood cultures have remained negative Uncontrolled diabetes type 2 intermittent episodes of hypoglycemia, mostly fasting Metformin stopped, Lantus decreased at bedtime Continue sliding scale, ADA diet Paresthesias with subjective weakness given stocking-glove distribution likely related to diabetes ordered EMG 03/30 Hypertension bp controlled, continue current meds Full code DVT ppx - mechanical devices ordered due to severe thrombocytopenia attending - dr.? Conde Will require ongoing hospitalization for treatment of acute congestive heart failure, close telemetry monitoring and management for severe thrombocytopenia with high risk for decompensation Quality Stroke Does the patient have a stroke diagnosis?: No VTE Prior VTE?: No VTE Risk Level:: Medical - moderate - high VTE Device Contraindication: Treatment Not Indicated VTE Drug Contraindication: N/A - Med Ordered
--- NOTE | 2022-04-04 12:57 | PM.PNCARD ---
Subjective Subjective Date of Service: 04/04/22 Principal diagnosis: CHF Interval history: Patient continues to be short of breath. However noted to be profoundly thrombocytopenic. Currently receiving IVIG. No spontaneous bleeding. Says he has puffed up. He is very vague historian. Denies any palpitations or lightheadedness. Blood pressure is stable. Myocardial perfusion imaging does not show any ischemia will mainly shows old transmural infarct in the LAD territory. Review of Systems Review of Systems Yes all other systems are reviewed and are negative Physical Exam Vital Signs: Last Vital Signs Temp 97.9 F 04/04/22 11:30 Pulse 100 04/04/22 11:30 Resp 16 04/04/22 11:30 BP 103/69 04/04/22 11:30 Pulse Ox 96 04/04/22 11:30 O2 Del Method 04/04/22 11:30 O2 Flow Rate 3 04/04/22 11:30 FiO2 100 04/01/22 19:00 BMI result Body Mass Index 32.4 Const General: cooperative, comfortable and no acute distress Neck Neck: Yes normal visual inspection and Yes no JVD Resp Effort & Inspection: normal respiratory effort Auscultation: clear to auscultation bilaterally, crackles (right 1/3 up and left base), no rhonchi and no wheezes Cardio Rate: regular rate Rhythm: regular rhythm Heart sounds: S1 normal heart sound present, S2 normal heart sound present, no murmurs and no rubs GI Other: Rounded, semifirm, grimaces to palpation Left side more than right Skin General skin exam: no rashes or lesions noted Extrem Other: pitting edema to above knees bilaterally Psych Appearance: grossly normal Mental Status: mental status grossly normal Speech and movement: Normal speech and movement present Objective Labs and Meds Result diagrams: 04/04/22 06:16 04/04/22 06:16 Lab results: Laboratory Results - last 24 hr 04/03/22 04/03/22 04/03/22 13:04 13:04 16:50 WBC 6.5 RBC 4.31 L Hgb 12.9 L Hct 41.5 L MCV 96.3 MCH 29.9 MCHC 31.1 RDW 13.4 Plt Count 13 L* MPV 11.2 Immature Gran % (Auto) 0.3 Neut % (Auto) 73.8 H Lymph % (Auto) 15.0 L Fountain % (Auto) 8.1 Eos % (Auto) 2.3 Baso % (Auto) 0.5 Lymph # (Auto) 1.0 L Fountain # (Auto) 0.5 Eos # (Auto) 0.2 Baso # (Auto) 0.0 Abs Immat Gran (auto) 0.02 Absolute Neuts (auto) 4.8 Absolute Nucleated RBC 0.000 Nucleated RBC % (auto) 0.0 Smear Tech's Comments Sodium Potassium Chloride Carbon Dioxide Anion Gap BUN Creatinine Estim Creat Clear Calc Estimated GFR POC Glucose 138 H Random Glucose Fasting Glucose Calcium Magnesium Total Bilirubin AST ALT Alkaline Phosphatase Total Protein Albumin Blood Type A Positive Antibody Screen NEGATIVE 04/03/22 04/03/22 04/04/22 17:38 19:38 06:16 WBC 7.6 5.9 RBC 3.96 L 4.11 L Hgb 12.0 L 12.3 L Hct 37.5 L 39.5 L MCV 94.7 96.1 MCH 30.3 29.9 MCHC 32.0 31.1 RDW 13.3 13.3 Plt Count 26 L D 5 L* D MPV 11.3 8.8 L Immature Gran % (Auto) 0.2 Neut % (Auto) 63.4 Lymph % (Auto) 22.3 Fountain % (Auto) 10.5 Eos % (Auto) 2.9 Baso % (Auto) 0.7 Lymph # (Auto) 1.3 Fountain # (Auto) 0.6 Eos # (Auto) 0.2 Baso # (Auto) 0.0 Abs Immat Gran (auto) 0.01 Absolute Neuts (auto) 3.8 Absolute Nucleated RBC 0.000 0.000 Nucleated RBC % (auto) 0.0 0.0 Smear Tech's Comments VERIFIED Sodium Potassium Chloride Carbon Dioxide Anion Gap BUN Creatinine Estim Creat Clear Calc Estimated GFR POC Glucose 184 H Random Glucose Fasting Glucose Calcium Magnesium Total Bilirubin AST ALT Alkaline Phosphatase Total Protein Albumin Blood Type Antibody Screen 04/04/22 04/04/22 04/04/22 06:16 07:12 11:08 WBC RBC Hgb Hct MCV MCH MCHC RDW Plt Count MPV Immature Gran % (Auto) Neut % (Auto) Lymph % (Auto) Fountain % (Auto) Eos % (Auto) Baso % (Auto) Lymph # (Auto) Fountain # (Auto) Eos # (Auto) Baso # (Auto) Abs Immat Gran (auto) Absolute Neuts (auto) Absolute Nucleated RBC Nucleated RBC % (auto) Smear Tech's Comments Sodium 140 Potassium 4.7 Chloride 96 Carbon Dioxide 34 H Anion Gap 15 BUN 26 H Creatinine 1.10 Estim Creat Clear Calc 75.1 Estimated GFR > 60 POC Glucose 180 H 148 H Random Glucose TNP Fasting Glucose 171 H Calcium 8.4 Magnesium 2.2 Total Bilirubin 0.7 AST 17 ALT 25 Alkaline Phosphatase 110 Total Protein 5.9 L Albumin 3.4 L Blood Type Antibody Screen Imaging Radiologist's impression: Impressions Myocardial Perfusion Scan Nuc Med 04/03/22 13:00 Impression: 1. Myocardial perfusion imaging study shows large transmural infarct in LAD territory 2. Gated LVEF is 19% 3. Transient ischemic dilatation not present but LV cavity is dilated EKG is nondiagnostic for ischemia Progress Note: A&P Assessment and plan (1) Acute heart failure: Status: Acute Assessment and Plan: Patient present with acute heart failure. Still appears to be clinically fluid overloaded. Continue IV diuresis. Strict intake and output chart. Continue valsartan Aldactone. Please add low-dose metoprolol therapy. She also has a large apical thrombus but noted to be profoundly thrombocytopenic. INR subtherapeutic. Hold off on loading with either IV heparin or Lovenox for warfarin therapy till his thrombocytopenia count improves. Overall prognosis still is guarded. Will continue to follow with you Time Spent With Patient Time: Total time spent is greater than 50% in coordination of care (as documented) at patient's floor/unit and/or counseling patient: Progress Note: Quality Stroke Does the patient have a stroke diagnosis?: No Procedures Date of Service Date of Service: 04/04/22
--- NOTE | 2022-04-04 14:19 | PM.HEMONCPN ---
Medical Summary - Medical Summary Date of Service: 04/04/22 Chief complaint: Difficulty breathing Medical Summary: Diagnosis: Severe thrombocytopenia Admitted on 03/28/2022 for weakness and shortness of breath. Patient has a history of coronary artery disease, he underwent imaging study, CT chest/abdomen and pelvis which showed left pleural effusion with compressive atelectasis and mild diffuse ascites. He was admitted for congestive heart failure and left basal infiltrate. He was started on IV Lasix and IV antibiotics with ceftriaxone and Zithromax. His platelet count on day of admission was normal at 235 K. his platelets started to decline around 04/01/2022 a few days after receiving IV antibiotics. He was started on heparin on 04/01/2022. Interval History Interval history: Patient says he feels about the same but reports some nose bleeds. He also noticed a little blood in his diaper. He has chronic shortness of breath. No chest pain or dizziness. His abdomen feels bloated. Review of Systems - Neurologic Reports no additional neurologic complaints, Denies dizziness, Denies syncope [facility] Medical History: Medical History (Last Reviewed 03/29/22 @ 21:41 by Megan Negrete RN) Diabetes Essential (primary) hypertension GI bleed Hematemesis HLD (hyperlipidemia) STEMI (ST elevation myocardial infarction) Unspecified asthma, uncomplicated Surgical History: Surgical History (Last Reviewed 03/29/22 @ 21:41 by Megan Negrete RN) H/O heart artery stent Social History: Social History (Last Updated 03/29/22 @ 21:39 by Megan Negrete RN) Living Situation History: Household Members: None Caregiver staying overnight: No Housing: Apartment Do you presently have visiting nurse or other home services: No Tobacco History: Patient Tobacco Use Status: Former Tobacco user Substance Use History: Substance Use Type: Former Substance User Advance Directives: Advance Directives Date on File: 08/02/21 Occupation Assessmet: service: No Home Medications and Allergies Current Medications: Current Medications Acetaminophen (Acetaminophen Supp 650 Mg Supp.Rect) 650 mg [place] Q6H PRN PRN Reason: Pain, Mild (Pain Scale 1-3) Atorvastatin Calcium (Atorvastatin Calcium 80 Mg Tablet) 80 mg PO BEDTIME SUSAN Last Admin: 04/03/22 19:25 Dose: 80 mg Dextrose (Dextrose 50 % 25 Gm/50 Ml Syringe) 25 gm IVPUSH Q15M PRN; Protocol PRN Reason: per Hypoglycemia Standing Ord. Last Admin: 03/31/22 09:05 Dose: 25 gm Empagliflozin (Empagliflozin 10 Mg Tablet) 10 mg PO DAILY [facility] Last Admin: 04/04/22 08:01 Dose: 10 mg Furosemide (Furosemide 40 Mg/4 Ml Vial) 40 mg IVPUSH BID@0900,1800 [facility]; Protocol Last Admin: 04/03/22 18:10 Dose: 40 mg Gabapentin (Gabapentin 100 Mg Capsule) 100 mg PO TID [facility] Last Admin: 04/04/22 08:01 Dose: 100 mg Glucose (Glucose Gel 15 Gm Gel..Gram.) 15 gm PO Q15M PRN; Protocol PRN Reason: per Hypoglycemia Standing Ord. Heparin Sodium/Sodium Chloride (Heparin Sodium,Porcine/1/2ns) 25,000 unit in 250 mls @ 0 mls/hr IVCONT .Q0M [facility]; Protocol Last Titration: 04/03/22 08:11 Dose: Infused Immune Globulin (Gammagard 10%) 200 mls @ 47 mls/hr IV DAILY@0900 [facility] Stop: 04/06/22 13:16 Last Admin: 04/04/22 09:58 Dose: 47 mls/hr Immune Globulin (Gammagard 10%) 200 mls @ 47 mls/hr IV DAILY@1315 [facility] Stop: 04/06/22 17:31 Insulin Glargine (Insulin Glargine,Hum.Rec.Anlog 100 Unit/Ml 10 Ml Vial) 20 unit SUBCUT BEDTIME [facility] Last Admin: 04/03/22 21:46 Dose: 20 unit Insulin Glargine (Insulin Glargine,Hum.Rec.Anlog 100 Unit/Ml 10 Ml Vial) 40 unit SUBCUT DAILY [facility] Last Admin: 04/04/22 08:02 Dose: 40 unit Insulin Human Lispro (Insulin Lispro 100 Unit/Ml 3 Ml Vial) 0 unit SUBCUT QIDACHS [facility]; Protocol Last Admin: 04/04/22 11:32 Dose: Not Given Montelukast Sodium (Montelukast Sodium 10 Mg Tablet) 10 mg PO DAILY [facility] Last Admin: 04/04/22 08:01 Dose: 10 mg Morphine Sulfate (Morphine Sulfate 2 Mg/Ml Cartridge) 2 mg IVPUSH Q4H PRN; Protocol PRN Reason: Pain, Severe (Pain Scale 7-10) Last Admin: 04/04/22 01:27 Dose: 2 mg Nitroglycerin (Nitroglycerin 0.4 Mg Tab.Subl) 0.4 mg SUBLINGUAL Q5M PRN PRN Reason: chest pain Last Admin: 04/02/22 02:33 Dose: 0.4 mg Ondansetron HCl (Ondansetron Hcl 4 Mg/2 Ml Vial) 4 mg IVPUSH Q8H PRN PRN Reason: Nausea and Vomiting Pharmacy Consult (Consult Rx Perform Med Rec) 1 each MISCELLANE ONCE PRN PRN Reason: Consult order Polyethylene Glycol (Polyethylene Glycol 3350 17 Gm Powd.Pack) 17 gm PO DAILY [facility] Last Admin: 04/04/22 08:04 Dose: 17 gm Sodium Chloride (0.9 % Sodium Chloride Flush 3 Ml Syringe) 3 ml IVFLUSH QSHIFT [facility] Last Admin: 04/04/22 08:01 Dose: 3 ml Sodium Chloride (0.9 % Sodium Chloride Flush 3 Ml Syringe) 3 ml IVFLUSH QSWIFT [facility] Last Admin: 04/04/22 08:01 Dose: 3 ml Spironolactone (Spironolactone 25 Mg Tablet) 25 mg PO DAILY [facility]; Protocol Last Admin: 04/03/22 08:44 Dose: 25 mg Valsartan (Valsartan 40 Mg Tablet) 40 mg PO BID [facility]; Protocol Last Admin: 04/03/22 19:25 Dose: 40 mg Home Medications Medication Instructions Recorded Confirmed Type insulin lispro 100 unit/mL See Rx Instructions .Route .COMPLEX 05/13/21 03/28/22 History subcutaneous pen (Humalog KwikPen (U-100) Insulin) empagliflozin 10 mg tablet 10 mg PO DAILY 03/28/22 03/28/22 History (Jardiance) insulin glargine 100 unit/mL (3 50 unit subcut BID 03/28/22 03/28/22 History mL) subcutaneous pen (Lantus Solostar U-100 Insulin) Allergies Allergy/AdvReac Type Severity Reaction Status Date / Time No Known Allergies Allergy Verified 04/15/21 16:30 Exam Vital signs: Vital Signs Temp 97.6 F 04/04/22 13:46 Pulse 82 04/04/22 13:46 Resp 16 04/04/22 13:46 BP 106/72 04/04/22 13:46 Pulse Ox 96 04/04/22 11:30 O2 Del Method 04/04/22 11:30 O2 Flow Rate 3 04/04/22 11:30 FiO2 100 04/01/22 19:00 Intake & Output 04/03/22 04/04/22 04/04/22 18:59 06:59 18:59 Intake Total 356.248 / 1076.248 720 / 1076.248 585 / 585 Balance 356.248 / 1076.248 720 / 1076.248 585 / 585 Intake: Intake, Oral Amount 720 / 720 240 / 240 Intake (Blood Product) Amount 273 / 273 345 / 345 Plt Aph Pas Pathreduced(E8342) 345 / 345 Unit [id number] Plt Aph Pas Pathreduced(E8343) 273 / 273 Unit [id number] Intake, IV Amount 83.248 / 83.248 Heparin Sodium,Porcine/1/2NS 25 83.248 / 83.248 ,000 unit In 250 ml @ Per Protocol IVCONT .Q0M [facility] Rx#: [id number] Other: Breakfast % Eaten 100% Lunch % Eaten 100% 75% Number of Unmeasured Voids 2 1 Number of Bowel Movements 1 Urine Bathroom Bathroom Urine Color Yellow Stool Bathroom Stool Amount Large Stool Color Brown Stool Consistency Gelatinous Weight 94 kg BMI result Body Mass Index 32.4 - Constitutional Present: mild distress - Routine HEENT Exam Head: Present: normal inspection - Routine Respiratory Exam Present: accessory muscle use, rales - Routine Cardiovascular Exam Cardiovascular: Present: S1, S2 - Routine Abdominal Exam Present: distended - Routine Skin Exam Present: intact, ecchymosis Data - Labs CBC & Chem 7: 04/04/22 06:16 04/04/22 06:16 Labs: 03/28/22 10:12 ECG 12 lead EKG Stat EKG Documentation DIRECTED CT head/brain wo IV con Stat XR chest 1V Stat 03/28/22 11:16 MR lumbar spine wo/w con Stat 03/28/22 11:20 B Type Natriuretic Peptide Stat Basic Metabolic Panel Stat COVID-19 ID NOW (EnStorage) Stat Complete Blood Count Auto Diff Stat Hemoglobin A1c Stat Lipase Stat Liver Panel Stat Troponin-I High Sensitivity Stat 03/28/22 12:35 GadobutroL [Gadavist] 10 ml IVPUSH ONCE ONE 03/28/22 12:58 Azithromycin [Zithromax] 500 mg PO ONCE ONE cefTRIAXone sodium [Rocephin] 1 gm 0.9 % Sodium Chloride [Ns] 50 ml IV ONCE 03/28/22 12:59 Furosemide [Lasix] 40 mg IVPUSH ONCE ONE 03/28/22 13:11 CT abdomen pelvis wo IV con Stat 03/28/22 13:26 Lactic Acid Stat 03/28/22 13:29 cefTRIAXone sodium [Rocephin] 1 gm .ROUTE .STK-MED ONE Blood Culture X2 [BC] Stat 03/28/22 13:47 CT chest wo IV con Stat 03/28/22 15:00 Enoxaparin Sodium [Lovenox] 40 mg SUBCUT Q24H 03/28/22 16:15 Morphine Sulfate 4 mg IVPUSH Q6H PRN 03/28/22 16:23 Add Laboratory Test Stat 03/28/22 16:26 UA ClnCatch+Micro w/rflx Cult Stat 03/28/22 16:30 Insulin Lispro [Humalog] See Protocol SUBCUT QIDACHS 03/28/22 18:03 Diabetic Diet 03/28/22 18:10 Glucose, Whole Blood Routine 03/28/22 21:00 Insulin Glargine,Hum.rec.anlog [Lantus] 50 unit SUBCUT BID 03/28/22 21:11 Glucose, Whole Blood Routine 03/29/22 07:17 Glucose, Whole Blood Routine 03/29/22 07:36 Glucose, Whole Blood Routine 03/29/22 08:15 Glucose, Whole Blood Routine 03/29/22 09:00 Aspirin 81 mg PO DAILY Clopidogrel Bisulfate [Plavix] 75 mg PO DAILY Metoprolol Succinate ER [Toprol XL] 25 mg PO DAILY lisinopriL [Zestril] 20 mg PO DAILY metFORMIN HCl [Glucophage] 1,000 mg PO DAILY 03/29/22 09:22 BNP [B Type Natriuretic Peptide] Stat CBC W/AUTO DIFF [Complete Blood Count Auto Diff] Stat CMP [Comprehensive [place]. Panel Fast] Stat 03/29/22 11:07 Glucose, Whole Blood Routine 03/29/22 12:05 Glucose, Whole Blood Routine 03/29/22 13:00 Azithromycin [Zithromax] 500 mg 0.9 % Sodium Chloride [Ns] 250 ml IV Q24H 03/29/22 14:39 Glucose, Whole Blood Routine 03/29/22 14:53 Azithromycin [Zithromax] 500 mg IV .STK-MED ONE cefTRIAXone sodium [Rocephin] 1 gm .ROUTE .STK-MED ONE 03/29/22 15:00 cefTRIAXone sodium [Rocephin] 1 gm 0.9 % Sodium Chloride [Ns] 50 ml IV Q24H 03/29/22 16:14 Glucose, Whole Blood Routine 03/29/22 16:37 Lactulose [Chronulac] 10 gm PO ONCE ONE 03/29/22 20:36 Glucose, Whole Blood Routine 03/29/22 21:49 Glucose, Whole Blood Routine 03/30/22 06:26 CBC W/AUTO DIFF [Complete Blood Count Auto Diff] DAILY@0600 CMP [Comprehensive [place]. Panel Fast] DAILY@0600 03/30/22 07:36 Glucose, Whole Blood Routine 03/30/22 08:42 PT with INR [Prothrombin Time INR] Stat PTT [Partial Thromboplastin Time] Stat 03/30/22 11:13 Glucose, Whole Blood Routine 03/30/22 12:35 Spironolactone [Aldactone] 12.5 mg PO DAILY 03/30/22 13:27 Azithromycin [Zithromax] 500 mg IV .STK-MED ONE 03/30/22 15:29 Glucose, Whole Blood Routine 03/30/22 15:36 Regular Diet 03/30/22 15:57 cefTRIAXone sodium [Rocephin] 1 gm .ROUTE .STK-MED ONE 03/30/22 21:36 Glucose, Whole Blood Routine 03/30/22 23:21 Glucose, Whole Blood Routine 03/31/22 XR chest 2V Stat US thoracentesis Stat 03/31/22 00:01 NPO Diet 03/31/22 06:01 CBC W/AUTO DIFF [Complete Blood Count Auto Diff] DAILY@0600 CMP [Comprehensive [place]. Panel Fast] DAILY@0600 03/31/22 07:00 CA echo transthorac w con Stat 03/31/22 08:21 Glucose, blood poc QIDACHS 03/31/22 08:25 Glucose, Whole Blood Routine 03/31/22 09:05 Glucose, Whole Blood Routine 03/31/22 09:35 Perflutren Lipid Microspheres [Definity] 2.2 mg IVPUSH .STK-MED ONE 03/31/22 09:39 Glucose, Whole Blood Routine 03/31/22 11:00 US abdomen limited Stat 03/31/22 11:23 Glucose, Whole Blood Routine 03/31/22 11:30 Insulin Lispro [Humalog] See Protocol SUBCUT QIDACHS 03/31/22 12:00 Cell Count w Diff Pleural Fld Stat 03/31/22 12:01 Lidocaine HCl 1 % MPF [Xylocaine 1 % MPF] 30 ml .ROUTE .STK-MED ONE 03/31/22 12:59 Lidocaine HCl 1 % MPF [Xylocaine 1 % MPF] 5 ml SUBCUT ONCE ONE 03/31/22 14:04 Azithromycin [Zithromax] 500 mg IV .ST-[facility] ONE 03/31/22 15:10 Elizabeth catheter [Insert/maintain urinary catheter] DAILY@1000,2200 03/31/22 16:31 Glucose, Whole Blood Routine 03/31/22 17:07 cefTRIAXone sodium [Rocephin] 1 gm .ROUTE .ST-MED ONE 03/31/22 18:00 Warfarin Sodium [Coumadin] 5 mg PO DAILY@1800 03/31/22 19:56 Glucose, Whole Blood Routine 03/31/22 21:00 Valsartan [Diovan] 20 mg PO BID 03/31/22 23:17 Glucose, Whole Blood Routine 04/01/22 04:41 Glucose, Whole Blood Routine 04/01/22 06:49 CBC W/AUTO DIFF [Complete Blood Count Auto Diff] DAILY@0600 CMP [Comprehensive [place]. Panel Fast] DAILY@0600 Prothrombin Time INR DAILY@0600 04/01/22 07:21 Glucose, Whole Blood Routine 04/01/22 09:00 Spironolactone [Aldactone] 12.5 mg PO DAILY 04/01/22 09:56 Glucose, Whole Blood Routine 04/01/22 10:35 Heparin Sodium,Porcine 3,400 unit IVPUSH PROTOCOL BOLUS PRN Heparin Sodium,Porcine 4,000 unit IVPUSH ONCE ONE 04/01/22 10:52 Complete Blood Count no Diff Stat PTT Heparin Drip Stat 04/01/22 11:07 Glucose, Whole Blood Routine 04/01/22 14:30 Azithromycin [Zithromax] 500 mg IV .ST-MED ONE 04/01/22 16:12 Glucose, Whole Blood Routine 04/01/22 17:42 cefTRIAXone sodium [Rocephin] 1 gm .ROUTE .STK-MED ONE 04/01/22 17:56 cefTRIAXone sodium [Rocephin] 1 gm .ROUTE .STK-MED ONE 04/01/22 17:59 PTT Heparin Drip Stat 04/01/22 20:21 Glucose, Whole Blood Routine 04/02/22 CA lexiscan stress w casandra Routine ECG 12 lead EKG Stat CXR [XR chest 1V] Stat XR KUB Stat 04/02/22 00:20 BMP [Basic Metabolic Panel] Stat Magnesium Stat PTT Heparin Drip Stat 04/02/22 04:22 EKG Documentation DIRECTED 04/02/22 06:16 BNP [B Type Natriuretic Peptide] Routine CMP [Comprehensive [place]. Panel Fast] DAILY@0600 Complete Blood Count no Diff Routine Magnesium Routine PTT Heparin Drip Stat Prothrombin Time INR DAILY@0600 Troponin-I High Sensitivity Stat 04/02/22 07:20 Glucose, Whole Blood Routine 04/02/22 08:14 Glucose, Whole Blood Routine 04/02/22 08:47 Add Laboratory Test Stat 04/02/22 08:58 PTT Heparin Drip Stat Troponin-I High Sensitivity Urgent 04/02/22 09:00 Insulin Glargine,Hum.rec.anlog [Lantus] 20 unit SUBCUT BID 04/02/22 11:26 Glucose, Whole Blood Routine 04/02/22 12:44 NM casandra perf SPECT rest & str Routine 04/02/22 14:37 Potassium Chloride Packet [Klor-Con Packet] 20 meq PO ONCE ONE 04/02/22 14:38 Magnesium Sulfate/D5W 1 gm in 100 ml IV ONCE 04/02/22 14:43 Azithromycin [Zithromax] 500 mg IV .STK-MED ONE 04/02/22 15:33 Glucose, Whole Blood Routine 04/02/22 16:02 PTT Heparin Drip Stat 04/02/22 16:14 cefTRIAXone sodium [Rocephin] 1 gm .ROUTE .STK-MED ONE 04/02/22 18:00 Warfarin Sodium [Coumadin] 2.5 mg PO DAILY@1800 04/02/22 19:07 Glucose, Whole Blood Routine 04/02/22 22:33 PTT Heparin Drip Stat 04/03/22 CT abdomen pelvis wo IV con Stat 04/03/22 05:01 Morphine Sulfate 4 mg IVPUSH ONCE ONE 04/03/22 06:35 Basic Metabolic Panel DAILY@0600 CBC NO DIFF [Complete Blood Count no Diff] DAILY@0600 CMP [Comprehensive [place]. Panel Fast] DAILY@0600 Fibrinogen Routine Lactate Dehydrogenase Routine Magnesium DAILY@0600 PTT Heparin Drip Stat Prothrombin Time INR DAILY@0600 04/03/22 07:07 Glucose, Whole Blood Routine 04/03/22 08:36 CBC W/AUTO DIFF [Complete Blood Count Auto Diff] Stat 04/03/22 08:53 Add Laboratory Test Stat 04/03/22 09:28 Aminophylline 250 mg .ROUTE .STK-MED ONE Regadenoson [Lexiscan] 0.4 mg .ROUTE .STK-MED ONE 04/03/22 11:17 Glucose, Whole Blood Routine 04/03/22 13:04 CBC W/AUTO DIFF [Complete Blood Count Auto Diff] Urgent 04/03/22 16:50 Glucose, Whole Blood Routine 04/03/22 17:38 CBC NO DIFF [Complete Blood Count no Diff] Routine 04/03/22 19:38 Glucose, Whole Blood Routine 04/04/22 06:16 Basic Metabolic Panel DAILY@0600 CMP [Comprehensive [place]. Panel Fast] DAILY@0600 Complete Blood Count Auto Diff DAILY@0600 Magnesium DAILY@0600 SLIDE REVIEW Routine 04/04/22 07:12 Glucose, Whole Blood Routine 04/04/22 11:08 Glucose, Whole Blood Routine Laboratory Last Values WBC 5.9 X10*3/uL (4.8-10.8) 04/04/22 06:16 RBC 4.11 X10*6/uL (4.60-5.80) L 04/04/22 06:16 Hgb 12.3 g/dl (14.0-18.0) L 04/04/22 06:16 Hct 39.5 % (42.0-52.0) L 04/04/22 06:16 MCV 96.1 fL (80.0-98.0) 04/04/22 06:16 MCH 29.9 pg (27.0-33.0) 04/04/22 06:16 MCHC 31.1 g/dl (31.0-36.0) 04/04/22 06:16 RDW 13.3 % (11.0-16.0) 04/04/22 06:16 Plt Count 5 X10*3/uL (160-400) L* D 04/04/22 06:16 MPV 8.8 fL (9.4-12.4) L 04/04/22 06:16 Immature Gran % (Auto) 0.2 % (0.0-0.4) 04/04/22 06:16 Neut % (Auto) 63.4 % (45-73) 04/04/22 06:16 Lymph % (Auto) 22.3 % (20-40) 04/04/22 06:16 [place] % (Auto) 10.5 % (2-11) 04/04/22 06:16 Eos % (Auto) 2.9 % (0-4) 04/04/22 06:16 Baso % (Auto) 0.7 % (0-2) 04/04/22 06:16 Lymph # (Auto) 1.3 X10*3/uL (1.2-4.9) 04/04/22 06:16 [place] # (Auto) 0.6 X10*3/uL (0.1-1.2) 04/04/22 06:16 Eos # (Auto) 0.2 X10*3/uL (0.0-0.4) 04/04/22 06:16 Baso # (Auto) 0.0 X10*3/uL (0.0-0.2) 04/04/22 06:16 Abs Immat Gran (auto) 0.01 X10*3/uL (0.00-0.03) 04/04/22 06:16 Absolute Neuts (auto) 3.8 x10*3/uL (2.0-8.3) 04/04/22 06:16 Absolute Nucleated RBC 0.000 X10*3/uL (0.0-0.012) 04/04/22 06:16 Nucleated RBC % (auto) 0.0 /100WBC (0.0-0.2) 04/04/22 06:16 Smear Tech's Comments VERIFIED 04/04/22 06:16 PT 17.4 SEC (10.0-13.1) H 04/03/22 06:35 INR 1.5 (0.9-1.1) H 04/03/22 06:35 APTT 30.9 SEC (26.0-36.4) 03/30/22 08:42 aPTT Heparin Protocol 75.2 SEC (53-77.9) D 04/03/22 06:35 Fibrinogen > 700 MG/DL (259-690) H 04/03/22 06:35 Fibrinogen Cancelled 04/03/22 06:35 Sodium 140 mmol/L (135-145) 04/04/22 06:16 Potassium 4.7 mmol/L (3.3-5.1) 04/04/22 06:16 Chloride 96 mmol/L (96-108) 04/04/22 06:16 Carbon Dioxide 34 mmol/L (22-29) H 04/04/22 06:16 Anion Gap 15 (12-20) 04/04/22 06:16 BUN 26 mg/dL (9-16) H 04/04/22 06:16 Creatinine 1.10 mg/dL (0.5-1.4) 04/04/22 06:16 Estim Creat Clear Calc 75.1 04/04/22 06:16 Estimated GFR > 60 04/04/22 06:16 POC Glucose 148 mg/dL (60-115) H 04/04/22 11:08 Random Glucose TNP 04/04/22 06:16 Fasting Glucose 171 mg/dL (60-99) H 04/04/22 06:16 Estimat Average Glucose TNP 03/28/22 11:20 Hemoglobin A1c % > 14.0 % 03/28/22 11:20 Lactic Acid 1.6 mmol/L (0.5-2.0) 03/28/22 13:26 Calcium 8.4 mg/dL (8.4-10.2) 04/04/22 06:16 Magnesium 2.2 mg/dL (1.6-2.6) 04/04/22 06:16 Total Bilirubin 0.7 mg/dL (0.0-1.0) 04/04/22 06:16 Direct Bilirubin 0.2 mg/dL (0.0-0.5) 03/28/22 11:20 AST 17 U/L (5-37) 04/04/22 06:16 ALT 25 U/L (0-40) 04/04/22 06:16 Alkaline Phosphatase 110 U/L (39-117) 04/04/22 06:16 Lactate Dehydrogenase 294 U/L (118-273) H 04/03/22 06:35 Troponin I High Sens 24.7 ng/L (<3.5-35.0) 04/02/22 08:58 B-Natriuretic Peptide 1081 pg/mL (<100) H 04/02/22 06:16 Total Protein 5.9 g/dL (6.5-8.0) L 04/04/22 06:16 Albumin 3.4 g/dL (3.5-5.0) L 04/04/22 06:16 Lipase 65 U/L (8-78) 03/28/22 11:20 Urine Color Yellow 03/28/22 16: Urine Appearance Clear 03/28/22 16:26 Urine pH 5.0 (5.0-9.0) 03/28/22 16:26 Ur Specific [place] 1.015 (1.005-1.025) 03/28/22 16:26 Urine Protein 100 (2+) mg/dL (Neg-Trace) H 03/28/22 16:26 Urine Glucose (UA) >=1000 mg/dL (Negative) H 03/28/22 16:26 Urine Ketones Negative mg/dL (Negative) 03/28/22 16:26 Urine Blood Negative (Negative) 03/28/22 16: Urine Nitrite Negative (Negative) 03/28/22 16:26 Ur Leukocyte Esterase Negative (Negative) 03/28/22 16:26 Urine RBC 0-2 /HPF (0-2) 03/28/22 16:26 Urine WBC 0-5 /HPF (0-5) 03/28/22 16:26 Ur Squamous Epith Cells 0-2 /HPF (0-2) 03/28/22 16:26 Urine Bacteria None Seen (None Seen) 03/28/22 16: Hyaline Casts 0-2 /LPF (0-2) 03/28/22 16:26 Pleural WBC 0.152 X10*3/uL 03/31/22 12:00 Pleural RBC < 0.002 X10*3/uL 03/31/22 12:00 Pleural Neutrophils 6 % 03/31/22 12:00 Pleural Lymphocytes 88 % 03/31/22 12:00 Pleural Monocytes 3 % 03/31/22 12:00 Pleural Other Cells 3 % 03/31/22 12:00 COVID-19 (ALEJANDRO) Negative (Negative) 03/28/22 11:20 COVID-19 Clin Com See Note 03/28/22 11:20 Blood Type A Positive 04/03/22 13:04 Antibody Screen NEGATIVE 04/03/22 13:04 - Imaging Radiologist's impression: ITS Impressions Chest X-Ray 03/28/22 10:33 IMPRESSION: Right lung base infiltrate. Lumbar Spine MRI 03/28/22 12:18 IMPRESSION: No acute abnormality of the lumbar spine is identified. There are multilevel degenerative changes as detailed above without high-grade spinal canal stenosis. Head CT 03/28/22 12:42 IMPRESSION: No acute intracranial findings. Abdomen/Pelvis CT 03/28/22 14:00 IMPRESSION: 1. Large pleural effusion as above with bibasilar airspace disease nonspecific but could represent pneumonia. 2. High density fluid within the bladder lumen which is too high to be blood products but favor related to contrast injection performed recently. Correlate with patient's procedural history. 3. Nonspecific ascites. 4. Severe coronary atherosclerosis. Chest CT 03/28/22 14:02 IMPRESSION: 1. Large pleural effusion as above with bibasilar airspace disease nonspecific but could represent pneumonia. 2. High density fluid within the bladder lumen which is too high to be blood products but favor related to contrast injection performed recently. Correlate with patient's procedural history. 3. Nonspecific ascites. 4. Severe coronary atherosclerosis. Abdomen Ultrasound 03/31/22 10:50 FINDINGS/IMPRESSION: No peritoneal ascites. Right pleural effusion. Thoracentesis Ultrasound 03/31/22 12:50 IMPRESSION: Successful ultrasound guided therapeutic and diagnostic right thoracentesis performed. Chest X-Ray 03/31/22 13:15 IMPRESSION: Status post right thoracentesis there is no pneumothorax. No residual pleural effusion seen. Chest X-Ray 04/02/22 11:18 IMPRESSION: * Mild cardiomegaly. No overt pulmonary edema. * The persistent opacity in the medial left lung base probably represents small residual pleural effusion and atelectasis. Also, the mild hazy opacity of the right lower hemithorax could be caused by layering of small residual effusion and atelectasis. There is no pneumothorax after the recent thoracentesis * No acute radiographic abnormalities within the abdomen. KUB X-Ray 04/02/22 11:18 IMPRESSION: * Mild cardiomegaly. No overt pulmonary edema. * The persistent opacity in the medial left lung base probably represents small residual pleural effusion and atelectasis. Also, the mild hazy opacity of the right lower hemithorax could be caused by layering of small residual effusion and atelectasis. There is no pneumothorax after the recent thoracentesis * No acute radiographic abnormalities within the abdomen. Abdomen/Pelvis CT 04/03/22 11:21 IMPRESSION: Small to moderate bilateral pleural effusions with associated dependent airspace disease, improved compared with March 28, 2022. Trace right subdiaphragmatic ascites, improved. Anasarca, not significantly changed. Severe coronary arterial calcification. Myocardial Perfusion Scan Nuc Med 04/03/22 13:00 Impression: 1. Myocardial perfusion imaging study shows large transmural infarct in LAD territory 2. Gated LVEF is 19% 3. Transient ischemic dilatation not present but LV cavity is dilated EKG is nondiagnostic for ischemia Assessment and Plan Patient Active problem list reviewed?: Yes (1) Thrombocytopenia Status: Acute Assessment and plan: 1. This is a 61-year-old male with severe thrombocytopenia. He was admitted for CHF and possible pneumonia. He has been on ceftriaxone and azithromycin since 03/28/2022. His platelets have begun to drop since 04/01/2022 and reached a naif of 18 K today. He is reporting some nose bleeds today. 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 Patient is receiving 2nd unit of platelets today has he has severe thrombocytopenia. I have recommended IVIG 400 milligram/kilos daily for 3 days. Repeat CBC at 16:00 and monitor closely for signs of bleeding. - Time Spent With Patient Time Spent with Patient (in minutes): 10
[2022-04-04 16:08] LABS: Hemoglobin 12.4 g/dl (14.0-18.0); Mean Corpuscular Volume 96.1 fL (80.0-98.0)
[2022-04-04 16:09] LABS: Hematocrit 39.6 % (42.0-52.0); Mean Corpuscular HGB Conc 31.3 g/dl (31.0-36.0); Mean Corpuscular Hemoglobin 30.1 pg (27.0-33.0); Mean Platelet Volume 12.2 fL (9.4-12.4); Red Blood Count 4.12 X10*6/uL (4.60-5.80); Red Cell Distribution Width 13.5 % (11.0-16.0); White Blood Count 6.1 X10*3/uL (4.8-10.8)
[2022-04-04 16:13] LABS: PLT ABN DIST 1; Platelet Count 24 X10*3/uL (160-400)
[2022-04-04] MEDS: Atorvastatin Calcium 80 MG TABLET PO (21:01)
[2022-04-04] MEDS: Insulin Glargine,Hum.rec.anlog 100 UNIT/ML 10 ML VIAL 20 UNIT SUBCUT (21:01)
[2022-04-05] VITALS (9 sets, daily range): BP systolic 99–135; BP diastolic 54–93; PULSE 86–103; RESP 12–20; TEMP 36.3–37.1; O2SAT 91–97
[2022-04-05] MEDS: Morphine Sulfate 2 MG/ML CARTRIDGE IVPUSH ×3 (03:30→13:48)
--- NOTE | 2022-04-05 04:39 | PM.EVENT ---
Event Note Date of Service: 04/05/22 Event Note: Around 04:30 patient started complaining of bilateral lower extremity pain with discoloration of the feet. Check Dopplers pedal pulses, which were present, given his drop in heparin post heparin infusion, this time we will obtain bilateral arterial and Doppler to rule out thrombosis.
[2022-04-05 07:14] LABS: Hematocrit 37.7 % (42.0-52.0); Hemoglobin 11.7 g/dl (14.0-18.0); Mean Corpuscular Hemoglobin 29.8 pg (27.0-33.0); Mean Corpuscular Volume 96.2 fL (80.0-98.0); Mean Platelet Volume 11.9 fL (9.4-12.4); Red Blood Count 3.92 X10*6/uL (4.60-5.80); Red Cell Distribution Width 13.5 % (11.0-16.0); White Blood Count 5.3 X10*3/uL (4.8-10.8)
[2022-04-05 07:16] LABS: Platelet Count 31 X10*3/uL (160-400)
[2022-04-05] MEDS: Gabapentin 100 MG CAPSULE PO ×3 (07:56→20:25)
[2022-04-05] MEDS: Empagliflozin 10 MG TABLET PO (07:57)
[2022-04-05] MEDS: polyethylene glycoL 3350 17 GM POWD.PACK PO (07:57)
[2022-04-05] MEDS: Montelukast Sodium 10 MG TABLET PO (07:57)
[2022-04-05] MEDS: 0.9 % Sodium Chloride Flush 3 ML SYRINGE IVFLUSH ×3 (08:03→20:26)
--- NOTE | 2022-04-05 11:16 | HO.PM.IMPN ---
Subjective Subjective Date of Service: 04/05/22 Interval History: Follow up for CHF, pleural effusion, apical thrombus, chest pain, severe thrombocytopenia Platelets have improved significantly IVIG and platelets Complaints of right lower extremity pain and edema Denies abdominal pain, bleeding, nausea, vomiting, diarrhea Review of Systems Review of Systems: Yes all other systems are reviewed and are negative Constitutional Constitutional: Denies chills and Denies fever(s) ENT Ears, Nose, Mouth, and Throat: Denies dizziness Cardiovascular Cardiovascular: Denies chest pain, Denies palpitations and Reports dyspnea on exertion Respiratory Respiratory: Denies cough and Reports dyspnea on exertion Gastrointestinal Gastrointestinal: Reports abdominal pain, Denies constipation, Denies nausea and Denies vomiting Neurologic Neurologic: Denies dizziness Endocrine Endocrine: Denies palpitations Physical Exam Vital Signs: Vital Signs: Last Vital Signs Temp 97.3 F 04/05/22 10:59 Pulse 92 04/05/22 10:59 Resp 20 04/05/22 10:59 BP 99/54 L 04/05/22 10:59 Pulse Ox 93 04/05/22 10:59 O2 Del Method 04/05/22 10:59 O2 Flow Rate 3 04/04/22 11:30 FiO2 100 04/01/22 19:00 BMI result Body Mass Index 32.4 Appearing in no acute distress LSCTA heart regular rate rhythm, clear S1, S2 positive bowel sounds, abdomen is soft, nontender neuro patient is alert x3, no focal deficits Raised petechiae and mild bruising to bilateral lower extremities Objective Data Active Medications Acetaminophen (Acetaminophen Supp 650 Mg Supp.Rect) 650 mg MS Q6H PRN PRN Reason: Pain, Mild (Pain Scale 1-3) Atorvastatin Calcium (Atorvastatin Calcium 80 Mg Tablet) 80 mg PO BEDTIME [facility] Last Admin: 04/04/22 21:01 Dose: 80 mg Documented By: PADDY Dextrose (Dextrose 50 % 25 Gm/50 Ml Syringe) 25 gm IVPUSH Q15M PRN; Protocol PRN Reason: per Hypoglycemia Standing Ord. Last Admin: 03/31/22 09:05 Dose: 25 gm Documented By: GAMAL Empagliflozin (Empagliflozin 10 Mg Tablet) 10 mg PO DAILY [facility] Last Admin: 04/05/22 07:57 Dose: 10 mg Documented By: ROBERT Furosemide (Furosemide 40 Mg/4 Ml Vial) 40 mg IVPUSH BID@0900,1800 [facility]; Protocol Last Admin: 04/03/22 18:10 Dose: 40 mg Documented By: MARK Gabapentin (Gabapentin 100 Mg Capsule) 100 mg PO TID [facility] Last Admin: 04/05/22 07:56 Dose: 100 mg Documented By: ROBERT Glucose (Glucose Gel 15 Gm Gel..Gram.) 15 gm PO Q15M PRN; Protocol PRN Reason: per Hypoglycemia Standing Ord. Hydromorphone HCl (Hydromorphone Hcl 0.5 Mg/0.5 Ml Syringe) 0.5 mg IVPUSH Q4H PRN; Protocol PRN Reason: Pain, Severe (Pain Scale 7-10) Heparin Sodium/Sodium Chloride (Heparin Sodium,Porcine/1/2ns) 25,000 unit in 250 mls @ 0 mls/hr IVCONT .Q0M [facility]; Protocol Last Titration: 04/03/22 08:11 Dose: 0 units/kg/hr, 0 mls/hr Documented By: MARK Co-signed By: ROLANDO Immune Globulin (Gammagard 10%) 200 mls @ 47 mls/hr IV DAILY@0900 [facility] Stop: 04/05/22 14:00 Last Infusion: 04/04/22 14:34 Dose: 0 mls/hr Documented By: ROBERT Immune Globulin (Gammagard 10%) 200 mls @ 47 mls/hr IV DAILY@1315 [facility] Stop: 04/05/22 17:31 Last Infusion: 04/04/22 20:37 Dose: 0 mls/hr Documented By: PADDY Insulin Glargine (Insulin Glargine,Hum.Rec.Anlog 100 Unit/Ml 10 Ml Vial) 20 unit SUBCUT BEDTIME [facility] Last Admin: 04/04/22 21:01 Dose: 20 unit Documented By: TIFFANYOIC Insulin Glargine (Insulin Glargine,Hum.Rec.Anlog 100 Unit/Ml 10 Ml Vial) 40 unit SUBCUT DAILY [facility] Last Admin: 04/05/22 07:57 Dose: Not Given Documented By: ROBERT Non-Admin Reason: Patient Refused Insulin Human Lispro (Insulin Lispro 100 Unit/Ml 3 Ml Vial) 0 unit SUBCUT QIDACHS [facility]; Protocol Last Admin: 04/05/22 11:11 Dose: Not Given Documented By: ROBERT Non-Admin Reason: No Insulin Coverage Montelukast Sodium (Montelukast Sodium 10 Mg Tablet) 10 mg PO DAILY [facility] Last Admin: 04/05/22 07:57 Dose: 10 mg Documented By: ROBERT Morphine Sulfate (Morphine Sulfate 2 Mg/Ml Cartridge) 2 mg IVPUSH Q4H PRN; Protocol PRN Reason: Pain, Severe (Pain Scale 7-10) Last Admin: 04/05/22 07:56 Dose: 2 mg Documented By: ROBERT Nitroglycerin (Nitroglycerin 0.4 Mg Tab.Subl) 0.4 mg SUBLINGUAL Q5M PRN PRN Reason: chest pain Last Admin: 04/02/22 02:33 Dose: 0.4 mg Documented By: SANCHEZ Ondansetron HCl (Ondansetron Hcl 4 Mg/2 Ml Vial) 4 mg IVPUSH Q8H PRN PRN Reason: Nausea and Vomiting Pharmacy Consult (Consult Rx Perform Med Rec) 1 each MISCELLANE ONCE PRN PRN Reason: Consult order Polyethylene Glycol (Polyethylene Glycol 3350 17 Gm Powd.Pack) 17 gm PO DAILY [facility] Last Admin: 04/05/22 07:57 Dose: 17 gm Documented By: ROBERT Sodium Chloride (0.9 % Sodium Chloride Flush 3 Ml Syringe) 3 ml IVFLUSH [facility] Last Admin: 04/05/22 08:04 Dose: 3 ml Documented By: ROBERT Sodium Chloride (0.9 % Sodium Chloride Flush 3 Ml Syringe) 3 ml IVFLUSH QSPAFT [facility] Last Admin: 04/05/22 08:03 Dose: 3 ml Documented By: ROBERT Spironolactone (Spironolactone 25 Mg Tablet) 25 mg PO DAILY [facility]; Protocol Last Admin: 04/03/22 08:44 Dose: 25 mg Documented By: MARK Valsartan (Valsartan 40 Mg Tablet) 40 mg PO BID [facility]; Protocol Last Admin: 04/03/22 19:25 Dose: 40 mg Documented By: PADDY Labs CBC & Chem 7: 04/05/22 06:22 04/04/22 06:16 Labs: Laboratory Results - last 24 hr 04/03/22 04/04/22 04/04/22 13:04 11:08 16:02 MCV 96.1 MCH 30.1 MCHC 31.3 RDW 13.5 Plt Count 24 L D MPV 12.2 Absolute Nucleated RBC 0.000 Nucleated RBC % (auto) 0.0 POC Glucose 148 H Blood Type A Positive Antibody Screen NEGATIVE 04/04/22 04/04/22 04/05/22 16:27 20:40 06:22 MCV 96.2 MCH 29.8 MCHC 31.0 RDW 13.5 Plt Count 31 L D MPV 11.9 Absolute Nucleated RBC 0.000 Nucleated RBC % (auto) 0.0 POC Glucose 163 H 170 H Blood Type Antibody Screen 04/05/22 04/05/22 04/05/22 07:28 08:38 10:56 MCV MCH MCHC RDW Plt Count MPV Absolute Nucleated RBC Nucleated RBC % (auto) POC Glucose 68 144 H 124 H Blood Type Antibody Screen Microbiology Microbiology Results: Microbiology 03/31/22 12:00 Gram Stain - Final Paracentesis Fluid Anaerobic Culture - Preliminary No growth to date. Body Fluid Culture - Final No growth after 2 days Assessment and Plan (1) Thrombocytopenia: Status: Acute (2) NSVT (nonsustained ventricular tachycardia): Status: Acute (3) Apical mural thrombus: Status: Acute (4) Acute heart failure: Status: Acute (5) Coronary artery disease: Status: Acute Plan 61-year-old male with progressive shortness of breath over the last 4-5 days as well as stocking-glove paresthesias with weakness presents to the ER today for workup.? CT abdomen pelvis and chest demonstrate right greater than left pleural effusions question left base infiltrate. Severe thrombocytopenia platelets dropped from 117 to 5 seen by hematology - likely drug induced immune thrombocytopenia, related to ceftriaxone versus IV heparin abx, coumadin, heparin and aspirin stopped HIT panel ordered and pending but less likely due to timeline no signs of bleeding at this time, just some oozing from his IV Discussed with Hematology, received IVIG and a unit of platelets yesterday Will give 1 unit of platelets today and IVIG Follow CBC closely Acute combined systolic and diastolic CHF ECHO with severe LVEF 15-20%, grade 3 diastolic dysfunction and regional WMA and large apical thrombus. Blood pressure on the lower side, will hold Lasix and spironolactone for now Continue Jardiance Cardiology following Apical thrombus previously on heparin drip and oral Coumadin.? Stopped due to severe thrombocytopenia with platelets as low as 5 no AC now per hematology, PLT >50 may resume CAD h/o anterior wall IN with 2 stents CP overnight, trops flat on full AC initially but held due to severe thrombocytopenia inpatient stress test - EF 19%, myocardial perfusion showing large transmural infarct in LAD territory, transient ischemic dilatation not present, Lexiscan portion with a 7 be an SVT in recovery with normotensive response nondiagnostic EKG for ischemia cardiology following NSVT 9 beat vtach during resting phase of stress test known low EF not on BB due to acute CHF goal to keep K>4, mag >2 cardiology following Pleural effusion s/p thoracentesis 03/31 with removal of 1.3L of fluid likely secondary to CHF vs pneumonia repeat CXR showing small residual effusion abdominal pain ct scan with no acute abdominal pathology LFTs wnl symptomatic care continue bowel regimine Possible pneumonia no sepsis initial CT scan showing large effusion with airspace dz ?pneumonia s/p iv ceftriaxone, azithromycin for 5 days abx d/c for severe thrombocytopenia - no further abx at this time blood cultures have remained negative Uncontrolled diabetes type 2 intermittent episodes of hypoglycemia, mostly fasting Metformin stopped, Lantus decreased at bedtime Continue sliding scale, ADA diet Paresthesias with subjective weakness given stocking-glove distribution likely related to diabetes Hypertension bp controlled, continue current meds Full code DVT ppx - mechanical devices ordered due to severe thrombocytopenia attending - dr.? Conde Will require ongoing hospitalization for treatment of acute congestive heart failure, close telemetry monitoring and management for severe thrombocytopenia with high risk for decompensation Quality Stroke Does the patient have a stroke diagnosis?: No VTE Prior VTE?: No VTE Risk Level:: Medical - moderate - high VTE Device Contraindication: Treatment Not Indicated VTE Drug Contraindication: N/A - Med Ordered
[2022-04-05] MEDS: HYDROmorphone HCl 0.5 MG/0.5 ML SYRINGE IVPUSH ×3 (11:25→20:33)
[2022-04-05] MEDS: Immun Glob G(IgG)/Gly/IGA Ov50 200 ML IV ×2 (11:25→17:28)
--- NOTE | 2022-04-05 11:50 | PM.PNCARD ---
Subjective Subjective Date of Service: 04/05/22 Principal diagnosis: CHF Interval history: Patient denies any significant shortness of breath but complains of shooting pain in his right lower extremity. Also complains of spontaneous ecchymosis. His platelet count is improving. No significant arrhythmias noted. Blood pressure is stable. Review of Systems Constitutional: Reports no additional constitutional complaints Cardiovascular: Denies chest pain, Reports leg edema, Denies lightheadedness, Denies Loss of Consciousness, Denies palpitations and Reports dyspnea on exertion Respiratory: Reports dyspnea on exertion Gastrointestinal: Reports no additional gastrointestinal complaints Endocrine: Denies palpitations Hematologic/Lymphatic: Reports easy bruising Physical Exam Vital Signs: Last Vital Signs Temp 97.3 F 04/05/22 10:59 Pulse 92 04/05/22 10:59 Resp 20 04/05/22 10:59 BP 99/54 L 04/05/22 10:59 Pulse Ox 93 04/05/22 10:59 O2 Del Method 04/05/22 10:59 O2 Flow Rate 3 04/04/22 11:30 FiO2 100 04/01/22 19:00 BMI result Body Mass Index 32.4 Const General: cooperative, comfortable and no acute distress Nutritional Appearance: overweight Orientation/consciousness: patient oriented x3 Neck Neck: Yes trachea midline, Yes supple and Yes no JVD Resp Effort & Inspection: decreased respiratory effort Auscultation: no rales, no wheezes and diminished lung sounds Cardio Jugular venous distension: no JVD Palpation: abnormal PMI displaced PMI Rate: regular rate Rhythm: regular rhythm Heart sounds: S1 normal heart sound present, S2 normal heart sound present, no click, no gallops and no murmurs GI Auscultation: normal bowel sounds Skin General skin exam: ecchymosis Neuro General: patient oriented x3 and no focal motor deficits Extrem General: No clubbing, No cyanosis and Yes edema Objective Labs and Meds Result diagrams: 04/05/22 06:22 04/04/22 06:16 Lab results: Laboratory Results - last 24 hr 04/03/22 04/04/22 04/04/22 13:04 11:08 16:02 WBC 6.1 RBC 4.12 L Hgb 12.4 L Hct 39.6 L MCV 96.1 MCH 30.1 MCHC 31.3 RDW 13.5 Plt Count 24 L D MPV 12.2 Absolute Nucleated RBC 0.000 Nucleated RBC % (auto) 0.0 POC Glucose 148 H Blood Type A Positive Antibody Screen NEGATIVE 04/04/22 04/04/22 04/05/22 16:27 20:40 06:22 WBC 5.3 RBC 3.92 L Hgb 11.7 L Hct 37.7 L MCV 96.2 MCH 29.8 MCHC 31.0 RDW 13.5 Plt Count 31 L D MPV 11.9 Absolute Nucleated RBC 0.000 Nucleated RBC % (auto) 0.0 POC Glucose 163 H 170 H Blood Type Antibody Screen 04/05/22 04/05/22 04/05/22 07:28 08:38 10:56 WBC RBC Hgb Hct MCV MCH MCHC RDW Plt Count MPV Absolute Nucleated RBC Nucleated RBC % (auto) POC Glucose 68 144 H 124 H Blood Type Antibody Screen Imaging Radiologist's impression: Impressions Duplex Scan Lower Extremity Artery 04/05/22 09:37 IMPRESSION: No hemodynamically significant stenosis in the bilateral lower extremities. Venous Duplex 04/05/22 09:45 IMPRESSION: No DVT demonstrated in the bilateral lower extremity. Progress Note: A&P Assessment and plan (1) Acute heart failure: Status: Acute Assessment and Plan: Acute heart failure with reduced ejection fraction secondary to severe ischemic cardiomyopathy. No evidence of ischemia. Has tolerated Diovan and spironolactone. Clinically appears to be more euvolemic. Can strangulation to p.o. torsemide 40 mg b.i.d.. Also start metoprolol 12.5 mg b.i.d.. Closely follow his vital signs. Strict intake and output chart needs to be pursued. Continue to trend renal function as well as electrolytes and BNP tomorrow. He needs social input with case management to make sure that he has outpatient follow-up with Cardiology. CHF education to be provided. (2) Apical mural thrombus: Status: Acute Assessment and Plan: LV thrombus related to prior infarcted apical segment. Currently with significant thrombocytopenia being followed by maribel currently on IVIG. Once his platelet counts improve above 50,000 and if Hematology is okay with that she will restart warfarin therapy. Target INR between 2 and 3. Risk of thromboembolic complication was discussed with patient. (3) Coronary artery disease: Status: Acute Assessment and Plan: CAD with prior anterior STEMI with no follow-up since then. Continue high-intensity statin therapy. Continue warfarin therapy. Hold off on aspirin therapy due to significant thrombocytopenia. Start metoprolol therapy. Importance of compliance with follow-up was discussed. Will continue to follow with you Time Spent With Patient Time: Total time spent is greater than 50% in coordination of care (as documented) at patient's floor/unit and/or counseling patient: Progress Note: Quality Stroke Does the patient have a stroke diagnosis?: No Procedures Date of Service Date of Service: 04/05/22
[2022-04-05] MEDS: Atorvastatin Calcium 80 MG TABLET PO (20:25)
[2022-04-05] MEDS: ondansetron HCL 4 MG/2 ML VIAL IVPUSH (23:43)
--- NOTE | 2022-04-06 | ECG_ITS ---
Test Reason : heartburn Blood Pressure : / mmHG Vent. Rate : 101 BPM Atrial Rate : 101 BPM P-R Int : 174 ms QRS Dur : 106 ms QT Int : 364 ms P-R-T Axes : 031 -61 045 degrees QTc Int : 471 ms Sinus tachycardia Left anterior fascicular block Intra-ventricular conduction delay Inferior infarct (cited on or before 02-AUG-2014) Anterolateral infarct (cited on or before 02-AUG-2014) Abnormal ECG When compared with ECG of 02-APR-2022 05:02, Questionable change in initial forces of Lateral leads Referred By: Yosef Wilhelm Electronically Signed By:TSERING TOBIN MD
[2022-04-06] MEDS: Omeprazole 40 MG CAPSULE.DR PO (02:35)
[2022-04-06] MEDS: Prochlorperazine Edisylate 10 MG/2 ML VIAL 5 MG IVPUSH (02:35)
[2022-04-06 03:36] LABS: Troponin-I High Sensitivity 102.5 ng/L (<3.5-35.0)
[2022-04-06 05:43] VITALS: BMI 32.5
[2022-04-06 07:03] LABS: Hematocrit 37.8 % (42.0-52.0); Hemoglobin 11.9 g/dl (14.0-18.0); Mean Corpuscular HGB Conc 31.5 g/dl (31.0-36.0); Mean Corpuscular Hemoglobin 29.9 pg (27.0-33.0); Mean Platelet Volume 12.9 fL (9.4-12.4); Red Blood Count 3.98 X10*6/uL (4.60-5.80); Red Cell Distribution Width 13.4 % (11.0-16.0)
[2022-04-06 07:09] LABS: Platelet Count 78 X10*3/uL (160-400)
[2022-04-06 07:31] LABS: Glucose, Whole Blood 111 mg/dL (60-115)
--- NOTE | 2022-04-06 07:44 | PM.EVENT ---
Platelet counts imptoved. Discontinue IVIG. Check CMP, start antocoagulation.
[2022-04-06 08:00] VITALS: BP 127/83; PULSE 95; RESP 20; TEMP 35.9; O2SAT 96
[2022-04-06] MEDS: Empagliflozin 10 MG TABLET PO (08:31)
[2022-04-06] MEDS: Gabapentin 100 MG CAPSULE PO ×3 (08:31→21:33)
[2022-04-06] MEDS: Montelukast Sodium 10 MG TABLET PO (08:32)
[2022-04-06] MEDS: 0.9 % Sodium Chloride Flush 3 ML SYRINGE IVFLUSH ×5 (08:32→21:33)
[2022-04-06] MEDS: HYDROmorphone HCl 0.5 MG/0.5 ML SYRINGE IVPUSH ×3 (08:36→18:07)
[2022-04-06 09:03] LABS: Alanine Aminotransferase 161 U/L (0-40); Albumin Level 3.3 g/dL (3.5-5.0); Alkaline Phosphatase 205 U/L (39-117); Anion Gap 17 (12-20); Aspartate Amino Transferase 181 U/L (5-37); Blood Urea Nitrogen 39 mg/dL (9-16); Calcium 8.5 mg/dL (8.4-10.2); Carbon Dioxide 32 mmol/L (22-29); Chloride 94 mmol/L (96-108); Creatinine Clr Calc Pharmacy 65.6; Estimated Glomerular Filt Rate 58; Glucose Random 127 mg/dL (60-115); Potassium 5.8 mmol/L (3.3-5.1); Sodium 137 mmol/L (135-145); Total Protein 7.3 g/dL (6.5-8.0)
[2022-04-06 09:16] LABS: INTERNATIONAL NORM RATIO 1.5 (0.9-1.1); Prothrombin Time 17.4 SEC (10.0-13.1)
--- NOTE | 2022-04-06 11:19 | PM.PNCARD ---
Subjective Subjective Date of Service: 04/06/22 Principal diagnosis: CHF Interval history: He states that he is feeling better than arrival. Still has some leg swelling. Review of Systems Review of Systems Yes all other systems are reviewed and are negative Constitutional: Reports as per HPI Eyes: Reports as per HPI Reports as per HPI Cardiovascular: Reports as per HPI, Denies acrocyanosis, Denies cool extremities, Denies chest pain, Reports leg edema, Denies lightheadedness, Denies palpitations and Reports dyspnea Respiratory: Reports as per HPI, Reports no additional respiratory complaints and Reports dyspnea Gastrointestinal: Reports as per HPI and Reports no additional gastrointestinal complaints Genitourinary: Reports no additional male genitourinary complaints and Reports as per HPI Musculoskeletal: Reports no additional musculoskeletal complaints and Reports as per HPI Skin/Breast: Reports system reviewed and no additional complaints, except as docu Reports system reviewed and no additional complaints, except as documented and Reports as per HPI Psychiatric: Reports no additional psychiatric complaints and Reports as per HPI Endocrine: Reports no additional endocrine complaints, Reports as per HPI and Denies palpitations Hematologic/Lymphatic: Reports no additional hematologic/lymphatic complaints and Reports as per HPI Allergic/Immunologic: Reports no additional allergic/immunologic complaints and Reports as per HPI Physical Exam Vital Signs: Last Vital Signs Temp 96.6 F L 04/06/22 08:00 Pulse 95 04/06/22 08:00 Resp 20 04/06/22 08:00 BP 127/83 04/06/22 08:00 Pulse Ox 96 04/06/22 08:00 O2 Del Method 04/06/22 08:00 O2 Flow Rate 3 04/04/22 11:30 FiO2 100 04/01/22 19:00 BMI result Body Mass Index 32.5 Const General: comfortable and no acute distress Orientation/consciousness: patient oriented x3 HEENT Other: Unremarkable Head: Yes normal to inspection Neck Neck: Yes normal visual inspection Chest Chest palpation & inspection: normal inspection of the chest Resp Auscultation: clear to auscultation bilaterally and rhonchi Cardio Palpation: normal PMI Heart sounds: S1 normal heart sound present, S2 normal heart sound present, no gallops, no murmurs and no rubs GI Palpation (GI): Soft to palpation Back/Spine/Pelvis Other: unremarkable Skin General skin exam: no rashes or lesions noted Neuro General: patient oriented x3 Extrem Other: 1+ swelling bilateral Psych Mental Status: mental status grossly normal Objective Labs and Meds Result diagrams: 04/06/22 06:15 04/06/22 06:15 Lab results: Laboratory Results - last 24 hr 04/03/22 04/05/22 04/05/22 13:04 15:38 19:57 WBC RBC Hgb Hct MCV MCH MCHC RDW Plt Count MPV Absolute Nucleated RBC Nucleated RBC % (auto) PT INR Sodium Potassium Chloride Carbon Dioxide Anion Gap BUN Creatinine Estim Creat Clear Calc Estimated GFR POC Glucose 162 H 142 H Random Glucose Calcium Total Bilirubin AST ALT Alkaline Phosphatase Troponin I High Sens Total Protein Albumin Blood Type A Positive Antibody Screen NEGATIVE 04/06/22 04/06/22 04/06/22 02:55 06:15 06:15 WBC 6.0 RBC 3.98 L Hgb 11.9 L Hct 37.8 L MCV 95.0 MCH 29.9 MCHC 31.5 RDW 13.4 Plt Count 78 L D MPV 12.9 H Absolute Nucleated RBC 0.000 Nucleated RBC % (auto) 0.0 PT INR Sodium 137 Potassium 5.8 H D Chloride 94 L Carbon Dioxide 32 H Anion Gap 17 BUN 39 H Creatinine 1.26 Estim Creat Clear Calc 65.6 Estimated GFR 58 POC Glucose Random Glucose 127 H Calcium 8.5 Total Bilirubin 1.0 AST 181 H ALT 161 H Alkaline Phosphatase 205 H D Troponin I High Sens 102.5 H* D Total Protein 7.3 D Albumin 3.3 L Blood Type Antibody Screen 04/06/22 04/06/22 07:27 08:53 WBC RBC Hgb Hct MCV MCH MCHC RDW Plt Count MPV Absolute Nucleated RBC Nucleated RBC % (auto) PT 17.4 H INR 1.5 H Sodium Potassium Chloride Carbon Dioxide Anion Gap BUN Creatinine Estim Creat Clear Calc Estimated GFR POC Glucose 111 Random Glucose Calcium Total Bilirubin AST ALT Alkaline Phosphatase Troponin I High Sens Total Protein Albumin Blood Type Antibody Screen Progress Note: A&P Assessment and plan (1) Acute systolic (congestive) heart failure: Status: Acute Assessment and Plan: Some volume overload but not too much. Continue diuretics. Still has some volume overload and keep on IV. Otherwise, his potassium is going up and at 5.8. Hence hold valsartan/spironolactone. Continue Jardiance. (2) Apical mural thrombus: Status: Acute Assessment and Plan: Anticoagulation when able. There is also concern from thrombocytopenia. Hematology note reviewed. (3) Coronary artery disease: Status: Acute Assessment and Plan: History of prior anterior STEMI without any follow-up. Clinically, no angina. Commenced on statins, but LFTs a going up. Hence will need to hold. Time Spent With Patient Time: Total time spent is greater than 50% in coordination of care (as documented) at patient's floor/unit and/or counseling patient: 35min. Progress Note: Quality Stroke Does the patient have a stroke diagnosis?: No Procedures Date of Service Date of Service: 04/06/22
[2022-04-06 11:35] LABS: Glucose, Whole Blood 223 mg/dL (60-115)
[2022-04-06] MEDS: Insulin Lispro 100 UNIT/ML 3 ML VIAL SUBCUT ×2 (11:54→21:32)
[2022-04-06 12:00] VITALS: BP 138/89; PULSE 98; RESP 20; TEMP 36.2; O2SAT 96
--- NOTE | 2022-04-06 12:19 | P.PNIM_ITS ---
Subjective Subjective Date of Service: 04/06/22 <Cortney Dill NP - Last Filed: 04/06/22 12:22> 04/08/22 <Whitney Conde MD - Last Filed: 04/08/22 07:59> Interval History: Follow up for CHF, pleural effusion, apical thrombus, chest pain, severe thrombocytopenia Platelets have improved significantly IVIG and platelets Complaints of right lower extremity pain and edema resolved, no DVT Denies abdominal pain, bleeding, nausea, vomiting, diarrhea <Cortney Dill NP - Last Filed: 04/06/22 12:22> Review of Systems Review of Systems: Yes all other systems are reviewed and are negative <Cortney Dill NP - Last Filed: 04/06/22 12:22> Constitutional Constitutional: Denies chills and Denies fever(s) <Cortney Dill NP - Last Filed: 04/06/22 12:22> ENT Ears, Nose, Mouth, and Throat: Denies dizziness <Cortney Dill NP - Last Filed: 04/06/22 12:22> Cardiovascular Cardiovascular: Denies chest pain, Denies palpitations and Reports dyspnea on exertion <Cortney Dill NP - Last Filed: 04/06/22 12:22> Respiratory Respiratory: Denies cough and Reports dyspnea on exertion <Cortney Dill NP - Last Filed: 04/06/22 12:22> Gastrointestinal Gastrointestinal: Reports abdominal pain, Denies constipation, Denies nausea and Denies vomiting <Cortney Dill NP - Last Filed: 04/06/22 12:22> Neurologic Neurologic: Denies dizziness <Cortney Dill NP - Last Filed: 04/06/22 12:22> Endocrine Endocrine: Denies palpitations <Cortney Dill NP - Last Filed: 04/06/22 12:22> Physical Exam Vital Signs: Vital Signs: Last Vital Signs Temp 96.6 F L 04/06/22 08:00 Pulse 95 04/06/22 08:00 Resp 20 04/06/22 08:00 BP 127/83 04/06/22 08:00 Pulse Ox 96 04/06/22 08:00 O2 Del Method 04/06/22 08:00 O2 Flow Rate 3 04/04/22 11:30 FiO2 100 04/01/22 19:00 BMI result Body Mass Index 32.5 <Cortney Dill NP - Last Filed: 04/06/22 12:22> Appearing in no acute distress lung sounds are clear to auscultation heart regular rate rhythm, clear S1, S2 positive bowel sounds, abdomen is soft, nontender neuro patient is alert x3, no focal deficits <Cortney Dill NP - Last Filed: 04/06/22 12:22> Objective Data Active Medications Acetaminophen (Acetaminophen Supp 650 Mg Supp.Rect) 650 mg [place] Q6H PRN PRN Reason: Pain, Mild (Pain Scale 1-3) Dextrose (Dextrose 50 % 25 Gm/50 Ml Syringe) 25 gm IVPUSH Q15M PRN; Protocol PRN Reason: per Hypoglycemia Standing Ord. Last Admin: 03/31/22 09:05 Dose: 25 gm Documented By: GAMAL Empagliflozin (Empagliflozin 10 Mg Tablet) 10 mg PO DAILY [facility] Last Admin: 04/06/22 08:31 Dose: 10 mg Documented By: ROBERT Furosemide (Furosemide 40 Mg/4 Ml Vial) 40 mg IVPUSH BID@0900,1800 [facility]; Protocol Last Admin: 04/03/22 18:10 Dose: 40 mg Documented By: MARK Gabapentin (Gabapentin 100 Mg Capsule) 100 mg PO TID [facility] Last Admin: 04/06/22 08:31 Dose: 100 mg Documented By: ROBERT Glucose (Glucose Gel 15 Gm Gel..Gram.) 15 gm PO Q15M PRN; Protocol PRN Reason: per Hypoglycemia Standing Ord. Hydromorphone HCl (Hydromorphone Hcl 0.5 Mg/0.5 Ml Syringe) 0.5 mg IVPUSH Q4H PRN; Protocol PRN Reason: Pain, Severe (Pain Scale 7-10) Last Admin: 04/06/22 08:36 Dose: 0.5 mg Documented By: ROBERT Insulin Glargine (Insulin Glargine,Hum.Rec.Anlog 100 Unit/Ml 10 Ml Vial) 20 unit SUBCUT BEDTIME [facility] Last Admin: 04/05/22 20:25 Dose: Not Given Documented By: VENTURA Non-Admin Reason: Patient Refused Insulin Glargine (Insulin Glargine,Hum.Rec.Anlog 100 Unit/Ml 10 Ml Vial) 40 unit SUBCUT DAILY [facility] Last Admin: 04/06/22 08:31 Dose: Not Given Documented By: ROBERT Non-Admin Reason: Patient Refused Insulin Human Lispro (Insulin Lispro 100 Unit/Ml 3 Ml Vial) 0 unit SUBCUT Q IDACHS [facility]; Protocol Last Admin: 04/06/22 11:54 Dose: 4 unit Documented By: ROBERT Montelukast Sodium (Montelukast Sodium 10 Mg Tablet) 10 mg PO DAILY [facility] Last Admin: 04/06/22 08:32 Dose: 10 mg Documented By: ROBERT Morphine Sulfate (Morphine Sulfate 2 Mg/Ml Cartridge) 2 mg IVPUSH Q4H PRN; Protocol PRN Reason: Pain, Severe (Pain Scale 7-10) Last Admin: 04/05/22 13:48 Dose: 2 mg Documented By: ROBERT Nitroglycerin (Nitroglycerin 0.4 Mg Tab.Subl) 0.4 mg SUBLINGUAL Q5M PRN PRN Reason: chest pain Last Admin: 04/02/22 02:33 Dose: 0.4 mg Documented By: SANCHEZ Ondansetron HCl (Ondansetron Hcl 4 Mg/2 Ml Vial) 4 mg IVPUSH Q8H PRN PRN Reason: Nausea and Vomiting Last Admin: 04/05/22 23:43 Dose: 4 mg Documented By: VENTURA Pharmacy Consult (Consult Rx Perform Med Rec) 1 each MISCELLANE ONCE PRN PRN Reason: Consult order Polyethylene Glycol (Polyethylene Glycol 3350 17 Gm Powd.Pack) 17 gm PO DAILY [facility] Last Admin: 04/06/22 08:31 Dose: Not Given Documented By: ROBERT Non-Admin Reason: Patient Refused Sodium Chloride (0.9 % Sodium Chloride Flush 3 Ml Syringe) [facility] Admin: 04/06/22 08:32 Dose: 3 ml Documented By: ROBERT Sodium Chloride (0.9 % Sodium Chloride Flush 3 Ml Syringe) [facility] Last Admin: 04/06/22 08:32 Dose: 3 ml Documented By: ROBERT Sodium Zirconium Cyclosilicate (Sodium Zirconium Cyclosilicate 10 Gm Powd.Pack) 10 gm PO ONCE ONE Stop: 04/06/22 12:15 Spironolactone (Spironolactone 25 Mg Tablet) 25 mg PO DAILY [facility]; Protocol Last Admin: 04/03/22 08:44 Dose: 25 mg Documented By: UGOSOFADRIAN Valsartan (Valsartan 40 Mg Tablet) 40 mg PO BID [facility]; Protocol Last Admin: 04/03/22 19:25 Dose: 40 mg Documented By: PADDY Warfarin Sodium (Warfarin Sodium 5 Mg Tablet) 5 mg PO DAILY@1800 [facility]USAN <Cortney Dill NP - Last Filed: 04/06/22 12:22> Labs CBC & Chem 7: : 04/07/22 06:30 04/08/22 06:48 <Cortney Dill NP - Last Filed: 04/06/22 12:22> Labs: Laboratory Results - last 24 hr 04/03/22 04/05/22 04/05/22 13:04 15:38 19:57 MCV MCH MCHC RDW Plt Count MPV Absolute Nucleated RBC Nucleated RBC % (auto) PT INR Anion Gap Estim Creat Clear Calc Estimated GFR POC Glucose 162 H 142 H Random Glucose Calcium Total Bilirubin AST ALT Alkaline Phosphatase Troponin I High Sens Total Protein Albumin Blood Type A Positive Antibody Screen NEGATIVE 04/06/22 04/06/22 04/06/22 02:55 06:15 06:15 MCV 95.0 MCH 29.9 MCHC 31.5 RDW 13.4 Plt Count 78 L D MPV 12.9 H Absolute Nucleated RBC 0.000 Nucleated RBC % (auto) 0.0 PT INR Anion Gap 17 Estim Creat Clear Calc 65.6 Estimated GFR 58 POC Glucose Random Glucose 127 H Calcium 8.5 Total Bilirubin 1.0 AST 181 H ALT 161 H Alkaline Phosphatase 205 H D Troponin I High Sens 102.5 H* D Total Protein 7.3 D Albumin 3.3 L Blood Type Antibody Screen 04/06/22 04/06/22 04/06/22 07:27 08:53 11:31 MCV MCH MCHC RDW Plt Count MPV Absolute Nucleated RBC Nucleated RBC % (auto) PT 17.4 H INR 1.5 H Anion Gap Estim Creat Clear Calc Estimated GFR POC Glucose 111 223 H Random Glucose Calcium Total Bilirubin AST ALT Alkaline Phosphatase Troponin I High Sens Total Protein Albumin Blood Type Antibody Screen <Cortney Dill NP - Last Filed: 04/06/22 12:22> Microbiology Microbiology Results: Microbiology 03/31/22 12:00 Gram Stain - Final Paracentesis Fluid Anaerobic Culture - Final NO GROWTH AFTER 5 DAYS Body Fluid Culture - Final No growth after 2 days <Cortney Dill NP - Last Filed: 04/06/22 12:22> Assessment and Plan (1) Thrombocytopenia: Status: Acute <Cortney Dill NP - Last Filed: 04/06/22 12:22> (2) NSVT (nonsustained ventricular tachycardia): Status: Acute <Cortney Dill NP - Last Filed: 04/06/22 12:22> (3) Apical mural thrombus: Status: Acute <Cortney Dill NP - Last Filed: 04/06/22 12:22> (4) Acute heart failure: Status: Acute <Cortney Dill NP - Last Filed: 04/06/22 12:22> (5) Coronary artery disease: Status: Acute <Cortney Dill NP - Last Filed: 04/06/22 12:22> Assessment and Plan: 61-year-old male with progressive shortness of breath over the last 4-5 days as well as stocking-glove paresthesias with weakness presents to the ER today for workup.? CT abdomen pelvis and chest demonstrate right greater than left pleural effusions question left base infiltrate. Severe thrombocytopenia. 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, related to ceftriaxone versus IV heparin abx, coumadin, heparin and aspirin stopped HIT panel ordered and pending but less likely due to timeline Discussed with Hematology, received IVIG x2 and a unit of platelets x2 Start anticoagulation Follow CBC closely sign Hypernatremia Potassium 5.8 Aldactone and valsartan on hold Lokelma 10 mg now Follow BMP Transaminitis Acute Possibly secondary to IVIG Monitor and follow liver profile, if no improvement consider GI consultation Acute combined systolic and diastolic CHF ECHO with severe LVEF 15-20%, grade 3 diastolic dysfunction and regional WMA and large apical thrombus. Blood pressure on the lower side, will hold Lasix and spironolactone for now Continue [facility] following Apical thrombus previously on heparin drip and oral Coumadin.? Stopped due to severe thrombocytopenia with platelets as low as 5 platelets now 78, will resume warfarin, follow-up PT INR CAD h/o anterior wall RI with 2 stents CP overnight, trops flat on full AC initially but held due to severe thrombocytopenia inpatient stress test - EF 19%, myocardial perfusion showing large transmural infarct in LAD territory, transient ischemic dilatation not present, Lexiscan portion with a 7 be an SVT in recovery with normotensive response nondiagnostic EKG for ischemia cardiology following Elevated troponin, recheck this afternoon NSVT 9 beat vtach during resting phase of stress test known low EF not on BB due to acute CHF goal to keep K>4, mag >2 cardiology following Pleural effusion s/p thoracentesis 03/31 with removal of 1.3L of fluid likely secondary to CHF vs pneumonia repeat CXR showing small residual effusion abdominal pain ct scan with no acute abdominal pathology LFTs wnl symptomatic care continue bowel regimine Possible pneumonia no sepsis initial CT scan showing large effusion with airspace dz ?pneumonia s/p iv ceftriaxone, azithromycin for 5 days abx d/c for severe thrombocytopenia - no further abx at this time blood cultures have remained negative Uncontrolled diabetes type 2 intermittent episodes of hypoglycemia, mostly fasting Metformin stopped, Lantus decreased at bedtime Continue sliding scale, ADA diet Paresthesias with subjective weakness given stocking-glove distribution likely related to diabetes Hypertension bp controlled, continue current meds Full code DVT ppx - mechanical devices ordered due to severe thrombocytopenia attending - dr.? Conde Will require ongoing hospitalization for treatment of acute congestive heart failure, close telemetry monitoring and management for severe thrombocytopenia with high risk for decompensation <Cortney Dill NP - Last Filed: 04/06/22 12:22> Quality Stroke Does the patient have a stroke diagnosis?: No <Cortney Dill NP - Last Filed: 04/06/22 12:22> VTE Prior VTE?: No <Cortney Dill NP - Last Filed: 04/06/22 12:22> VTE Risk Level:: Medical - moderate - high <Cortney Dill NP - Last Filed: 04/06/22 12:22> VTE Device Contraindication: Treatment Not Indicated <Cortney Dill NP - Last Filed: 04/06/22 12:22> VTE Drug Contraindication: N/A - Med Ordered <Cortney Dill NP - Last Filed: 04/06/22 12:22>
[2022-04-06] MEDS: Sodium Zirconium Cyclosilicate 10 GM POWD.PACK PO (13:27)
[2022-04-06 13:37] LABS: Troponin-I High Sensitivity 99.5 ng/L (<3.5-35.0)
[2022-04-06 15:34] VITALS: BP 124/79; PULSE 103; RESP 17; TEMP 36.9; O2SAT 99
[2022-04-06] MEDS: Morphine Sulfate 2 MG/ML CARTRIDGE IVPUSH (15:52)
[2022-04-06 17:07] LABS: Glucose, Whole Blood 177 mg/dL (60-115)
[2022-04-06] MEDS: Warfarin Sodium 5 MG TABLET PO (17:09)
[2022-04-06 19:23] VITALS: BP 135/87; PULSE 101; RESP 17; TEMP 36.3; O2SAT 96
[2022-04-06 19:36] LABS: Glucose, Whole Blood 216 mg/dL (60-115)
[2022-04-06] MEDS: Insulin Glargine,Hum.rec.anlog 100 UNIT/ML 10 ML VIAL 20 UNIT SUBCUT (21:33)
[2022-04-06 23:30] VITALS: BP 107/66; PULSE 97; RESP 16; TEMP 36.8; O2SAT 93
[2022-04-07] VITALS (7 sets, daily range): BP systolic 99–128; BP diastolic 61–89; PULSE 89–102; RESP 16–20; TEMP 36.3–37.1; O2SAT 94–97; BMI 32.6
[2022-04-07] MEDS: 0.9 % Sodium Chloride Flush 3 ML SYRINGE IVFLUSH ×5 (00:20→17:23)
[2022-04-07] MEDS: HYDROmorphone HCl 0.5 MG/0.5 ML SYRINGE IVPUSH ×5 (00:20→22:05)
[2022-04-07 00:27] LABS: Glucose, Whole Blood 140 mg/dL (60-115)
[2022-04-07 03:48] LABS: Glucose, Whole Blood 160 mg/dL (60-115)
[2022-04-07 06:41] LABS: MANUAL DIFF FLAG NO
[2022-04-07 06:51] LABS: Basophils Absolute Auto 0.1 X10*3/uL (0.0-0.2); Basophils Percent Auto 1.5 % (0-2); Eosinophils Absolute Auto 0.2 X10*3/uL (0.0-0.4); Hematocrit 37.2 % (42.0-52.0); Hemoglobin 11.8 g/dl (14.0-18.0); Imm Gran Abs Auto 0.01 X10*3/uL (0.00-0.03); Imm Gran Pct Auto 0.2 % (0.0-0.4); Lymphocytes Absolute Auto 1.1 X10*3/uL (1.2-4.9); Lymphocytes Percent Auto 20.6 % (20-40); Mean Corpuscular HGB Conc 31.7 g/dl (31.0-36.0); Mean Corpuscular Hemoglobin 29.7 pg (27.0-33.0); Mean Corpuscular Volume 93.7 fL (80.0-98.0); Mean Platelet Volume 11.2 fL (9.4-12.4); Monocytes Absolute Auto 0.7 X10*3/uL (0.1-1.2); Neutrophils Absolute Auto 3.3 x10*3/uL (2.0-8.3); Neutrophils Percent Auto 61.7 % (45-73); Platelet Count 122 X10*3/uL (160-400); Red Blood Count 3.97 X10*6/uL (4.60-5.80); Red Cell Distribution Width 13.5 % (11.0-16.0); White Blood Count 5.4 X10*3/uL (4.8-10.8)
[2022-04-07 07:09] LABS: Anion Gap 17 (12-20); Blood Urea Nitrogen 40 mg/dL (9-16); Calcium 8.1 mg/dL (8.4-10.2); Carbon Dioxide 27 mmol/L (22-29); Chloride 95 mmol/L (96-108); Creatinine Clr Calc Pharmacy 62.3; Estimated Glomerular Filt Rate 54; Glucose Random 144 mg/dL (60-115); Potassium 5.4 mmol/L (3.3-5.1); Sodium 134 mmol/L (135-145)
[2022-04-07 07:18] LABS: Alanine Aminotransferase 358 U/L (0-40); Albumin Level 3.1 g/dL (3.5-5.0); Alkaline Phosphatase 248 U/L (39-117); Aspartate Amino Transferase 288 U/L (5-37); Bilirubin Direct 0.5 mg/dL (0.0-0.5); Bilirubin Total 0.9 mg/dL (0.0-1.0); Total Protein 6.6 g/dL (6.5-8.0)
[2022-04-07 07:31] LABS: Glucose, Whole Blood 133 mg/dL (60-115)
--- NOTE | 2022-04-07 08:26 | PM.HEMONCPN ---
Medical Summary - Medical Summary Date of Service: 04/07/22 Chief complaint: None reported Medical Summary: Diagnosis: Severe thrombocytopenia Admitted on 03/28/2022 for weakness and shortness of breath. Patient has a history of coronary artery disease, he underwent imaging study, CT chest/abdomen and pelvis which showed left pleural effusion with compressive atelectasis and mild diffuse ascites. He was admitted for congestive heart failure and left basal infiltrate. He was started on IV Lasix and IV antibiotics with ceftriaxone and Zithromax. His platelet count on day of admission was normal at 235 K. his platelets started to decline around 04/01/2022 a few days after receiving IV antibiotics. He was started on heparin on 04/01/2022. Interval History Interval history: Patient is feeling a lot better. He said he slept well. He has some shortness of breath, his leg swelling has improved. He no longer has nose bleeds. He has continued easy skin bruising. Review of Systems - Constitutional Reports as per HPI, Reports no additional constitutional complaints - Neurologic Reports no additional neurologic complaints, Reports as per HPI, Denies dizziness, Denies syncope PMF Medical History: Medical History (Last Reviewed 03/29/22 @ 21:41 by Megan Negrete RN) Diabetes Essential (primary) hypertension GI bleed Hematemesis HLD (hyperlipidemia) STEMI (ST elevation myocardial infarction) Unspecified asthma, uncomplicated Surgical History: Surgical History (Last Reviewed 03/29/22 @ 21:41 by Megan Negrete RN) H/O heart artery stent Social History: Social History (Last Updated 03/29/22 @ 21:39 by Megan Negrete RN) Living Situation History: Household Members: None Caregiver staying overnight: No Housing: Apartment Do you presently have visiting nurse or other home services: No Tobacco History: Patient Tobacco Use Status: Former Tobacco user Substance Use History: Substance Use Type: Former Substance User Advance Directives: Advance Directives Date on File: 08/02/21 Occupation Assessmet: service: No Home Medications and Allergies Current Medications: Current Medications Acetaminophen (Acetaminophen Supp 650 Mg Supp.Rect) 650 mg [place] Q6H PRN PRN Reason: Pain, Mild (Pain Scale 1-3) Dextrose (Dextrose 50 % 25 Gm/50 Ml Syringe) 25 gm IVPUSH Q15M PRN; Protocol PRN Reason: per Hypoglycemia Standing Ord. Last Admin: 03/31/22 09:05 Dose: 25 gm Empagliflozin (Empagliflozin 10 Mg Tablet) 10 mg PO DAILY [facility] 234 BEDS AT [facility] Last Admin: 04/06/22 08:31 Dose: 10 mg Furosemide (Furosemide 40 Mg/4 Ml Vial) 40 mg IVPUSH BID@0900,1800 [facility]S [facility] 234 BEDS AT [facility]; Protocol Last Admin: 04/03/22 18:10 Dose: 40 mg Gabapentin (Gabapentin 100 Mg Capsule) 100 mg PO TID [facility]S [facility]CLUDE 234 BEDS AT THE [facility] Last Admin: 04/06/22 21:33 Dose: 100 mg Glucose (Glucose Gel 15 Gm Gel..Gram.) 15 gm PO Q15M PRN; Protocol PRN Reason: per Hypoglycemia Standing Ord. Hydromorphone HCl (Hydromorphone Hcl 0.5 Mg/0.5 Ml Syringe) 0.5 mg IVPUSH Q4H PRN; Protocol PRN Reason: Pain, Severe (Pain Scale 7-10) Last Admin: 04/07/22 00:20 Dose: 0.5 mg Insulin Glargine (Insulin Glargine,Hum.Rec.Anlog 100 Unit/Ml 10 Ml Vial) 20 unit SUBCUT BEDTIME [facility]S [facility]CLUDE 234 BEDS AT [facility] Last Admin: 04/06/22 21:33 Dose: 20 unit Insulin Glargine (Insulin Glargine,Hum.Rec.Anlog 100 Unit/Ml 10 Ml Vial) 40 unit SUBCUT DAILY [facility]S [facility]CLUDE 234 BEDS AT THE [facility] Last Admin: 04/06/22 08:31 Dose: Not Given Insulin Human Lispro (Insulin Lispro 100 Unit/Ml 3 Ml Vial) 0 unit SUBCUT QIDACHS COUNTS INCLUDE 234 BEDS AT THE [facility]; Protocol Last Admin: 04/07/22 07:34 Dose: Not Given Montelukast Sodium (Montelukast Sodium 10 Mg Tablet) 10 mg PO DAILY [facility]S [facility]CLUDE 234 BEDS AT THE [facility] Last Admin: 04/06/22 08:32 Dose: 10 mg Morphine Sulfate (Morphine Sulfate 2 Mg/Ml Cartridge) 2 mg IVPUSH Q4H PRN; Protocol PRN Reason: Pain, Severe (Pain Scale 7-10) Last Admin: 04/06/22 15:52 Dose: 2 mg Nitroglycerin (Nitroglycerin 0.4 Mg Tab.Subl) 0.4 mg SUBLINGUAL Q5M PRN PRN Reason: chest pain Last Admin: 04/02/22 02:33 Dose: 0.4 mg Ondansetron HCl (Ondansetron Hcl 4 Mg/2 Ml Vial) 4 mg IVPUSH Q8H PRN PRN Reason: Nausea and Vomiting Last Admin: 04/05/22 23:43 Dose: 4 mg Pharmacy Consult (Consult Rx Perform Med Rec) 1 each MISCELLANE ONCE PRN PRN Reason: Consult order Polyethylene Glycol (Polyethylene Glycol 3350 17 Gm Powd.Pack) 17 gm PO DAILY [facility]S [facility]CLUDE 234 BEDS AT [facility] Last Admin: 04/06/22 08:31 Dose: Not Given Sodium Chloride (0.9 % Sodium Chloride Flush 3 Ml Syringe) [address] [facility] Last Admin: 04/06/22 21:33 Dose: 3 ml Sodium Chloride (0.9 % Sodium Chloride Flush 3 Ml Syringe) [address] [facility] Last Admin: 04/07/22 00:20 Dose: 3 ml Spironolactone (Spironolactone 25 Mg Tablet) 25 mg PO DAILY [facility]CLUDE 234 BEDS AT [facility]; Protocol Last Admin: 04/03/22 08:44 Dose: 25 mg Valsartan (Valsartan 40 Mg Tablet) 40 mg PO BID [facility]S [facility]CLUDE 234 BEDS AT [facility]; Protocol Last Admin: 04/03/22 19:25 Dose: 40 mg Warfarin Sodium (Warfarin Sodium 5 Mg Tablet) 5 mg PO DAILY@1800 [facility]S [facility]CLUDE 234 BEDS AT [facility] Last Admin: 04/06/22 17:09 Dose: 5 mg Home Medications Medication Instructions Recorded Confirmed Type insulin lispro 100 unit/mL See Rx Instructions .Route .COMPLEX 05/13/21 03/28/22 History subcutaneous pen (Humalog KwikPen (U-100) Insulin) empagliflozin 10 mg tablet 10 mg PO DAILY 03/28/22 03/28/22 History (Jardiance) insulin glargine 100 unit/mL (3 50 unit subcut BID 03/28/22 03/28/22 History mL) subcutaneous pen (Lantus Solostar U-100 Insulin) Allergies Allergy/AdvReac Type Severity Reaction Status Date / Time No Known Allergies Allergy Verified 04/15/21 16:30 Exam Vital signs: Vital Signs Temp 97.3 F 04/07/22 07:36 Pulse 89 04/07/22 07:36 Resp 20 04/07/22 07:36 BP 110/80 04/07/22 07:36 Pulse Ox 97 04/07/22 07:36 O2 Del Method 04/07/22 07:36 O2 Flow Rate 3 04/04/22 11:30 FiO2 100 10/05/22 19:00 Intake & Output 04/06/22 04/07/22 04/07/22 18:59 06:59 18:59 Intake Total 420 / 1220 800 / 1220 Balance 420 / 1220 800 / 1220 Intake: Intake, Oral Amount 420 / 1220 800 / 1220 Other: Number of Unmeasured Voids 4 Urine Bathroom Weight 94.6 kg Weight in Grams [id number] Weight 94.6 kg BMI result Body Mass Index 32.6 - Constitutional Present: mild distress - Routine HEENT Exam Head: Present: normal inspection - Routine Respiratory Exam Present: accessory muscle use, rales - Routine Cardiovascular Exam Cardiovascular: Present: S1, S2 - Routine Abdominal Exam Present: distended - Routine Skin Exam Present: intact, ecchymosis Data - Labs CBC & Chem 7: 04/07/22 06:30 04/07/22 06:30 - Imaging Radiologist's impression: ITS Impressions Chest X-Ray 03/28/22 10:33 IMPRESSION: Right lung base infiltrate. Lumbar Spine MRI 03/28/22 12:18 IMPRESSION: No acute abnormality of the lumbar spine is identified. There are multilevel degenerative changes as detailed above without high-grade spinal canal stenosis. Head CT 03/28/22 12:42 IMPRESSION: No acute intracranial findings. Abdomen/Pelvis CT 03/28/22 14:00 IMPRESSION: 1. Large pleural effusion as above with bibasilar airspace disease nonspecific but could represent pneumonia. 2. High density fluid within the bladder lumen which is too high to be blood products but favor related to contrast injection performed recently. Correlate with patient's procedural history. 3. Nonspecific ascites. 4. Severe coronary atherosclerosis. Chest CT 03/28/22 14:02 IMPRESSION: 1. Large pleural effusion as above with bibasilar airspace disease nonspecific but could represent pneumonia. 2. High density fluid within the bladder lumen which is too high to be blood products but favor related to contrast injection performed recently. Correlate with patient's procedural history. 3. Nonspecific ascites. 4. Severe coronary atherosclerosis. Abdomen Ultrasound 03/31/22 10:50 FINDINGS/IMPRESSION: No peritoneal ascites. Right pleural effusion. Thoracentesis Ultrasound 03/31/22 12:50 IMPRESSION: Successful ultrasound guided therapeutic and diagnostic right thoracentesis performed. Chest X-Ray 03/31/22 13:15 IMPRESSION: Status post right thoracentesis there is no pneumothorax. No residual pleural effusion seen. Chest X-Ray 04/02/22 11:18 IMPRESSION: * Mild cardiomegaly. No overt pulmonary edema. * The persistent opacity in the medial left lung base probably represents small residual pleural effusion and atelectasis. Also, the mild hazy opacity of the right lower hemithorax could be caused by layering of small residual effusion and atelectasis. There is no pneumothorax after the recent thoracentesis * No acute radiographic abnormalities within the abdomen. KUB X-Ray 04/02/22 11:18 IMPRESSION: * Mild cardiomegaly. No overt pulmonary edema. * The persistent opacity in the medial left lung base probably represents small residual pleural effusion and atelectasis. Also, the mild hazy opacity of the right lower hemithorax could be caused by layering of small residual effusion and atelectasis. There is no pneumothorax after the recent thoracentesis * No acute radiographic abnormalities within the abdomen. Abdomen/Pelvis CT 04/03/22 11:21 IMPRESSION: Small to moderate bilateral pleural effusions with associated dependent airspace disease, improved compared with March 28, 2022. Trace right subdiaphragmatic ascites, improved. Anasarca, not significantly changed. Severe coronary arterial calcification. Myocardial Perfusion Scan Nuc Med 04/03/22 13:00 Impression: 1. Myocardial perfusion imaging study shows large transmural infarct in LAD territory 2. Gated LVEF is 19% 3. Transient ischemic dilatation not present but LV cavity is dilated EKG is nondiagnostic for ischemia Duplex Scan Lower Extremity Artery 04/05/22 09:37 IMPRESSION: No hemodynamically significant stenosis in the bilateral lower extremities. Venous Duplex 04/05/22 09:45 IMPRESSION: No DVT demonstrated in the bilateral lower extremity. Assessment and Plan Patient Active problem list reviewed?: Yes (1) Thrombocytopenia Status: Acute Assessment and plan: 1. This is a 61-year-old male with severe thrombocytopenia, probable drug-induced thrombocytopenia secondary to cephalosporins. He was on ceftriaxone and azithromycin since 03/28/2022. His platelets have begun to drop since 04/01/2022 and reached a naif of 5k with associated nose bleeds and hematochezia. Antibiotics were discontinued, he was given platelet transfusion and 2 doses of IVIG. His platelet counts have improved. He has been started on anticoagulation. LFTs are trending upwards. Probably related to IVIG. Usually this is self-limiting, if persistent and continues to go up, review other medications that can cause liver dysfunction. - Time Spent With Patient Time Spent with Patient (in minutes): 10
[2022-04-07] MEDS: Empagliflozin 10 MG TABLET PO (08:58)
[2022-04-07] MEDS: Sodium Zirconium Cyclosilicate 10 GM POWD.PACK PO (08:58)
[2022-04-07] MEDS: Gabapentin 100 MG CAPSULE PO ×3 (08:58→22:13)
[2022-04-07] MEDS: Montelukast Sodium 10 MG TABLET PO (08:58)
[2022-04-07] MEDS: polyethylene glycoL 3350 17 GM POWD.PACK PO (08:58)
[2022-04-07] MEDS: Insulin Glargine,Hum.rec.anlog 100 UNIT/ML 10 ML VIAL 40 UNIT SUBCUT (08:59)
[2022-04-07 09:04] LABS: INTERNATIONAL NORM RATIO 1.6 (0.9-1.1); Prothrombin Time 19.2 SEC (10.0-13.1)
--- NOTE | 2022-04-07 09:30 | P.CNGI_ITS ---
History of Present Illness Data of Consult Service Date: 04/07/22 Requesting physician: Cortney Dill Primary Care Provider: Quincy Dugan, [facility]- HPI Reason for consult: abn LFT 61-year-old male w hx of STEMI s/p stents, DM, HTN and asthma who I am seeing for assessment for abn LFT Patient initially presented last week with exertional SOB, without chest pain. He also had abdominal distention with some abdominal discomfort. He denied diarrhea, constipation, melena and rectal bleeding. Subsequent investigations revealed severe LV dyskinesia (EF 19%) with apicla mural thrombus and right sided large plueral effusion which was tapped with BNP >2000 Course complicated by low platelets thought to be immune mediated, possible HIT or due to antibiotics, and he did have nose bleeds due to this. Hematology recommended IVIG and he got few doses Over last few days AST, ALT and alk phos have been higher in low hundreds haing been normal before this. Trop is also high. overall he feels better than when he first came in, and feels he has more energy and able to walk. He does complain of some bruising. Review of Systems Review of Systems: Constitutional : No Weight loss, No Fever, No Chills ENT/Mouth : No sore throat, No Rhinorrhea Eyes: No Swelling, No Redness Cardiovascular : No Chest Pain, No SOB, No Edema Respiratory : No Cough, No Sputum, No Wheezing Gastrointestinal : see HPI Genitourinary : NO Dysuria, No Urinary Frequency, No Hematuria, No Urgency Musculoskeletal : No joint pain, No Myalgias, No Joint Swelling Skin : No Skin Lesions, No rash Neuro : No Weakness, No Numbness, No Dizziness, No Headache Psych : No Anxiety/Panic, No Depression Heme/Lymph: No Bruising, No Lymphadenopathy Endocrine : No Polyuria, No Polydipsia All other systems reviewed and are negative. [facility] Past Medical History Medical History (Updated 04/07/22 @ 12:47 by Alexander Taylor MD) Diabetes Essential (primary) hypertension GI bleed Hematemesis HLD (hyperlipidemia) STEMI (ST elevation myocardial infarction) Unspecified asthma, uncomplicated Family History Pertinent family history: No FH of bleeding disorders, Surgical History Surgical History (Updated 04/03/22 @ 09:07 by Radha Davidson MD) H/O heart artery stent Social History Social History (Updated 03/29/22 @ 21:39 by Megan Negrete RN) Household Members: None Caregiver staying overnight: No Housing: Apartment Do you presently have visiting nurse or other home services: No Alcohol intake: former Patient Tobacco Use Status: Former Tobacco user Substance Use Type: Former Substance User Advance Directives Date on File: 08/02/21 service: No Meds Allergies Allergy/AdvReac Type Severity Reaction Status Date / Time No Known Allergies Allergy Verified 04/15/21 16:30 Active Medications: Current Medications Acetaminophen (Acetaminophen Supp 650 Mg Supp.Rect) 650 mg KS Q6H PRN PRN Reason: Pain, Mild (Pain Scale 1-3) Dextrose (Dextrose 50 % 25 Gm/50 Ml Syringe) 25 gm IVPUSH Q15M PRN; Protocol PRN Reason: per Hypoglycemia Standing Ord. Last Admin: 03/31/22 09:05 Dose: 25 gm Empagliflozin (Empagliflozin 10 Mg Tablet) 10 mg PO DAILY [facility] Last Admin: 04/07/22 08:58 Dose: 10 mg Furosemide (Furosemide 40 Mg/4 Ml Vial) 40 mg IVPUSH BID@0900,1800 SUSAN; Protocol Last Admin: 04/03/22 18:10 Dose: 40 mg Gabapentin (Gabapentin 100 Mg Capsule) 100 mg PO TID SUSAN Last Admin: 04/07/22 08:58 Dose: 100 mg Glucose (Glucose Gel 15 Gm Gel..Gram.) 15 gm PO Q15M PRN; Protocol PRN Reason: per Hypoglycemia Standing Ord. Hydromorphone HCl (Hydromorphone Hcl 0.5 Mg/0.5 Ml Syringe) 0.5 mg IVPUSH Q4H PRN; Protocol PRN Reason: Pain, Severe (Pain Scale 7-10) Last Admin: 04/07/22 09:08 Dose: 0.5 mg Insulin Glargine (Insulin Glargine,Hum.Rec.Anlog 100 Unit/Ml 10 Ml Vial) 20 unit SUBCUT BEDTIME SUSAN Last Admin: 04/06/22 21:33 Dose: 20 unit Insulin Glargine (Insulin Glargine,Hum.Rec.Anlog 100 Unit/Ml 10 Ml Vial) 40 unit SUBCUT DAILY [facility] Last Admin: 04/07/22 08:59 Dose: 40 unit Insulin Human Lispro (Insulin Lispro 100 Unit/Ml 3 Ml Vial) 0 unit SUBCUT QIDACHS [facility]; Protocol Last Admin: 04/07/22 07:34 Dose: Not Given Montelukast Sodium (Montelukast Sodium 10 Mg Tablet) 10 mg PO DAILY [facility] Last Admin: 04/07/22 08:58 Dose: 10 mg Morphine Sulfate (Morphine Sulfate 2 Mg/Ml Cartridge) 2 mg IVPUSH Q4H PRN; Protocol PRN Reason: Pain, Severe (Pain Scale 7-10) Last Admin: 04/06/22 15:52 Dose: 2 mg Nitroglycerin (Nitroglycerin 0.4 Mg Tab.Subl) 0.4 mg SUBLINGUAL Q5M PRN PRN Reason: chest pain Last Admin: 04/02/22 02:33 Dose: 0.4 mg Ondansetron HCl (Ondansetron Hcl 4 Mg/2 Ml Vial) 4 mg IVPUSH Q8H PRN PRN Reason: Nausea and Vomiting Last Admin: 04/05/22 23:43 Dose: 4 mg Pharmacy Consult (Consult Rx Perform Med Rec) 1 each MISCELLANE ONCE PRN PRN Reason: Consult order Polyethylene Glycol (Polyethylene Glycol 3350 17 Gm Powd.Pack) 17 gm PO DAILY [facility] Last Admin: 04/07/22 08:58 Dose: 17 gm Sodium Chloride (0.9 % Sodium Chloride Flush 3 Ml Syringe) 3 ml IVFLUSH [facility] Last Admin: 04/07/22 09:00 Dose: 3 ml Sodium Chloride (0.9 % Sodium Chloride Flush 3 Ml Syringe) 3 ml IVFLUSH [facility] Last Admin: 04/07/22 08:59 Dose: 3 ml Spironolactone (Spironolactone 25 Mg Tablet) 25 mg PO DAILY [facility]; Protocol Last Admin: 04/03/22 08:44 Dose: 25 mg Valsartan (Valsartan 40 Mg Tablet) 40 mg PO BID [facility]; Protocol Last Admin: 04/03/22 19:25 Dose: 40 mg Warfarin Sodium (Warfarin Sodium 5 Mg Tablet) 5 mg PO DAILY@1800 [facility] Last Admin: 04/06/22 17:09 Dose: 5 mg Home Medications Medication Instructions Recorded Confirmed Last Taken Type insulin lispro 100 unit/mL See Rx Instructions .Route .COMPLEX 05/13/21 03/28/22 03/27/22 History subcutaneous pen (Humalog KwikPen (U-100) Insulin) empagliflozin 10 mg tablet 10 mg PO DAILY 03/28/22 03/28/22 03/27/22 History (Jardiance) insulin glargine 100 unit/mL (3 50 unit subcut BID 03/28/22 03/28/22 03/27/22 Hi story mL) subcutaneous pen (Lantus Solostar U-100 Insulin) Physical Exam Vital Signs: Vital Signs: Last Vital Signs Temp 97.3 F 04/07/22 07:36 Pulse 89 04/07/22 07:36 Resp 20 04/07/22 07:36 BP 110/80 04/07/22 07:36 Pulse Ox 97 04/07/22 07:36 O2 Del Method 04/07/22 07:36 O2 Flow Rate 3 04/04/22 11:30 FiO2 100 04/01/22 19:00 BMI result Body Mass Index 32.6 EXAM: GENERAL: The patient is well developed and nontoxic. VITAL SIGNS:see workflow HEENT: Nonicteric sclerae, PERRLA, EOMI. Oropharynx clear. Moist mucous membranes. Conjunctivae appear well perfused. No thyroid mass. CHEST: Chest wall is nontender. HEART: Regular rate and rhythm without murmurs. JVD not seen LUNGS: Clear to auscultation bilaterally, bronchial breathing both bases ABDOMEN: Soft, positive bowel sounds, nontender, increased liver span, .no flank tenderness SKIN: No rash, bruising right upper arm NEUROLOGIC: Cranial nerves II-XII intact without motor/sensory deficit. Psych: normal affect Results Labs CBC & Chem 7: 04/07/22 06:30 04/07/22 06:30 Labs: Short CBC 04/07/22 Range/Units 06:30 WBC 5.4 (4.8-10.8) X10*3/uL Hgb 11.8 L (14.0-18.0) g/dl Hct 37.2 L (42.0-52.0) % Plt Count 122 L D (160-400) X10*3/uL BMP 04/07/22 06:30 Sodium 134 L Potassium 5.4 H Chloride 95 L Carbon Dioxide 27 BUN 40 H Creatinine 1.33 Calcium 8.1 L Liver Function 04/07/22 Range/Units 06:30 Total Bilirubin 0.9 (0.0-1.0) mg/dL Direct Bilirubin 0.5 (0.0-0.5) mg/dL AST 288 H (5-37) U/L ALT 358 H (0-40) U/L Alkaline Phosphatase 248 H D (39-117) U/L Albumin 3.1 L (3.5-5.0) g/dL Microbiology Microbiology Results: Microbiology 03/31/22 12:00 Pleural Fluid Fungal Identification - Preliminary No growth to date. 03/31/22 12:00 Paracentesis Fluid Gram Stain - Final 03/31/22 12:00 Paracentesis Fluid Anaerobic Culture - Final NO GROWTH AFTER 5 DAYS 03/31/22 12:00 Paracentesis Fluid Body Fluid Culture - Final No growth after 2 days 03/28/22 13:29 Blood - Venous Blood Culture - Final No growth after 5 days. 03/28/22 13:26 Blood - Venous Blood Culture - Final No growth after [address] scan - abdomen: My impression: aortic calcification seen, degen spinal disease, pleural effusions, Assessment and Plan (1) CHF (congestive heart failure): Status: Acute (2) Abnormal LFTs: Status: Acute Plan 1/ Raised LFT in setting of severe CHF with raised BNP and pleural effusions, suspect this is congestive hepatopathy or DILI from IVIG use or recent antibiotics. PLAN: 1/ cont to diurese, 2/ hold suspected heptotoxic agents 3/ cont to monitor LFT, if numbers cont to rise then can consider NAC. 4/ US duplex to r/o budd chiashley Procedures Date of Service Date of Service: 04/07/22
--- NOTE | 2022-04-07 10:10 | P.PNCA_ITS ---
Subjective Subjective Date of Service: 04/07/22 Principal diagnosis: CHF Interval history: He states that he feels fine. He is actually lying down comfortably without any symptoms. Shortness of breath is improved. Leg swelling also seems better. No anginal-type symptoms. Review of Systems Review of Systems Yes all other systems are reviewed and are negative Constitutional: Reports as per HPI Eyes: Reports as per HPI Reports as per HPI Cardiovascular: Reports as per HPI, Denies acrocyanosis, Denies cool extremities, Denies chest pain, Denies leg edema, Denies lightheadedness, Denies palpitations and Denies dyspnea Respiratory: Reports as per HPI, Reports no additional respiratory complaints and Denies dyspnea Gastrointestinal: Reports as per HPI and Reports no additional gastrointestinal complaints Genitourinary: Reports no additional male genitourinary complaints and Reports as per HPI Musculoskeletal: Reports no additional musculoskeletal complaints and Reports as per HPI Skin/Breast: Reports system reviewed and no additional complaints, except as docu Reports system reviewed and no additional complaints, except as documented and Reports as per HPI Psychiatric: Reports no additional psychiatric complaints and Reports as per HPI Endocrine: Reports no additional endocrine complaints, Reports as per HPI and Denies palpitations Hematologic/Lymphatic: Reports no additional hematologic/lymphatic complaints and Reports as per HPI Allergic/Immunologic: Reports no additional allergic/immunologic complaints and Reports as per HPI Physical Exam Vital Signs: Last Vital Signs Temp 97.3 F 04/07/22 07:36 Pulse 89 04/07/22 07:36 Resp 20 04/07/22 07:36 BP 110/80 04/07/22 07:36 Pulse Ox 97 04/07/22 07:36 O2 Del Method 04/07/22 07:36 O2 Flow Rate 3 04/04/22 11:30 FiO2 100 04/01/22 19:00 BMI result Body Mass Index 32.6 Const General: comfortable and no acute distress Orientation/consciousness: patient oriented x3 HEENT Other: Unremarkable Head: Yes normal to inspection Neck Neck: Yes normal visual inspection Chest Chest palpation & inspection: normal inspection of the chest Resp Other: No overt crackles or wheezing. Auscultation: clear to auscultation bilaterally Cardio Palpation: normal PMI Heart sounds: S1 normal heart sound present, S2 normal heart sound present, no gallops, no murmurs and no rubs GI Palpation (GI): Soft to palpation Back/Spine/Pelvis Other: unremarkable Skin General skin exam: no rashes or lesions noted Neuro General: patient oriented x3 Extrem Other: Trace to 1+ edema. General: Yes normal to inspection Psych Mental Status: mental status grossly normal Objective Labs and Meds Result diagrams: 04/07/22 06:30 04/07/22 06:30 Lab results: Laboratory Results - last 24 hr 04/06/22 04/06/22 04/06/22 11:31 13:01 15:53 WBC RBC Hgb Hct MCV MCH MCHC RDW Plt Count MPV Immature Gran % (Auto) Neut % (Auto) Lymph % (Auto) [place] % (Auto) Eos % (Auto) Baso % (Auto) Lymph # (Auto) [place] # (Auto) Eos # (Auto) Baso # (Auto) Abs Immat Gran (auto) Absolute Neuts (auto) Absolute Nucleated RBC Nucleated RBC % (auto) PT INR Sodium Potassium Chloride Carbon Dioxide Anion Gap BUN Creatinine Estim Creat Clear Calc Estimated GFR POC Glucose 223 H 177 H Random Glucose Calcium Total Bilirubin Direct Bilirubin AST ALT Alkaline Phosphatase Troponin I High Sens 99.5 H Total Protein Albumin 04/06/22 04/07/22 04/07/22 19:29 00:24 03:44 WBC RBC Hgb Hct MCV MCH MCHC RDW Plt Count MPV Immature Gran % (Auto) Neut % (Auto) Lymph % (Auto) [place] % (Auto) Eos % (Auto) Baso % (Auto) Lymph # (Auto) [place] # (Auto) Eos # (Auto) Baso # (Auto) Abs Immat Gran (auto) Absolute Neuts (auto) Absolute Nucleated RBC Nucleated RBC % (auto) PT INR Sodium Potassium Chloride Carbon Dioxide Anion Gap BUN Creatinine Estim Creat Clear Calc Estimated GFR POC Glucose 216 H 140 H 160 H Random Glucose Calcium Total Bilirubin Direct Bilirubin AST ALT Alkaline Phosphatase Troponin I High Sens Total Protein Albumin 04/07/22 04/07/22 04/07/22 06:30 06:30 06:30 WBC 5.4 RBC 3.97 L Hgb 11.8 L Hct 37.2 L MCV 93.7 MCH 29.7 MCHC 31.7 RDW 13.5 Plt Count 122 L D MPV 11.2 Immature Gran % (Auto) 0.2 Neut % (Auto) 61.7 Lymph % (Auto) 20.6 [place] % (Auto) 13.0 H Eos % (Auto) 3.0 Baso % (Auto) 1.5 Lymph # (Auto) 1.1 L [place] # (Auto) 0.7 Eos # (Auto) 0.2 Baso # (Auto) 0.1 Abs Immat Gran (auto) 0.01 Absolute Neuts (auto) 3.3 Absolute Nucleated RBC 0.000 Nucleated RBC % (auto) 0.0 PT INR Sodium 134 L Potassium 5.4 H Chloride 95 L Carbon Dioxide 27 Anion Gap 17 BUN 40 H Creatinine 1.33 Estim Creat Clear Calc 62.3 Estimated GFR 54 POC Glucose Random Glucose 144 H Calcium 8.1 L Total Bilirubin 0.9 Direct Bilirubin 0.5 AST 288 H ALT 358 H Alkaline Phosphatase 248 H D Troponin I High Sens Total Protein 6.6 Albumin 3.1 L 04/07/22 04/07/22 07:23 08:04 WBC RBC Hgb Hct MCV MCH MCHC RDW Plt Count MPV Immature Gran % (Auto) Neut % (Auto) Lymph % (Auto) [place] % (Auto) Eos % (Auto) Baso % (Auto) Lymph # (Auto) [place] # (Auto) Eos # (Auto) Baso # (Auto) Abs Immat Gran (auto) Absolute Neuts (auto) Absolute Nucleated RBC Nucleated RBC % (auto) PT 19.2 H INR 1.6 H Sodium Potassium Chloride Carbon Dioxide Anion Gap BUN Creatinine Estim Creat Clear Calc Estimated GFR POC Glucose 133 H Random Glucose Calcium Total Bilirubin Direct Bilirubin AST ALT Alkaline Phosphatase Troponin I High Sens Total Protein Albumin Progress Note: A&P Assessment and plan (1) Acute systolic (congestive) heart failure: Status: Acute Assessment and Plan: Is volume overload seems improving a lot. Based on input output data, he is - 6.6 L. may change to oral diuretics. Due to hyperkalemia, caution with spironolactone and valsartan. Discussed with Cortney Dill about this. (2) Apical mural thrombus: Status: Acute Assessment and Plan: Anticoagulation when cleared by Oncology. (3) Coronary artery disease: Status: Acute Assessment and Plan: History of prior anterior STEMI without any follow-up. Clinically, no angina. Not sure if he be able tolerate beta-blockers as blood pressure is already on the lower side. Otherwise, also has abnormal LFTs and hence of statins too. Plan Plan discussed with Cortney Dill. Time Spent With Patient Time: Total time spent is greater than 50% in coordination of care (as documented) at patient's floor/unit and/or counseling patient: 35min. Progress Note: Quality Stroke Does the patient have a stroke diagnosis?: No Procedures Date of Service Date of Service: 04/07/22
--- NOTE | 2022-04-07 10:26 | HO.PM.IMPN ---
Subjective Subjective Date of Service: 04/07/22 Interval History: Follow up for CHF, pleural effusion, apical thrombus, chest pain, severe thrombocytopenia Platelets have improved significantly IVIG and platelets Complaints of right lower extremity pain and edema resolved, no DVT Denies abdominal pain, bleeding, nausea, vomiting, diarrhea Review of Systems Review of Systems: Yes all other systems are reviewed and are negative Constitutional Constitutional: Denies chills and Denies fever(s) ENT Ears, Nose, Mouth, and Throat: Denies dizziness Cardiovascular Cardiovascular: Denies chest pain, Denies palpitations and Reports dyspnea on exertion Respiratory Respiratory: Denies cough and Reports dyspnea on exertion Gastrointestinal Gastrointestinal: Reports abdominal pain, Denies constipation, Denies nausea and Denies vomiting Neurologic Neurologic: Denies dizziness Endocrine Endocrine: Denies palpitations Physical Exam Vital Signs: Vital Signs: Last Vital Signs Temp 97.3 F 04/07/22 07:36 Pulse 89 04/07/22 07:36 Resp 20 04/07/22 07:36 BP 110/80 04/07/22 07:36 Pulse Ox 97 04/07/22 07:36 O2 Del Method 04/07/22 07:36 O2 Flow Rate 3 04/04/22 11:30 FiO2 100 04/01/22 19:00 BMI result Body Mass Index 32.6 Appearing in no acute distress lung sounds are clear to auscultation heart regular rate rhythm, clear S1, S2 positive bowel sounds, abdomen is soft, nontender neuro patient is alert x3, no focal deficits Objective Data Active Medications Acetaminophen (Acetaminophen Supp 650 Mg Supp.Rect) 650 mg DE Q6H PRN PRN Reason: Pain, Mild (Pain Scale 1-3) Dextrose (Dextrose 50 % 25 Gm/50 Ml Syringe) 25 gm IVPUSH Q15M PRN; Protocol PRN Reason: per Hypoglycemia Standing Ord. Last Admin: 03/31/22 09:05 Dose: 25 gm Documented By: GAMAL Empagliflozin (Empagliflozin 10 Mg Tablet) 10 mg PO DAILY [facility] Last Admin: 04/07/22 08:58 Dose: 10 mg Documented By: RUFINO Furosemide (Furosemide 40 Mg/4 Ml Vial) 40 mg IVPUSH BID@0900,1800 [facility]; Protocol Last Admin: 04/03/22 18:10 Dose: 40 mg Documented By: CADY-SOFFA Gabapentin (Gabapentin 100 Mg Capsule) 100 mg PO TID [facility] Last Admin: 04/07/22 08:58 Dose: 100 mg Documented By: RUFINO Glucose (Glucose Gel 15 Gm Gel..Gram.) 15 gm PO Q15M PRN; Protocol PRN Reason: per Hypoglycemia Standing Ord. Hydromorphone HCl (Hydromorphone Hcl 0.5 Mg/0.5 Ml Syringe) 0.5 mg IVPUSH Q4H PRN; Protocol PRN Reason: Pain, Severe (Pain Scale 7-10) Last Admin: 04/07/22 09:08 Dose: 0.5 mg Documented By: RUFINO Insulin Glargine (Insulin Glargine,Hum.Rec.Anlog 100 Unit/Ml 10 Ml Vial) 20 unit SUBCUT BEDTIME [facility] Last Admin: 04/06/22 21:33 Dose: 20 unit Documented By: NEIL Insulin Glargine (Insulin Glargine,Hum.Rec.Anlog 100 Unit/Ml 10 Ml Vial) 40 unit SUBCUT DAILY [facility] Last Admin: 04/07/22 08:59 Dose: 40 unit Documented By: RUFINO Insulin Human Lispro (Insulin Lispro 100 Unit/Ml 3 Ml Vial) 0 unit SUBCUT QIDACHS [facility]; Protocol Last Admin: 04/07/22 07:34 Dose: Not Given Documented By: RUFINO Non-Admin Reason: No Insulin Coverage Montelukast Sodium (Montelukast Sodium 10 Mg Tablet) 10 mg PO DAILY [facility] Last Admin: 04/07/22 08:58 Dose: 10 mg Documented By: RUFINO Morphine Sulfate (Morphine Sulfate 2 Mg/Ml Cartridge) 2 mg IVPUSH Q4H PRN; Protocol PRN Reason: Pain, Severe (Pain Scale 7-10) Last Admin: 04/06/22 15:52 Dose: 2 mg Documented By: ROBERT Nitroglycerin (Nitroglycerin 0.4 Mg Tab.Subl) 0.4 mg SUBLINGUAL Q5M PRN PRN Reason: chest pain Last Admin: 04/02/22 02:33 Dose: 0.4 mg Documented By: SANCHEZ Ondansetron HCl (Ondansetron Hcl 4 Mg/2 Ml Vial) 4 mg IVPUSH Q8H PRN PRN Reason: Nausea and Vomiting Last Admin: 04/05/22 23:43 Dose: 4 mg Documented By: VENTURA Pharmacy Consult (Consult Rx Perform Med Rec) 1 each MISCELLANE ONCE PRN PRN Reason: Consult order Polyethylene Glycol (Polyethylene Glycol 3350 17 Gm Powd.Pack) 17 gm PO DAILY [facility] Last Admin: 04/07/22 08:58 Dose: 17 gm Documented By: RUFINO Sodium Chloride (0.9 % Sodium Chloride Flush 3 Ml Syringe) 3 ml IVFLUSH [facility] Last Admin: 04/07/22 09:00 Dose: 3 ml Documented By: RUFINO Sodium Chloride (0.9 % Sodium Chloride Flush 3 Ml Syringe) [facility] Last Admin: 04/07/22 08:59 Dose: 3 ml Documented By: RUFINO Spironolactone (Spironolactone 25 Mg Tablet) 25 mg PO DAILY [facility]; Protocol Last Admin: 04/03/22 08:44 Dose: 25 mg Documented By: CADY-SOFADRIAN Valsartan (Valsartan 40 Mg Tablet) 40 mg PO BID [facility]; Protocol Last Admin: 04/03/22 19:25 Dose: 40 mg Documented By: ANTOIC Warfarin Sodium (Warfarin Sodium 5 Mg Tablet) 5 mg PO DAILY@1800 [facility] Last Admin: 04/06/22 17:09 Dose: 5 mg Documented By: ROBERT Labs CBC & Chem 7: 04/07/22 06:30 04/07/22 06:30 Labs: Laboratory Results - last 24 hr 04/06/22 04/06/22 04/06/22 11:31 13:01 15:53 MCV MCH MCHC RDW Plt Count MPV Immature Gran % (Auto) Neut % (Auto) Lymph % (Auto) [place] % (Auto) Eos % (Auto) Baso % (Auto) Lymph # (Auto) [place] # (Auto) Eos # (Auto) Baso # (Auto) Abs Immat Gran (auto) Absolute Neuts (auto) Absolute Nucleated RBC Nucleated RBC % (auto) PT INR Anion Gap Estim Creat Clear Calc Estimated GFR POC Glucose 223 H 177 H Random Glucose Calcium Total Bilirubin Direct Bilirubin AST ALT Alkaline Phosphatase Troponin I High Sens 99.5 H Total Protein Albumin 04/06/22 04/07/22 04/07/22 19:29 00:24 03:44 MCV MCH MCHC RDW Plt Count MPV Immature Gran % (Auto) Neut % (Auto) Lymph % (Auto) [place] % (Auto) Eos % (Auto) Baso % (Auto) Lymph # (Auto) [place] # (Auto) Eos # (Auto) Baso # (Auto) Abs Immat Gran (auto) Absolute Neuts (auto) Absolute Nucleated RBC Nucleated RBC % (auto) PT INR Anion Gap Estim Creat Clear Calc Estimated GFR POC Glucose 216 H 140 H 160 H Random Glucose Calcium Total Bilirubin Direct Bilirubin AST ALT Alkaline Phosphatase Troponin I High Sens Total Protein Albumin 04/07/22 04/07/22 04/07/22 06:30 06:30 06:30 MCV 93.7 MCH 29.7 MCHC 31.7 RDW 13.5 Plt Count 122 L D MPV 11.2 Immature Gran % (Auto) 0.2 Neut % (Auto) 61.7 Lymph % (Auto) 20.6 [place] % (Auto) 13.0 H Eos % (Auto) 3.0 Baso % (Auto) 1.5 Lymph # (Auto) 1.1 L [place] # (Auto) 0.7 Eos # (Auto) 0.2 Baso # (Auto) 0.1 Abs Immat Gran (auto) 0.01 Absolute Neuts (auto) 3.3 Absolute Nucleated RBC 0.000 Nucleated RBC % (auto) 0.0 PT INR Anion Gap 17 Estim Creat Clear Calc 62.3 Estimated GFR 54 POC Glucose Random Glucose 144 H Calcium 8.1 L Total Bilirubin 0.9 Direct Bilirubin 0.5 AST 288 H ALT 358 H Alkaline Phosphatase 248 H D Troponin I High Sens Total Protein 6.6 Albumin 3.1 L 04/07/22 04/07/22 07:23 08:04 MCV MCH MCHC RDW Plt Count MPV Immature Gran % (Auto) Neut % (Auto) Lymph % (Auto) [place] % (Auto) Eos % (Auto) Baso % (Auto) Lymph # (Auto) [place] # (Auto) Eos # (Auto) Baso # (Auto) Abs Immat Gran (auto) Absolute Neuts (auto) Absolute Nucleated RBC Nucleated RBC % (auto) PT 19.2 H INR 1.6 H Anion Gap Estim Creat Clear Calc Estimated GFR POC Glucose 133 H Random Glucose Calcium Total Bilirubin Direct Bilirubin AST ALT Alkaline Phosphatase Troponin I High Sens Total Protein Albumin Microbiology Microbiology Results: Microbiology 03/31/22 12:00 Fungal Identification - Preliminary Pleural Fluid No growth to date. 03/31/22 12:00 Gram Stain - Final Paracentesis Fluid Anaerobic Culture - Final NO GROWTH AFTER 5 DAYS Body Fluid Culture - Final No growth after 2 days Assessment and Plan (1) Thrombocytopenia: Status: Acute (2) NSVT (nonsustained ventricular tachycardia): Status: Acute (3) Apical mural thrombus: Status: Acute (4) Acute heart failure: Status: Acute (5) Coronary artery disease: Status: Acute Plan 61-year-old male with progressive shortness of breath over the last 4-5 days as well as stocking-glove paresthesias with weakness presents to the ER today for workup.? CT abdomen pelvis and chest demonstrate right greater than left pleural effusions question left base infiltrate. Severe thrombocytopenia. 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 Continue Jardiance Cardiology following recommend to start oral Lasix Apical thrombus previously on heparin drip and oral Coumadin.? Stopped due to severe thrombocytopenia with platelets as low as 5 continue warfarin check PT INR daily CAD h/o anterior wall MA with 2 stents CP overnight, trops flat on full AC initially but held due to severe thrombocytopenia inpatient stress test - EF 19%, myocardial perfusion showing large transmural infarct in LAD territory, transient ischemic dilatation not present, Lexiscan portion with a 7 be an SVT in recovery with normotensive response nondiagnostic EKG for ischemia cardiology following Elevated troponin, recheck this afternoon NSVT 9 beat vtach during resting phase of stress test known low EF not on BB due to acute CHF goal to keep K>4, mag >2 cardiology following Pleural effusion s/p thoracentesis 03/31 with removal of 1.3L of fluid likely secondary to CHF vs pneumonia repeat CXR showing small residual effusion abdominal pain ct scan with no acute abdominal pathology LFTs wnl symptomatic care continue bowel regimine Possible pneumonia no sepsis initial CT scan showing large effusion with airspace dz ?pneumonia s/p iv ceftriaxone, azithromycin for 5 days abx d/c for severe thrombocytopenia - no further abx at this time blood cultures have remained negative Uncontrolled diabetes type 2 intermittent episodes of hypoglycemia, mostly fasting Metformin stopped, Lantus decreased at bedtime Continue sliding scale, ADA diet Paresthesias with subjective weakness given stocking-glove distribution likely related to diabetes Hypertension bp controlled, continue current meds Full code DVT ppx - mechanical devices ordered due to severe thrombocytopenia attending - Gonzalez Will require ongoing hospitalization for treatment of acute congestive heart failure, close telemetry monitoring and management for severe thrombocytopenia with high risk for decompensation Quality Stroke Does the patient have a stroke diagnosis?: No VTE Prior VTE?: No VTE Risk Level:: Medical - moderate - high VTE Device Contraindication: Treatment Not Indicated VTE Drug Contraindication: N/A - Med Ordered
[2022-04-07 11:11] LABS: Glucose, Whole Blood 174 mg/dL (60-115)
--- NOTE | 2022-04-07 13:29 | PC.NURSE ---
Report received from overnight RN. database administration associate per AUG. pt ambulating independently in the room with walker. pain managed with PRN medication. Call jean within reach, safety precautions taken. Pt encouraged to call for assistance.
[2022-04-07 16:46] LABS: Glucose, Whole Blood 208 mg/dL (60-115)
[2022-04-07] MEDS: Warfarin Sodium 5 MG TABLET PO (17:21)
[2022-04-07] MEDS: Furosemide 40 MG TABLET PO (17:21)
[2022-04-07] MEDS: Insulin Lispro 100 UNIT/ML 3 ML VIAL SUBCUT ×2 (17:22→22:04)
[2022-04-07 21:11] LABS: Glucose, Whole Blood 171 mg/dL (60-115)
[2022-04-08] VITALS (7 sets, daily range): BP systolic 99–135; BP diastolic 71–99; PULSE 90–109; RESP 14–20; TEMP 35.2–37.1; O2SAT 92–96
[2022-04-08] MEDS: 0.9 % Sodium Chloride Flush 3 ML SYRINGE IVFLUSH ×5 (02:48→21:21)
[2022-04-08] MEDS: HYDROmorphone HCl 0.5 MG/0.5 ML SYRINGE IVPUSH ×2 (04:08→09:55)
[2022-04-08 07:11] LABS: Glucose, Whole Blood 162 mg/dL (60-115)
[2022-04-08 07:17] LABS: Prothrombin Time 23.7 SEC (10.0-13.1)
[2022-04-08 07:19] LABS: Glucose, Whole Blood 97 mg/dL (60-115)
[2022-04-08 07:32] LABS: Blood Urea Nitrogen 42 mg/dL (9-16); Calcium 7.9 mg/dL (8.4-10.2); Creatinine Clr Calc Pharmacy 63.2; Estimated Glomerular Filt Rate 55; Glucose Random 108 mg/dL (60-115)
[2022-04-08 07:46] LABS: Anion Gap 17 (12-20); Carbon Dioxide 27 mmol/L (22-29); Chloride 96 mmol/L (96-108); Potassium 4.3 mmol/L (3.3-5.1); Sodium 136 mmol/L (135-145)
[2022-04-08] MEDS: Empagliflozin 10 MG TABLET PO (09:47)
[2022-04-08] MEDS: Furosemide 40 MG TABLET PO ×2 (09:47→17:46)
[2022-04-08] MEDS: Montelukast Sodium 10 MG TABLET PO (09:47)
[2022-04-08] MEDS: Gabapentin 100 MG CAPSULE PO ×3 (09:47→21:18)
[2022-04-08] MEDS: Insulin Glargine,Hum.rec.anlog 100 UNIT/ML 10 ML VIAL 40 UNIT SUBCUT (09:47)
[2022-04-08] MEDS: polyethylene glycoL 3350 17 GM POWD.PACK PO (10:17)
[2022-04-08 11:06] LABS: Glucose, Whole Blood 184 mg/dL (60-115)
[2022-04-08] MEDS: Insulin Lispro 100 UNIT/ML 3 ML VIAL SUBCUT ×2 (11:47→21:17)
[2022-04-08 12:04] LABS: Alanine Aminotransferase 347 U/L (0-40); Albumin Level 3.1 g/dL (3.5-5.0); Alkaline Phosphatase 235 U/L (39-117); Aspartate Amino Transferase 172 U/L (5-37); Bilirubin Direct 0.3 mg/dL (0.0-0.5); Bilirubin Total 0.6 mg/dL (0.0-1.0); Total Protein 6.2 g/dL (6.5-8.0)
[2022-04-08 14:48] LABS: HIT-Patient Optical Density 0.034 OD UNITS; Heparin Induced Plt Ab Negative (Negative)
[2022-04-08 15:08] LABS: Glucose, Whole Blood 142 mg/dL (60-115)
--- NOTE | 2022-04-08 15:27 | MHC.CM.PN ---
per rounds pt not medically ready for dc
[2022-04-08] MEDS: oxyCODONE HCl Immed Release 5 MG TABLET PO ×2 (15:28→21:20)
[2022-04-08 16:06] LABS: Glucose, Whole Blood 145 mg/dL (60-115)
--- NOTE | 2022-04-08 16:15 | HO.PM.IMPN ---
Subjective Subjective Date of Service: 04/09/22 Interval History: Being followed for apical thrombus and congestive heart failure patient denies chest pain, no shortness of breath denies PND, no orthopnea, no nausea no vomiting, no fevers, no chills, complaining of lower extremity pain, stable. Review of Systems [employer] no headache no dizziness CVS no chest pain, no palpitation GI no nausea no vomiting, no constipation Review of Systems: Yes all other systems are reviewed and are negative Physical Exam Vital Signs: Vital Signs: Last Vital Signs Temp 97.4 F 04/08/22 11:28 Pulse 93 04/08/22 11:28 Resp 20 04/08/22 11:28 BP 135/99 H 04/08/22 11:28 Pulse Ox 96 04/08/22 11:28 O2 Del Method 04/08/22 11:28 O2 Flow Rate 3 04/04/22 11:30 FiO2 100 04/01/22 19:00 BMI result Body Mass Index 32.6 Const: Other: General awake alert, in no acute distress Anicteric sclera Neck no JVD ?lung sounds are clear to auscultation ?heart regular rate rhythm, clear? S1, S2 ?Abdomen soft, distended, nontender bowel sounds audible Extremities no pitting edema skin multiple bruises ?neuro alert x3, no focal deficits Objective Data Active Medications Acetaminophen (Acetaminophen Supp 650 Mg Supp.Rect) 650 mg [place] Q6H PRN PRN Reason: Pain, Mild (Pain Scale 1-3) Dextrose (Dextrose 50 % 25 Gm/50 Ml Syringe) 25 gm IVPUSH Q15M PRN; Protocol PRN Reason: per Hypoglycemia Standing Ord. Last Admin: 03/31/22 09:05 Dose: 25 gm Documented By: GAMAL Empagliflozin (Empagliflozin 10 Mg Tablet) 10 mg PO DAILY [facility] Last Admin: 04/08/22 09:47 Dose: 10 mg Documented By: YAS Furosemide (Furosemide 40 Mg Tablet) 40 mg PO BID@0900,1800 [facility]; Protocol Last Admin: 04/08/22 09:47 Dose: 40 mg Documented By: YAS Gabapentin (Gabapentin 100 Mg Capsule) 100 mg PO TID [facility] Last Admin: 04/08/22 15:18 Dose: 100 mg Documented By: YAS Glucose (Glucose Gel 15 Gm Gel..Gram.) 15 gm PO Q15M PRN; Protocol PRN Reason: per Hypoglycemia Standing Ord. Insulin Glargine (Insulin Glargine,Hum.Rec.Anlog 100 Unit/Ml 10 Ml Vial) 20 unit SUBCUT BEDTIME [facility] Last Admin: 04/07/22 23:25 Dose: Not Given Documented By: MADDIE Non-Admin Reason: Patient Refused Insulin Glargine (Insulin Glargine,Hum.Rec.Anlog 100 Unit/Ml 10 Ml Vial) 40 unit SUBCUT DAILY [facility] Last Admin: 04/08/22 09:47 Dose: 40 unit Documented By: YAS Insulin Human Lispro (Insulin Lispro 100 Unit/Ml 3 Ml Vial) 0 unit SUBCUT QIDACHS [facility]; Protocol Last Admin: 04/08/22 16:11 Dose: Not Given Documented By: YAS Non-Admin Reason: No Insulin Coverage Montelukast Sodium (Montelukast Sodium 10 Mg Tablet) 10 mg PO DAILY [facility] Last Admin: 04/08/22 09:47 Dose: 10 mg Documented By: YAS Nitroglycerin (Nitroglycerin 0.4 Mg Tab.Subl) 0.4 mg SUBLINGUAL Q5M PRN PRN Reason: chest pain Last Admin: 04/02/22 02:33 Dose: 0.4 mg Documented By: SANCHEZ Ondansetron HCl (Ondansetron Hcl 4 Mg/2 Ml Vial) 4 mg IVPUSH Q8H PRN PRN Reason: Nausea and Vomiting Last Admin: 04/05/22 23:43 Dose: 4 mg Documented By: VENTURA Oxycodone HCl (Oxycodone Hcl Immed Release 5 Mg Tablet) 5 mg PO Q6H PRN PRN Reason: Pain, Severe (Pain Scale 7-10) Last Admin: 04/08/22 15:28 Dose: 5 mg Documented By: YAS Pharmacy Consult (Consult Rx Perform Med Rec) 1 each MISCELLANE ONCE PRN PRN Reason: Consult order Polyethylene Glycol (Polyethylene Glycol 3350 17 Gm Powd.Pack) 17 gm PO DAILY [facility] Last Admin: 04/08/22 10:17 Dose: 17 gm Documented By: AYS Sodium Chloride (0.9 % Sodium Chloride Flush 3 Ml Syringe) 3 ml IVFLUSH QSHIFT [facility] Last Admin: 04/08/22 16:01 Dose: Not Given Documented By: DIAZDEM Non-Admin Reason: Previously Administered Spironolactone (Spironolactone 25 Mg Tablet) 25 mg PO DAILY [facility]; Protocol Last Admin: 04/03/22 08:44 Dose: 25 mg Documented By: N-SOFFA Valsartan (Valsartan 40 Mg Tablet) 40 mg PO BID [facility]; Protocol Last Admin: 04/03/22 19:25 Dose: 40 mg Documented By: ANTOIC Warfarin Sodium (Warfarin Sodium 5 Mg Tablet) 5 mg PO DAILY@1800 [facility] Last Admin: 04/07/22 17:21 Dose: 5 mg Documented By: MILADY Labs CBC & Chem 7: 04/07/22 06:30 04/09/22 06:41 Labs: Laboratory Results - last 24 hr 04/03/22 04/07/22 04/07/22 08:36 16:40 20:56 PT INR Anion Gap Estim Creat Clear Calc Estimated GFR POC Glucose 208 H 171 H Random Glucose Calcium Total Bilirubin Direct Bilirubin AST ALT Alkaline Phosphatase Total Protein Albumin Heparin Dep Plt Ab OD 0.034 Hep-Induced Plt Ab Mary Lou Negative 04/08/22 04/08/22 04/08/22 04:06 06:48 06:48 PT 23.7 H INR 2.0 H Anion Gap 17 Estim Creat Clear Calc 63.2 Estimated GFR 55 POC Glucose 162 H Random Glucose 108 Calcium 7.9 L Total Bilirubin 0.6 Direct Bilirubin 0.3 AST 172 H ALT 347 H Alkaline Phosphatase 235 H Total Protein 6.2 L Albumin 3.1 L Heparin Dep Plt Ab OD Hep-Induced Plt Ab Mary Lou 04/08/22 04/08/22 04/08/22 07:10 10:57 15:04 PT INR Anion Gap Estim Creat Clear Calc Estimated GFR POC Glucose 97 184 H 142 H Random Glucose Calcium Total Bilirubin Direct Bilirubin AST ALT Alkaline Phosphatase Total Protein Albumin Heparin Dep Plt Ab OD Hep-Induced Plt Ab Mary Lou 04/08/22 16:02 PT INR Anion Gap Estim Creat Clear Calc Estimated GFR POC Glucose 145 H Random Glucose Calcium Total Bilirubin Direct Bilirubin AST ALT Alkaline Phosphatase Total Protein Albumin Heparin Dep Plt Ab OD Hep-Induced Plt Ab Mary Lou Assessment and Plan (1) Thrombocytopenia: Status: Acute (2) NSVT (nonsustained ventricular tachycardia): Status: Acute (3) Apical mural thrombus: Status: Acute (4) Acute heart failure: Status: Acute (5) Coronary artery disease: Status: Acute Plan 61-year-old male with progressive shortness of breath over the last 4-5 days as well as stocking-glove paresthesias with weakness presents to the ER today for workup.? CT abdomen pelvis and chest demonstrate right greater than left pleural effusions question left base infiltrate. Severe thrombocytopenia. 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 Will avoid hepatotoxins, continue diuresis, Doppler ultrasound showed patent portal vein and trace ascites Acute combined systolic and diastolic CHF ECHO with severe LVEF 15-20%, grade 3 diastolic dysfunction and regional WMA and large apical thrombus. Continue Jardiance Continue Lasix 40 b.i.d., Aldactone on hold due to hyperkalemia, follow clinical course strict i/os Apical thrombus previously on heparin drip and oral Coumadin, heparin was subsequently discontinued due to thrombocytopenia and now on Coumadin INR 2, continue current dose of Coumadin and follow PT INR CAD h/o anterior wall [place] with 2 stents, had chest pain in-house, troponin flat inpatient stress test - EF 19%, myocardial perfusion showing large transmural infarct in LAD territory, transient ischemic dilatation not present, Lexiscan portion with a 7 beat NSVT in recovery with normotensive response nondiagnostic EKG for ischemia Will discuss treatment plan with Cardiology currently not on beta blockers, and not on statins due to elevated LFTs but blood pressure has improved will discuss use of metoprolol NSVT 9 beat vtach during resting phase of stress test known low EF not on BB due to acute CHF goal to keep K>4, mag >2 Pleural effusion s/p thoracentesis 03/31 with removal of 1.3L of fluid likely secondary to CHF vs pneumonia,repeat CXR showing small residual effusion, stable oxygenation on room air abdominal pain ct scan with no acute abdominal pathology symptomatic care continue bowel regimen Possible pneumonia no sepsis initial CT scan showing large effusion with airspace dz ?pneumonia s/p iv ceftriaxone, azithromycin for 5 days abx d/c for severe thrombocytopenia - no further abx at this time blood cultures have remained negative Uncontrolled diabetes type 2 stable blood sugars, continue Lantus, insulin sliding scale and ADA diet, metformin on hold Paresthesias with subjective weakness given stocking-glove distribution likely related to diabetes, will DC IV morphine, DC IV Dilaudid will place on by mouth oxycodone, continue gabapentin Hypertension bp controlled, will started on hold due to hyperkalemia, will discuss with Cardiology regarding resuming low-dose arb with low EF Full code DVT ppx - on Coumadin Will require ongoing hospitalization for treatment of acute congestive heart failure, elevated LFTs and apical thrombus need close follow-up on PT INR Quality Stroke Does the patient have a stroke diagnosis?: No VTE Prior VTE?: No VTE Risk Level:: Medical - moderate - high VTE Device Contraindication: Treatment Not Indicated VTE Drug Contraindication: N/A - Med Ordered
[2022-04-08] MEDS: Warfarin Sodium 5 MG TABLET PO (17:46)
[2022-04-08 20:17] LABS: Glucose, Whole Blood 275 mg/dL (60-115)
[2022-04-08] MEDS: Insulin Glargine,Hum.rec.anlog 100 UNIT/ML 10 ML VIAL 20 UNIT SUBCUT (21:18)
[2022-04-09] VITALS (8 sets, daily range): BP systolic 110–138; BP diastolic 64–87; PULSE 91–106; RESP 16–18; TEMP 36.1–37.1; O2SAT 92–98; BMI 32.9
[2022-04-09] MEDS: oxyCODONE HCl Immed Release 5 MG TABLET PO ×4 (02:59→23:54)
[2022-04-09 07:02] LABS: INTERNATIONAL NORM RATIO 2.3 (0.9-1.1); Prothrombin Time 27.2 SEC (10.0-13.1)
[2022-04-09 07:14] LABS: Anion Gap 15 (12-20); Blood Urea Nitrogen 41 mg/dL (9-16); Calcium 7.8 mg/dL (8.4-10.2); Carbon Dioxide 30 mmol/L (22-29); Chloride 97 mmol/L (96-108); Creatinine Clr Calc Pharmacy 66.5; Estimated Glomerular Filt Rate 58; Glucose Random 152 mg/dL (60-115); Potassium 4.2 mmol/L (3.3-5.1); Sodium 138 mmol/L (135-145)
[2022-04-09 07:17] LABS: B Type Natriuretic Peptide 2111 pg/mL (<100)
[2022-04-09 07:17] LABS: Glucose, Whole Blood 118 mg/dL (60-115)
--- NOTE | 2022-04-09 10:57 | P.PNCA_ITS ---
Subjective Subjective Date of Service: 04/09/22 Principal diagnosis: CHF Interval history: He states that he feels good. No new complaints. Review of Systems Review of Systems Yes all other systems are reviewed and are negative Constitutional: Reports as per HPI Eyes: Reports as per HPI Reports as per HPI Cardiovascular: Reports as per HPI, Denies acrocyanosis, Denies cool extremities, Denies chest pain, Denies leg edema, Denies lightheadedness, Denies palpitations and Denies dyspnea Respiratory: Reports as per HPI, Reports no additional respiratory complaints and Denies dyspnea Gastrointestinal: Reports as per HPI and Reports no additional gastrointestinal complaints Genitourinary: Reports no additional male genitourinary complaints and Reports a s per HPI Musculoskeletal: Reports no additional musculoskeletal complaints and Reports as per HPI Skin/Breast: Reports system reviewed and no additional complaints, except as docu Reports system reviewed and no additional complaints, except as documented and Reports as per HPI Psychiatric: Reports no additional psychiatric complaints and Reports as per HPI Endocrine: Reports no additional endocrine complaints, Reports as per HPI and Denies palpitations Hematologic/Lymphatic: Reports no additional hematologic/lymphatic complaints and Reports as per HPI Allergic/Immunologic: Reports no additional allergic/immunologic complaints and Reports as per HPI Physical Exam Vital Signs: Last Vital Signs Temp 98.4 F 04/09/22 08:00 Pulse 91 04/09/22 08:00 Resp 16 04/09/22 07:17 BP 114/70 04/09/22 08:00 Pulse Ox 92 04/09/22 08:00 O2 Del Method 04/09/22 08:00 O2 Flow Rate 3 04/04/22 11:30 FiO2 100 04/01/22 19:00 BMI result Body Mass Index 32.9 Const General: comfortable and no acute distress Orientation/consciousness: patient oriented x3 HEENT Other: Unremarkable Head: Yes normal to inspection Neck Neck: Yes normal visual inspection Chest Chest palpation & inspection: normal inspection of the chest Resp Auscultation: clear to auscultation bilaterally Cardio Palpation: normal PMI Heart sounds: S1 normal heart sound present, S2 normal heart sound present, no gallops, no murmurs and no rubs GI Palpation (GI): Soft to palpation Back/Spine/Pelvis Other: unremarkable Skin General skin exam: no rashes or lesions noted Neuro General: patient oriented x3 Extrem General: Yes normal to inspection Psych Mental Status: mental status grossly normal Objective Labs and Meds Result diagrams: 04/07/22 06:30 04/09/22 06:41 Lab results: Laboratory Results - last 24 hr 04/03/22 04/08/22 04/08/22 08:36 06:48 10:57 PT INR Hep-Ind Thrombocytop Com TNP Sodium Potassium Chloride Carbon Dioxide Anion Gap BUN Creatinine Estim Creat Clear Calc Estimated GFR POC Glucose 184 H Random Glucose Calcium Total Bilirubin 0.6 Direct Bilirubin 0.3 AST 172 H ALT 347 H Alkaline Phosphatase 235 H B-Natriuretic Peptide Total Protein 6.2 L Albumin 3.1 L Heparin Dep Plt Ab OD 0.034 Hep-Induced Plt Ab Mary Lou Negative 04/08/22 04/08/22 04/08/22 15:04 16:02 20:14 PT INR Hep-Ind Thrombocytop Com Sodium Potassium Chloride Carbon Dioxide Anion Gap BUN Creatinine Estim Creat Clear Calc Estimated GFR POC Glucose 142 H 145 H 275 H Random Glucose Calcium Total Bilirubin Direct Bilirubin AST ALT Alkaline Phosphatase B-Natriuretic Peptide Total Protein Albumin Heparin Dep Plt Ab OD Hep-Induced Plt Ab Mary Lou 04/09/22 04/09/22 04/09/22 06:41 06:41 06:41 PT 27.2 H INR 2.3 H Hep-Ind Thrombocytop Com Sodium 138 Potassium 4.2 Chloride 97 Carbon Dioxide 30 H Anion Gap 15 BUN 41 H Creatinine 1.25 Estim Creat Clear Calc 66.5 Estimated GFR 58 POC Glucose Random Glucose 152 H D Calcium 7.8 L Total Bilirubin Direct Bilirubin AST ALT Alkaline Phosphatase B-Natriuretic Peptide 2111 H Total Protein Albumin Heparin Dep Plt Ab OD Hep-Induced Plt Ab Mary Lou 04/09/22 07:00 PT INR Hep-Ind Thrombocytop Com Sodium Potassium Chloride Carbon Dioxide Anion Gap BUN Creatinine Estim Creat Clear Calc Estimated GFR POC Glucose 118 H Random Glucose Calcium Total Bilirubin Direct Bilirubin AST ALT Alkaline Phosphatase B-Natriuretic Peptide Total Protein Albumin Heparin Dep Plt Ab OD Hep-Induced Plt Ab Mary Lou Progress Note: A&P Assessment and plan (1) Acute systolic (congestive) heart failure: Status: Acute Assessment and Plan: On oral diuretics. On valsartan/spironolactone. Eventually some carvedilol. Blood pressure however is on the lower side. (2) Apical mural thrombus: Status: Acute Assessment and Plan: His platelets have improved. Commenced on warfarin. INR is 2.3. (3) Coronary artery disease: Status: Acute Assessment and Plan: History of prior anterior STEMI without any follow-up. Clinically, no angina. Eventually, beta-blockers based on his blood pressure trend. He will also need statins but is LFT is still abnormal and hence we cannot start at this time. Plan Plan discussed with . Will arrange outpatient follow-up upon discharge. Time Spent With Patient Time: Total time spent is greater than 50% in coordination of care (as documented) at patient's floor/unit and/or counseling patient: 35min. Progress Note: Quality Stroke Does the patient have a stroke diagnosis?: No Procedures Date of Service Date of Service: 04/09/22
[2022-04-09 11:55] LABS: Glucose, Whole Blood 159 mg/dL (60-115)
[2022-04-09] MEDS: Insulin Lispro 100 UNIT/ML 3 ML VIAL SUBCUT ×3 (12:10→20:52)
[2022-04-09] MEDS: Gabapentin 100 MG CAPSULE PO ×3 (12:10→20:51)
[2022-04-09] MEDS: Furosemide 40 MG TABLET PO ×2 (12:10→17:52)
[2022-04-09] MEDS: Empagliflozin 10 MG TABLET PO (12:12)
[2022-04-09] MEDS: polyethylene glycoL 3350 17 GM POWD.PACK PO (12:12)
[2022-04-09] MEDS: Montelukast Sodium 10 MG TABLET PO (12:12)
[2022-04-09] MEDS: 0.9 % Sodium Chloride Flush 3 ML SYRINGE IVFLUSH ×2 (12:13→16:44)
--- NOTE | 2022-04-09 12:18 | MHC.CM.PN ---
PT is recommending STR; referrals have been made and CM will continue to follow.
--- NOTE | 2022-04-09 12:50 | MHC.CM.PN ---
CM met with Patient at bedside and he has accepted a bed offer from [facility]; [facility] has asked [facility] to initiate auth process with [employer]. CM will follow.
--- NOTE | 2022-04-09 15:53 | HO.PM.IMPN ---
Subjective Subjective Date of Service: 04/09/22 Interval History: Resting comfortably feeling tired, catching up on his deep denies chest pain, no shortness of breath, no nausea vomiting tolerating diet no acute issues overnight, no fevers no chills, at home was ambulating with SPC . Review of Systems [employer] no headache no dizziness Respiratory no cough no urgency, no frequency Review of Systems: Yes all other systems are reviewed and are negative Physical Exam Vital Signs: Vital Signs: Last Vital Signs Temp 97.5 F 04/09/22 15:19 Pulse 98 04/09/22 15:19 Resp 18 04/09/22 15:19 BP 138/87 04/09/22 15:19 Pulse Ox 94 04/09/22 15:19 O2 Del Method 04/09/22 15:19 O2 Flow Rate 3 04/04/22 11:30 FiO2 100 04/01/22 19:00 BMI result Body Mass Index 32.9 Const: Other: General awake alert, in no acute distress ?Anicteric sclera ?Neck no JVD ?lung sounds are clear to auscultation ?heart regular rate rhythm, clear? S1, S2 ?Abdomen soft, distended, nontender bowel sounds audible ?Extremities no pitting edema ?skin multiple bruises ?neuro? alert x3, no focal deficits Objective Data Active Medications Acetaminophen (Acetaminophen Supp 650 Mg Supp.Rect) 650 mg ND Q6H PRN PRN Reason: Pain, Mild (Pain Scale 1-3) Dextrose (Dextrose 50 % 25 Gm/50 Ml Syringe) 25 gm IVPUSH Q15M PRN; Protocol PRN Reason: per Hypoglycemia Standing Ord. Last Admin: 03/31/22 09:05 Dose: 25 gm Documented By: GAMAL Empagliflozin (Empagliflozin 10 Mg Tablet) 10 mg PO DAILY [facility] Last Admin: 04/09/22 12:12 Dose: 10 mg Documented By: RITA Furosemide (Furosemide 40 Mg Tablet) 40 mg PO BID@0900,1800 [facility]; Protocol Last Admin: 04/09/22 12:10 Dose: 40 mg Documented By: RITA Gabapentin (Gabapentin 100 Mg Capsule) 100 mg PO TID [facility] Last Admin: 04/09/22 14:58 Dose: 100 mg Documented By: RITA Glucose (Glucose Gel 15 Gm Gel..Gram.) 15 gm PO Q15M PRN; Protocol PRN Reason: per Hypoglycemia Standing Ord. Insulin Glargine (Insulin Glargine,Hum.Rec.Anlog 100 Unit/Ml 10 Ml Vial) 20 unit SUBCUT BEDTIME [facility] Last Admin: 04/08/22 21:18 Dose: 20 unit Documented By: NEIL Insulin Glargine (Insulin Glargine,Hum.Rec.Anlog 100 Unit/Ml 10 Ml Vial) 40 unit SUBCUT DAILY [facility] Last Admin: 04/09/22 12:12 Dose: Not Given Documented By: RITA Non-Admin Reason: Patient Refused Insulin Human Lispro (Insulin Lispro 100 Unit/Ml 3 Ml Vial) 0 unit SUBCUT QIDACHS [facility]; Protocol Last Admin: 04/09/22 12:10 Dose: 2 unit Documented By: RITA Montelukast Sodium (Montelukast Sodium 10 Mg Tablet) 10 mg PO DAILY [facility] Last Admin: 04/09/22 12:12 Dose: 10 mg Documented By: RITA Nitroglycerin (Nitroglycerin 0.4 Mg Tab.Subl) 0.4 mg SUBLINGUAL Q5M PRN PRN Reason: chest pain Last Admin: 04/02/22 02:33 Dose: 0.4 mg Documented By: SANCHEZ Ondansetron HCl (Ondansetron Hcl 4 Mg/2 Ml Vial) 4 mg IVPUSH Q8H PRN PRN Reason: Nausea and Vomiting Last Admin: 04/05/22 23:43 Dose: 4 mg Documented By: VENTURA Oxycodone HCl (Oxycodone Hcl Immed Release 5 Mg Tablet) 5 mg PO Q6H PRN PRN Reason: Pain, Severe (Pain Scale 7-10) Last Admin: 04/09/22 12:11 Dose: 5 mg Documented By: RITA Pharmacy Consult (Consult Rx Perform Med Rec) 1 each MISCELLANE ONCE PRN PRN Reason: Consult order Polyethylene Glycol (Polyethylene Glycol 3350 17 Gm Powd.Pack) 17 gm PO DAILY [facility] Last Admin: 04/09/22 12:12 Dose: 17 gm Documented By: RITA Sodium Chloride (0.9 % Sodium Chloride Flush 3 Ml Syringe) [facility] Admin: 04/09/22 12:13 Dose: 3 ml Documented By: RITA Spironolactone (Spironolactone 25 Mg Tablet) 25 mg PO DAILY [facility]; Protocol Last Admin: 04/03/22 08:44 Dose: 25 mg Documented By: CADY-SOFFA Valsartan (Valsartan 40 Mg Tablet) 40 mg PO BID [facility]; Protocol Last Admin: 04/03/22 19:25 Dose: 40 mg Documented By: ANTOIC Warfarin Sodium (Warfarin Sodium 5 Mg Tablet) 5 mg PO DAILY@1800 [facility] Last Admin: 04/08/22 17:46 Dose: 5 mg Documented By: YAS Labs CBC & Chem 7: 04/07/22 06:30 04/09/22 06:41 Labs: Laboratory Results - last 24 hr 04/03/22 04/08/22 04/08/22 08:36 16:02 20:14 PT INR Hep-Ind Thrombocytop Com TNP Anion Gap Estim Creat Clear Calc Estimated GFR POC Glucose 145 H 275 H Random Glucose Calcium B-Natriuretic Peptide 04/09/22 04/09/22 04/09/22 06:41 06:41 06:41 PT 27.2 H INR 2.3 H Hep-Ind Thrombocytop Com Anion Gap 15 Estim Creat Clear Calc 66.5 Estimated GFR 58 POC Glucose Random Glucose 152 H D Calcium 7.8 L B-Natriuretic Peptide 2111 H 04/09/22 04/09/22 07:00 11:45 PT INR Hep-Ind Thrombocytop Com Anion Gap Estim Creat Clear Calc Estimated GFR POC Glucose 118 H 159 H Random Glucose Calcium B-Natriuretic Peptide Assessment and Plan (1) Thrombocytopenia: Status: Acute (2) NSVT (nonsustained ventricular tachycardia): Status: Acute (3) Apical mural thrombus: Status: Acute (4) Acute heart failure: Status: Acute (5) Coronary artery disease: Status: Acute Plan 61-year-old male with progressive shortness of breath over the last 4-5 days as well as stocking-glove paresthesias with weakness presents to the ER today for workup.? CT abdomen pelvis and chest demonstrate right greater than left pleural effusions question left base infiltrate. Severe thrombocytopenia. 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 Will avoid hepatotoxins, continue diuresis, Doppler ultrasound showed patent portal vein and trace ascites Follow LFTs Acute combined systolic and diastolic CHF ECHO with severe LVEF 15-20%, grade 3 diastolic dysfunction and regional WMA and large apical thrombus. Continue Jardiance Continue Lasix 40 b.i.d., follow clinical course strict i/os, BNP 2110 clinically patient appears stable, will resume low-dose Aldactone Apical thrombus previously on heparin drip and oral Coumadin, heparin was subsequently discontinued due to thrombocytopenia and now on Coumadin INR 2, continue current dose of Coumadin and follow PT INR CAD h/o anterior wall OK with 2 stents, had chest pain in-house, troponin flat inpatient stress test - EF 19%, myocardial perfusion showing large transmural infarct in LAD territory, transient ischemic dilatation not present, Lexiscan portion with a 7 beat NSVT in recovery with normotensive response nondiagnostic EKG for ischemia Case discussed with Cardiology will resume metoprolol 25 mg continue to hold statins due to elevated LFTs NSVT 9 beat vtach during resting phase of stress test known low EF not on BB due to acute CHF goal to keep K>4, mag >2 Pleural effusion s/p thoracentesis 03/31 with removal of 1.3L of fluid likely secondary to CHF vs pneumonia,repeat CXR showing small residual effusion, stable oxygenation on room air abdominal pain ct scan with no acute abdominal pathology symptomatic care continue bowel regimen Possible pneumonia no sepsis initial CT scan showing large effusion with airspace dz ?pneumonia s/p iv ceftriaxone, azithromycin for 5 days abx d/c for severe thrombocytopenia - no further abx at this time blood cultures have remained negative Uncontrolled diabetes type 2 stable blood sugars, continue Lantus, insulin sliding scale and ADA diet, metformin on hold Paresthesias with subjective weakness given stocking-glove distribution likely related to diabetes, will DC IV morphine, DC IV Dilaudid will place on by mouth oxycodone, continue gabapentin Hypertension bp controlled, will started on hold due to hyperkalemia, will discuss with Cardiology regarding resuming low-dose arb with low EF Full code DVT ppx - on Coumadin Seen by physical therapy they recommend short-term rehab case investigator arranging for safe discharge, continue medical management for better blood pressure and CHF control , persistent elevated LFTs continue to follow up Quality Stroke Does the patient have a stroke diagnosis?: No VTE Prior VTE?: No VTE Risk Level:: Medical - moderate - high VTE Device Contraindication: Treatment Not Indicated VTE Drug Contraindication: N/A - Med Ordered
[2022-04-09 15:57] LABS: Glucose, Whole Blood 192 mg/dL (60-115)
[2022-04-09] MEDS: Spironolactone 25 MG TABLET 12.5 MG PO (16:42)
[2022-04-09] MEDS: Warfarin Sodium 5 MG TABLET PO (17:53)
[2022-04-09 20:23] LABS: Glucose, Whole Blood 218 mg/dL (60-115)
[2022-04-09] MEDS: Insulin Glargine,Hum.rec.anlog 100 UNIT/ML 10 ML VIAL 20 UNIT SUBCUT (20:51)
[2022-04-10 04:00] VITALS: BP 118/67; PULSE 95; RESP 20; TEMP 36.9; O2SAT 97
[2022-04-10 06:00] VITALS: BMI 32.8
[2022-04-10 07:04] VITALS: BP 140/85; PULSE 99; RESP 16; TEMP 36.2; O2SAT 98
[2022-04-10 07:18] LABS: Hematocrit 35.7 % (42.0-52.0); Hemoglobin 11.4 g/dl (14.0-18.0); Mean Corpuscular HGB Conc 31.9 g/dl (31.0-36.0); Mean Corpuscular Hemoglobin 29.8 pg (27.0-33.0); Mean Corpuscular Volume 93.5 fL (80.0-98.0); Mean Platelet Volume 10.7 fL (9.4-12.4); Platelet Count 192 X10*3/uL (160-400); Red Blood Count 3.82 X10*6/uL (4.60-5.80); Red Cell Distribution Width 13.8 % (11.0-16.0); White Blood Count 5.5 X10*3/uL (4.8-10.8)
[2022-04-10 07:27] LABS: Glucose, Whole Blood 98 mg/dL (60-115)
[2022-04-10 07:28] LABS: INTERNATIONAL NORM RATIO 2.3 (0.9-1.1); Prothrombin Time 27.9 SEC (10.0-13.1)
[2022-04-10 07:37] LABS: Alanine Aminotransferase 237 U/L (0-40); Albumin Level 3.1 g/dL (3.5-5.0); Alkaline Phosphatase 186 U/L (39-117); Anion Gap 15 (12-20); Aspartate Amino Transferase 79 U/L (5-37); Bilirubin Direct 0.3 mg/dL (0.0-0.5); Bilirubin Total 0.5 mg/dL (0.0-1.0); Blood Urea Nitrogen 33 mg/dL (9-16); Calcium 7.9 mg/dL (8.4-10.2); Carbon Dioxide 31 mmol/L (22-29); Chloride 96 mmol/L (96-108); Creatinine Clr Calc Pharmacy 77.6; Estimated Glomerular Filt Rate > 60; Glucose Random 113 mg/dL (60-115); Potassium 3.9 mmol/L (3.3-5.1); Sodium 138 mmol/L (135-145); Total Protein 6.3 g/dL (6.5-8.0)
[2022-04-10] MEDS: Gabapentin 100 MG CAPSULE PO (07:47)
[2022-04-10] MEDS: Empagliflozin 10 MG TABLET PO (07:47)
[2022-04-10] MEDS: Metoprolol Succinate ER 25 MG TAB.ER.24H PO (07:48)
[2022-04-10] MEDS: Furosemide 40 MG TABLET PO (07:48)
[2022-04-10] MEDS: Spironolactone 25 MG TABLET 12.5 MG PO (07:48)
[2022-04-10] MEDS: oxyCODONE HCl Immed Release 5 MG TABLET PO ×2 (07:48→14:16)
[2022-04-10] MEDS: Insulin Glargine,Hum.rec.anlog 100 UNIT/ML 10 ML VIAL 40 UNIT SUBCUT (07:51)
[2022-04-10] MEDS: Montelukast Sodium 10 MG TABLET PO (07:54)
[2022-04-10 09:55] VITALS: BP 140/85; PULSE 99; O2SAT 98
[2022-04-10 10:58] VITALS: BP 121/77; PULSE 92; RESP 16; TEMP 36.3; O2SAT 98
[2022-04-10 11:19] LABS: Glucose, Whole Blood 132 mg/dL (60-115)
--- NOTE | 2022-04-10 11:50 | MHC.CM.PN ---
pt accepted to [facility] imm updated to be transferred at 2
--- NOTE | 2022-04-10 12:02 | P.DS_ITS ---
DS: Providers Provider Date of Service: 04/10/22 Date of admission: 03/28/22 14:46 Primary care physician: ROSEMARY Rubio Consults: 03/28/22 14:47 Consult to Cardiology Stat Consulting Provider: Henrique Brooks Reason for consultation: CHF Has provider been notified: Yes 04/02/22 08:35 Consult to Hematology / Oncology Routine Consulting Provider: Radha Davidson Reason for consultation: thrombocytopenia on heparin gtt Has provider been notified: No 04/07/22 08:05 Consult to Gastroenterology Routine Consulting Provider: Alexander Taylor Reason for consultation: transaminitis Has provider been notified: No DS: Diagnosis Discharge Diagnosis (1) Thrombocytopenia: Status: Acute (2) NSVT (nonsustained ventricular tachycardia): Status: Acute (3) Apical mural thrombus: Status: Acute (4) Acute heart failure: Status: Acute (5) Coronary artery disease: Status: Acute DS: Summary Hospital Course Hospital Course: History of presenting illness Date of Service: 03/28/22 Chief Complaint: Weakness and shortness of breath 61-year-old male presents with worsening shortness of breath over the last 4-5 days.? States his shortness of breath is worse with exertion however denies chest pain.? Patient is status post anterior STEMI 02/2021.? Underwent cardiac catheterization was found to have proximal LAD lesions stents x2 or placed.? Echo at that time showed severely reduced LV function an estimated ejection frac tion of 20-25% with akinesis of the mid to distal inferior and anteroseptal kaminski.? He has not been adherent to follow-up.? He does state he takes his meds on a regular basis.? Diabetes is poorly controlled. ER course CT abdomen pelvis/chest demonstrated right greater than left pleural effusion with can for compressive atelectasis versus infiltrate.? Abdomen was significant for mild diffuse ascites.? He was given azithromycin and ceftriaxone in the ER; also noted to have a BNP greater than 2000 which he received 40 of IV Lasix; will be admitted for further workup and treatment. Hospital course 61-year-old male with progressive shortness of breath over the last 4-5 days as well as stocking-glove paresthesias with weakness presents to the ER for workup.? CT abdomen pelvis and chest demonstrate right greater than left pleural effusions question left base infiltrate. Acute combined systolic and diastolic congestive heart failure Large mural apical thrombus Possible pneumonia/right pleural effusion Patient admitted with shortness of breath and diagnosed to have Acute combined systolic and diastolic CHF, ECHO showed severe LVEF 15-20%, grade 3 diastolic dysfunction and regional WMA and large apical thrombus. Patient treated with IV Lasix, continued on Jardiance, seen by Cardiology Aldactone and Diovan were added but patient noted to have hyperkalemia therefore both medicines were held patient responded well to Lasix therapy Clinically doing significantly better, since hyper kalemia has resolved he has been placed back on Diovan and Aldactone and has been continued on oral Lasix and beta-blockers, patient was followed closely by Cardiology they recommend close outpatient follow-up, since patient was noted to have large apical thrombus he was initially treated with IV heparin and Coumadin, heparin was briefly stopped since patient noted to have significant thrombocytopenia likely related to antibiotics and not related to heparin hit antibody was negative , patient has been continued on Coumadin INR therapeutic at 2.3 recommend to keep INR between 2 and 3 and follow INR closely. X-ray showed right-sided pleural effusion, s/p thoracentesis 03/31 with removal of 1.3L of fluid likely secondary to CHF ,repeat CXR showing small residual effusion, stable oxygenation on room air, patient was empirically treated with IV ceftriaxone and azithromycin for possible pneumonia for 5 days, no sepsis was noted, patient blood cultures x2 were negative. 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, related to ceftriaxone ,HIT panel negative,received IVIG x2 and a unit of platelets x2, Platelet count improved Hyperkalemia resolved, therefore resume valsartan and Aldactone recommend follow BMP next week Transaminitis LFTs trending down seen by GI likely due to passive congestion, patient denies abdominal pain, no nausea, no vomiting,continue diuresis, Doppler ultrasound showed patent portal vein and trace ascites if LFTs improved resume statins CAD h/o anterior wall [place] status post drug-eluting stents x2 last year, patient complained of chest pain during hospitalization troponin remained flat inpatient stress test showed - EF 19%, myocardial perfusion showing large transmural infarct in LAD territory, transient ischemic dilatation not present, Lexiscan portion with a 7 beat NSVT in recovery with normotensive response nondiagnostic EKG for ischemia, continue metoprolol and aspirin statins are on hold due to elevated LFTs follow LFTs and resume statins NSVT 9 beat vtach during resting phase of stress test,known low EF continue beta-blockers abdominal pain resolved, ct scan with no acute abdominal pathology. Uncontrolled diabetes type 2 stable blood sugars, continue Lantus, insulin sliding scale and ADA diet, and metformin. Paresthesias with subjective weakness given stocking-glove distribution likely related to diabetes, continue gabapentin Time Spent with Patient Time attestation: Total time spent providing and/or coordinating discharge services: Discharge coordination time: Greater than 30 minutes Quality: Safe Use of Opioids Does Pt have an Active Cancer Diagnosis on the Problem List?: No Quality: Stroke Does the patient have a stroke diagnosis?: No Physical Exam Vital Signs: Vital Signs: Last Vital Signs Temp 97.4 F 04/10/22 10:58 Pulse 92 04/10/22 10:58 Resp 16 04/10/22 10:58 BP 121/77 04/10/22 10:58 Pulse Ox 98 04/10/22 10:58 O2 Del Method 04/10/22 10:58 O2 Flow Rate 3 04/04/22 11:30 FiO2 100 04/01/22 19:00 BMI result Body Mass Index 32.8 Const: Other: General awake alert, in no acute distress ?Anicteric sclera ?Neck no JVD ?lung sounds are clear to auscultation ?heart regular rate rhythm, clear? S1, S2 ?Abdomen soft, distended, nontender bowel sounds audible ?Extremities no pitting edema ?skin multiple bruises ?neuro? alert x3, no focal deficits DS: Data Data Completed and Pending Completed studies during hospitalization [Text1]: Pending at discharge 03/31/22 12:00 Cytology [PTH] Stat Procedures Excision of Stomach, Pylorus, Via Natural or Artificial Opening Endoscopic, Diagnostic (07/31/21) Extraction of Esophagus, Via Natural or Artificial Opening Endoscopic, Diagnostic (07/31/21) Labs on day of discharge: Laboratory Results - last 24 hr 04/09/22 04/09/22 04/10/22 15:22 20:13 07:01 WBC RBC Hgb Hct MCV MCH MCHC RDW Plt Count MPV Absolute Nucleated RBC Nucleated RBC % (auto) PT 27.9 H INR 2.3 H Sodium Potassium Chloride Carbon Dioxide Anion Gap BUN Creatinine Estim Creat Clear Calc Estimated GFR POC Glucose 192 H 218 H Random Glucose Calcium Total Bilirubin Direct Bilirubin AST ALT Alkaline Phosphatase Total Protein Albumin 04/10/22 04/10/22 04/10/22 07:01 07:01 07:06 WBC 5.5 RBC 3.82 L Hgb 11.4 L Hct 35.7 L MCV 93.5 MCH 29.8 MCHC 31.9 RDW 13.8 Plt Count 192 D MPV 10.7 Absolute Nucleated RBC 0.000 Nucleated RBC % (auto) 0.0 PT INR Sodium 138 Potassium 3.9 Chloride 96 Carbon Dioxide 31 H Anion Gap 15 BUN 33 H Creatinine 1.07 Estim Creat Clear Calc 77.6 Estimated GFR > 60 POC Glucose 98 Random Glucose 113 Calcium 7.9 L Total Bilirubin 0.5 Direct Bilirubin 0.3 AST 79 H ALT 237 H Alkaline Phosphatase 186 H D Total Protein 6.3 L Albumin 3.1 L 04/10/22 11:01 WBC RBC Hgb Hct MCV MCH MCHC RDW Plt Count MPV Absolute Nucleated RBC Nucleated RBC % (auto) PT INR Sodium Potassium Chloride Carbon Dioxide Anion Gap BUN Creatinine Estim Creat Clear Calc Estimated GFR POC Glucose 132 H Random Glucose Calcium Total Bilirubin Direct Bilirubin AST ALT Alkaline Phosphatase Total Protein Albumin Preliminary micro results at discharge 03/31/22 12:00 Fungal Identification - Preliminary Pleural Fluid No growth to date. Discharge Plan Discharge Anticipated Discharge Date/Time: 04/10/22 11:47 Patient Disposition: [facility] Discharge Diagnosis: Acute combined systolic and diastolic heart failure Apical thrombus Transaminitis Severe thrombocytopenia likely drug-induced immune thrombocytopenia Nonsustained V-tach Hyperkalemia Referrals: [facility] [Other] - 1 Week Quincy Dugan FNP-BC [Primary Care Provider] - 1 Week Discharge Medications: New warfarin [Jantoven] 5 mg Tablet 5 mg PO DAILY@1800 Qty: 30 0RF insulin glargine [Lantus U-100 Insulin] 100 unit/mL Solution 20 unit subcut BEDTIME Qty: 10 0RF insulin glargine [Lantus U-100 Insulin] 100 unit/mL Solution 40 unit subcut DAILY Qty: 10 0RF furosemide 40 mg Tablet 40 mg PO BID@0900,1800 Qty: 60 0RF Protocol: Hold for SBP< HOLD for SBP < : 90 spironolactone 25 mg Tablet 25 mg PO DAILY Qty: 30 0RF Protocol: Hold for SBP< HOLD for SBP < : 90 valsartan 40 mg Tablet 20 mg PO BID Qty: 60 0RF Protocol: Hold for SBP< HOLD for SBP < : 90 Continued metoprolol succinate 25 mg tablet extended release 24 hr 25 mg PO DAILY 90 Days Qty: 90 1RF nitroglycerin 0.4 mg tablet, sublingual 0.4 mg sublingual Q5M PRN (Reason: chest pain) 30 Days Qty: 30 0RF Rx Instructions: do not exceed 3 doses per episode metformin 1,000 mg tablet 1,000 mg PO DAILY 90 Days Qty: 90 1RF gabapentin 100 mg capsule 100 mg PO TID Qty: 90 2RF aspirin [Aspirin Childrens] 81 mg tablet,chewable 81 mg PO DAILY Qty: 30 2RF montelukast 10 mg tablet 10 mg PO DAILY Qty: 30 2RF insulin lispro [Humalog KwikPen Insulin] 100 unit/mL insulin pen See Rx Instructions .ROUTE .COMPLEX Rx Instructions: Sliding scale / 14-20 units 3 times daily before meals Jardiance 10 mg tablet 10 mg PO DAILY Discontinued clopidogrel 75 mg tablet 75 mg PO DAILY 90 Days Qty: 90 0RF lisinopril 20 mg tablet 20 mg PO DAILY Qty: 30 2RF insulin glargine [Lantus Solostar U-100 Insulin] 100 unit/mL (3 mL) insulin pen 50 unit subcut BID atorvastatin 80 mg tablet 80 mg PO BEDTIME 90 Days Qty: 90 2RF Discharge Orders: Discharge Order (Routine); Ordered 04/10/22 Ordered By: Ayad Herrera Diet: Low fat, low cholesterol Activity on Discharge: As tolerated Stand Alone Forms: Patient Portal Discharge page Care Plan Goals: Acute on chronic combined congestive heart failure resolved continue Lasix, valsartan, Aldactone and beta-blockers Apical mural thrombus continue Coumadin INR goal 2-3 recommend close outpatient follow-up with Cardiology repeat echocardiogram and duration of anticoagulation Follow PT INR twice weekly, Diabetes mellitus monitor blood sugars qid and adjust dose of insulin Follow BMP early next week history of hyperkalemia while on Diovan and Aldactone Follow LFTs early next week if normalize resume Lipitor 80 mg Health Concerns: Take all medications as prescribed Plan of Treatment: Need close outpatient follow-up with Cardiology for apical thrombus and also for congestive heart failure and coronary artery disease Assessment: As above
[2022-04-10 12:09] LABS: COVID-19 Test Negative (Negative); IDNOW Serial# 16C4AD1C
== END 2022-04-10 15:44 | disposition skilled nursing facility (03) | DRG 291 ==
LOC: HO.ED 14:46 → HO.EDOVER 14:54 → HO.IMC 03-29 19:25
PROVIDERS: Internal Medicine; Nurse Practitioner Acute Care; Nurse Practitioner Family; Physician Assistant Medical; Radiology Diagnostic Radiology; Admitting Provider Hospitalist; Emergency Provider Emergency Medicine; PCP Nurse Practitioner Family; Visit Provider Hospitalist
PROC: 0W9930Z Drainage of Right Pleural Cavity with Drainage Device, Percutaneous Approach (ICD-10-PCS; principal; 2022-03-31 12:30)
DX: I11.0 Hypertensive heart disease with heart failure (principal); I50.41 Acute combined systolic (congestive) and diastolic (congestive) heart failure; J18.9 Pneumonia, unspecified organism; J91.8 Pleural effusion in other conditions classified elsewhere; I23.6 Thrombosis of atrium, auricular appendage, and ventricle as current complications following acute myocardial infarction; I47.20 Ventricular tachycardia, unspecified; E78.5 Hyperlipidemia, unspecified; I25.5 Ischemic cardiomyopathy; E11.65 Type 2 diabetes mellitus with hyperglycemia; E11.649 Type 2 diabetes mellitus with hypoglycemia without coma; E11.42 Type 2 diabetes mellitus with diabetic polyneuropathy; E87.5 Hyperkalemia; T50.Z15A Adverse effect of immunoglobulin, initial encounter; D69.59 Other secondary thrombocytopenia; R74.01 Elevation of levels of liver transaminase levels; Z20.822 Contact with and (suspected) exposure to COVID-19; I25.2 Old myocardial infarction; Z91.199 Patient's noncompliance with other medical treatment and regimen due to unspecified reason; Z87.891 Personal history of nicotine dependence; Z95.5 Presence of coronary angioplasty implant and graft; Z79.4 Long term (current) use of insulin; Z79.01 Long term (current) use of anticoagulants; Z79.82 Long term (current) use of aspirin; Z79.84 Long term (current) use of oral hypoglycemic drugs; Z79.899 Other long term (current) drug therapy
CPT/HCPCS: 32555; 36415; 70450; 71045; 71046; 71250; 72158; 74018; 74176; 76700; 76705; 78452; 80048; 80053; 80076; 81001; 82947; 83036; 83605; 83615; 83690; 83735; 83880; 84484; 85025; 85027; 85384; 85610; 85730; 86022; 86850; 86900; 86901; 87040; 87070; 87073; 87102; 87205; 87635; 88112; 88305; 88341; 88342; 89051; 93005; 93017; 93306; 93925; 93970; 93975; 97116; 97162; 99285; A9500; A9585; C1758; J0280; J0456; J0696; J1170; J1569; J1650; J1940; J2270; J2405; J2785; J3475; P9073; Q9957

== ENCOUNTER 2022-04-13 21:49 | Observation (INO) | payer MEDICARE, OTHER, SELFPAY ==
--- NOTE | ~2022-04-13 | XR_ITS ---
EXAMINATION: XR CHEST CLINICAL INFORMATION: CHF, SOB COMPARISON: None TECHNIQUE: Frontal view of the chest was obtained. FINDINGS: Right lung is hypoexpanded elevated right hemidiaphragm and subpulmonic pleural effusion. The left lung is expanded. There are increased bilateral pulmonary vascularity suggestive mild congestion. Heart size is enlarged. No gross bony abnormality seen. XR/XR chest 1V IMPRESSION: Cardiomegaly with mild CHF. Suspect small to moderate right pleural effusion.
--- NOTE | ~2022-04-13 | XR_ITS ---
EXAMINATION: XR BILATERAL HIPS WITH AP PELVIS CLINICAL INFORMATION: Fall, rule out fracture COMPARISON: None TECHNIQUE: AP pelvis, 2 views both hips FINDINGS: No acute fracture or dislocation. Minimal superior hip joint space narrowing bilaterally and small marginal osteophytes at both hips consistent with mild osteoarthritis. The pubic symphysis and sacroiliac joints are congruent and intact. Disc degenerative change noted in the lower lumbar spine. XR/XR hip BI w PEL1V IMPRESSION: 1. No acute fracture or dislocation. 2. Mild bilateral hip joint osteoarthritis.
--- NOTE | ~2022-04-13 | US_ITS ---
EXAMINATION: US SCROTUM CLINICAL INFORMATION: Scrotal swelling and pain. COMPARISON: None TECHNIQUE: A sonogram of the scrotum was performed assessing cruz-scale appearance and color Doppler flow. Spectral Doppler analysis of the arterial and venous flow were performed in the testes bilaterally. FINDINGS: RIGHT: Right testicle measures 3.3 x 2.4 x 2.8 cm, volume 11.5 mL. No focal testicular parenchymal lesions are visualized. Spectral Doppler analysis of the arterial and venous flow is normal in the right testis. Right epididymal head is normal in size. No right hydrocele or varicocele is seen. Right epididymal Doppler flow is normal. LEFT: Left testicle measures 3.1 x 2.2 x 2.2 cm, volume 7.4 mL. No focal testicular parenchymal lesions are visualized. Spectral Doppler analysis of the arterial and venous flow is normal in the left testis. Left epididymal head is normal in size. Trace left peritesticular fluid. No significant left hydrocele is seen. Small left varicocele. Left epididymal Doppler flow is normal. Diffuse scrotal wall thickening/edema. US/US scrotum IMPRESSION: 1. No evidence of testicular torsion or epididymoorchitis. 2. Diffuse scrotal wall thickening/edema. Correlate with physical exam and any evidence of scrotal cellulitis. 3. Small left varicocele.
--- NOTE | ~2022-04-13 | CT_ITS ---
EXAMINATION: CT HEAD WITHOUT CONTRAST CLINICAL INFORMATION: Fall, rule out bleed COMPARISON: Head CT 03/28/2022 TECHNIQUE: Imaging was performed from the skull base to vertex without intravenous administration of contrast. This CT examination was performed using dose optimization techniques as appropriate, variously including the following: *Automated exposure control *Adjustment of mA and/or kV according to patient size (this includes techniques or standardized protocols for targeted exams where dose is matched to indication/reason for exam; i.e. extremities or head) *Use of iterative reconstruction technique Total exam dose length product: 711 mGy-cm FINDINGS: No intra or extra-axial fluid collection, hemorrhage, or mass. No ventriculomegaly. No midline shift or herniation. Basal cisterns are patent. Mora-white matter differentiation is maintained. No territorial encephalomalacia. Proportional prominence of the ventricles and sulcal spaces is consistent with mild volume loss. Patchy periventricular and deep white matter hypoattenuation is consistent with mild small vessel ischemic changes. No calvarial fracture or soft tissue abnormality. Tiny mucous retention cysts or small polyps in the right maxillary sinus. Mastoid air cells normally aerated. CT/CT head/brain wo IV con IMPRESSION: No acute intracranial pathology.
--- NOTE | ~2022-04-13 | US_ITS ---
EXAMINATION: US SCROTUM CLINICAL INFORMATION: Scrotal swelling and pain. COMPARISON: None TECHNIQUE: A sonogram of the scrotum was performed assessing cruz-scale appearance and color Doppler flow. Spectral Doppler analysis of the arterial and venous flow were performed in the testes bilaterally. FINDINGS: RIGHT: Right testicle measures 3.3 x 2.4 x 2.8 cm, volume 11.5 mL. No focal testicular parenchymal lesions are visualized. Spectral Doppler analysis of the arterial and venous flow is normal in the right testis. Right epididymal head is normal in size. No right hydrocele or varicocele is seen. Right epididymal Doppler flow is normal. LEFT: Left testicle measures 3.1 x 2.2 x 2.2 cm, volume 7.4 mL. No focal testicular parenchymal lesions are visualized. Spectral Doppler analysis of the arterial and venous flow is normal in the left testis. Left epididymal head is normal in size. Trace left peritesticular fluid. No significant left hydrocele is seen. Small left varicocele. Left epididymal Doppler flow is normal. Diffuse scrotal wall thickening/edema. US/US scrotum doppler IMPRESSION: 1. No evidence of testicular torsion or epididymoorchitis. 2. Diffuse scrotal wall thickening/edema. Correlate with physical exam and any evidence of scrotal cellulitis. 3. Small left varicocele.
[2022-04-13 22:18] VITALS: BP 120/89; PULSE 99; RESP 21; TEMP 37; O2SAT 99; BMI 29.0
--- NOTE | 2022-04-13 22:25 | ECG_ITS ---
Test Reason : CHF/chest pressure Blood Pressure : / mmHG Vent. Rate : 099 BPM Atrial Rate : 099 BPM P-R Int : 166 ms QRS Dur : 106 ms QT Int : 376 ms P-R-T Axes : 020 -68 031 degrees QTc Int : 482 ms Normal sinus rhythm Possible Left atrial enlargement Left anterior fascicular block Inferior infarct (cited on or before 02-AUG-2014) Anterolateral infarct (cited on or before 02-AUG-2014) Abnormal ECG When compared with ECG of 06-APR-2022 02:38, No significant change was found Referred By: Generic ED Physician Electronically Signed By:TSERING TOBIN MD
[2022-04-13 22:40] LABS: MANUAL DIFF FLAG NO
[2022-04-13 22:41] LABS: Basophils Absolute Auto 0.1 X10*3/uL (0.0-0.2); Basophils Percent Auto 0.8 % (0-2); Eosinophils Absolute Auto 0.1 X10*3/uL (0.0-0.4); Eosinophils Percent Auto 1.4 % (0-4); Hematocrit 39.9 % (42.0-52.0); Hemoglobin 12.4 g/dl (14.0-18.0); Imm Gran Abs Auto 0.02 X10*3/uL (0.00-0.03); Imm Gran Pct Auto 0.3 % (0.0-0.4); Lymphocytes Absolute Auto 1.2 X10*3/uL (1.2-4.9); Lymphocytes Percent Auto 16.4 % (20-40); Mean Corpuscular HGB Conc 31.1 g/dl (31.0-36.0); Mean Corpuscular Hemoglobin 29.9 pg (27.0-33.0); Mean Corpuscular Volume 96.1 fL (80.0-98.0); Monocytes Absolute Auto 0.6 X10*3/uL (0.1-1.2); Monocytes Percent Auto 7.7 % (2-11); Neutrophils Absolute Auto 5.4 x10*3/uL (2.0-8.3); Neutrophils Percent Auto 73.4 % (45-73); Platelet Count 282 X10*3/uL (160-400); Red Blood Count 4.15 X10*6/uL (4.60-5.80); Red Cell Distribution Width 14.7 % (11.0-16.0); White Blood Count 7.3 X10*3/uL (4.8-10.8)
[2022-04-13 22:43] LABS: NRBC Pct Auto 1.1 /100WBC (0.0-0.2)
[2022-04-13 23:01] LABS: Anion Gap 16 (12-20); Blood Urea Nitrogen 27 mg/dL (9-16); Calcium 8.4 mg/dL (8.4-10.2); Carbon Dioxide 29 mmol/L (22-29); Chloride 99 mmol/L (96-108); Creatinine Clr Calc Pharmacy 51.8; Estimated Glomerular Filt Rate 47; Glucose Random 433 mg/dL (60-115); Potassium 5.4 mmol/L (3.3-5.1); Sodium 139 mmol/L (135-145); Troponin-I High Sensitivity 33.8 ng/L (<3.5-35.0)
[2022-04-14] VITALS (12 sets, daily range): BP systolic 108–147; BP diastolic 75–100; PULSE 82–122; RESP 16–23; TEMP 36.4–37; O2SAT 91–100
[2022-04-14 00:35] LABS: B Type Natriuretic Peptide 2524 pg/mL (<100)
--- NOTE | 2022-04-14 02:20 | ED_ITS ---
HPI - General Adult General Chief complaint: General Medical Stated complaint: intestinal issues Time Seen by Provider: 04/14/22 02:20 Source: patient Mode of arrival: EMS Limitations: no limitations History of Present Illness HPI narrative: Patient is 61 years old admitted on 03/28 discharged on 04/09 for acute on chronic congestive heart failure with pleural effusion with apical thrombus unable to get his medications since discharge comes here for increased body swelling patient is supposed to be on Lasix 40 mg twice daily and spironolactone 25 mg daily feels bloated denies any chest pain no nausea no vomiting no diarrhea Related Data Home Medications Medication Instructions Recorded Confirmed insulin lispro 100 unit/mL See Rx Instructions .Route .COMPLEX 05/13/21 04/14/22 subcutaneous pen (Humalog KwikPen (U-100) Insulin) empagliflozin 10 mg tablet 10 mg PO DAILY 03/28/22 04/14/22 (Jardiance) Previous Rx's Medication Instructions Recorded metoprolol succinate 25 mg 25 mg PO DAILY 90 days #90 tabs 01/29/21 tablet,extended release 24 hr nitroglycerin 0.4 mg sublingual 0.4 mg sublingual Q5M PRN chest 04/01/21 tablet pain 30 days #30 tabs metformin 1,000 mg tablet 1,000 mg PO DAILY 90 days #90 tabs 07/27/21 gabapentin 100 mg capsule 100 mg PO TID #90 caps 11/04/21 aspirin 81 mg chewable tablet 81 mg PO DAILY #30 tabs 12/09/21 (Aspirin Children[facility]) montelukast 10 mg tablet 10 mg PO DAILY #30 tabs 12/09/21 furosemide 40 mg tablet 40 mg PO BID@0900,1800 #60 tabs 04/10/22 insulin glargine 100 unit/mL 20 unit (0.2 mL) subcut BEDTIME 04/10/22 subcutaneous solution (Lantus #10 mL U-100 Insulin) insulin glargine 100 unit/mL 40 unit (0.4 mL) subcut DAILY #10 04/10/22 subcutaneous solution (Lantus mL U-100 Insulin) spironolactone 25 mg tablet 25 mg PO DAILY #30 tabs 04/10/22 valsartan 40 mg tablet 20 mg PO BID #60 tabs 04/10/22 warfarin 5 mg tablet (Jantoven) 5 mg PO DAILY@1800 #30 tabs 04/10/22 Allergies Allergy/AdvReac Type Severity Reaction Status Date / Time No Known Allergies Allergy Verified 04/15/21 16:30 Review of Systems Review of Systems: Yes all other systems are reviewed and are negative [facility] Past Medical History Medical History Diabetes Essential (primary) hypertension GI bleed Hematemesis HLD (hyperlipidemia) STEMI (ST elevation myocardial infarction) Unspecified asthma, uncomplicated Surgical History H/O heart artery stent Social History Social History Household Members: None Housing: Apartment Do you presently have visiting nurse or other home services: No Alcohol intake: former Patient Tobacco Use Status: Former Tobacco user Substance Use Type: Former Substance User Advance Directives: Yes Advance Directives on File: Yes Advance Directives Date on File: 08/02/21 service: No Physical Exam ED Vital Signs: Vital Signs - 24 hr 04/13/22 22:18 04/14/22 01:44 04/14/22 02:22 Temperature 98.6 F 98.6 F 97.8 F Pulse Rate 99 122 H 93 Respiratory Rate 21 H 18 22 H Blood Pressure 120/89 147/100 H 125/85 Pulse Oximetry 99 96 94 Oxygen Delivery Method Room Air Room Air Room Air Oxygen Flow Rate 04/14/22 04:56 04/14/22 07:29 Temperature 98.0 F 97.7 F Pulse Rate 91 82 Respiratory Rate 21 H 23 H Blood Pressure 116/81 133/94 H Pulse Oximetry 99 99 Oxygen Delivery Method Nasal Cannula Nasal Cannula Oxygen Flow Rate 2 3 BMI result Body Mass Index 29.0 Appearance: Alert. Oriented X3. Mild distress ++anasarca Eyes: PERRLA, No Nystagmus ENT: Pharynx normal. Oral Mucosa moist Neck: Normal inspection. Neck supple. CVS: Normal heart rate and rhythm. Pulses normal. Respiratory: No respiratory distress. Equal air entry bilateral, no wheezing/rales/rhonchi basal crackles+ Abdomen: Soft and nontender.FF+ Bowel sounds are present, no mass palpable, no CVA tenderness Skin: Skin warm and dry. Normal skin color. Normal skin turgor. Extremities:3+ lower extremity edema. No calf tenderness Neuro: Oriented X 3. No motor deficit. No sensory deficit.No cerebellar signs , cranial nerves II-XII intact Medical Decision Making MDM Narrative Medical decision making narrative: Patient is 58-year-old male with acute on chronic CHF apical mural thrombus coronary disease hypertension noncompliant to medications comes here for increased body swelling and shortness of breath since discharged on 04/10 as he could not get his medication. On examination patient has fluid retention with elevated BNP mild CHF and pleural effusion will admit patient for IV diuresis Lab Data Lab results reviewed: Yes I reviewed the patient's lab results. Result diagrams: 04/13/22 22:33 04/13/22 22:33 Labs: Lab Results 04/13/22 04/13/22 04/13/22 Range/Units 22:33 22:33 22:33 WBC 7.3 (4.8-10.8) X10*3/uL RBC 4.15 L (4.60-5.80) X10*6/uL Hgb 12.4 L (14.0-18.0) g/dl Hct 39.9 L (42.0-52.0) % MCV 96.1 (80.0-98.0) fL MCH 29.9 (27.0-33.0) pg MCHC 31.1 (31.0-36.0) g/dl RDW 14.7 (11.0-16.0) % Plt Count 282 D (160-400) X10*3/uL MPV 10.0 (9.4-12.4) fL Immature Gran % (Auto) 0.3 (0.0-0.4) % Neut % (Auto) 73.4 H (45-73) % Lymph % (Auto) 16.4 L (20-40) % Wilcox % (Auto) 7.7 (2-11) % Eos % (Auto) 1.4 (0-4) % Baso % (Auto) 0.8 (0-2) % Lymph # (Auto) 1.2 (1.2-4.9) X10*3/uL Wilcox # (Auto) 0.6 (0.1-1.2) X10*3/uL Eos # (Auto) 0.1 (0.0-0.4) X10*3/uL Baso # (Auto) 0.1 (0.0-0.2) X10*3/uL Abs Immat Gran (auto) 0.02 (0.00-0.03) X10*3/uL Absolute Neuts (auto) 5.4 (2.0-8.3) x10*3/uL Absolute Nucleated RBC 0.080 H (0.0-0.012) X10*3/uL Nucleated RBC % (auto) 1.1 H (0.0-0.2) /100WBC PT (10.0-13.1) SEC INR (0.9-1.1) Sodium 139 (135-145) mmol/L Potassium 5.4 H D (3.3-5.1) mmol/L Chloride 99 (96-108) mmol/L Carbon Dioxide 29 (22-29) mmol/L Anion Gap 16 (12-20) BUN 27 H (9-16) mg/dL Creatinine 1.51 H (0.5-1.4) mg/dL Estim Creat Clear Calc 51.8 Estimated GFR 47 POC Glucose (60-115) mg/dL Random Glucose 433 H* (60-115) mg/dL Calcium 8.4 D (8.4-10.2) mg/dL Troponin I High Sens 33.8 D (<3.5-35.0) ng/L B-Natriuretic Peptide 2524 H (<100) pg/mL COVID-19 (ALEJANDRO) (Negative) COVID-19 Clin Com 04/14/22 04/14/22 04/14/22 Range/Units 02:55 05:48 07:28 WBC (4.8-10.8) X10*3/uL RBC (4.60-5.80) X10*6/uL Hgb (14.0-18.0) g/dl Hct (42.0-52.0) % MCV (80.0-98.0) fL MCH (27.0-33.0) pg MCHC (31.0-36.0) g/dl RDW (11.0-16.0) % Plt Count (160-400) X10*3/uL MPV (9.4-12.4) fL Immature Gran % (Auto) (0.0-0.4) % Neut % (Auto) (45-73) % Lymph % (Auto) (20-40) % Wilcox % (Auto) (2-11) % Eos % (Auto) (0-4) % Baso % (Auto) (0-2) % Lymph # (Auto) (1.2-4.9) X10*3/uL Wilcox # (Auto) (0.1-1.2) X10*3/uL Eos # (Auto) (0.0-0.4) X10*3/uL Baso # (Auto) (0.0-0.2) X10*3/uL Abs Immat Gran (auto) (0.00-0.03) X10*3/uL Absolute Neuts (auto) (2.0-8.3) x10*3/uL Absolute Nucleated RBC (0.0-0.012) X10*3/uL Nucleated RBC % (auto) (0.0-0.2) /100WBC PT 14.9 H (10.0-13.1) SEC INR 1.3 H (0.9-1.1) Sodium (135-145) mmol/L Potassium (3.3-5.1) mmol/L Chloride (96-108) mmol/L Carbon Dioxide (22-29) mmol/L Anion Gap (12-20) BUN (9-16) mg/dL Creatinine (0.5-1.4) mg/dL Estim Creat Clear Calc Estimated GFR POC Glucose 304 H (60-115) mg/dL Random Glucose (60-115) mg/dL Calcium (8.4-10.2) mg/dL Troponin I High Sens (<3.5-35.0) ng/L B-Natriuretic Peptide (<100) pg/mL COVID-19 (ALEJANDRO) Negative (Negative) COVID-19 Clin Com See Note ECG Data Attestation: I personally reviewed and interpreted this ECG as follows: Interpretation: Normal sinus rhythm heart rate 99 beats per minute left axis deviation poor progression of R-wave no acute ischemia Discharge Plan Discharge Clinical Impression: Apical mural thrombus, Acute systolic (congestive) heart failure, Hyperglycemia due to diabetes mellitus Patient Disposition: Admitted As Inpatient
[2022-04-14] MEDS: Furosemide 100 MG/10 ML VIAL 60 MG IVPUSH (02:59)
[2022-04-14 03:05] LABS: INTERNATIONAL NORM RATIO 1.3 (0.9-1.1); Prothrombin Time 14.9 SEC (10.0-13.1)
[2022-04-14 06:10] LABS: COVID-19 Test Negative (Negative)
[2022-04-14 07:35] LABS: Glucose, Whole Blood 304 mg/dL (60-115)
--- NOTE | 2022-04-14 07:38 | PHA.MEDREC ---
Pharmacy Consult ? Medication Reconciliation Pharmacy has completed the medication reconciliation. Patient just discharged from [facility] on 04/10/22. Utilized discharge summary for med rec. Shoshana HardenD
[2022-04-14] MEDS: Insulin Lispro 100 UNIT/ML 3 ML VIAL 10 UNIT SUBCUT (07:58)
--- NOTE | 2022-04-14 08:24 | PC.NURSE ---
pt. alert and oriented x4. skin pink and warm. O2sat 96% on 2L nc. lung sounds clear. He complains of abdomen, scrotum and lower extremities pain 10/10. He also has swelling on abdomen, scrotum and lower extremities. He is here because he escaped the shelter complaining that it was a horrible place and after three days they still didn't have my meds . we explained that due to diet restrictions we can't put in the diet order until he is admitted to the floor.
[2022-04-14] MEDS: Empagliflozin 10 MG TABLET PO (10:53)
[2022-04-14] MEDS: Aspirin 81 MG TAB.CHEW PO (10:53)
[2022-04-14] MEDS: Enoxaparin Sodium 100 MG/ML SYRINGE 90 MG SUBCUT ×2 (10:53→21:48)
--- NOTE | 2022-04-14 11:07 | P.HPHOSP_ITS ---
History of Present Illness Date of Service: 04/14/22 Attending physician on admission: Leonardo Jno Chief Complaint: sob, edema 61-year-old male with history of insulin-dependent type 2 diabetes, hypertension, hyperlipidemia, mild persistent asthma, apical thrombus on warfarin, history polysubstance abuse, NSVT, CAD with history of anterior STEMI, former smoker, and systolic CHF with recent hospitalization for acute CHF exacerbation and pleural effusion with apical thrombus, with discharge 04/10, presenting to the ED stating is experiencing increased leg and scrotal edema and shortness of breath. He was discharged to SNF for rehab and states he has not been able to get any of his medications. In the ED, CXR shows cardiomegaly with mild CHF with suspected small to moderate right pleural effusion. Hematology study stable. Patient has SILVANO with creatinine of 1.51, BUN 27 (baseline 1.07, 33 respectively). Mild hyperkalemia at 5.4. Glucose 433 trop-I 33.8. BNP 2524. INR 1.3 (had not has warfarin since discharge), PT 14.9. Given baby aspirin, Jardiance 10 mg, 90 mg Lovenox, 60 mg furosemide, and 10 units insulin lispro Mildly tachpenic 23, tachycardic on arrical 133. Pt desatting to 91, placed on 2l via NC. Last echocardiogram from 03/31/2022 showing severe LV systolic dysfunction with EF 15-20% and grade 3 diastolic dysfunction with regional wall motion abnormality consistent with ischemic cardiomyopathy as well as large apical thrombus. To be observed for ex acerbation heart failure. Review of Systems Review of Systems: General: No fevers, malaise, unintentional weight loss HEENT: No blurred vision or diplopia Cardiovascular: +pitting edema ble and scrotum. No chest pain, palpitations Respiratory: +sob, +orthopnea. No wheezing, cough GI: No abdominal pain, nausea, vomiting, diarrhea, constipation, melena, hematochezia. : No dysuria, hematuria, increased urinary frequency MSK: No myalgias Neuro: No headaches, weakness, paresthesias Skin: No rashes or lesions [facility] Medical History (Updated 04/14/22 @ 12:47 by PETE Barros) SILVANO (acute kidney injury) Diabetes Essential (primary) hypertension GI bleed Hematemesis HLD (hyperlipidemia) STEMI (ST elevation myocardial infarction) Unspecified asthma, uncomplicated Family History Mother No problems noted. Father No problems noted. Surgical History H/O heart artery stent Social History Household Members: None Housing: Apartment Do you presently have visiting nurse or other home services: No Alcohol intake: former Patient Tobacco Use Status: Former Tobacco user Substance Use Type: Former Substance User Advance Directives: Yes Advance Directives on File: Yes Advance Directives Date on File: 08/02/21 service: No Meds Allergies Allergy/AdvReac Type Severity Reaction Status Date / Time No Known Allergies Allergy Verified 04/15/21 16:30 Active Medications: Current Medications Acetaminophen (Acetaminophen 325 Mg Tablet) 650 mg PO Q6H PRN PRN Reason: Pain, Mild (Pain Scale 1-3) Aspirin (Aspirin 81 Mg Tab.Chew) 81 mg PO DAILY [facility] Last Admin: 04/14/22 10:53 Dose: 81 mg Empagliflozin (Empagliflozin 10 Mg Tablet) 10 mg PO DAILY [facility] Last Admin: 04/14/22 10:53 Dose: 10 mg Enoxaparin Sodium (Enoxaparin Sodium 100 Mg/Ml Syringe) 90 mg SUBCUT Q12H [facility] Last Admin: 04/14/22 10:53 Dose: 90 mg Furosemide (Furosemide 40 Mg/4 Ml Vial) 40 mg IVPUSH BID@0900,1800 [facility]; Protocol Gabapentin (Gabapentin 100 Mg Capsule) 100 mg PO TID [facility] Insulin Glargine (Insulin Glargine,Hum.Rec.Anlog 100 Unit/Ml 10 Ml Vial) 15 unit SUBCUT BEDTIME [facility] Insulin Glargine (Insulin Glargine,Hum.Rec.Anlog 100 Unit/Ml 10 Ml Vial) 30 unit SUBCUT DAILY [facility] Insulin Human Lispro (Insulin Lispro 100 Unit/Ml 3 Ml Vial) 0 unit SUBCUT QIDACHS [facility]; Protocol Metoprolol Succinate (Metoprolol Succinate Er 25 Mg Tab.Er.24h) 25 mg PO DAILY [facility]; Protocol Montelukast Sodium (Montelukast Sodium 10 Mg Tablet) 10 mg PO DAILY [facility] Ondansetron HCl (Ondansetron Hcl 4 Mg/2 Ml Vial) 4 mg IVPUSH Q8H PRN PRN Reason: Nausea and Vomiting Sodium Chloride (0.9 % Sodium Chloride Flush 3 Ml Syringe) 3 ml IVFLUSH QSHIFT [facility] Warfarin Sodium (Warfarin Sodium 5 Mg Tablet) 5 mg PO DAILY@1800 [facility] Home Medications Medication Instructions Recorded Confirmed Last Taken Type insulin lispro 100 unit/mL See Rx Instructions .Route .COMPLEX 05/13/21 04/14/22 03/27/22 History subcutaneous pen (Humalog KwikPen (U-100) Insulin) empagliflozin 10 mg tablet 10 mg PO DAILY 03/28/22 04/14/22 03/27/22 History (Jardiance) Physical Exam Vital Signs and Narrative: Vital Signs: Last Vital Signs Temp 97.7 F 04/14/22 07:29 Pulse 90 04/14/22 08:04 Resp 18 04/14/22 08:04 BP 112/77 04/14/22 08:04 Pulse Ox 91 L 04/14/22 08:04 O2 Del Method 04/14/22 08:04 O2 Flow Rate 2 04/14/22 08:04 BMI result Body Mass Index 29.0 Constitutional - Awake and Alert, No apparent distress Eyes - PERRLA, EOMI Cardiovascular - S1S2, RRR, 2+ pitting edema BLE Respiratory - Normal lung expansion, Normal respiratory effort, No respiratory distress, CTA bilaterally Gastrointestinal - Moderate abdominal distention without fluid wave. NT , +BS; No rebound or guarding - 2+ scrotal edema Extremities - no calf tenderness bilaterally, no calf swelling Skin - Warm/Dry Neurological - Alert & oriented x3, CN II-XII in tact, 5/5 strength BUE and BLE Psychological - Appropriate affect Results Labs CBC and Chem 7: 04/13/22 22:33 04/13/22 22:33 Labs: Laboratory Results - last 24 hr 04/13/22 04/13/22 04/13/22 22:33 22:33 22:33 MCV 96.1 MCH 29.9 MCHC 31.1 RDW 14.7 Plt Count 282 D MPV 10.0 Immature Gran % (Auto) 0.3 Neut % (Auto) 73.4 H Lymph % (Auto) 16.4 L Brewster % (Auto) 7.7 Eos % (Auto) 1.4 Baso % (Auto) 0.8 Lymph # (Auto) 1.2 Brewster # (Auto) 0.6 Eos # (Auto) 0.1 Baso # (Auto) 0.1 Abs Immat Gran (auto) 0.02 Absolute Neuts (auto) 5.4 Absolute Nucleated RBC 0.080 H Nucleated RBC % (auto) 1.1 H PT INR Anion Gap 16 Estim Creat Clear Calc 51.8 Estimated GFR 47 POC Glucose Random Glucose 433 H* Calcium 8.4 D Troponin I High Sens 33.8 D B-Natriuretic Peptide 2524 H COVID-19 (ALEJANDRO) COVID-19 Clin Com 04/14/22 04/14/22 04/14/22 02:55 05:48 07:28 MCV MCH MCHC RDW Plt Count MPV Immature Gran % (Auto) Neut % (Auto) Lymph % (Auto) Brewster % (Auto) Eos % (Auto) Baso % (Auto) Lymph # (Auto) Brewster # (Auto) Eos # (Auto) Baso # (Auto) Abs Immat Gran (auto) Absolute Neuts (auto) Absolute Nucleated RBC Nucleated RBC % (auto) PT 14.9 H INR 1.3 H Anion Gap Estim Creat Clear Calc Estimated GFR POC Glucose 304 H Random Glucose Calcium Troponin I High Sens B-Natriuretic Peptide COVID-19 (ALEJANDRO) Negative COVID-19 Clin Com See Note Imaging Radiologist's Impressions: Impressions Chest X-Ray 04/13/22 22:35 IMPRESSION: Cardiomegaly with mild CHF. Suspect small to moderate right pleural effusion. Assessment and Plan (1) Acute systolic (congestive) heart failure: Status: Acute (2) SILVANO (acute kidney injury): Status: Acute Plan 61-year-old male with history of insulin-dependent type 2 diabetes, hypertension , hyperlipidemia, mild persistent asthma, apical thrombus on warfarin, history polysubstance abuse, NSVT, CAD with history of anterior STEMI, former smoker, and systolic CHF with recent hospitalization for acute CHF exacerbation and pleural effusion requiring thoracentesis with apical thrombus, with discharge 04/10 to be observed for acute CHF exacerbation after not having had discharge meds including diuretics and warfarin since discharge 04/10. 1. Acute systolic CHF- recent admission for CHF discharged 04/10 has not had any of his discharge medications while at SNF -IV Lasix b.i.d. -BNP >2400. Follow BNP -CXR showing cardiomegaly with mild CHF with small to moderate right pleural effusion. Also with 2+ BLE pitting edema, scrotal edema, and ascites (noted on abd US 04/07) -echocardiogram from 03/31/2022 showing severe LV systolic dysfunction with EF 15-20% and grade 3 diastolic dysfunction with regional wall motion abnormality consistent with ischemic cardiomyopathy as well as large apical thrombus. -Cardiac diet #SILVANO- likely cardiorenal -Creat 1.51, BUN 27 (baseline 1.07, 33 respectively) -will likely correct with improvement in volume overload -recheck BMP a.m. #Mild hyperkalemia secondary to SILVANO -potassium 5.4 upon arrival to ED -will likely correct with correction of SILVANO as above -recheck BMP a.m. # apical thrombus -patient has been without warfarin since discharge 04/10 -continue Lovenox to bridge to warfarin -follow CBC and coags # Uncontrolled diabetes type 2 -Last A1c >14.0 -Continue jardiance, hold metformin -Lantus BID. Humalog SSI -POC glucose -ADA diet #Hypertension- uncontrolled -Initiate home meds # CAD with h/o STEMI- no anginal chest pain -Continue bb and baby asa -Not on statin #ischemic cardiomyopathy -COntinue bb and baby asa DVT prophylaxis-Lovenox bridge to Coumadin Full code Quality Stroke Does the patient have a stroke diagnosis?: No VTE Prior VTE?: No VTE Risk Level:: Medical - moderate - high VTE Device Contraindication: Treatment Not Indicated VTE Drug Contraindication: N/A - Med Ordered
[2022-04-14 12:15] LABS: Glucose, Whole Blood 246 mg/dL (60-115)
[2022-04-14] MEDS: Insulin Lispro 100 UNIT/ML 3 ML VIAL SUBCUT ×3 (13:06→21:47)
[2022-04-14] MEDS: Gabapentin 100 MG CAPSULE PO ×2 (13:50→21:48)
[2022-04-14] MEDS: HYDROmorphone HCl 0.5 MG/0.5 ML SYRINGE 0.25 MG IVPUSH ×2 (13:50→21:48)
[2022-04-14] MEDS: 0.9 % Sodium Chloride Flush 3 ML SYRINGE IVFLUSH ×2 (17:01→21:48)
[2022-04-14 18:15] LABS: Glucose, Whole Blood 253 mg/dL (60-115)
[2022-04-14] MEDS: Furosemide 40 MG/4 ML VIAL IVPUSH (18:45)
[2022-04-14] MEDS: Warfarin Sodium 5 MG TABLET PO (18:46)
--- NOTE | 2022-04-14 19:16 | PC.NURSE ---
care of patient assumed at 1900. patient is seated in stretcher conversing with case management. he left SNF AMA because he didn't approve of his care and presented here with fluid overload, bilateral foot swelling and reported scrotal swelling. O2 99% on 2l nc so weaned to 1l nc. he is alert, oriented x3. he ambulates with a walker to the restroom. he currently denies pain and states his breathign feels better. NSR 90s on telem patient endorses hands being freezing- core temp normal. warm blankets provided.
--- NOTE | 2022-04-14 19:56 | PC.NURSE ---
attempted report at 1955.
--- NOTE | 2022-04-14 20:40 | MHC.CM.PN ---
Addendum entered by Faye Martin 04/14/22 21:40: HCP on file. Original Note: TAMAYO 04/15. CM met with admitted patient with bed assignment 479. A&Ox4. Lives alone. Uses walker. No services. Pt was [place] [facility] [place] for ascites. D/C to [facility] for STR. Pt signed out AMA after 1 day. Tells CM that they did not have his medications, that the food was not edible, and that the facility was very dirty, with mold in the shower. Pt went home. Had no medications. States he called his doctor yesterday and had an appointment today, but came to the ED secondary to edema in his legs, feet, testicles and SOB. Pt is willing to go to STR once medically cleared, but he will not go back to [facility]. Pt had 2 covid vax, but no booster. PCP [facility]. Pt states HCP is his daughter, Delma Rodriguez ([phone]). D/C plan: probable STR. Will need PT evaluation. CM to follow for d/c needs. No referrals placed at this time.
--- NOTE | 2022-04-14 20:43 | PC.NURSE ---
Report given to Diana RN I[facility]
[2022-04-14 21:07] LABS: Glucose, Whole Blood 245 mg/dL (60-115)
[2022-04-14] MEDS: Insulin Glargine,Hum.rec.anlog 100 UNIT/ML 10 ML VIAL 15 UNIT SUBCUT (21:47)
[2022-04-15 02:57] VITALS: BP 105/74; PULSE 93; RESP 14; TEMP 36.3; O2SAT 96
[2022-04-15] MEDS: HYDROmorphone HCl 0.5 MG/0.5 ML SYRINGE 0.25 MG IVPUSH ×3 (03:10→17:58)
[2022-04-15 07:01] LABS: Hematocrit 39.7 % (42.0-52.0); Hemoglobin 12.5 g/dl (14.0-18.0); Mean Corpuscular HGB Conc 31.5 g/dl (31.0-36.0); Mean Corpuscular Hemoglobin 30.7 pg (27.0-33.0); Mean Corpuscular Volume 97.5 fL (80.0-98.0); Mean Platelet Volume 10.2 fL (9.4-12.4); NRBC Pct Auto 0.4 /100WBC (0.0-0.2); Platelet Count 238 X10*3/uL (160-400); Red Blood Count 4.07 X10*6/uL (4.60-5.80); Red Cell Distribution Width 14.9 % (11.0-16.0); White Blood Count 6.9 X10*3/uL (4.8-10.8)
[2022-04-15 07:11] LABS: INTERNATIONAL NORM RATIO 1.2 (0.9-1.1)
[2022-04-15 07:19] LABS: Anion Gap 18 (12-20); Blood Urea Nitrogen 33 mg/dL (9-16); Calcium 8.1 mg/dL (8.4-10.2); Carbon Dioxide 26 mmol/L (22-29); Chloride 100 mmol/L (96-108); Creatinine Clr Calc Pharmacy 53.2; Estimated Glomerular Filt Rate 48; Glucose Random 138 mg/dL (60-115); Potassium 5.1 mmol/L (3.3-5.1); Sodium 139 mmol/L (135-145)
[2022-04-15 07:39] VITALS: BP 133/97; PULSE 102; RESP 16; TEMP 36.6; O2SAT 95
[2022-04-15 07:45] LABS: Glucose, Whole Blood 205 mg/dL (60-115)
[2022-04-15] MEDS: Insulin Glargine,Hum.rec.anlog 100 UNIT/ML 10 ML VIAL 30 UNIT SUBCUT (08:21)
[2022-04-15] MEDS: Enoxaparin Sodium 100 MG/ML SYRINGE 90 MG SUBCUT ×2 (08:22→20:58)
[2022-04-15] MEDS: Insulin Lispro 100 UNIT/ML 3 ML VIAL SUBCUT ×4 (08:22→20:58)
[2022-04-15] MEDS: 0.9 % Sodium Chloride Flush 3 ML SYRINGE IVFLUSH ×3 (08:22→23:28)
[2022-04-15] MEDS: Empagliflozin 10 MG TABLET PO (08:23)
[2022-04-15] MEDS: Aspirin 81 MG TAB.CHEW PO (08:23)
[2022-04-15] MEDS: Montelukast Sodium 10 MG TABLET PO (08:23)
[2022-04-15] MEDS: Gabapentin 100 MG CAPSULE PO ×3 (08:23→20:56)
[2022-04-15] MEDS: Metoprolol Succinate ER 25 MG TAB.ER.24H PO (08:23)
[2022-04-15] MEDS: Furosemide 40 MG/4 ML VIAL IVPUSH ×2 (08:23→17:59)
--- NOTE | 2022-04-15 08:45 | MHC.CM.PN ---
Addendum entered by Kamila Alvarado 04/15/22 09:36: [facility] is following for discharge. Original Note: Male 61 DX EDEMA. Patient was sent to [facility] from [facility] for JON LE EDEMA. The patient has requested not to return to [facility]. Preferences for STR obtained. Patient will need a PT eval. Patient is requesting assist with obtaining [facility]. A Financial referral has been sent. Referrals sent to [facility]. DP STR, PT will transport via BLS.
--- NOTE | 2022-04-15 10:12 | HO.PM.IMPN ---
Subjective Subjective Date of Service: 04/15/22 Interval History: seen and examined this AM reports breathing easier but still compalints of b/l LE edema and scrotal edema denies CP Review of Systems negative except HPI Physical Exam Vital Signs: Vital Signs: Last Vital Signs Temp 97.8 F 04/15/22 07:39 Pulse 102 H 04/15/22 07:39 Resp 16 04/15/22 07:39 BP 133/97 H 04/15/22 07:39 Pulse Ox 95 04/15/22 07:39 O2 Del Method 04/15/22 07:39 O2 Flow Rate 1 04/14/22 19:14 BMI result Body Mass Index 29.0 Const: Other: General - prefers to sit, reprots SOB on supine position Cardiovascular - regular rate and rhythm, S1-S2; b/l LE edema as well as scrotal edema; JVD hard to ascertain due to body habitus Lungs - improving air entry, no rales appreciated Abdomen - soft, nontender, no rebound or guarding Extremities edema b/l le Neuro - awake and alert, no focal deficits Objective Data Active Medications Acetaminophen (Acetaminophen 325 Mg Tablet) 650 mg PO Q6H PRN PRN Reason: Pain, Mild (Pain Scale 1-3) Aspirin (Aspirin 81 Mg Tab.Chew) 81 mg PO DAILY [facility] Last Admin: 04/15/22 08:23 Dose: 81 mg Documented By: CAPRI Empagliflozin (Empagliflozin 10 Mg Tablet) 10 mg PO DAILY [facility] Last Admin: 04/15/22 08:23 Dose: 10 mg Documented By: CAPRI Enoxaparin Sodium (Enoxaparin Sodium 100 Mg/Ml Syringe) 90 mg SUBCUT Q12H [facility] Last Admin: 04/15/22 08:22 Dose: 90 mg Documented By: CAPRI Furosemide (Furosemide 40 Mg/4 Ml Vial) 40 mg IVPUSH BID@0900,1800 [facility]; Protocol Last Admin: 04/15/22 08:23 Dose: 40 mg Documented By: CAPRI Gabapentin (Gabapentin 100 Mg Capsule) 100 mg PO TID [facility] Last Admin: 04/15/22 08:23 Dose: 100 mg Documented By: CAPRI Hydromorphone HCl (Hydromorphone Hcl 0.5 Mg/0.5 Ml Syringe) 0.25 mg IVPUSH Q4H PRN; Protocol PRN Reason: Pain, Severe (Pain Scale 7-10) Last Admin: 04/15/22 08:20 Dose: 0.25 mg Documented By: CAPRI Insulin Glargine (Insulin Glargine,Hum.Rec.Anlog 100 Unit/Ml 10 Ml Vial) 15 unit SUBCUT BEDTIME [facility] Last Admin: 04/14/22 21:47 Dose: 15 unit Documented By: PADDY Insulin Glargine (Insulin Glargine,Hum.Rec.Anlog 100 Unit/Ml 10 Ml Vial) 30 unit SUBCUT DAILY [facility] Last Admin: 04/15/22 08:21 Dose: 30 unit Documented By: CAPRI Insulin Human Lispro (Insulin Lispro 100 Unit/Ml 3 Ml Vial) 0 unit SUBCUT QIDACHS [facility]; Protocol Last Admin: 04/15/22 08:22 Dose: 4 unit Documented By: CAPRI Metoprolol Succinate (Metoprolol Succinate Er 25 Mg Tab.Er.24h) 25 mg PO DAILY [facility]; Protocol Last Admin: 04/15/22 08:23 Dose: 25 mg Documented By: CAPRI Montelukast Sodium (Montelukast Sodium 10 Mg Tablet) 10 mg PO DAILY [facility] Last Admin: 04/15/22 08:23 Dose: 10 mg Documented By: CAPRI Ondansetron HCl (Ondansetron Hcl 4 Mg/2 Ml Vial) 4 mg IVPUSH Q8H PRN PRN Reason: Nausea and Vomiting Oxycodone HCl (Oxycodone Hcl Immed Release 5 Mg Tablet) 5 mg PO Q6H PRN PRN Reason: Pain, Moderate (Pain Scale 4-6 Sodium Chloride (0.9 % Sodium Chloride Flush 3 Ml Syringe) 3 ml IVFLUSH QSHIFT [facility] Last Admin: 04/15/22 08:22 Dose: 3 ml Documented By: CAPRI Warfarin Sodium (Warfarin Sodium 5 Mg Tablet) 5 mg PO DAILY@1800 [facility] Last Admin: 04/14/22 18:46 Dose: 5 mg Documented By: SHELLEY Labs CBC & Chem 7: 04/15/22 06:40 04/15/22 06:40 Labs: Laboratory Results - last 24 hr 04/14/22 04/14/22 04/14/22 12:09 18:10 21:04 MCV MCH MCHC RDW Plt Count MPV Absolute Nucleated RBC Nucleated RBC % (auto) PT INR Anion Gap Estim Creat Clear Calc Estimated GFR POC Glucose 246 H 253 H 245 H Random Glucose Calcium 04/15/22 04/15/22 04/15/22 06:40 06:40 06:40 MCV 97.5 MCH 30.7 MCHC 31.5 RDW 14.9 Plt Count 238 MPV 10.2 Absolute Nucleated RBC 0.030 H Nucleated RBC % (auto) 0.4 H PT 14.0 H INR 1.2 H Anion Gap 18 Estim Creat Clear Calc 53.2 Estimated GFR 48 POC Glucose Random Glucose 138 H D Calcium 8.1 L 04/15/22 07:37 MCV MCH MCHC RDW Plt Count MPV Absolute Nucleated RBC Nucleated RBC % (auto) PT INR Anion Gap Estim Creat Clear Calc Estimated GFR POC Glucose 205 H Random Glucose Calcium Assessment and Plan (1) SILVANO (acute kidney injury): Status: Acute (2) Acute systolic (congestive) heart failure: Status: Acute Plan 61-year-old male with history of insulin-dependent type 2 diabetes, hypertension, hyperlipidemia, mild persistent asthma, apical thrombus on warfarin, history polysubstance abuse, NSVT,? CAD with history of anterior STEMI,? former smoker, and systolic CHF with recent hospitalization for acute CHF exacerbation and pleural effusion requiring thoracentesis with apical thrombus, with discharge 04/10 to be observed for acute CHF exacerbation after not having had discharge meds including diuretics and warfarin since discharge 04/10. 1. Acute systolic CHF- recent admission for CHF discharged 04/10 has not had any of his discharge medications while at SNF still volume overloaded clinically -- intake / output inaccurate continue IV lasix today and possible PO transition tomorrow; if not improved by tomorrow will get cardiology involved #SILVANO- likely cardiorenal SCr improving slowly with diuretics #Mild hyperkalemia secondary to SILVANO resolved was on diovan and aldactone from last admission; will commence diovan and monitor K tomorrow # apical thrombus -patient has been without warfarin since discharge 04/10 -continue Lovenox to bridge to warfarin (INR remains subtherapeutic) # Uncontrolled diabetes type 2 -Last A1c >14.0 -Continue jardiance, hold metformin -Lantus BID. Humalog SSI -POC glucose -ADA diet #Hypertension- uncontrolled improving with addition of home meds # CAD with h/o STEMI- no anginal chest pain -Continue bb and baby asa -Not on statin #ischemic cardiomyopathy -COntinue bb and baby asa DVT prophylaxis-Lovenox bridge to Coumadin Full code patient requires continual hospitalization due to CHF exacerbation which has not improved sufficiently for transition to oral diuretics. Furthermore, he still has mild SILVANO due to cardiorenal syndrome. Quality Stroke Does the patient have a stroke diagnosis?: No VTE Prior VTE?: No VTE Risk Level:: Medical - moderate - high VTE Device Contraindication: Treatment Not Indicated VTE Drug Contraindication: N/A - Med Ordered
[2022-04-15 11:34] VITALS: BP 112/80; PULSE 100; RESP 20; TEMP 36.3; O2SAT 95
[2022-04-15 11:36] LABS: Glucose, Whole Blood 167 mg/dL (60-115)
[2022-04-15] MEDS: oxyCODONE HCl Immed Release 5 MG TABLET PO ×2 (12:06→20:56)
[2022-04-15] MEDS: Valsartan 40 MG TABLET 20 MG PO ×2 (12:07→20:57)
[2022-04-15 15:59] VITALS: BP 98/69; PULSE 90; RESP 18; TEMP 36.7; O2SAT 96
[2022-04-15 16:33] LABS: Glucose, Whole Blood 192 mg/dL (60-115)
[2022-04-15] MEDS: Warfarin Sodium 5 MG TABLET PO (17:58)
[2022-04-15 19:21] LABS: B Type Natriuretic Peptide 1529 pg/mL (<100)
[2022-04-15 19:43] VITALS: BP 102/70; PULSE 94; RESP 18; TEMP 36.5; O2SAT 93
[2022-04-15 20:20] LABS: Glucose, Whole Blood 188 mg/dL (60-115)
[2022-04-15] MEDS: Insulin Glargine,Hum.rec.anlog 100 UNIT/ML 10 ML VIAL 15 UNIT SUBCUT (20:59)
[2022-04-15 23:40] VITALS: BP 107/58; PULSE 90; RESP 16; TEMP 36.3; O2SAT 96
[2022-04-16] VITALS (7 sets, daily range): BP systolic 95–115; BP diastolic 61–79; PULSE 89–119; RESP 16–20; TEMP 35.9–36.5; O2SAT 88–98
[2022-04-16] MEDS: HYDROmorphone HCl 0.5 MG/0.5 ML SYRINGE 0.25 MG IVPUSH ×5 (01:18→21:31)
[2022-04-16 06:33] LABS: INTERNATIONAL NORM RATIO 1.3 (0.9-1.1); Prothrombin Time 15.1 SEC (10.0-13.1)
[2022-04-16 07:59] LABS: Glucose, Whole Blood 140 mg/dL (60-115)
[2022-04-16] MEDS: Valsartan 40 MG TABLET 20 MG PO ×2 (08:01→21:34)
[2022-04-16] MEDS: Metoprolol Succinate ER 25 MG TAB.ER.24H PO (08:02)
[2022-04-16] MEDS: Aspirin 81 MG TAB.CHEW PO (08:02)
[2022-04-16] MEDS: Empagliflozin 10 MG TABLET PO (08:02)
[2022-04-16] MEDS: Gabapentin 100 MG CAPSULE PO ×3 (08:02→21:34)
[2022-04-16] MEDS: Insulin Glargine,Hum.rec.anlog 100 UNIT/ML 10 ML VIAL 30 UNIT SUBCUT (08:03)
[2022-04-16] MEDS: Montelukast Sodium 10 MG TABLET PO (08:03)
[2022-04-16] MEDS: Enoxaparin Sodium 100 MG/ML SYRINGE 90 MG SUBCUT ×2 (08:03→21:34)
[2022-04-16] MEDS: Furosemide 40 MG/4 ML VIAL IVPUSH (08:04)
[2022-04-16] MEDS: 0.9 % Sodium Chloride Flush 3 ML SYRINGE IVFLUSH ×2 (08:11→13:43)
[2022-04-16 11:26] LABS: Glucose, Whole Blood 159 mg/dL (60-115)
[2022-04-16] MEDS: Insulin Lispro 100 UNIT/ML 3 ML VIAL SUBCUT ×2 (11:53→21:34)
--- NOTE | 2022-04-16 14:13 | P.PNIM_ITS ---
Subjective Subjective Date of Service: 04/16/22 Interval History: seen and examined this morning follow up for CHF reports ongoing scrotal swelling sob improved, able to ambulate to bathroom without dyspnea Review of Systems Review of Systems: Yes all other systems are reviewed and are negative Constitutional Constitutional: Denies chills and Denies fever(s) Cardiovascular Cardiovascular: Denies chest pain, Denies palpitations and Denies dyspnea Respiratory Respiratory: Denies cough and Denies dyspnea Gastrointestinal Gastrointestinal: Denies abdominal pain Endocrine Endocrine: Denies palpitations Physical Exam Vital Signs: Vital Signs: Last Vital Signs Temp 97.1 F 04/16/22 12:00 Pulse 89 04/16/22 12:00 Resp 20 04/16/22 12:00 BP 100/67 04/16/22 12:00 Pulse Ox 98 04/16/22 12:00 O2 Del Method 04/16/22 12:00 O2 Flow Rate 1 04/14/22 19:14 BMI result Body Mass Index 29.0 Const: General: comfortable, no acute distress, alert and awake Nutritional Appearance: overweight Orientation/consciousness: patient oriented x3 Resp: Effort & Inspection: normal respiratory effort and able to speak in complete sentences Auscultation: clear to auscultation bilaterally Cardio: Rate: regular rate Heart sounds: S1 normal heart sound present and S2 normal heart sound present GI: Palpation (GI): Soft to palpation and nontender Neuro: General: patient oriented x3 and CN's II-XI intact bilaterally Extrem: Other: b/l leg edema; b/l compression socks in place Objective Data Active Medications Acetaminophen (Acetaminophen 325 Mg Tablet) 650 mg PO Q6H PRN PRN Reason: Pain, Mild (Pain Scale 1-3) Aspirin (Aspirin 81 Mg Tab.Chew) 81 mg PO DAILY [facility] Last Admin: 04/16/22 08:02 Dose: 81 mg Documented By: FLAKO Docusate Sodium (Docusate Sodium 100 Mg Capsule) 100 mg PO BID PRN PRN Reason: Constipation Empagliflozin (Empagliflozin 10 Mg Tablet) 10 mg PO DAILY [facility] Last Admin: 04/16/22 08:02 Dose: 10 mg Documented By: FLAKO Enoxaparin Sodium (Enoxaparin Sodium 100 Mg/Ml Syringe) 90 mg SUBCUT Q12H [facility] Last Admin: 04/16/22 08:03 Dose: 90 mg Documented By: FLAKO Furosemide (Furosemide 40 Mg Tablet) 40 mg PO BID@0900,1800 [facility]; Protocol Gabapentin (Gabapentin 100 Mg Capsule) 100 mg PO TID [facility] Last Admin: 04/16/22 13:41 Dose: 100 mg Documented By: FLAKO Hydromorphone HCl (Hydromorphone Hcl 0.5 Mg/0.5 Ml Syringe) 0.25 mg IVPUSH Q4H PRN; Protocol PRN Reason: Pain, Severe (Pain Scale 7-10) Last Admin: 04/16/22 11:53 Dose: 0.25 mg Documented By: FLAKO Insulin Glargine (Insulin Glargine,Hum.Rec.Anlog 100 Unit/Ml 10 Ml Vial) 15 unit SUBCUT BEDTIME [facility] Last Admin: 04/15/22 20:59 Dose: 15 unit Documented By: SOUTH Insulin Glargine (Insulin Glargine,Hum.Rec.Anlog 100 Unit/Ml 10 Ml Vial) 30 unit SUBCUT DAILY [facility] Last Admin: 04/16/22 08:03 Dose: 30 unit Documented By: FLAKO Insulin Human Lispro (Insulin Lispro 100 Unit/Ml 3 Ml Vial) 0 unit SUBCUT QIDA CHS [facility]; Protocol Last Admin: 04/16/22 11:53 Dose: 2 unit Documented By: FLAKO Metoprolol Succinate (Metoprolol Succinate Er 25 Mg Tab.Er.24h) 25 mg PO DAILY [facility]; Protocol Last Admin: 04/16/22 08:02 Dose: 25 mg Documented By: FLAKO Montelukast Sodium (Montelukast Sodium 10 Mg Tablet) 10 mg PO DAILY [facility] Last Admin: 04/16/22 08:03 Dose: 10 mg Documented By: FLAKO Ondansetron HCl (Ondansetron Hcl 4 Mg/2 Ml Vial) 4 mg IVPUSH Q8H PRN PRN Reason: Nausea and Vomiting Oxycodone HCl (Oxycodone Hcl Immed Release 5 Mg Tablet) 5 mg PO Q6H PRN PRN Reason: Pain, Moderate (Pain Scale 4-6 Last Admin: 04/15/22 20:56 Dose: 5 mg Documented By: SOUTH Sodium Chloride (0.9 % Sodium Chloride Flush 3 Ml Syringe) 3 ml IVFLUSH QSHIFT [facility] Last Admin: 04/16/22 13:43 Dose: 3 ml Documented By: FLAKO Valsartan (Valsartan 40 Mg Tablet) 20 mg PO BID [facility]; Protocol Last Admin: 04/16/22 08:01 Dose: 20 mg Documented By: FLAKO Warfarin Sodium (Warfarin Sodium 5 Mg Tablet) 5 mg PO DAILY@1800 [facility] Last Admin: 04/15/22 17:58 Dose: 5 mg Documented By: CAPRI Labs CBC & Chem 7: 04/15/22 06:40 04/15/22 06:40 Labs: Laboratory Results - last 24 hr 04/15/22 04/15/22 04/15/22 16:28 18:28 20:15 PT INR POC Glucose 192 H 188 H B-Natriuretic Peptide 1529 H 04/16/22 04/16/22 04/16/22 05:58 07:22 11:12 PT 15.1 H INR 1.3 H POC Glucose 140 H 159 H B-Natriuretic Peptide Assessment and Plan (1) Acute systolic (congestive) heart failure: Status: Acute Plan 61-year-old male with history of insulin-dependent type 2 diabetes, hypertension, hyperlipidemia, mild persistent asthma, apical thrombus on warfarin, history polysubstance abuse, NSVT,? CAD with history of anterior STEMI,? former smoker, and systolic CHF with recent hospitalization for acute CHF exacerbation and pleural effusion requiring thoracentesis with apical thrombus, with discharge 04/10 to be observed for acute CHF exacerbation after not having had discharge meds including diuretics and warfarin since discharge 04/10. Acute on chronic systolic CHF- recent admission for CHF discharged to SNF 04/10, left SNF and did not have any of his baseline medications still volume overloaded clinically -- intake / output inaccurate will transition back to po lasix SILVANO- likely cardiorenal SCr improving slowly with diuretics, creatinine 1.26 today follow BMP Mild hyperkalemia secondary to SILVANO resolved was on diovan and aldactone from last admission continue diovan apical thrombus INR 1.3 -patient has been without warfarin since discharge 04/10 -continue Lovenox to bridge to warfarin (INR remains subtherapeutic) Uncontrolled diabetes type 2 Last A1c >14.0 -Continue jardiance, hold metformin -Lantus BID. Humalog SSI -POC glucose, ADA diet Hypertension- uncontrolled improving with addition of home meds CAD with h/o STEMI- no anginal chest pain -Continue bb and baby asa -Not on statin ischemic cardiomyopathy -Continue bb and baby asa DVT prophylaxis-Lovenox bridge to Coumadin Full code attending - Dr. Roth seen by PT - rec STR patient requires continual hospitalization due to CHF exacerbation which has not improved sufficiently for transition to oral diuretics. Furthermore, he still has mild SILVANO due to cardiorenal syndrome. Quality Stroke Does the patient have a stroke diagnosis?: No VTE Prior VTE?: No VTE Risk Level:: Medical - moderate - high VTE Device Contraindication: Treatment Not Indicated VTE Drug Contraindication: N/A - Med Ordered
[2022-04-16 14:25] LABS: Anion Gap 15 (12-20); Blood Urea Nitrogen 35 mg/dL (9-16); Calcium 8.3 mg/dL (8.4-10.2); Carbon Dioxide 29 mmol/L (22-29); Chloride 99 mmol/L (96-108); Creatinine Clr Calc Pharmacy 62.1; Estimated Glomerular Filt Rate 58; Glucose Random 108 mg/dL (60-115); Potassium 4.4 mmol/L (3.3-5.1); Sodium 139 mmol/L (135-145)
[2022-04-16 14:25] LABS: COVID-19 Test Negative (Negative); IDNOW Serial# 16C4AD1C
[2022-04-16 16:12] LABS: Glucose, Whole Blood 127 mg/dL (60-115)
[2022-04-16] MEDS: Furosemide 40 MG TABLET PO (18:08)
[2022-04-16] MEDS: Warfarin Sodium 5 MG TABLET PO (18:08)
[2022-04-16 21:10] LABS: Glucose, Whole Blood 167 mg/dL (60-115)
[2022-04-16] MEDS: Insulin Glargine,Hum.rec.anlog 100 UNIT/ML 10 ML VIAL 15 UNIT SUBCUT (21:34)
[2022-04-16] MEDS: oxyCODONE HCl Immed Release 5 MG TABLET PO (23:19)
[2022-04-17 03:05] VITALS: BP 103/68; PULSE 94; RESP 19; TEMP 36.1; O2SAT 94
[2022-04-17] MEDS: HYDROmorphone HCl 0.5 MG/0.5 ML SYRINGE 0.25 MG IVPUSH ×3 (03:36→12:24)
[2022-04-17] MEDS: 0.9 % Sodium Chloride Flush 3 ML SYRINGE IVFLUSH ×2 (04:06→08:25)
[2022-04-17] MEDS: oxyCODONE HCl Immed Release 5 MG TABLET PO (06:16)
[2022-04-17 06:55] LABS: INTERNATIONAL NORM RATIO 1.5 (0.9-1.1)
[2022-04-17 06:58] LABS: Hematocrit 36.6 % (42.0-52.0); Hemoglobin 11.5 g/dl (14.0-18.0); Mean Corpuscular HGB Conc 31.4 g/dl (31.0-36.0); Mean Corpuscular Hemoglobin 30.2 pg (27.0-33.0); Mean Corpuscular Volume 96.1 fL (80.0-98.0); Mean Platelet Volume 10.3 fL (9.4-12.4); Platelet Count 259 X10*3/uL (160-400); Red Blood Count 3.81 X10*6/uL (4.60-5.80); Red Cell Distribution Width 15.1 % (11.0-16.0); White Blood Count 5.7 X10*3/uL (4.8-10.8)
[2022-04-17 07:21] LABS: Glucose, Whole Blood 128 mg/dL (60-115)
[2022-04-17 07:32] LABS: Anion Gap 16 (12-20); Blood Urea Nitrogen 35 mg/dL (9-16); Calcium 8.5 mg/dL (8.4-10.2); Carbon Dioxide 29 mmol/L (22-29); Chloride 99 mmol/L (96-108); Creatinine Clr Calc Pharmacy 66.3; Estimated Glomerular Filt Rate > 60; Glucose Random 116 mg/dL (60-115); Potassium 4.6 mmol/L (3.3-5.1); Sodium 139 mmol/L (135-145)
[2022-04-17 07:54] VITALS: BP 124/65; PULSE 90; RESP 20; TEMP 36.6; O2SAT 98
[2022-04-17] MEDS: Enoxaparin Sodium 100 MG/ML SYRINGE 90 MG SUBCUT (08:16)
[2022-04-17] MEDS: Empagliflozin 10 MG TABLET PO (08:17)
[2022-04-17] MEDS: Insulin Glargine,Hum.rec.anlog 100 UNIT/ML 10 ML VIAL 30 UNIT SUBCUT (08:17)
[2022-04-17] MEDS: Valsartan 40 MG TABLET 20 MG PO (08:17)
[2022-04-17] MEDS: Montelukast Sodium 10 MG TABLET PO (08:17)
[2022-04-17] MEDS: Gabapentin 100 MG CAPSULE PO ×2 (08:17→15:32)
[2022-04-17] MEDS: Metoprolol Succinate ER 25 MG TAB.ER.24H PO (08:18)
[2022-04-17] MEDS: Aspirin 81 MG TAB.CHEW PO (08:18)
[2022-04-17] MEDS: Furosemide 40 MG TABLET PO (08:24)
[2022-04-17 10:09] VITALS: BP 124/65; PULSE 90; O2SAT 98
[2022-04-17 11:16] LABS: Glucose, Whole Blood 192 mg/dL (60-115)
[2022-04-17 12:00] VITALS: BP 132/67; PULSE 89; RESP 18; TEMP 36; O2SAT 95
--- NOTE | 2022-04-17 12:15 | PM.DS ---
DS: Providers Provider Date of Service: 04/17/22 Date of admission: 04/14/22 09:27 Date of discharge: 04/17/22 Primary care physician: Quincy Dugan [facility] Attending physician on discharge: Reynold Roth Discharging clinician: Vilma Carrion DS: Diagnosis Discharge Diagnosis (1) Acute systolic (congestive) heart failure: Status: Resolved DS: Summary Hospital Course Hospital Course: From H&P on day of admission 61-year-old male with history of insulin-dependent type 2 diabetes, hypertension, hyperlipidemia, mild persistent asthma, apical thrombus on warfarin, history polysubstance abuse, NSVT,? CAD with history of anterior STEMI,? former smoker, and systolic CHF with recent hospitalization for acute CHF exacerbation and pleural effusion with apical thrombus, with discharge 04/10, presenting to the ED stating is experiencing increased leg and scrotal edema and shortness of breath. He was discharged to SNF for rehab and states he has not been able to get any of his medications.? In the ED, CXR shows cardiomegaly with mild CHF with suspected small to moderate right pleural effusion.? Hematology study stable.? Patient has SILVANO with creatinine of 1.51, BUN 27 (baseline 1.07, 33 respectively).? Mild hyperkalemia at 5.4.? Glucose 433 trop-I 33.8.? BNP 2524.? INR 1.3 (had not has warfarin since discharge), PT 14.9. Given baby aspirin, Jardiance 10 mg, 90 mg Lovenox, 60 mg furosemide, and 10 units insulin lispro Mildly tachpenic 23, tachycardic on arrical 133. Pt desatting to 91, placed on 2l via NC.? Last echocardiogram from 03/31/2022 showing severe LV systolic dysfunction with EF 15-20% and grade 3 diastolic dysfunction with regional wall motion abnormality consistent with ischemic cardiomyopathy as well as large apical thrombus.? To be observed for exacerbation heart failure. 61-year-old male with history of insulin-dependent type 2 diabetes, hypertension, hyperlipidemia, mild persistent asthma, apical thrombus on warfarin, history polysubstance abuse, NSVT,? CAD with history of anterior STEMI,? former smoker, and systolic CHF with recent hospitalization for acute CHF exacerbation and pleural effusion requiring thoracentesis with apical thrombus, with discharge 04/10 to be observed for acute CHF exacerbation after not having had discharge meds including diuretics and warfarin since discharge 04/10. Acute on chronic systolic CHF- recent admission for CHF discharged to SNF 04/10, left SNF and did not have any of his baseline medications. volume status improved. Dyspnea on exertion resolved. Currently saturating mid 90s on room air. Initially treated with IV Lasix, will transition back to po lasix SILVANO- likely cardiorenal. SCr improving slowly with diuretics. Mild hyperkalemia secondary to SILVANO resolved. was on diovan and aldactone from last admission. continue diovan. can resume aldactone outpatient as BP allows. apical thrombus INR 1.3. patient has been without warfarin since discharge 04/10. continue Lovenox to bridge to warfarin (INR remains subtherapeutic) 1.5 today Uncontrolled diabetes type 2 Last A1c >14.0 No changes made to medications Hypertension- uncontrolled improving with addition of home meds CAD with h/o STEMI- no anginal chest pain -Continue bb and baby asa -Not on statin ischemic cardiomyopathy -Continue bb and baby asa scrotal swelling likely result of CHF. Scrotal ultrasound was obtained which showed no evidence of testicular torsion or epididymo-orchitis. Diffuse scrotal wall thickening/edema. Given mild erythema will start doxycycline for possible early scrotal cellulitis. No evidence of sepsis Time Spent with Patient Time attestation: Total time spent providing and/or coordinating discharge services: Discharge coordination time: Greater than 30 minutes Quality: Safe Use of Opioids Does Pt have an Active Cancer Diagnosis on the Problem List?: No Quality: Stroke Does the patient have a stroke diagnosis?: No Physical Exam Vital Signs: Vital Signs: Last Vital Signs Temp 97.9 F 04/17/22 07:54 Pulse 90 04/17/22 10:09 Resp 20 04/17/22 07:54 BP 124/65 04/17/22 10:09 Pulse Ox 98 04/17/22 10:09 O2 Del Method 04/17/22 07:54 O2 Flow Rate 1 04/14/22 19:14 BMI result Body Mass Index 29.0 Const: General: comfortable, no acute distress, alert and awake Nutritional Appearance: overweight Orientation/consciousness: patient oriented x3 Resp: Effort & Inspection: normal respiratory effort and able to speak in complete sentences Auscultation: clear to auscultation bilaterally Cardio: Rate: regular rate Heart sounds: S1 normal heart sound present and S2 normal heart sound present GI: Palpation (GI): Soft to palpation and nontender : Other: scrotal swelling; no significant erythema Neuro: General: patient oriented x3 and CN's II-XI intact bilaterally Extrem: Other: b/l leg edema DS: Data Data Completed and Pending Completed studies during hospitalization [Text1]: Procedures Drainage of Right Pleural Cavity with Drainage Device, Percutaneous Approach (03/28/22) Excision of Stomach, Pylorus, Via Natural or Artificial Opening Endoscopic, Diagnostic (07/31/21) Extraction of Esophagus, Via Natural or Artificial Opening Endoscopic, Diagnostic (07/31/21) Transfusion of Nonautologous Globulin into Peripheral Vein, Percutaneous Approach (03/28/22) Transfusion of Nonautologous Platelets into Peripheral Vein, Percutaneous Approach (03/28/22) Labs on day of discharge: Laboratory Results - last 24 hr 04/16/22 04/16/22 04/16/22 13:39 13:45 16:08 WBC RBC Hgb Hct MCV MCH MCHC RDW Plt Count MPV Absolute Nucleated RBC Nucleated RBC % (auto) PT INR Sodium 139 Potassium 4.4 Chloride 99 Carbon Dioxide 29 Anion Gap 15 BUN 35 H Creatinine 1.26 Estim Creat Clear Calc 62.1 Estimated GFR 58 POC Glucose 127 H Random Glucose 108 Calcium 8.3 L COVID-19 (ALEJANDRO) Negative COVID-Qraved See Note 04/16/22 04/17/22 04/17/22 21:06 06:10 06:10 WBC 5.7 RBC 3.81 L Hgb 11.5 L Hct 36.6 L MCV 96.1 MCH 30.2 MCHC 31.4 RDW 15.1 Plt Count 259 MPV 10.3 Absolute Nucleated RBC 0.000 Nucleated RBC % (auto) 0.0 PT 17.0 H INR 1.5 H Sodium Potassium Chloride Carbon Dioxide Anion Gap BUN Creatinine Estim Creat Clear Calc Estimated GFR POC Glucose 167 H Random Glucose Calcium COVID-19 (ALEJANDRO) CVRxID-Qraved 04/17/22 04/17/22 04/17/22 06:10 07:17 10:57 WBC RBC Hgb Hct MCV MCH MCHC RDW Plt Count MPV Absolute Nucleated RBC Nucleated RBC % (auto) PT INR Sodium 139 Potassium 4.6 Chloride 99 Carbon Dioxide 29 Anion Gap 16 BUN 35 H Creatinine 1.18 Estim Creat Clear Calc 66.3 Estimated GFR > 60 POC Glucose 128 H 192 H Random Glucose 116 H Calcium 8.5 COVID-19 (ALEJANDRO) COVID-19 Clin Com Discharge Plan Discharge Patient Disposition: Xfer SNF Discharge Diagnosis: acute on chronic heart failure apical thrombus Referrals: coleen perkins [Other] - 1 Week Quincy Dugan [facility] [facility] [Primary Care Provider] - 1 Week Discharge Medications: New enoxaparin 100 mg/mL Syringe 90 mg subcut Q12H Qty: 10 0RF oxycodone 5 mg Tablet 5 mg PO Q6H PRN (Reason: Pain, Moderate (Pain Scale 4-6) Qty: 8 0RF Rx Instructions: Partial Fill upon patient request. doxycycline hyclate 100 mg tablet 100 mg PO BID 5 Days Qty: 10 0RF Continued metoprolol succinate 25 mg tablet extended release 24 hr 25 mg PO DAILY 90 Days Qty: 90 1RF nitroglycerin 0.4 mg tablet, sublingual 0.4 mg sublingual Q5M PRN (Reason: chest pain) 30 Days Qty: 30 0RF Rx Instructions: do not exceed 3 doses per episode metformin 1,000 mg tablet 1,000 mg PO DAILY 90 Days Qty: 90 1RF gabapentin 100 mg capsule 100 mg PO TID Qty: 90 2RF aspirin [Aspirin Childrens] 81 mg tablet,chewable 81 mg PO DAILY Qty: 30 2RF montelukast 10 mg tablet 10 mg PO DAILY Qty: 30 2RF insulin lispro [Humalog KwikPen Insulin] 100 unit/mL insulin pen See Rx Instructions .ROUTE .COMPLEX Rx Instructions: Sliding scale / 14-20 units 3 times daily before meals Jardiance 10 mg tablet 10 mg PO DAILY furosemide 40 mg Tablet 40 mg PO BID@0900,1800 Qty: 60 0RF Protocol: Hold for SBP< HOLD for SBP < : 90 valsartan 40 mg Tablet 20 mg PO BID Qty: 60 0RF Protocol: Hold for SBP< HOLD for SBP < : 90 Changed insulin glargine [Lantus U-100 Insulin] 100 unit/mL Solution 15 unit subcut BEDTIME Qty: 10 0RF insulin glargine [Lantus U-100 Insulin] 100 unit/mL Solution 30 unit subcut DAILY Qty: 10 0RF warfarin [Jantoven] 5 mg Tablet 6 mg PO DAILY@1800 Qty: 30 0RF Held spironolactone 25 mg Tablet 25 mg PO DAILY Qty: 30 0RF Hold Instructions: resume as BP allows Protocol: Hold for SBP< HOLD for SBP < : 90 Discharge Orders: Discharge Order (Routine); Ordered 04/17/22 Ordered By: Vilma Carrion Activity on Discharge: As tolerated Stand Alone Forms: Patient Portal Discharge page Care Plan Goals: see below Health Concerns: acute on chronic CHF early scrotal cellulitis Plan of Treatment: Take all medications as prescribed On coumadin for apical thrombus. INR on day of discharge 1.5. Continue bridge with lovenox until INR in therapeutic range. Check INR daily until in therapeutic range (2-3) Recommend low salt, diabetic diet Will need outpatient follow up with cardiology for close follow up as per previous d/c instructions Follow BMP early next week while on Diovan and consider resuming aldactone if BMP, potassium remain wnl and blood pressure allows Follow LFTS early next weed and if normalize resume lipitor (held on previous admission) Lantus dose decreased slightly, monitor POCs blood sugar and up titrate as needed Complete course of antibiotics for scrotal cellulitis, 100 bid x 5 days Assessment: see discharge summary Discharge Date/Time: 04/17/22 19:20
[2022-04-17] MEDS: Insulin Lispro 100 UNIT/ML 3 ML VIAL SUBCUT (12:24)
--- NOTE | 2022-04-17 13:24 | MHC.CM.PN ---
per rounds pt is ready for dc await ins auth imm updated
--- NOTE | 2022-04-17 15:07 | MHC.CM.PN ---
pt to be dcd today to [facility] at [facility]
[2022-04-17 16:00] VITALS: BP 126/74; PULSE 98; RESP 16; TEMP 36.4; O2SAT 93
[2022-04-17 17:25] LABS: Glucose, Whole Blood 61 mg/dL (60-115)
[2022-04-17 17:30] VITALS: PULSE 97; RESP 16; TEMP 37.2; O2SAT 98
== END 2022-04-17 19:20 | disposition skilled nursing facility (03) ==
LOC: HO.ED 04-14 07:24 → HO.EDOVER 04-14 09:36 → HO.IMC 04-14 17:37
PROVIDERS: Physician Assistant; Admitting Provider Family Medicine; Emergency Provider Internal Medicine; PCP Nurse Practitioner Family; Visit Provider Physician Assistant Medical
DX: I11.0 Hypertensive heart disease with heart failure (principal); I50.23 Acute on chronic systolic (congestive) heart failure; N17.9 Acute kidney failure, unspecified; E87.5 Hyperkalemia; I51.3 Intracardiac thrombosis, not elsewhere classified; E11.65 Type 2 diabetes mellitus with hyperglycemia; R06.02 Shortness of breath; R60.0 Localized edema; E78.5 Hyperlipidemia, unspecified; I21.3 ST elevation (STEMI) myocardial infarction of unspecified site; J45.909 Unspecified asthma, uncomplicated; F19.11 Other psychoactive substance abuse, in remission; Z87.891 Personal history of nicotine dependence; Z20.822 Contact with and (suspected) exposure to COVID-19; Z79.01 Long term (current) use of anticoagulants; Z79.4 Long term (current) use of insulin; Z79.82 Long term (current) use of aspirin
CPT/HCPCS: 36415; 70450; 71045; 73521; 76870; 80048; 82947; 83880; 84484; 85025; 85027; 85610; 87635; 93005; 93975; 96372; 96374; 96375; 96376; 97116; 97162; 99219; 99285; J1170; J1650; J1940

== ENCOUNTER 2022-05-07 15:04 | Outpatient (REF) | payer MEDICARE, OTHER, SELFPAY ==
[2022-05-07 16:41] LABS: MANUAL DIFF FLAG NO
[2022-05-07 16:49] LABS: Basophils Percent Auto 0.5 % (0-2); Eosinophils Absolute Auto 0.1 X10*3/uL (0.0-0.4); Eosinophils Percent Auto 0.7 % (0-4); Hematocrit 36.7 % (42.0-52.0); Hemoglobin 11.9 g/dl (14.0-18.0); Imm Gran Abs Auto 0.03 X10*3/uL (0.00-0.03); Imm Gran Pct Auto 0.4 % (0.0-0.4); Lymphocytes Absolute Auto 0.9 X10*3/uL (1.2-4.9); Lymphocytes Percent Auto 11.4 % (20-40); Mean Corpuscular HGB Conc 32.4 g/dl (31.0-36.0); Mean Corpuscular Volume 92.4 fL (80.0-98.0); Mean Platelet Volume 10.2 fL (9.4-12.4); Monocytes Absolute Auto 0.7 X10*3/uL (0.1-1.2); Monocytes Percent Auto 8.3 % (2-11); Neutrophils Absolute Auto 6.4 x10*3/uL (2.0-8.3); Neutrophils Percent Auto 78.7 % (45-73); Platelet Count 280 X10*3/uL (160-400); Red Blood Count 3.97 X10*6/uL (4.60-5.80); White Blood Count 8.1 X10*3/uL (4.8-10.8)
[2022-05-07 16:59] LABS: Alanine Aminotransferase 36 U/L (0-40); Alkaline Phosphatase 176 U/L (39-117); Anion Gap 18 (12-20); Aspartate Amino Transferase 33 U/L (5-37); Bilirubin Total 0.6 mg/dL (0.0-1.0); Blood Urea Nitrogen 33 mg/dL (9-16); Calcium 8.7 mg/dL (8.4-10.2); Carbon Dioxide 22 mmol/L (22-29); Chloride 103 mmol/L (96-108); Cholesterol 136 mg/dL; Estimated Glomerular Filt Rate > 60; Glucose Fasting 313 mg/dL (60-99); HDL Cholesterol 36 mg/dL; LDL Cholesterol Calculated 85 mg/dl; Potassium 4.6 mmol/L (3.3-5.1); Sodium 138 mmol/L (135-145); Total Protein 7.5 g/dL (6.5-8.0); Triglycerides 75 mg/dL
[2022-05-07 17:20] LABS: TSH reflex Free T4 1.04 uIU/mL (0.32-4.0)
== END 2022-05-07 15:05 | disposition home or self-care (01) ==
LOC: HO.HMGCLDS 15:04
PROVIDERS: PCP Nurse Practitioner Family; Visit Provider Nurse Practitioner Family
DX: E11.65 Type 2 diabetes mellitus with hyperglycemia (principal); I50.9 Heart failure, unspecified; I51.3 Intracardiac thrombosis, not elsewhere classified
CPT/HCPCS: 36415; 80053; 80061; 84443; 85025

== ENCOUNTER 2023-08-03 09:54 | Outpatient (AMB) | payer OTHER, MEDICAID, SELFPAY ==
--- NOTE | 2023-08-03 10:31 | MHC.PC.OV ---
Vital Signs 08/03/23 10:33 Height 5 ft 7 in Weight 164 lb 6 oz BMI 25.7 BP 130/88 Blood Pressure Location Rt brachial Position Sitting Pulse 84 Pulse Source Pulse Oximeter Pulse Oximetry (%) 99 Oxygen Delivery Method Room Air Intake Visit Reasons: 9m Follow up/Med review Intake Note: Pt is here to follow up for DM Allergies No Known Allergies Allergy (Verified 08/03/23 10:35) Tobacco use date assessed: 08/03/23 Fall risk assessment: 2 + Falls in past year Last assessed Fall Risk: 08/03/23 Dental Screening Dental Screen Date: 08/03/23 Did you have a dental visit in the last 12 months?: No Did you have a dental problem in the last 6 months where you did not have access to dental care?: No Was dental information given to patient?: No HPI 9m Follow up/Med review HPI Details Pt is a diabetic, on a statin. A1C in office today is 13.7. Due for microalbumin, will order. Denies polyuria, does report polydipsia and severe neuropathy. Pt denies any signs and symptoms of hypoglycemia and does know how to correct it. Pt reports that he does not take his insulin regularly. Educated on the importance of taking his meds as prescribed, along with dangers, including . Will have pt schedule an appointment with nurse navigator for sensor/meter education. [facility] Medical History SILVANO (acute kidney injury) Hyperglycemia due to diabetes mellitus Coronary artery disease Paresthesias with subjective weakness CHF (congestive heart failure) Hematemesis GI bleed STEMI (ST elevation myocardial infarction) Uncontrolled diabetes mellitus HLD (hyperlipidemia) Diabetes Essential (primary) hypertension Unspecified asthma, uncomplicated Surgical History H/O heart artery stent Family History Mother No problems noted. Father No problems noted. Social History Household Members: None Caregiver staying overnight: No Housing: Apartment Do you presently have visiting nurse or other home services: No Alcohol intake: former Patient Tobacco Use Status: Former Tobacco user e-Cigarette/Vaping Use: Never Used Second Hand Smoke Exposure: No Substance Use Type: Former Substance User Advance Directives Date on File: 08/02/21 service: No Current occupational status: disabled Cognitive needs: No Hearing needs: No Vision needs: No Review of Systems Const Reports as per HPI Physical exam (Primary Care) Vital Signs: Last Vital Signs Pulse 84 08/03/23 10:33 BP 130/88 08/03/23 10:33 Pulse Ox 99 08/03/23 10:33 Oxygen Delivery Method Room Air 08/03/23 10:33 BMI result Body Mass Index 25.7 Tobacco/Smoking Status: Tobacco use Status Tobacco use date assessed 08/03/23 08/03/23 10:42 Patient Tobacco Use Status Former Tobacco user 08/03/23 10:31 e-Cigarette/Vaping Use Never Used 08/03/23 10:31 Const Other: uses a cane General: cooperative Orientation/consciousness: patient oriented x3 Resp Effort & Inspection: normal respiratory effort Auscultation: clear to auscultation bilaterally Cardio Rate: regular rate Rhythm: regular rhythm Heart sounds: S1 normal heart sound present and S2 normal heart sound present Neuro General: patient oriented x3 Extrem Other: bilat feet: no sensation with use of monofilament Psych Appearance: grossly normal Mental Status: mental status grossly normal Speech and movement: Normal speech and movement present Affect: normal affect Attitude: cooperative Thought process: Normal thought process present Thought content: Normal thought content present Insight: Good insight present (Psych) Judgement: Good judgement present (Psych) Results AMB Hemoglobin A1c AMB Hemoglobin A1c 13.7 % Last Edit by Vilma Jensen CMA on 08/03/23 11:06 Results Reviewed Results Reviewed: Laboratory Last Values Hgb A1c (Clinic) 13.7 % (4.0-6.0) H 08/03/23 11:05 Assessment and Plan Assessment & Plan (1) Uncontrolled diabetes mellitus: Code(s): E11.65 - Type 2 diabetes mellitus with hyperglycemia Plan The patient agreed to the use of a medical collections representative for this encounter. Scribed for ROSEMARY Kiser by Jasmin Garrison medical collections representative, on 08/03/2023 at 11:00 EST. Orders: Orders AMB Hemoglobin A1c Today E11.65 - Type 2 diabetes mellitus with hyperglycemia Coding Level of Care Code Est Pt Level 3 (72560) Diagnoses Uncontrolled diabetes mellitus E11.65
[2023-08-03 10:33] VITALS: BP 130/88; PULSE 84; O2SAT 99; BMI 25.7
== END 2023-08-03 12:10 | disposition home or self-care (01) ==
PROVIDERS: PCP Nurse Practitioner Family; Visit Provider Nurse Practitioner Family
DX: E11.65 Type 2 diabetes mellitus with hyperglycemia (principal)
CPT/HCPCS: 83036; 99213

== ENCOUNTER 2024-04-03 11:07 | Outpatient (AMB) | payer MEDICARE, MEDICAID, SELFPAY ==
[2024-04-03 11:09] VITALS: BP 126/78; PULSE 83; O2SAT 97; BMI 24.7
--- NOTE | 2024-04-03 11:09 | MHC.PC.OV ---
Vital Signs 04/03/24 11:09 Height 5 ft 7 in Weight 158 lb BMI 24.7 BP 126/78 Blood Pressure Location Lt brachial Position Sitting Pulse 83 Pulse Source Pulse Oximeter Pulse Oximetry (%) 97 Oxygen Delivery Method Room Air Intake Visit Reasons: DM and lab followup Intake Note: pt is here for follow up regarding DM Business Analysis Specialist Required: No Accompanied by: Self / Same As Patient Allergies No Known Allergies Allergy (Verified 04/03/24 11:10) Medication List - Last Reconciled 04/03/24 by GURU Guy- aspirin (Aspirin Childrens) 81 mg PO DAILY atorvastatin 40 mg PO BEDTIME 90 days blood sugar diagnostic (Good TechnologyTouch Verio test strips) Test blood sugar 3 times per day blood-glucose meter (Boost My Ads Verio Flex Meter) As directed clopidogrel 75 mg PO DAILY empagliflozin 25 mg PO DAILY gabapentin 300 mg PO TID 30 days insulin glargine (Lantus U-100 Insulin) 30 units (0.3 mL) subcut DAILY insulin lispro (Humalog KwikPen (U-100) Insulin) Sliding scale / 8 units 3 times daily before meals max lancets (Good TechnologyTouch Delica Plus Lancet) Test blood sugar 3 times per day metformin 500 mg PO DAILY 90 days metoprolol succinate ER 37.5 mg (1.5 x 25 mg) PO DAILY 90 days montelukast 10 mg PO DAILY nitroglycerin 0.4 mg sublingual Q5M PRN 30 days pantoprazole 40 mg PO DAILY spironolactone 25 mg See Protocol PO DAILY Tobacco use date assessed: 08/03/23 Fall risk assessment: No Falls in past year Last assessed Fall Risk: 04/03/24 Dental Screening Dental Screen Date: 08/03/23 HPI DM and lab followup HPI Details Pt is a diabetic, on a statin. A1C in office today is 11.8. Due for microalbumin, will order. Denies polyuria, polydipsia, does report neuropathy. Pt denies any signs and symptoms of hypoglycemia and does know how to correct it. Pt has not been taking his insulin daily. His diet is very poor. Will refill lantus. Will increase jardiance from 10mg to 25mg. Will decrease metformin from 1000mg to 500mg due to GI upset. Pt reports that he was supposed to receive a glucose sensor but has not received this, will check on this. Will increase gabapentin from 100mg tid to 200mg tid for 1 week and then increase to 300mg tid. Educated pt on the correlation between uncontrolled diabetes and neuropathy. Pt smoked 1 pack per day from age 12 until 2019. Will refer for low-dose CT. Pt has not seen an eye doctor in quite some time, will refer. Encouraged pt to have labs drawn. Encouraged pt to get his vaccinations at his pharmacy. [facility] Medical History SILVANO (acute kidney injury) Hyperglycemia due to diabetes mellitus Coronary artery disease Paresthesias with subjective weakness CHF (congestive heart failure) Hematemesis GI bleed STEMI (ST elevation myocardial infarction) Uncontrolled diabetes mellitus HLD (hyperlipidemia) Diabetes Essential (primary) hypertension Unspecified asthma, uncomplicated Surgical History H/O heart artery stent Family History Mother No problems noted. Father No problems noted. Social History Household Members: None Caregiver staying overnight: No Housing: Apartment Do you presently have visiting nurse or other home services: No Alcohol intake: former Patient Tobacco Use Status: Former Tobacco user e-Cigarette/Vaping Use: Never Used Second Hand Smoke Exposure: No Substance Use Type: Former Substance User Advance Directives Date on File: 08/02/21 service: No Current occupational status: disabled Cognitive needs: No Hearing needs: No Vision needs: No Questionnaire PHQ-9 Over the last 2 weeks, how often have you been bothered by any of the following problems? 1. Little interest or pleasure in doing things: more than half the days 2. Feeling down, depressed, or hopeless: more than half the days 3. Trouble falling or staying asleep, or sleeping too much: nearly every day 4. Feeling tired or having little energy: nearly every day 5. Poor appetite or overeating: not at all 6. Feeling bad about yourself - or that you are a failure or have let yourself or your family down: several days 7. Trouble concentrating on things, such as reading the newspaper or watching television: not at all 8. Moving or speaking so slowly that other people could have noticed. Or the opposite - being so fidgety or restless that you have been moving around a lot more than usual: not at all 9. Thoughts that you would be better off or of hurting yourself in some way: not at all Total score: 11 Depression Screening Interpretation: Positive (denies any SI or HI) Depression Screening Follow-up: Existing condition and Declines treatment Depression Screening Done: Yes 34254 - PHQ-9 Billing: Yes Source: Developed by Drs. Darryl Fink, Lisa Tabares, Karri Batista and colleagues, with an educational regla from [facility]. Thrive Questionnaire Date Thrive assessed: 04/03/24 I am a: Parent/Caregiver What is your living situation today?: I have a steady place to live Within the past 12 months, did the food you bought not last and you didn't have the money to get more?: Never true Within the past 12 months, did you worry whether your food would run out before you got money to buy more?: Never true Do you have trouble paying for medicines?: I choose not to answer this question Do you have trouble getting transportation to medical appointments?: Yes Do you have trouble paying your heating and electricity bill?: No Do you have trouble taking care of your child, family member or friend?: No Do you have trouble with day-to-day activities such as bathing, preparing meals, shopping, managing finances, etc.?: Yes Are you interested in more education?: No Please select the resources that you would like help with: Transportation Currently or been in a relationship where the following occur: No concerns reported THRIVE Score: 1 AUDIT C Alcohol Use Questionnaire (AUDIT-C) 1. How often do you have a drink containing alcohol?: Never 3. How often do you have six or more drinks on one occasion?: Never Total Score: 0 Score Reviewed/Action Taken: Yes ELISSA-7 AMB Questionnaire ELISSA-7 Date ELISSA - 7 assessed: 04/03/24 Feeling nervous, anxious, or on edge: 1 = Several days Not being able to stop or control worryin = Not at all Worrying too much about different things: 0 = Not at all Trouble relaxin = Not at all Being so restless that it is hard to sit still: 0 = Not at all Becoming easily annoyed or irritable: 0 = Not at all Feeling afraid as if something awful might happen: 1 = Several days Total ELISSA-7 score (0-4 normal; 5-9 mild; 10-14 moderate; 15-21 severe): 2 Source: Developed by Drs. Darryl Fink, Lisa Tabares, Karri Batista and colleagues, with an educational regla from [facility]. ELISSA-7 Assessment Billing ELISSA-7 Assessment Tool: ELISSA-7 Assessment 72373 Review of Systems Const Reports as per HPI Physical exam (Primary Care) Vital Signs: Last Vital Signs Pulse 83 04/03/24 11:09 BP 126/78 04/03/24 11:09 Pulse Ox 97 04/03/24 11:09 Oxygen Delivery Method Room Air 04/03/24 11:09 BMI result Body Mass Index 24.7 Tobacco/Smoking Status: Tobacco use Status Tobacco use date assessed 08/03/23 04/03/24 11:10 Patient Tobacco Use Status Former Tobacco user 04/03/24 11:10 e-Cigarette/Vaping Use Never Used 04/03/24 11:10 PHQ-9: PHQ-9 Score PHQ-9: Total score 11 04/03/24 11:36 Depression Screening Interpretation: Positive (denies any SI or HI) Depression Screening Follow-up: Existing condition and Declines treatment Thrive Assessment: Date of Thrive Assessment Date Thrive assessed 04/03/24 04/03/24 11:10 Currently or been in a relationship where the following occur: No concerns reported Const Other: using cane General: cooperative Orientation/consciousness: patient oriented x3 Resp Effort & Inspection: normal respiratory effort Auscultation: diminished lung sounds Cardio Rate: regular rate Rhythm: regular rhythm Heart sounds: S1 normal heart sound present and S2 normal heart sound present Neuro General: patient oriented x3 Extrem Other: bilat feet: no sensation with use of monofilament, no sensation up to knees, bluish hue to bilat feet, though intact Psych Appearance: grossly normal Mental Status: mental status grossly normal Speech and movement: Normal speech and movement present Affect: normal affect Attitude: cooperative Thought process: Normal thought process present Thought content: Normal thought content present Insight: Good insight present (Psych) Judgement: Fair judgement present (Psych) Coding Level of Care Code Est Pt Level 3 (41076) Diagnoses Smoker F17.200 Uncontrolled diabetes mellitus E11.65 Neuropathy G62.9 Screening for prostate cancer Z12.5 Additional Codes ELISSA-7 Assessment Billing - ELISSA-7 Assessment Tool: ELISSA-7 Assessment 72763 ([id number]) Assessment & Plan Assessment & Plan (1) Smoker: Code(s): F17.200 - Nicotine dependence, unspecified, uncomplicated Category: Social Hx Plan: referred for LDCT (2) Uncontrolled diabetes mellitus: Code(s): E11.65 - Type 2 diabetes mellitus with hyperglycemia Category: Medical Plan: uncontrolled, will send sensor and transmitter (3) Neuropathy: Code(s): G62.9 - Polyneuropathy, unspecified Category: Medical Plan: going from gabapentin 100mg tid to 200mg tid, then to 300tid for severe neuropathy. (4) Screening for prostate cancer: Code(s): Z12.5 - Encounter for screening for malignant neoplasm of prostate Category: Medical Plan: psa ordered Plan The patient agreed to the use of a medical doctor md/medical director for this encounter. Scribed for GURU Kiser-BC by Jasmin Garrison medical doctor md/medical director, on 04/03/2024 at 11:35 EST. Orders: Orders AMB Hemoglobin A1c Today Z13.9 - Encounter for screening, unspecified Prostate Specific Antigen Scr Today Z12.5 - Encounter for screening for malignant neoplasm of prostate Referrals Lung Cancer Screening Referral F17.200 - Nicotine dependence, unspecified, uncomplicated Ophthalmology Referral E11.65 - Type 2 diabetes mellitus with hyperglycemia Cologuard Test Z12.11 - Encounter for screening for malignant neoplasm of colon, Z12.12 - Encounter for screening for malignant neoplasm of rectum Medications: Changed From metformin 1,000 mg PO DAILY 90 days 90 tabs 1RF To metformin 500 mg PO DAILY 90 days 90 tabs 1RF From empagliflozin (Jardiance) 10 mg PO DAILY 90 tabs 1RF To empagliflozin 25 mg PO DAILY 90 tabs 1RF From gabapentin 100 mg PO TID 90 caps 2RF To gabapentin 300 mg PO TID 30 days 90 caps 2RF Refilled insulin glargine (Lantus U-100 Insulin) 30 units (0.3 mL) subcut DAILY 10 mL 0RF spironolactone 25 mg See Protocol PO DAILY 30 tabs 0RF Discontinued insulin glargine (Lantus U-100 Insulin) Discontinued Reason: Doctor's Order 15 units (0.15 mL) subcut BEDTIME 10 mL 0RF
== END 2024-04-03 16:20 | disposition home or self-care (01) ==
PROVIDERS: PCP Nurse Practitioner Family; Visit Provider Nurse Practitioner Family
DX: Z13.9 Encounter for screening, unspecified (principal)

== ENCOUNTER → 2024-04-03 11:07 | Outpatient (BNVA) | payer MEDICARE, OTHER, SELFPAY | PROVIDERS: PCP Nurse Practitioner Family; Visit Provider Nurse Practitioner Family | DX: E11.65 Type 2 diabetes mellitus with hyperglycemia (principal); G62.9 Polyneuropathy, unspecified; F17.200 Nicotine dependence, unspecified, uncomplicated; Z71.6 Tobacco abuse counseling | CPT/HCPCS: 83036; 96127; 99212 ==